=== PATIENT | female | born 1995 | race Caucasian/White ===

== ENCOUNTER 2023-06-13 10:35 | Outpatient (OUT) | payer OTHER, SELFPAY ==
[2023-06-13 11:08] LABS: Hematocrit 42.7 % (36.0-48.0); Immature Granulocytes Abs Auto 0.02 10^3/uL (0.00-0.03); Immature Granulocytes Pct Auto 0.3 % (0.0-0.5); Lymphocytes Absolute Auto 2.4 10^3/uL (1.2-3.8); Lymphocytes Percent Auto 34.6 % (20.5-60.0); Mean Corpuscular HGB Conc 35.1 g/dL (29.9-35.2); Mean Corpuscular Hemoglobin 30.2 pg (26.7-34.0); Mean Corpuscular Volume 85.9 fL (81.0-99.0); Mean Platelet Volume 9.7 fL (9.5-13.5); Monocytes Absolute Auto 0.3 10^3/uL (0.3-0.8); Monocytes Percent Auto 4.7 % (1.7-12.0); Neutrophils Absolute Auto 4.2 10^3/uL (1.4-6.5); Neutrophils Percent Auto 60.4 % (43.0-75.0); Platelet Count 326 10^3/uL (150-450); Red Blood Count 4.97 10^6/uL (4.20-5.40); Red Cell Distribution Width 12.6 % (11.0-15.0); White Blood Count 6.9 10^3/uL (4.0-11.0)
[2023-06-13 12:20] LABS: Estimated Average Glucose 85 mg/dL; Glycohemoglobin A1C 4.6 % (4.5-6.2)
[2023-06-13 12:24] LABS: Free T4 0.79 ng/dL (0.76-1.46)
[2023-06-13 12:29] LABS: HCG Quantitative <1 mIU/mL; Thyroid Stimulating Hormone 1.064 uIU/mL (0.358-3.740)
[2023-06-14 04:07] LABS: DHEA-Sulfate 74.5 ug/dL (84.8-378.0); FSH 3.7 mIU/mL (.); Luteinizing Hormone(LH) 7.3 mIU/mL (.)
[2023-06-18 00:07] LABS: DHEA, Serum 164 ng/dL (31-701)
== END 2023-06-13 10:36 | disposition home or self-care (01) ==
PROVIDERS: Visit Provider Obstetrics & Gynecology
DX: N92.6 Irregular menstruation, unspecified (principal); N76.1 Subacute and chronic vaginitis
CPT/HCPCS: 36415; 82626; 82627; 83001; 83002; 83036; 84439; 84443; 84702; 85025

== ENCOUNTER 2024-03-10 15:53 | Outpatient (OUT) | payer OTHER, SELFPAY ==
[2024-03-10 18:02] LABS: HCG Quantitative 154 mIU/mL
== END 2024-03-10 15:54 | disposition home or self-care (01) ==
LOC: LAB 15:59
PROVIDERS: Visit Provider Obstetrics & Gynecology
DX: N92.6 Irregular menstruation, unspecified (principal)
CPT/HCPCS: 36415; 84702

== ENCOUNTER 2024-03-12 16:16 | Outpatient (OUT) | payer OTHER, SELFPAY ==
--- OUTSIDE RECORDS SUMMARY | 2024-03-12 16:24 | XMS_ITS | CCD ---
Author Organization [facility] Care Team Providers Care Customer Services Coordinator Name Role Phone CHRIS DO Unavailable Unavailable CHRIS DO Unavailable Unavailable Yonley, Fiorella L Primary Care Provider Yogildardo Fiorella L Primary Care Provider YOGILDARDO FIORELLA L Primary Care Unavailable JEREMIAH MCNAIR Attending Unavailable Yonley DO, Fiorella L Primary Care Provider Yotimiey DO Fiorella L Primary Care Provider YOLANDA HUMPHREY Referring Unavailable YONLEY, FIORELLA L Primary Care Unavailable YONLEY, FIORELLA L Referring Unavailable YONLEY, FIORELLA L Primary Care Unavailable Mary Brown Attending Unavailable Mary Brown Admitting Unavailable Yonley, Fiorella Primary Care Unavailable DO Chris Kelley Attending Unavailable Cuco Oneal Attending Unavailable Wero Britton Attending Unavailable SHANNAN HERNANDEZ Attending Unavailable SHANNAN HERNANDEZ Attending Unavailable SHANNAN HERNANDEZ Attending Unavailable Allergies Allergy Classification Reported Allergen(s) Allergy Type Date of Onset Reaction(s) Facility (14 sources) Succinylcholine Drug Allergy 08-18-19 14 [facility] Phone: (5 sources) Anesthesia S-I-60 Propensity to adverse reactions to drug 08-20-19 [facility] [place] [facility] Other Propensity to adverse reactions 09-19-19 12 Other (See Comments) [facility] Phone: (7 sources) Propofol Drug Allergy 08-20-19 20 [facility] Phone: (2 sources) Seasonal allergy Propensity to adverse reactions to substance 09-19-19 12 Other (See Comments) [facility] Phone: (1 source) Succinylcholine Drug Allergy 01-14-20 [facility] Repository (1 source) Grass; Translations: [Grass] Propensity to adverse reactions (disorder) [facility] Repository (1 source) House dust mite (Bt) RAST; Translations: [House dust mite (Bt) RAST] Propensity to adverse reactions (disorder) [facility] Repository NEGATED: Highlighted row has been ruled out! (1 source) Other Propensity to adverse reactions 09-19-19 12 Other (See Comments) [facility] Phone: Medications Current Medications Medication Drug Class(es) Dates Sig (Normalized) Sig (Original) acetaminophen 500 mg oral tablet (1 source) Start: 05-27-2021 take 1000 mg by mouth every six hours Acetaminophen Active 1000 MG PO Q6H May 27, 2021 1:00am acetaminophen 250 mg / aspirin 250 mg / caffeine 65 mg oral tablet (12 sources) Platelet Aggregation Inhibitor, Nonsteroidal Anti-inflammatory Drug, Central Nervous System Stimulant, Methylxanthine Start: 08-20-2019 take 2 tablets by mouth two times weekly as needed for headache, then take 2 tablets by mouth every twenty-four hours as needed for headache, then take 2 tablets by mouth once daily as needed for headache aspirin-acetaminop hen-caffeine (EXCEDRIN MIGRAINE) 250-250-65 MG per tablet Take 2 tablets by mouth as needed for Headaches (severe headaches) Take 2 tablets once every 24 hours (maximum: 2 tablets/day). Note: Limit use to no more than 2 days per week 28 tablet 2 08/20/2019 Active diclofenac sodium 0.01 mg/mg topical gel (3 sources) Nonsteroidal Anti-inflammatory Drug diclofenac sodium 1 % GEL Apply 2 g topically 2 times daily 0 Active docusate sodium 100 mg oral capsule (1 source) Start: 05-27-2021 take 1 capsule by mouth once daily at bedtime Docusate Sodium (Dok) 100 mg Capsule Active 100 MG PO Daily at bedtime May 27, 2021 1:00am ergocalciferol 11345 unt oral capsule (2 sources) Provitamin D2 Compound Start: 08-25-2019 End: 11-11-2019 take 1 capsule by mouth every week vitamin D (ERGOCALCIFEROL) 1.25 MG (33624 UT) CAPS capsule Take 1 capsule by mouth once a week for 12 doses 12 capsule 0 08/25/2019 11/11/2019 Active ferrous sulfate 325 mg oral tablet (1 source) Start: 05-27-2021 take 325 mg by mouth once daily Ferrous Sulfate Active 325 MG PO Daily May 27, 2021 1:00am ibuprofen 600 mg oral tablet (1 source) Nonsteroidal Anti-inflammatory Drug Start: 05-27-2021 take 600 mg by mouth every six hours Ibuprofen Active 600 MG PO Q6H May 27, 2021 1:00am naproxen 500 mg oral tablet (7 sources) Nonsteroidal Anti-inflammatory Drug Start: 07-10-2019 take 1 tablet by mouth twice daily naproxen (NAPROSYN) 500 MG tablet Take 1 tablet by mouth 2 times daily 40 tablet 0 07/10/2019 Active norethindrone 0.35 mg oral tablet (6 sources) Start: 04-13-2022 take 1 tablet by mouth once daily JENCYCLA 0.35 MG tablet take 1 tablet by mouth once daily 0 04/13/2022 Active Start: 12-22-2019 take 1 tablet by bernadette th once daily norethindrone (ORTHO MICRONOR) 0.35 MG tablet Take 1 tablet by mouth daily 84 tablet 1 12/22/2019 Active Start: 07-29-2019 take 1 tablet by bernadette th once daily norethindrone (ORTHO MICRONOR) 0.35 MG tablet Take 1 tablet by mouth daily 84 tablet 1 07/29/2019 Active pimecrolimus 10 mg/ml topical cream (5 sources) Calcineurin Inhibitor Immunosuppressant Start: 09-17-2019 pimecrolimus (ELIDEL) 1 % cream apply to LIPS DAILY UNTIL CLEAR 0 09/17/2019 Active 772-Atch-Xgetg-Omeg a3 (One-A-Day -1) 27 mg iron- 800 mcg-235 mg capsule (1 source) Start: 01-13-2021 678-Ojqk-Fomjr-Om ega3 (One-A-Day -1) 27 mg iron- 800 mcg-235 mg capsule Active 1 CAP PO Daily January 13, 2021 12:00am Vit-Fe Kfdmxvs-ME-UMA ( VITAMIN/MIN +DHA) 27-0.8-200 MG CAPS (7 sources) Start: 09-26-2020 take 1 tablet by mouth once daily Vit-Fe Hbpeoxy-JP-LLI ( VITAMIN/MIN +DHA) 27-0.8-200 MG CAPS Indications: Pelvic pain in female , Less than 8 weeks gestation of Take 1 tablet by mouth daily 30 capsule 2 09/26/2020 Active 24 hr propranolol hydrochloride 120 mg extended release oral capsule (7 sources) beta-Adrenergic Juan Start: 12-30-2019 take 1 capsule by mouth once daily propranolol (INDERAL LA) 120 MG extended release capsule Take 1 capsule by mouth daily 90 capsule 1 12/30/2019 Active Start: 08-26-2019 End: 01-13-2021 take 40 mg by mouth once daily Propranolol Discontinue d 40 MG PO Daily August 26, 2019 1:00am January 13, 2021 12:14pm Start: 07-29-2019 [facility] daily propranolol (INDERAL LA) 120 MG extended release capsule Take 1 capsule by mouth daily 30 capsule 3 07/29/2019 Active Start: 07-20-2019 End: 07-29-2019 take 1 tablet by mouth three times daily propranolol (INDERAL) 40 MG tablet Take 1 tablet by mouth 3 times daily 90 tablet 5 07/20/2019 07/29/2019 Discontinued valproate (DEPACON) 300 mg in dextrose 5 % 100 mL IVPB (1 source) Start: 07-10-2019 valproate (DEPACON) 300 mg in dextrose 5 % 100 mL IVPB 24 hr venlafaxine 37.5 mg extended release oral capsule (8 sources) Serotonin and Norepinephrine Reuptake Inhibitor Start: 02-16-2020 take 1 capsule by mouth once daily venlafaxine (EFFEXOR XR) 37.5 MG extended release capsule Take 1 capsule by mouth daily 30 capsule 0 02/16/2020 Active Start: 05-18-2019 End: 01-13-2021 venlafaxine (EFFEXOR XR) 75 MG extended release capsule TAKE 1 CAPSULE DAILY 90 capsule 0 11/15/2019 Active Completed/Discontinued Medications Medication Drug Class(es) Dates Sig (Normalized) Sig (Original) drospirenone 3 mg / ethinyl estradiol 0.02 mg oral tablet (2 sources) Progestin, Estrogen Start: 06-16-2019 End: 07-29-2019 drospirenone-ethin yl estradiol (KESHIA) 3-0.02 MG per tablet TAKE 1 TABLET DAILY 84 tablet 1 06/16/2019 07/29/2019 Discontinued (Therapy completed) eletriptan 20 mg oral tablet (2 sources) Serotonin-1b and Serotonin-1d Receptor Agonist Start: 04-23-2019 End: 07-29-2019 take 1 tablet by mouth once as needed eletriptan (RELPAX) 20 MG tablet Take 1 tablet by mouth once as needed for Migraine 12 tablet 3 04/23/2019 07/29/2019 Discontinued (LIST CLEANUP) gadoteridol (PROHANCE) injection 15 mL (1 source) Start: 07-29-2019 End: 07-29-2019 gadoteridol (PROHANCE) injection 15 mL Iopamidol (1 source) Radiographic Contrast Agent Start: 07-10-2019 End: 07-10-2019 iopamidol (ISOVUE-370) 76 % injection 100 mL labetalol hydrochloride 200 mg oral tablet (1 source) beta-Adrenergic Juan Start: 05-24-2021 End: 05-27-2021 take 200 mg by mouth three times daily Labetalol Discontinued 200 MG PO Three times daily May 24, 2021 1:00am May 27, 2021 2:31pm 50 ml magnesium sulfate 40 mg/ml injection (1 source) Start: 07-10-2019 End: 07-10-2019 magnesium sulfate 2 g in 50 mL IVPB premix 2 ml ondansetron 2 mg/ml injection (5 sources) Serotonin-3 Receptor Antagonist Start: 07-10-2019 End: 07-10-2019 ondansetron (ZOFRAN) injection 4 mg Start: 07-10-2019 take 1 tablet by bernadette th every eight hours as needed for nausea ondansetron (ZOFRAN ODT) 4 MG disintegrating tablet Take 1 tablet by mouth every 8 hours as needed for Nausea or Vomiting 10 tablet 0 07/10/2019 Active microencapsulated potassium chloride 15 meq extended release oral tablet (1 source) Start: 05-26-2018 End: 07-10-2019 potassium chloride (KLOR-CON M) 15 MEQ extended release tablet Indications: Hypokalemia Take 2 tablets by mouth 2 times daily 120 tablet 0 05/26/2018 07/10/2019 Discontinued (LIST CLEANUP) 50 ml sodium chloride 9 mg/m l injection (2 sources) Start: 09-26-2020 End: 09-26-2020 0.9 % sodium chloride bolus Start: 07-10-2019 End: 07-10-2019 0.9 % sodium chloride bolus Problems Active Problems Problem Classification Problem Date Documented Date Episodic/Chronic Abdominal pain (5 sources) Lower abdominal pain; Translations: [Abdominal pain in ] Episodic Allergic reactions (2 sources) Urticaria; Translations: [Urticaria, unspecified] Onset: 07-16-2022 Episodic Asthma (14 sources) Exercise-induced asthma; Translations: [Exercise induced bronchospasm] Onset: 06-11-2011 04-30-2017 Chronic Headache; including migraine (16 sources) Migraine; Translations: [Migraine with aura] Onset: 09-24-2011 04-30-2017 Chronic Malaise and fatigue (14 sources) Fatigue; Translations: [Physical deconditioning] Onset: 10-09-2011 Resolved: 10-27-2019 10-19-2019 Episodic Menstrual disorders (1 source) Amenorrhea; Translations: [Amenorrhea] Chronic Mood disorders (14 sources) Depressive disorder; Translations: [Depression] Onset: 09-24-2011 06-02-2018 Chronic Nutritional deficiencies (1 source) Vitamin D deficiency; Translations: [Vitamin D deficiency] Chronic Osteoarthritis (13 sources) Osteoarthritis; Translations: [Unspecified osteoarthritis, unspecified site] Onset: 10-19-2019 Resolved: 10-27-2019 10-19-2019 Chronic Other circulatory disease (13 sources) Erythromelalgia; Translations: [Erythromelalgia] Onset: 10-19-2019 Resolved: 10-27-2019 10-19-2019 Chronic Other and delivery including normal (4 sources) First trimester ; Translations: [] 05-26-2021 Episodic Residual codes; unclassified (2 sources) Other general symptoms and signs; Translations: [Suspected COVID-19 virus infection] Episodic Thyroid disorders (1 source) Iodine-deficiency related diffuse (endemic) goiter; Translations: [Iodine-deficiency related diffuse (endemic) goiter] Onset: 07-23-2022 Chronic Unclassified (1 source) Patient encounter status; Translations: [Screening for cardiovascular condition] Unclassified (1 source) Z39.1 - Encounter for care and examination of lactating mother; Translations: [Z39.1 - Encounter for care and examination of lactating mother] Onset: 05-28-2021 Viral infection (1 source) Viral disease; Translations: [Viral illness] Episodic Past or Other Problems Problem Classification Problem Date Documented Da te Episodic/Chronic Blindness and vision defects (1 source) Blurring of visual image Episodic Headache; including migraine (20 sources) Headache; Translations: [Chronic headache disorder] Onset: 08-06-2008 Resolved: 05-15-2017 05-15-2017 Episodic Nonmalignant breast conditions (3 sources) Mastodynia of left breast; Translations: [Mastodynia] Onset: 01-20-2013 Resolved: 05-15-2017 05-15-2017 Episodic Nonmalignant breast conditions (11 sources) Mastodynia of left breast; Translations: [Pain of left breast] Onset: 01-20-2013 Resolved: 05-15-2017 05-15-2017 Other connective tissue disease (2 sources) Pain in unspecified hand; Translations: [Pain in unspecified hand] Onset: 05-07-2017 Episodic Other gastrointestinal disorders (14 sources) Irritable bowel syndrome; Translations: [Mixed irritable bowel syndrome] Onset: 01-01-2013 Resolved: 05-15-2017 05-15-2017 Chronic Other nervous system disorders (1 source) Numbness Episodic Other skin disorders (14 sources) Mass of soft tissue; Translations: [Other specified soft tissue disorders] Onset: 09-01-2013 Resolved: 05-15-2017 05-15-2017 Episodic Other skin disorders (13 sources) Mass of axilla; Translations: [Lump of axilla, left] Onset: 01-20-2013 Resolved: 05-15-2017 05-15-2017 Episodic Other skin disorders (1 source) Localized swelling, mass and lump, left upper limb; Translations: [Localized superficial swelling, mass, or lump] Onset: 01-20-2013 Resolved: 05-15-2017 05-15-2017 Episodic Residual codes; unclassified (13 sources) Physical deconditioning; Translations: [Physical deconditioning] Onset: 10-09-2011 Resolved: 05-15-2017 05-15-2017 Episodic Results Test Name Value Interpretation Reference Range Facility Family Medicine Office/Clini c Noteon 11-27-2022 Family Medicine Office/Clinic Note Chief Complaint EST sinus infection HPI Staff 27 year old female presents with possible sinus infection symptoms have been present for? been about a week and a half and keeps getting worse fever?no subjective fever? chills?yes Rigors? body aches?yes runny nose?yes sore throat?yes new olfactory and taste disorder? headache?yes fatigue?yes cough?ye wheezing?no SOB?yes chest pain/tightness?no nausea or vomiting?no abdominal pain?no diarrhea?yes ear pain/pressure?no no smoke or vape History of Present Illness I have reviewed and verified the staff HPI to be accurate for this encounter. Portions of this record have been created with voice recognition software. Occasional wrong-word or ?bjokh-e-kwym? substitutions may have occurred due to the inherent limitations of voice recognition software. 27 yo female presents today with cc of nasal congestion rhinorrhea dry cough present times a week and a half. Denies fevers states chills no body aches sore throat initially which has resolved headaches with nasal congestion believes she has a sinus infection today. was sick with similar symptoms however he is better and she is not. She has no other concerns at this time. Review of Systems PHQ Score Initial Depression Screen Score: 0 Physical Exam Vitals & Measurements T: 37 ?C(Oral) HR: 88(Peripheral) BP: 118/84 SpO2: 99% HT: 67 in HT: 170 cm WT: 66 kg WT: 145.2 lb BMI: 22.84 General: Well developed, well nourished, in no acute distress Eyes: not assessed Ears: No deformity or lesion of external ear. Canals and TM appear normal bilaterally. TM?s intact, not inflamed, with normal light reflex. Hearing grossly normal to conversational speech Nose: moderate nasal mucosa inflammation and edema sinus pressure with palpation of frontal maxillary sinuses. Mouth: Mucous membranes moist. Normal oropharynx, and posterior pharynx without lesions or exudates. Tongue normal Neck: no adenopathy Lungs: clear to auscultation throughout, no wheezing, no rales. No respiratory distress Cardio: regular rate and rhythm, no murmur Abdomen: not assessed Musculoskeletal: not assessed Extremity: not assessed Neurologic: not assessed Skin: No rashes, ulcerations, or suspicious lesions Mental Status: Alert and oriented x3. Normal mood and affect Assessment/Plan 1. Sinusitis (J32.9: Chronic sinusitis, unspecified) Given duration of symptoms and exam, will cover for sinusitis with augmentin. Finish entire course. Fluids/rest, PRN tylenol/ibuprofen for pain and/or fever encouraged. May use sudafed or mucinex for symptomatic tx. Follow up with PCP if not improving over next 5-7 days with ATB or significantly worsening. Patient and/or parent verbalized understanding of treatment plan. Ordered: amoxicillin-clavulanat e, 1 tab(s), Oral, q8hr for 7 day(s), 21 tab(s), Refill(s) 0, [id number], 170, cm, 11/27/22 17:29:00 EDT, Height/Length Dosing, 66, kg, 11/27/22 17:29:00 EDT, Weight Dosing Follow-up With When Contact Information [place] [address]- Additional Instructions: Patient Education Sinusitis, Adult Problem List/Past Medical History Ongoing BMI 26.0-26.9,adult JAMES - Generalized anxiety disorder Non-smoker Post-traumatic stress disorder Historical ASTHMA Chronic headache disorder Chronic migraine without aura frequent urination Lipoma Procedure/Surgical History adnoidectomy, section, fatty tumor removed from foot, Tonsillectomy. Medications Augmentin 500 mg-125 mg Tab, 1 tab(s), Oral, q8hr Allergies Grass (skin irritation) House dust mite (Bt) RAST Social History Alcohol - Low Risk, 05/17/2018 Current, Wine, Liquor, 1-2 times per year, Previous treatment: None. Alcohol use interferes with work or home: No. Drinks more than intended: No. Others hurt by drinking: No. Ready to change: No. 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 Previous employment/school: [employer]. Activity level: Occasional physical work. Highest education level: Some college. Operates hazardous equipment: No. Workplace hazards: Hazardous materials., 11/17/2018 Exercise Exercise duration: 60. Exercise frequency: 3-4 times/week. Exercise type: Walking., 11/17/2018 Home/Environment Lives with Spouse. Living situation: Home/Independent. Alcohol abuse in household: No. Substance abuse in household: No. Smoker in household: No. Injuries/Abuse/Neglect in household: No. Feels unsafe at home: No. Safe place to go: No. Agency(s)/Others notified: No., 11/17/2018 Nutrition/Health Regular, Caffeine intake amount: Pop- 2-3. Diet restrictions: None. Vitamin/Supplements: none. Wants to lose weight: No. Sleeping concerns: Yes., 11/17/2018 Sexual Straight or heterosexual Sexual orientation:. Identifies as female Gender Identity:. Sexually active: Yes. Sexually active at age 19 Years. Num (more content not included)... Normal [facility] Comment on above: Result Comment: Elec tronically Signed By: Tobi PARRY, Wero Santiago\.br\Date and Time Signed: 11/27/22 17:39 EDT Patient Educationon 11-28-19 Patient Education Infectious Disease Sinusitis, Adult Sinusitis is inflammation of your sinuses. Sinuses are hollow spaces in the bones around your face. Your sinuses are located: ? Around your eyes. ? In the middle of your forehead. ? Behind your nose. ? In your cheekbones. Mucus normally drains out of your sinuses. When your nasal tissues become inflamed or swollen, mucus can become trapped or blocked. This allows bacteria, viruses, and fungi to grow, which leads to infection. Most infections of the sinuses are caused by a virus. Sinusitis can develop quickly. It can last for up to 4 weeks (acute) or for more than 12 weeks (chronic). Sinusitis often develops after a cold. What are the causes? This condition is caused by anything that creates swelling in the sinuses or stops mucus from draining. This includes: ? Allergies. ? Asthma. ? Infection from bacteria or viruses. ? Deformities or blockages in your nose or sinuses. ? Abnormal growths in the nose (nasal polyps). ? Pollutants, such as chemicals or irritants in the air. ? Infection from fungi (rare). What increases the risk? You are more likely to develop this condition if you: ? Have a weak body defense system (immune system). ? Do a lot of swimming or diving. ? Overuse nasal sprays. ? Smoke. What are the signs or symptoms? The main symptoms of this condition are pain and a feeling of pressure around the affected sinuses. Other symptoms include: ? Stuffy nose or congestion. ? Thick drainage from your nose. ? Swelling and warmth over the affected sinuses. ? Headache. ? Upper toothache. ? A cough that may get worse at night. ? Extra mucus that collects in the throat or the back of the nose (postnasal drip). ? Decreased sense of smell and taste. ? Fatigue. ? A fever. ? Sore throat. ? Bad breath. How is this diagnosed? This condition is diagnosed based on: ? Your symptoms. ? Your medical history. ? A physical exam. ? Tests to find out if your condition is acute or chronic. This may include: ? Checking your nose for nasal polyps. ? Viewing your sinuses using a device that has a light (endoscope). ? Testing for allergies or bacteria. ? Imaging tests, such as an MRI or CT scan. In rare cases, a bone biopsy may be done to rule out more serious types of fungal sinus disease. How is this treated? Treatment for sinusitis depends on the cause and whether your condition is chronic or acute. ? If caused by a virus, your symptoms should go away on their own within 10 days. You may be given medicines to relieve symptoms. They include: ? Medicines that shrink swollen nasal passages (topical intranasal decongestants). ? Medicines that treat allergies (antihistamines). ? A spray that eases inflammation of the nostrils (topical intranasal corticosteroids). ? Rinses that help get rid of thick mucus in your nose (nasal saline washes). ? If caused by bacteria, your health care provider may recommend waiting to see if your symptoms improve. Most bacterial infections will get better without antibiotic medicine. You may be given antibiotics if you have: ? A severe infection. ? A weak immune system. ? If caused by narrow nasal passages or nasal polyps, you may need to have surgery. Follow these instructions at home: Medicines ? Take, use, or apply wmcl-xlr-[id number] and prescription medicines only as told by your health care provider. These may include nasal sprays. ? If you were prescribed an antibiotic medicine, take it as told by your health care provider. Do not stop taking the antibiotic even if you start to feel better. Hydrate and humidify ? Drink enough fluid to keep your urine pale yellow. Staying hydrated will help to thin your mucus. ? Use a cool mist humidifier to keep the humidity level in your home above 50%. ? Inhale steam for 10?15 minutes, 3?4 times a day, or as told by your health care provider. You can do this in the bathroom while a hot shower is running. ? Limit your exposure to cool or dry air. Rest ? Rest as much as possible. ? Sleep with your head raised (elevated). ? Make sure you get enough sleep each night. General instructions ? Apply a warm, moist washcloth to your face 3?4 times a day or as told by your health care provider. This will help with discomfort. ? Wash your hands often with soap and water to reduce your exposure to germs. If soap and water are not available, use hand plastic eye technician. ? Do not smoke. Avoid being around people who are smoking (secondhand smoke). ? Keep all follow-up visits as told by your health care provider. This is important. Contact a health care provider if: ? You have a fever. ? Your symptoms get worse. ? Your symptoms do not improve within 10 days. Get help right away if: ? You have a severe headache. ? You have persistent vomiting. ? You have severe pain or swell (more content not included)... Normal [facility] CBC with Diffon 07-23-2022 Abs. Basophil 0.00 k/uL Normal 0.0-0.2 [facility] Comment on above: Performed By: #### C P, TSHX, CDP #### [facility] [address] [place] [address] Animal Attendant: Cole Magaña MD Abs.Neutrophil (Seg) 2.90 k/uL Normal 2.5-7.0 [facility] Comment on above: Performed By: #### C P, TSHX, CDP #### [facility] [address] [place] [address] Animal Attendant: Cole Magaña MD Auto Diff Performed YES Normal [facility] Comment on above: Performed By: #### C P, TSHX, CDP #### [facility] [address], [place] [id number] Animal Attendant: Cole Magaña MD Basophils/100 WBC (Bld) 0 % Normal 0-2 [facility] Comment on above: Performed By: #### C P, TSHX, CDP #### [facility] [address] [place] [id number] Animal Attendant: Cole Magaña MD Eosinophils (Bld) [#/Vol] 0.00 10*3/uL Normal 0.0-0.4 [facility] Comment on above: Performed By: #### C P, TSHX, CDP #### [facility] [address] [place] [address] Animal Attendant: Cole Magaña MD Eosinophils/100 WBC (Bld) 0 % Normal 0-5 [facility] Comment on above: Performed By: #### C P, TSHX, CDP #### [facility] [address] [phone] Animal Attendant: oCle Magaña MD Erythrocyte distribution width (RBC) [Ratio] 13.7 % Normal 12.1-15.2 [facility] Comment on above: Performed By: #### C P, TSHX, CDP #### [facility] [address] [phone] Animal Attendant: Cole Magaña MD Hematocrit (Bld) [Volume fraction] 40.0 % Normal 36-46 [facility] Comment on above: Performed By: #### C P, TSHX, CDP #### [facility] [address] [phone] Animal Attendant: Cole Magaña MD Hemoglobin (Bld) [Mass/Vol] 13.4 g/dL Normal 12.0-16.0 [facility] Comment on above: Performed By: #### C P, TSHX, CDP #### [facility] [address] [phone] Animal Attendant: Cole Magaña MD Lymphocytes (Bld) [#/Vol] 2.30 10*3/uL Normal 1.0-4.8 [facility] Comment on above: Performed By: #### C P, TSHX, CDP #### [facility] [address] [place], [place] [phone] Animal Attendant: Cole Magaña MD Lymphocytes/100 WBC (Bld) 42 % High 15-40 [facility] Comment on above: Performed By: #### C P, TSHX, CDP #### [facility] [address] [place] [address] Animal Attendant: Cole Magaña MD MCH (RBC) [Entitic mass] 29.5 pg Normal 26-34 [facility] Comment on above: Performed By: #### C P, TSHX, CDP #### [facility] [address] [phone] Animal Attendant: Cole Magaña MD MCHC (RBC) [Mass/Vol] 33.6 g/dL Normal 31-37 [facility] Comment on above: Performed By: #### C P, TSHX, CDP #### [facility] [address] [place] [address] Animal Attendant: Cole Magaña MD MCV (RBC) [Entitic vol] 88.0 fL Normal 80-100 [facility] Comment on above: Performed By: #### C P, TSHX, CDP #### [facility] [address] [place] [address] Animal Attendant: Cole Magaña MD Monocytes (Bld) [#/Vol] 0.30 10*3/uL Normal 0.0-1.0 [facility] Comment on above: Performed By: #### C P, TSHX, CDP #### [facility] [address] [place] [address] Animal Attendant: Cole Magaña MD Monocytes/100 WBC (Bld) 5 % Normal 4-8 [facility] Comment on above: Performed By: #### C P, TSHX, CDP #### [facility] [address] [place] [address] Animal Attendant: Cole Magaña MD Neutrophil (Seg) 53 % Normal 47-75 [facility] Comment on above: Performed By: #### C P, TSHX, CDP #### [facility] [address] [place] [address] Animal Attendant: Cole Magaña MD Platelets (Bld) [#/Vol] 330 10*3/uL Normal 140-450 [facility] Comment on above: Performed By: #### C P, TSHX, CDP #### [facility] [address] [place] [address] Animal Attendant: Cole Magaña MD RBC (Bld) [#/Vol] 4.55 10*6/uL Normal 4.0-5.2 [facility] Comment on above: Performed By: #### C P, TSHX, CDP #### [facility] [address] [place] [address] Animal Attendant: Cole Magaña MD WBC (Bld) [#/Vol] 5.6 10*3/uL Normal 3.5-11.0 [facility] Comment on above: Performed By: #### C P, TSHX, CDP #### [facility] [address] [place] [address] Animal Attendant: Cole Magaña MD Comp Metabolic Profon 2022 Albumin [Mass/Vol] 4.6 g/dL Normal 3.5-5.2 [facility] Comment on above: Performed By: #### C P, TSHX, CDP #### [facility] [address] [place], [place] [phone] Animal Attendant: Cole Magaña MD Alkaline Phos 69 U/L Normal 35-104 [facility] Comment on above: Performed By: #### C P, TSHX, CDP #### [facility] [address] [place], [place] [phone] Animal Attendant: Cole Magaña MD ALT [Catalytic activity/Vol] 11 U/L Normal 5-33 [facility] Comment on above: Performed By: #### C P, TSHX, CDP #### [facility] [address] [place], [place] [phone] Animal Attendant: Cole Magaña MD Anion gap [Moles/Vol] 7 mmol/L Low 9-17 [facility] Comment on above: Performed By: #### C P, TSHX, CDP #### [facility] [address] [place], [place] [phone] Animal Attendant: Cole Magaña MD AST [Catalytic activity/Vol] 13 U/L Normal <32 [facility] Comment on above: Performed By: #### C P, TSHX, CDP #### [facility] [address] [place], [place] [phone] Animal Attendant: Cole Magaña MD Bilirubin [Mass/Vol] 0.8 mg/dL Normal 0.3-1.2 [facility] Comment on above: Performed By: #### C P, TSHX, CDP #### [facility] [address] [place], [place] [phone] Animal Attendant: Cole Magaña MD BUN/CRE Ratio 23 High 9-20 [facility] Comment on above: Performed By: #### C P, TSHX, CDP #### [facility] [address] [place], [place] [phone] Animal Attendant: Cole Magaña MD Calcium [Mass/Vol] 9.4 mg/dL Normal 8.6-10.4 [facility] Comment on above: Performed By: #### C P, TSHX, CDP #### [facility] [address] [place], [place] [phone] Animal Attendant: Cole Magaña MD Chloride [Moles/Vol] 109 mmol/L High 98-107 [facility] Comment on above: Performed By: #### C P, TSHX, CDP #### [facility] [address] [place], [place] [phone] Animal Attendant: Cole Magaña MD CO2 [Moles/Vol] 28 mmol/L Normal 20-31 [facility] Comment on above: Performed By: #### C P, TSHX, CDP #### [facility] [address] [place] [address] Animal Attendant: Cole Magaña MD Creatinine [Mass/Vol] 0.48 mg/dL Low 0.50-0.90 [facility] Comment on above: Performed By: #### C P, TSHX, CDP #### [facility] [address] [place], [place] [phone] Animal Attendant: Cole Magaña MD GFR/1.73 sq M.predicted among non-blacks MDRD (S/P/Bld) [Vol rate/Area] mL/min/{1.73_m2} Normal >60 [facility] Comment on above: Result Comment: Effective Apr 09, 2022 These results are not intended for use in patients <18 years of age. eGFR results are calculated without a race factor using the 2020 CKD-EPI equation. Careful clinical correlation is recommended, particularly when comparing to results calculated using previous equations. The CKD-EPI equation is less accurate in patients with extremes of muscle mass, extra-renal metabolism of creatine, excessive creatine ingestion, or following therapy that affects renal tubular secretion. Performed By: #### C P, TSHX, CDP #### [facility] [address] [place], [place] [phone] Animal Attendant: Cole Magaña MD Glucose [Mass/Vol] 88 mg/dL Normal 70-99 [facility] Comment on above: Performed By: #### C P, TSHX, CDP #### [facility] [address] [phone] Animal Attendant: Cole Magaña MD Potassium [Moles/Vol] 4.0 mmol/L Normal 3.7-5.3 [facility] Comment on above: Performed By: #### C P, TSHX, CDP #### [facility] [address] [place] [address] Animal Attendant: Cole Magaña MD Protein [Mass/Vol] 7.5 g/dL Normal 6.4-8.3 [facility] Comment on above: Performed By: #### C P, TSHX, CDP #### [facility] [address] [place] [address] Animal Attendant: Cole Magaña MD Sodium [Moles/Vol] 144 mmol/L Normal 135-144 [facility] Comment on above: Performed By: #### C P, TSHX, CDP #### [facility] [address] [phone] Animal Attendant: Cole Magaña MD Urea nitrogen [Mass/Vol] 11 mg/dL Normal 6-20 [facility] Comment on above: Performed By: #### C P, TSHX, CDP #### [facility] [address] [place] [address] Animal Attendant: Cole Magaña MD TSH w/reflex to FT4on 2022 Thyroid Stim. Horm. 0.93 uIU/mL Normal 0.30-5.00 [facility] Comment on above: Performed By: #### C P, TSHX, CDP #### [facility] [address] [phone] Animal Attendant: Cole Magaña MD Food, Comprehensiveon 2022 Barley IgE <0.10 Normal 0.00-0.34 [facility] Comment on above: Performed By: #### I FOODC #### [address] [address] Animal Attendant: Gurpreet Wei MD Beef IgE <0.10 Normal 0.00-0.34 [facility] Comment on above: Performed By: #### I FOODC #### [address] [address] Animal Attendant: Guprreet Wei MD Cabbage IgE <0.10 Normal 0.00-0.34 [facility] Comment on above: Performed By: #### I FOODC #### [address] [address] Animal Attendant: Gurpreet Wei MD Carrot IgE <0.10 Normal 0.00-0.34 [facility] Comment on above: Performed By: #### I FOODC #### [address] [address] Animal Attendant: Gurpreet Wei MD Chicken IgE <0.10 Normal 0.00-0.34 [facility] Comment on above: Performed By: #### I FOODC #### [address] [address] Animal Attendant: Gurpreet Wei MD Codfish IgE <0.10 Normal 0.00-0.34 [facility] Comment on above: Performed By: #### I FOODC #### [address] [address] Animal Attendant: Gurpreet Wei MD [place] IgE <0.10 Normal 0.00-0.34 [facility] Comment on above: Performed By: #### I FOODC #### [address] [address] Animal Attendant: Gurpreet Wei MD Crab IgE <0.10 Normal 0.00-0.34 [facility] Comment on above: Performed By: #### I FOODC #### [address] [address] Animal Attendant: Gurpreet Wei MD Egg White IgE <0.10 Normal 0.00-0.34 [facility] Comment on above: Performed By: #### I FOODC #### [address] [address] Animal Attendant: Gurpreet Wei MD Grape IgE <0.10 Normal 0.00-0.34 [facility] Comment on above: Performed By: #### I FOODC #### [address] [address] Animal Attendant: Gurpreet Wei MD Lettuce IgE <0.10 Normal 0.00-0.34 [facility] Comment on above: Performed By: #### I FOODC #### [address] [address] Animal Attendant: Gurpreet Wei MD Milk (Cow) IgE <0.10 Normal 0.00-0.34 [facility] Comment on above: Performed By: #### I FOODC #### [address] [address] Animal Attendant: Gurpreet Wei MD [place] Puri IgE <0.10 Normal 0.00-0.34 [facility] Comment on above: Performed By: #### I FOODC #### [address] [address] Animal Attendant: Gurpreet Wei MD Oat IgE <0.10 Normal 0.00-0.34 [facility] Comment on above: Performed By: #### I FOODC #### [address] [address] Animal Attendant: Gurpreet Wei MD Love IgE <0.10 Normal 0.00-0.34 [facility] Comment on above: Performed By: #### I FOODC #### [address] [address] Animal Attendant: Gurpreet Wei MD Peanut IgE <0.10 Normal 0.00-0.34 [facility] Comment on above: Performed By: #### I FOODC #### [address] [address] Animal Attendant: Gurpreet Wei MD Pepper C. annuum IgE <0.10 Normal 0.00-0.34 [facility] Comment on above: Performed By: #### I FOODC #### [address] [address] Animal Attendant: Gurpreet Wei MD Pork IgE <0.10 Normal 0.00-0.34 [facility] Comment on above: Performed By: #### I FOODC #### [address] [address] Animal Attendant: Gurpreet Wei MD Potato IgE <0.10 Normal 0.00-0.34 [facility] Comment on above: Performed By: #### I FOODC #### [address] [address] Animal Attendant: Gurpreet Wei MD Rice IgE <0.10 Normal 0.00-0.34 [facility] Comment on above: Performed By: #### I FOODC #### [address] [address] Animal Attendant: Gurpreet Wei MD [place] IgE <0.10 Normal 0.00-0.34 [facility] Comment on above: Performed By: #### I FOODC #### [address] [address] Animal Attendant: Gurpreet Wei MD Shrimp IgE <0.10 Normal 0.00-0.34 [facility] Comment on above: Performed By: #### I FOODC #### [facility] [employer] [address] [place] [phone] Animal Attendant: Gurpreet Wei MD Soybean IgE <0.10 Normal 0.00-0.34 [facility] Comment on above: Performed By: #### I FOODC #### [employer] [address] [place] [phone] Animal Attendant: Gurpreet Wei MD Tomato IgE <0.10 Normal 0.00-0.34 [facility] Comment on above: Performed By: #### I FOODC #### [employer] [address] [place] [phone] Animal Attendant: Gurpreet Wei MD Tuna IgE <0.10 Normal 0.00-0.34 [facility] Comment on above: Performed By: #### I FOODC #### [facility] [address] [phone] Animal Attendant: Gurpreet Wei MD Wheat IgE <0.10 Normal 0.00-0.34 [facility] Comment on above: Result Comment: ALLERGEN, INTERP, IMMUNOCAP SCORE IGE <0.10 Class 0 No significant level detected 0.10-0.34 Class 0/1 Clinical relevance undertermined 0.35 to 0.70 Class 1 Low 0.71 to 3.50 Class 2 Moderate 3.51 to 17.50 Class 3 High 17.51 to 50.00 Class 4 Very High 50.01 to 100.00 Class 5 Very High >100.00 Class 6 Very High units: kU/L Increasing ranges are reflective of increasing concentrations of allergen specific IgE. These concentrations may not correlate with the degree of clinical response or skin testing results when challenged with a specific allergen. The correlation of allergy laboratory results with the clinical history and in vivo reactivity to specific allergens is essential. A negative test may not rule out clinical allergy or even anaphylaxis. Performed By: #### I FOODC #### [employer] [address] [place] [phone] Animal Attendant: Gurpreet Wei MD Immunoglobulin E 4 IU/mL Normal <101 [facility] Comment on above: Performed By: #### I FOODC #### [employer] [address] [place] [address] Animal Attendant: MD Warren Almazan 03-29-2021 [facility] Telephone (OBGYF2) CHAPIS EVANS ([id number]) 1995 F Date Time Provider Department 03/29/21 OB [facility] OBGYF2 During your visit today, we recorded the following information about you: Latonya Mchugh RN 03/29/2021 9:48 AM Signed NIPT results received from Dr. Patricia Theodore' office. Results in scanned docs. Latonya Mchugh RN [facility] Allergies As of Date: 03/29/2021 Noted Allergy Reaction DUST 09/19/2011 16 - Unknown GRASS POLLEN 09/19/2011 16 - Unknown Date Reviewed: 10/12/2011 Reviewed by: Korey Love - Fully Assessed Reason for Visit: NIPT results [Other] Prescriptions as of 03/29/2021 - hydrocortisone 0.5 % TOPICAL cream Apply to affected area twice daily. take for 4 more days or until rash has resolved. - acetaminophen 500 mg ORAL tablet Take 2 tablets by mouth every 4 hours as needed for Pain. - levalbuterol tartrate HFA 45 mcg/actuation INHALATION inhaler Inhale 2 Puffs as instructed every 4 hours as needed (coughing or wheezing). - mineral oil/hydrophil petrolatum TOPICAL Oint Apply to affected area as needed (itching/rash). - melatonin 3 mg ORAL Tab Take 1 tablet by mouth daily at bedtime. - venlafaxine (EFFEXOR) 75 mg ORAL tablet Take 75 mg by mouth once daily. each morning - Ferrous Sulfate 325 mg (65 mg iron) ORAL tablet Take 325 mg by mouth once daily. at night - Drospirenone-Ethinyl Estradiol (LORYNA) 3-20 mg-mcg ORAL per tablet Take 1 tablet by mouth once daily. - multivitamin ORAL tablet Take 1 tablet by mouth once daily. - eletriptan (RELPAX) 20 mg ORAL tablet Take 20 mg by mouth as needed. may repeat in 2 hours if necessary - rizatriptan (MAXALT) 10 mg ORAL tablet Take 10 mg by mouth as needed. May repeat in 2 hours if needed - Diclofenac Potassium (ZIPSOR) 25 mg ORAL Cap Take 25 mg by mouth as needed. She doesn't take the abortives or Zipsor everyday. We usually try those when the pain is really high. Problem List As Of Date 03/29/2021 Noted Resolved HEADACHE [R51] 08/06/2008 Chronic headaches [R51.9, G89.29] 09/24/2011 Migraines [G43.909] 09/24/2011 Exercise-induced asthma [J45.990] 09/24/2011 Depression [F32.9] 09/24/2011 Physical deconditioning [R53.81] 10/09/2011 Encounter Status:Closed by LATONYA MCHUGH RN on 03/29/21 [facility] 03-22-2021 [facility] Telephone (OBGYLW) CHAPIS EVANS ([id number]) 1995 F Date Time Provider Department 03/22/21 [facility] OBGYLW During your visit today, we recorded the following information about you: Latonya Mchugh RN 03/22/2021 1:41 PM Signed Informed pt that call was regarding scheduling US and consult as requested by Dr. Patricia Theodore at [facility] for bilateral pyelectasis and polyhydramnios. Pt verbalizes understanding and wishes to proceed with scheduling. , pt denies any current medical conditions. Current meds: PNV. Pt had NIPT testing done 03/20, results still pending. Will follow up with Dr. Patricia Theodore office early next week for results. There are no upcoming appts at in the next couple of days. Offered appt at [place] on 03/30 at 2:45pm. One full hour allotted for US and consult. Pt accepts, front staff notified to schedule. Advised pt that she may bring two support persons age 16+ and both must wear masks. She verbalizes understanding and has no additional questions at this time. Latonya Mchugh RN [facility] Allergies As of Date: 03/22/2021 Noted Allergy Reaction DUST 09/19/2011 16 - Unknown GRASS POLLEN 09/19/2011 16 - Unknown Date Reviewed: 10/12/2011 Reviewed by: Korey Love - Fully Assessed Reason for Visit: Appointment [186] Prescriptions as of 03/22/2021 - hydrocortisone 0.5 % TOPICAL cream Apply to affected area twice daily. take for 4 more days or until rash has resolved. - acetaminophen 500 mg ORAL tablet Take 2 tablets by mouth every 4 hours as needed for Pain. - levalbuterol tartrate HFA 45 mcg/actuation INHALATION inhaler Inhale 2 Puffs as instructed every 4 hours as needed (coughing or wheezing). - mineral oil/hydrophil petrolatum TOPICAL Oint Apply to affected area as needed (itching/rash). - melatonin 3 mg ORAL Tab Take 1 tablet by mouth daily at bedtime. - venlafaxine (EFFEXOR) 75 mg ORAL tablet Take 75 mg by mouth once daily. each morning - Ferrous Sulfate 325 mg (65 mg iron) ORAL tablet Take 325 mg by mouth once daily. at night - Drospirenone-Ethinyl Estradiol (LORYNA) 3-20 mg-mcg ORAL per tablet Take 1 tablet by mouth once daily. - multivitamin ORAL tablet Take 1 tablet by mouth once daily. - eletriptan (RELPAX) 20 mg ORAL tablet Take 20 mg by mouth as needed. may repeat in 2 hours if necessary - rizatriptan (MAXALT) 10 mg ORAL tablet Take 10 mg by mouth as needed. May repeat in 2 hours if needed - Diclofenac Potassium (ZIPSOR) 25 mg ORAL Cap Take 25 mg by mouth as needed. She doesn't take the abortives or Zipsor everyday. We usually try those when the pain is really high. Problem List As Of Date 03/22/2021 Noted Resolved HEADACHE [R51] 08/06/2008 Chronic headaches [R51.9, G89.29] 09/24/2011 Migraines [G43.909] 09/24/2011 Exercise-induced asthma [J45.990] 09/24/2011 Depression [F32.9] 09/24/2011 Physical deconditioning [R53.81] 10/09/2011 Encounter Status:Closed by LATONYA MCHUGH RN on 03/22/21 Normal [facility] HCG, Quantitative, on 10-03-2020 hCG Quant 03540 High <5 IU/L [employer] Phone: Comment on above: Non-preg premeno <=5 Postmeno <=8 Male <=3 If HCG results do not concur with clinical observations, additional testing to confirm results is recommended. Elevated results not associated with may be found in patients with other diseases such as tumors of the germ cells (testis, ovaries, etc.), bladder, pancreas, stomach, lungs, and liver. Interpretation and review of laboratory results Abnormal [employer] Phone: CBC With Auto Differentialon 09-28-2020 Basophils (Bld) [#/Vol] 0.10 10*3/uL [employer] Phone: Basophils/100 WBC (Bld) 1 % 0 - 2 % M [employer] Phone: Differential Type YES [employer] Phone: Eosinophils (Bld) [#/Vol] 0.10 10*3/uL [employer] Phone: Eosinophils/100 WBC (Bld) 1 % 0 - 5 % [employer] Phone: Erythrocyte distribution width (RBC) [Ratio] 13.9 % 12.1 - 15.2 % [employer] Phone: Hematocrit (Bld) [Volume fraction] 39.4 % 36 - 46 % [employer] Phone: Hemoglobin (Bld) [Mass/Vol] 13.7 g/dL 12.0 - 16.0 g/dL [employer] Phone: Lymphocytes (Bld) [#/Vol] 3.20 10*3/uL [employer] Phone: Lymphocytes/100 WBC (Bld) 35 % 15 - 40 % [employer] Phone: MCH (RBC) [Entitic mass] 30.1 pg 26 - 34 pg [employer] Phone: MCHC (RBC) [Mass/Vol] 34.8 g/dL 31 - 37 g/dL M [employer] Phone: MCV (RBC) [Entitic vol] 86.5 fL 80 - 100 fL [employer] Phone: Monocytes (Bld) [#/Vol] 0.50 10*3/uL [employer] Phone: Monocytes/100 WBC (Bld) 6 % 4 - 8 % M [employer] Phone: Platelet mean volume (Bld) [Entitic vol] NOT REPORTED 6.0 - 12.0 fL [employer] Phone: Platelets (Bld) [#/Vol] 418 10*3/uL [employer] Phone: Platelets (Bld) [#/Vol] NOT REPORTED [employer] Phone: RBC (Bld) [#/Vol] 4.56 10*6/uL 4.0 - 5.2 m/uL [employer] Phone: RBC morphology finding Nom (Bld) NOT REPORTED [employer] Phone: Segmented neutrophils/100 WBC (Bld) 57 % 47 - 75 % [employer] Phone: Segs Absolute 5.20 [employer] Phone: WBC (Bld) [#/Vol] 9.1 10*3/uL [employer] Phone: WBC (Bld) [#/Vol] NOT REPORTED per 100 WBC [facility] [employer] Phone: WBC Morphology NOT REPORTED [employer] Phone: Otheron 09-28-2020 Immature granulocytes (Bld) [#/Vol] NOT REPORTED [facility] Phone: Specimen Rejectionon 021 Reason for rejection Unable to perform testing: Specimen not processed correctly. [facility] Comment on above: Performed By: #### R EJEC #### [address] [phone] Animal Attendant: Gurpreet Wei MD Source of sample TWO SWABS IN CONTAINER [facility] Comment on above: Performed By: #### R EJEC #### [facility] [employer] [address] [place] [id number] Animal Attendant: Gurpreet Wei MD Test ordered [facility] Comment on above: Performed By: #### R EJEC #### [address] [phone] Animal Attendant: Gurpreet Wei MD hCG, Quantitative, on 09-28-2020 hCG Quant 2027 High <5 IU/L [facility] [employer] Phone: Comment on above: Non-preg premeno <=5 Postmeno <=8 Male <=3 If HCG results do not concur with clinical observations, additional testing to confirm results is recommended. Elevated results not associated with may be found in patients with other diseases such as tumors of the germ cells (testis, ovaries, etc.), bladder, pancreas, stomach, lungs, and liver. Interpretation and review of laboratory results Abnormal [facility] Phone: CBC with Diffon 09-27-2020 Abs. Basophil 0.05 k/uL Normal 0.00-0.20 [facility] Comment on above: Performed By: #### C DP #### [facility] [address] [place] [address] Animal Attendant: Cole Magaña MD Abs.Imm.Granulocyte 0.03 k/uL Normal 0.00-0.30 [facility] Comment on above: Performed By: #### C DP #### [address] [place], [facility] Animal Attendant: Cole Magaña MD Abs.Neutrophil (Seg) 6.02 k/uL Normal 1.50-8.10 [facility] Comment on above: Performed By: #### C DP #### [address] [place] [place] [address] Animal Attendant: Cole Magaña MD Basophils/100 WBC (Bld) 1 % Normal 0-2 [facility] Comment on above: Performed By: #### C DP #### [address] [place], [facility] Animal Attendant: Cole Magaña MD Eosinophils (Bld) [#/Vol] 0.10 10*3/uL Normal 0.00-0.44 [facility] Comment on above: Performed By: #### C DP #### [address] [place], [facility] Animal Attendant: Cole Magaña MD Eosinophils/100 WBC (Bld) 1 % Normal 1-4 [facility] Comment on above: Performed By: #### C DP #### [address] [place], [facility] Animal Attendant: Cole Magaña MD Erythrocyte distribution width (RBC) [Ratio] 13.4 % Normal 11.8-14.4 [facility] Comment on above: Performed By: #### C DP #### [address] [place], [facility] Animal Attendant: Cole Magaña MD Hematocrit (Bld) [Volume fraction] 39.3 % Normal 36.3-47.1 [facility] Comment on above: Performed By: #### C DP #### [facility] [address] [place], [place] [address] Animal Attendant: Cole Magaña MD Hemoglobin (Bld) [Mass/Vol] 14.0 g/dL Normal 11.9-15.1 [facility] Comment on above: Performed By: #### C DP #### [facility] [address] [place], [place] [address] Animal Attendant: Cole Magaña MD Immature granulocytes (Bld) [#/Vol] 0 % Normal 0 [facility] Comment on above: Performed By: #### C DP #### [address] [place], [facility]83 Animal Attendant: Cole Magaña MD Lymphocytes (Bld) [#/Vol] 4.01 10*3/uL High 1.10-3.70 [facility] Comment on above: Performed By: #### C DP #### [address] [place], [facility] Animal Attendant: Cole Magaña MD Lymphocytes/100 WBC (Bld) 37 % Normal 24-43 [facility] Comment on above: Performed By: #### C DP #### [facility] [address] [place] [address] Dr. [place], [place] [address] Animal Attendant: Cole Magaña MD MCH (RBC) [Entitic mass] 30.0 pg Normal 25.2-33.5 [facility] Comment on above: Performed By: #### C DP #### [facility] [address] [place] [address] Dr. [place], [facility]83 Animal Attendant: Cole Magaña MD MCHC (RBC) [Mass/Vol] 35.6 g/dL High 28.4-34.8 [facility] Comment on above: Performed By: #### C DP #### [facility] [address] [place] [address] Animal Attendant: Cole Magaña MD MCV (RBC) [Entitic vol] 84.2 fL Normal 82.6-102.9 M [facility] Comment on above: Performed By: #### C DP #### [facility] [address] [place] [address] Animal Attendant: Cole Magaña MD Monocytes (Bld) [#/Vol] 0.60 10*3/uL Normal 0.10-1.20 [facility] Comment on above: Performed By: #### C DP #### [address] [place], [place] [id number] Animal Attendant: Cole Magaña MD Monocytes/100 WBC (Bld) 6 % Normal 3-12 [facility] Comment on above: Performed By: #### C DP #### [address] [place], [place] [id number] Animal Attendant: Cole Magaña MD Neutrophil (Seg) 55 % Normal 36-65 [facility] Comment on above: Performed By: #### C DP #### [address] [place], [place] [id number] Animal Attendant: Cole Magaña MD NRBC Automated 0.0 per 100 WBC Normal 0.0 [facility] Comment on above: Performed By: #### C DP #### [address] [place], [place] [id number] Animal Attendant: Cole Magaña MD Platelet mean volume (Bld) [Entitic vol] 9.5 fL Normal 8.1-13.5 [facility] Comment on above: Performed By: #### C DP #### [address] [place], [place] [id number] Animal Attendant: Cole Magaña MD Platelets (Bld) [#/Vol] 414 10*3/uL Normal 138-453 [facility] Comment on above: Performed By: #### C DP #### [facility] [address] [place], [place] [phone] Animal Attendant: Cole Magaña MD RBC (Bld) [#/Vol] 4.67 10*6/uL Normal 3.95-5.11 [facility] Comment on above: Performed By: #### C DP #### [facility] [address] [place], [place] [id number] Animal Attendant: Cole Magaña MD WBC (Bld) [#/Vol] 10.8 10*3/uL Normal 3.5-11.3 [facility] Comment on above: Performed By: #### C DP #### [facility] [address] [place], [place] [phone] Animal Attendant: Cole Magaña MD Auto Diff Performed NOT REPORTED Normal [facility] Comment on above: Performed By: #### C DP #### [facility] [address] [place], [place] [phone] Animal Attendant: Cole Magaña MD Platelets (Bld) [#/Vol] NOT REPORTED Normal [facility] Comment on above: Performed By: #### C DP #### [facility] [address] [place], [place] [phone] Animal Attendant: Cole Magaña MD RBC morphology finding Nom (Bld) NOT REPORTED Normal [facility] Comment on above: Performed By: #### C DP #### [facility] [address] [place], [place] [phone] Animal Attendant: Cole Magaña MD WBC Morphology NOT REPORTED Normal [facility] Comment on above: Performed By: #### C DP #### [facility] [address] [place], [place] [phone] Animal Attendant: Cole Magaña MD RHIG, Transfuseon 09-27-2020 RHIG, Transfuse Unit Number [id number] Blood Component Type RHIG Unit Division 00 Status of Unit TRANSFUSED Transfusion Status OK TO TRANSFUSE Normal [facility] Comment on above: Performed By: #### T RHIG #### [facility] [address] [place] [address] Animal Attendant: Cole Magaña MD Type + Screenon 09-27-2020 Type + Screen Sample Expiration 09/29/2020,2359 Arm Band Number [id number] ABO/Rh(D) A NEGATIVE Antibody Screen NEGATIVE Normal [facility] Comment on above: Performed By: #### T YS #### [facility] [address] [place] [address] Animal Attendant: Cole Magaña MD CBC Auto Differentialon 09-06 Basophils (Bld) [#/Vol] 0.05 10*3/uL [employer] Phone: Basophils/100 WBC (Bld) 1 % 0 - 2 % [facility] Phone: Differential Type NOT REPORTED [employer] Phone: Eosinophils (Bld) [#/Vol] 0.10 10*3/uL [employer] Phone: Eosinophils/100 WBC (Bld) 1 % 1 - 4 % [employer] Phone: Erythrocyte distribution width (RBC) [Ratio] 13.4 % 11.8 - 14.4 % [employer] [facility] Phone: Hematocrit (Bld) [Volume fraction] 39.3 % 36.3 - 47.1 % [employer] [facility] Phone: Hemoglobin (Bld) [Mass/Vol] 14.0 g/dL 11.9 - 15.1 g/dL [employer] Phone: Immature granulocytes (Bld) [#/Vol] 0.03 10*3/uL [employer] [facility] Phone: Immature granulocytes (Bld) [#/Vol] 0 % 0 [employer] [facility] Phone: Interpretation and review of laboratory results Abnormal [employer] [facility] Phone: Lymphocytes (Bld) [#/Vol] 4.01 10*3/uL High [employer] [facility] Phone: Lymphocytes/100 WBC (Bld) 37 % 24 - 43 % [employer] Phone: MCH (RBC) [Entitic mass] 30.0 pg 25.2 - 33.5 pg [employer] [facility] Phone: MCHC (RBC) [Mass/Vol] 35.6 g/dL High 28.4 - 34.8 g/dL [employer] [facility] Phone: MCV (RBC) [Entitic vol] 84.2 fL 82.6 - 102.9 fL [employer] [facility] Phone: Monocytes (Bld) [#/Vol] 0.60 10*3/uL [employer] [facility] Phone: Monocytes/100 WBC (Bld) 6 % 3 - 12 % [facility] Phone: Platelet mean volume (Bld) [Entitic vol] 9.5 fL 8.1 - 13.5 fL [employer] [facility] Phone: Platelets (Bld) [#/Vol] 414 10*3/uL [employer] [facility] Phone: Platelets (Bld) [#/Vol] NOT REPORTED [employer] [facility] Phone: RBC (Bld) [#/Vol] 4.67 10*6/uL 3.95 - 5.1 1 m/uL [employer] [facility] Phone: RBC morphology finding Nom (Bld) NOT REPORTED [employer] [facility] Phone: Segmented neutrophils/100 WBC (Bld) 55 % 36 - 65 % [employer] [facility] Phone: Segs Absolute 6.02 [facility] Hospital[facility], [facility] [facility] Work Phone: WBC (Bld) [#/Vol] 0.0 10*3/uL 0.0 per 10 0 WBC [facility] [employer] Work Phone: WBC (Bld) [#/Vol] 10.8 10*3/uL [facility] [employer] Work Phone: WBC Morphology NOT REPORTED [facility] Hospital[facility] Group, [employer] [facility] Work Phone: Basophils (Bld) [#/Vol] 0.00 10*3/uL [facility] [employer] Work Phone: Basophils/100 WBC (Bld) 0 % 0 - 2 % M [facility] [employer] Work Phone: Differential Type YES [facility] Work Phone: Eosinophils (Bld) [#/Vol] 0.10 10*3/uL [facility] Work Phone: Eosinophils/100 WBC (Bld) 1 % 0 - 5 % [facility] [employer] Phone: Erythrocyte distribution width (RBC) [Ratio] 15.0 % 12.1 - 15.2 % [facility] Phone: Hematocrit (Bld) [Volume fraction] 40.7 % 36 - 46 % [facility] Phone: Hemoglobin (Bld) [Mass/Vol] 14.2 g/dL 12.0 - 16.0 g/dL [facility] Phone: Lymphocytes (Bld) [#/Vol] 3.20 10*3/uL [facility] Phone: Lymphocytes/100 WBC (Bld) 29 % 15 - 40 % [facility] [employer] Phone: MCH (RBC) [Entitic mass] 30.3 pg 26 - 34 pg [facility] Phone: MCHC (RBC) [Mass/Vol] 34.8 g/dL 31 - 37 g/dL M [employer] Work Phone: MCV (RBC) [Entitic vol] 86.9 fL 80 - 100 fL [employer] Work Phone: Monocytes (Bld) [#/Vol] 0.60 10*3/uL [employer] [facility] Phone: Monocytes/100 WBC (Bld) 6 % 4 - 8 % M [employer] Work Phone: Platelet mean volume (Bld) [Entitic vol] NOT REPORTED 6.0 - 12.0 fL [employer] [facility] Phone: Platelets (Bld) [#/Vol] NOT REPORTED [employer] Phone: Platelets (Bld) [#/Vol] 429 10*3/uL [employer] Phone: RBC (Bld) [#/Vol] 4.69 10*6/uL 4.0 - 5.2 m/uL [employer] Work Phone: RBC morphology finding Nom (Bld) NOT REPORTED [employer] [facility] Phone: Segmented neutrophils/100 WBC (Bld) 64 % 47 - 75 % [employer] Work Phone: Segs Absolute 6.80 [facility] Work Phone: WBC (Bld) [#/Vol] 10.7 10*3/uL [employer] Work Phone: WBC (Bld) [#/Vol] NOT REPORTED per 100 WBC [employer] Work Phone: WBC Morphology NOT REPORTED [facility] Work Phone: Microscopic Urinalysison Amorphous, UA NOT REPORTED None [employer] Work Phone: Bacteria, UA NOT REPORTED None [employer] Work Phone: Casts UA NOT REPORTED /LPF [employer] Work Phone: Crystals, UA NOT REPORTED None /HPF [employer] Work Phone: Epithelial Cells UA 0 TO 2 /HPF [facility] Work Phone: Mucus, UA NOT REPORTED None [facility] Work Phone: Other Observations UA NOT REPORTED NOT REQ. M [facility] [employer] Work Phone: RBC (U) [#/Vol] 0 TO 2 [employer] Work Phone: Renal Epithelial, UA NOT REPORTED 0 /HPF [facility] [employer] Work Phone: Trichomonas, UA NOT REPORTED None [facility] HospitalDem[facility] Work Phone: WBC, UA NOT REPORTED 0 /HPF [facility] Work Phone: Yeast, UA NOT REPORTED None [employer] Work Phone: - [facility] Work Phone: Otheron 09-26-2020 With a positive test and no pole or gestational sac definitely identified, this is a of unknown location and a short-term follow-up ultrasound is recommended. [employer] Work Phone: EXAM: US OB LESS MEHNAZ N 14 WEEKS SINGLE OR FIRST GESTATION, US OB TRANSVAGINAL HISTORY: 24-year-old female positive test today. Pelvic pain midabdomen right side, one week. No vaginal bleeding. COMPARISON: None. TECHNIQUE: Obstetrical ultrasound, transabdominal and transvaginal scan, less than 14 weeks. FINDINGS: No pole. Within the uterine fundus there is a 3 x 2 mm small fluid collection within the thickened endometrium. There is fluid in the endometrium measuring 2 mm in AP dimension. Uterus: 9.7 cm longitudinal by 3.7 x 5.6 cm. Endometrium 13 mm Right ovary: 2.3 x 2.4 x 2.4 cm with a likely corpus luteum 2.2 cm in greatest diameter contained within the ovary. Left ovary: 3.2 x 2.2 x 2.4 cm. There is no free fluid in the cul-de-sac. [facility] [facility] Phone: Aguila, Mhpn Incoming Radiant Results From [employer] - 09/26/2020 7:00 PM EDT EXAM: US OB LESS THAN 14 WEEKS SINGLE OR FIRST GESTATION, US OB TRANSVAGINAL HISTORY: 24-year-old female positive test today. Pelvic pain midabdomen right side, one week. No vaginal bleeding. COMPARISON: None. TECHNIQUE: Obstetrical ultrasound, transabdominal and transvaginal scan, less than 14 weeks. FINDINGS: No pole. Within the uterine fundus there is a 3 x 2 mm small fluid collection within the thickened endometrium. There is fluid in the endometrium measuring 2 mm in AP dimension. Uterus: 9.7 cm longitudinal by 3.7 x 5.6 cm. Endometrium 13 mm Right ovary: 2.3 x 2.4 x 2.4 cm with a likely corpus luteum 2.2 cm in greatest diameter contained within the ovary. Left ovary: 3.2 x 2.2 x 2.4 cm. There is no free fluid in the cul-de-sac. IMPRESSION: With a positive test and no pole or gestational sac definitely identified, this is a of unknown location and a short-term follow-up ultrasound is recommended. [employer] Phone: Immature granulocytes (Bld) [#/Vol] NOT REPORTED [employer] Phone: Specimen Rejectionon 021 ----- NOT REPORTED Normal [facility] Comment on above: Performed By: #### R EJEC #### [employer] [facility] [place] [address] Animal Attendant: Gurpreet Wei MD TYPE AND SCREENon 09-26-2020 ABO/Rh Negative [employer] [facility] Phone: Arm Band Number [id number] [facility] HospitalDem[facility], [employer] [facility] Work Phone: Expiration Date 09/29/2020,3950 [employer] Phone: Urinalysis Reflex to Culture on 09-26-2020 Bilirubin Urine Negative NEGATIVE [employer] [facility] Work Phone: Color, UA YELLOW YELLOW [facility] Phone: Glucose, Ur Negative NEGATIVE [facility] [employer] Phone: Interpretation and review of laboratory results Abnormal [employer] Phone: Ketones Ql (U) Negative NEGATIVE [facility] HospitalDem[facility] [employer] [facility] Work Phone: Leukocyte esterase Test strip Ql (U) Negative NEGATIVE [facility] Work Phone: Nitrite, Urine Negative NEGATIVE [facility] [employer] [facility] Work Phone: pH, UA 5.0 [facility] [employer] Work Phone: Protein (U) [Mass/Vol] Negative NEGATIVE [facility] [employer] Work Phone: Specific [place], UA 1.015 [facility] [employer] Work Phone: Turbidity UA CLEAR CLEAR [facility] Phone: Urinalysis Comments [facility] Phone: Urine Hgb TRACE Abnormal NEGATIVE [facility] Phone: Urobilinogen, Urine Normal Normal [facility] Phone: hCG, Quantitative, on 09-26-2020 hCG Quant 920 High <5 IU/L [employer] [facility] Phone: Comment on above: Non-preg premeno <=5 Postmeno <=8 Male <=3 If HCG results do not concur with clinical observations, additional testing to confirm results is recommended. Elevated results not associated with may be found in patients with other diseases such as tumors of the germ cells (testis, ovaries, etc.), bladder, pancreas, stomach, lungs, and liver. Interpretation and review of laboratory results Abnormal [employer] Phone: hCG, Serum, Qualitativeon hCG Qual Positive Abnormal NEGATIVE [facility] Phone: Comment on above: If HCG results do not concur with clinical observations, additional testing to confirm result is recommended. This test is not labeled for use as a tumor marker. [employer] has confirmed the use of plasma for this test. This has not been cleared or approved by the U.S. Food and Drug Administration. The FDA has determined that such clearance is not necessary. Interpretation and review of laboratory results Abnormal [facility] [employer] Work Phone: Glucose, Fastingon 0 Glucose [Mass/Vol] 94 mg/dL 70 - 99 mg/dL [place], [place] Lipid Panelon 02-16-2020 Cholesterol [Mass/Vol] 151 mg/dL <200 [place] [employer], [place] Comment on above: Cholesterol Guidelines: <200 Desirable 200-240 Borderline >240 Undesirable Cholesterol in HDL [Mass/Vol] 49 mg/dL >40 [place], [place] Comment on above: HDL Guidelines: <40 Undesirable 40-59 Borderline >59 Desirable Cholesterol in LDL [Mass/Vol] 96 mg/dL 0 - 130 mg/dL [place], [place] Comment on above: LDL Guidelines: <100 Desirable 100-129 Near to/above Desirable 130-159 Borderline >159 Undesirable Direct (measured) LDL and calculated LDL are not interchangeable tests. Cholesterol in VLDL [Mass/Vol] NOT REPORTED 1 - 30 mg/dL [place], [place] Cholesterol.total/Vivien sterol in HDL [Mass ratio] 3.1 {ratio} <5 [place], [place] Triglyceride [Mass/Vol] 32 mg/dL <150 M [place], [place] Comment on above: Triglyceride Guidelines: <150 Desirable 150-199 Borderline 200-499 High >499 Very high Based on AHA Guidelines for fasting triglyceride, April 2012. US NON OB TRANSVAGINALon 1. Mild pelvic free fluid in the cul-de-sac. 2. Normal sonographic morphology of the uterus and ovaries. [place], [place] PROCEDURE: US NON OB TRANSVAGINAL, 01/11/2020 3:23 PM EDT CLINICAL INDICATIONS: Bilateral lower quadrant pelvic pain, amenorrhea 0 LMP 12/25/2019 COMPARISON: None TECHNIQUE: Transvaginal pelvic sonogram with grayscale color and spectral assessment FINDINGS: Uterus: 8.0 x 4.8 x 2.9 cm. Endometrial echo complex 0.4 cm. Normal sonographic morphology of the uterus is seen. Trace pelvic free fluid in the cul-de-sac is noted. Left ovary: 2.4 x 1.9 x 3.5 cm estimated volume of 8 mL. Normal sonographic morphology with subcentimeter physiologic cysts. Left ovary: 2.9 x 2.5 x 2.0 cm estimated volume of 8 mL. Subcentimeter physiologic cysts are noted. There is intact color flow within ovarian tissue bilaterally without spectral evaluation. Radico Aguila, [employer] Incoming Radiant Results From [employer] - 01/12/2020 8:08 AM EDT PROCEDURE: US NON OB TRANSVAGINAL, 01/11/2020 3:23 PM EDT CLINICAL INDICATIONS: Bilateral lower quadrant pelvic pain, amenorrhea 0 LMP 12/25/2019 COMPARISON: None TECHNIQUE: Transvaginal pelvic sonogram with grayscale color and spectral assessment FINDINGS: Uterus: 8.0 x 4.8 x 2.9 cm. Endometrial echo complex 0.4 cm. Normal sonographic morphology of the uterus is seen. Trace pelvic free fluid in the cul-de-sac is noted. Left ovary: 2.4 x 1.9 x 3.5 cm estimated volume of 8 mL. Normal sonographic morphology with subcentimeter physiologic cysts. Left ovary: 2.9 x 2.5 x 2.0 cm estimated volume of 8 mL. Subcentimeter physiologic cysts are noted. There is intact color flow within ovarian tissue bilaterally without spectral evaluation. IMPRESSION: 1. Mild pelvic free fluid in the cul-de-sac. 2. Normal sonographic morphology of the uterus and ovaries. [employer] Vitamin D 25 Hydroxyon 01-10 Interpretation and review of laboratory results Abnormal [employer] Vit D, 25-Hydroxy 21.6 ng/mL Low 30 - 100 ng/mL [employer] Comment on above: Reference Range: Vitamin D status Range Deficiency <20 ng/mL Mild Deficiency 20-30 ng/mL Sufficiency 30-100 ng/mL Toxicity >100 ng/mL MRI BRAIN W WO CONTRASTOrder ed By: Eliane Vilchis on 07-29-2019 1. Unremarkable contrast enhanced brain MRI. No focal signal abnormality, mass effect or abnormal enhancement. 2. Mild mucosal thickening of the left frontal and bilateral maxillary sinuses. [employer] [facility] Phone: EXAM: MRI BRAIN W WO CONTRAST HISTORY: Reason for exam:->right sided numbness and blurred vision Migraine headaches. COMPARISON: CT angiogram of the head 07/10/2019, noncontrast head CT 07/10/2019 TECHNIQUE: Multiplanar, multisequence MRI imaging of the head was performed prior to and following the administration of 15 mL of ProHance contrast intravenously. FINDINGS: No restricted diffusion. No acute or prior hemorrhage No mass effect, midline shift or extra axial fluid collection. No ventriculomegaly. Expected flow voids are seen within the intracranial internal carotid, vertebral and basilar arteries. The cerebellopontine angles and internal auditory canals are unremarkable. The pituitary gland and midline structures are unremarkable. Bone marrow signals within normal limits. The orbits and globes are unremarkable. Mucosal thickening is seen within the left frontal and bilateral maxillary sinuses. Mastoid air cells are clear. No abnormal enhancement. [employer] [facility] Phone: Aguila, pn Incoming Radiant Results From [employer] - 07/29/2019 4:55 PM EST EXAM: MRI BRAIN W WO CONTRAST HISTORY: Reason for exam:->right sided numbness and blurred vision Migraine headaches. COMPARISON: CT angiogram of the head 07/10/2019, noncontrast head CT 07/10/2019 TECHNIQUE: Multiplanar, multisequence MRI imaging of the head was performed prior to and following the administration of 15 mL of ProHance contrast intravenously. FINDINGS: No restricted diffusion. No acute or prior hemorrhage No mass effect, midline shift or extra axial fluid collection. No ventriculomegaly. Expected flow voids are seen within the intracranial internal carotid, vertebral and basilar arteries. The cerebellopontine angles and internal auditory canals are unremarkable. The pituitary gland and midline structures are unremarkable. Bone marrow signals within normal limits. The orbits and globes are unremarkable. Mucosal thickening is seen within the left frontal and bilateral maxillary sinuses. Mastoid air cells are clear. No abnormal enhancement. IMPRESSION: 1. Unremarkable contrast enhanced brain MRI. No focal signal abnormality, mass effect or abnormal enhancement. 2. Mild mucosal thickening of the left frontal and bilateral maxillary sinuses. [employer] [facility] Phone: Basic Metabolic Panel w/ Ref nora to MGOrdered By: Leonor Sandy on 07-10-2019 Anion gap [Moles/Vol] 13 mmol/L 9 - 17 mmol/L [employer] [facility] Phone: Bun/Cre Ratio 20 [employer] Work Phone: Calcium [Mass/Vol] 10.4 mg/dL 8.6 - 10. 4 mg/dL [employer] Work Phone: Chloride [Moles/Vol] 104 mmol/L 98 - 10 7 mmol/L [facility] Phone: CO2 [Moles/Vol] 22 mmol/L 20 - 31 mmol/L [employer] Phone: Creatinine [Mass/Vol] 0.5 mg/dL 0.5 - 0.9 mg/dL [employer] Phone: GFR >60 >60 mL/min [employer] Phone: GFR Comment [employer] Phone: Comment on above: Average GFR for 20-2 9 years old: 116 mL/min/1.73sq m Chronic Kidney Disease: <60 mL/min/1.73sq m Kidney failure: <15 mL/min/1.73sq m eGFR calculated using average adult body mass. Additional eGFR calculator available at: http://www.Hoot.Me/multiple_crcl_2012.htm GFR Non- >60 >60 mL/min [facility] Phone: GFR Staging NOT REPORTED [facility] Hospital[facility] Work Phone: Glucose [Mass/Vol] 132 mg/dL High 70 - 99 mg/dL [facility] [employer] Work Phone: Interpretation and review of laboratory results Abnormal [facility] Phone: Potassium [Moles/Vol] 3.7 mmol/L 3.7 - 5.3 mmol/L [facility] Work Phone: Sodium [Moles/Vol] 139 mmol/L 135 - 144 mmol/L [employer] Work Phone: Urea nitrogen [Mass/Vol] 10 mg/dL 6 - 20 mg/dL [employer] Work Phone: CBC Auto DifferentialOrdered By: Leonor Sandy on 07-10-2019 Absolute Eos # 0.10 [employer] [facility] Work Phone: Absolute Immature Granulocyte NOT REPORTED [employer] Work Phone: Absolute Lymph # 2.70 [employer] [facility] Work Phone: Absolute [place] # 0.40 [employer] [facility] Work Phone: Basophils (Bld) [#/Vol] 0.00 10*3/uL [employer] Work Phone: Basophils/100 WBC (Bld) 0 % 0 - 2 % M [employer] Work Phone: Differential Type YES [facility] Work Phone: Eosinophils/100 WBC (Bld) 1 % 0 - 5 % [employer] Phone: Erythrocyte distribution width (RBC) [Ratio] 13.4 % 12.1 - 15.2 % [employer] Phone: Hematocrit (Bld) [Volume fraction] 43.6 % 36 - 46 % [employer] Work Phone: Hemoglobin (Bld) [Mass/Vol] 15.0 g/dL 12 - 16 g/dL [employer] Work Phone: Immature Granulocytes NOT REPORTED 0 % M [employer] Work Phone: Lymphocytes/100 WBC (Bld) 30 % 15 - 40 % [employer] [facility] Phone: MCH (RBC) [Entitic mass] 29.9 pg 26 - 34 pg [employer] Work Phone: MCHC (RBC) [Mass/Vol] 34.4 g/dL 31 - 37 g/dL M [facility] [employer] Work Phone: MCV (RBC) [Entitic vol] 86.8 fL 80 - 100 fL [facility] [employer] Work Phone: Monocytes/100 WBC (Bld) 4 % 4 - 8 % M [facility] [employer] Work Phone: MPV NOT REPORTED 6 - 12 fL [facility] [employer] Work Phone: NRBC Automated NOT REPORTED per 100 WBC [facility] [employer] Work Phone: Platelet Estimate NOT REPORTED [facility] [employer] Work Phone: Platelets (Bld) [#/Vol] 395 10*3/uL [facility] [employer] Work Phone: RBC (Bld) [#/Vol] 5.02 10*6/uL 4 - 5.2 m/uL [facility] [employer] Work Phone: RBC morphology finding Nom (Bld) NOT REPORTED [facility] [employer] Work Phone: Segmented neutrophils/100 WBC (Bld) 65 % 47 - 75 % [facility] [employer] Work Phone: Segs Absolute 5.80 [facility] Work Phone: WBC (Bld) [#/Vol] 8.9 10*3/uL [facility] [employer] Work Phone: WBC Morphology NOT REPORTED [facility] Work Phone: CT Head WO ContrastOrdered B y: Leonor Sandy on 07-10-[address] brain[address] [employer] [facility] Work Phone: EXAMINATION: CT HEAD WO CONTRAST HISTORY: Reason for exam:->numbness 23-year-old female. Patient states history migraine headaches. COMPARISON: None. TECHNIQUE: CT examination of the head without IV contrast. Dose reduction techniques were achieved by using automated exposure control and/or adjustment of mA and/or kV according to patient size and/or use of iterative reconstruction technique. FINDINGS: Normal ventricles and sulci with no bleed, mass, midline shift or extra-axial fluid collection. The bone windows are normal. The coronal and sagittal multiplanar reconstructions show no additional abnormality. [employer] [facility] Phone: Aguila, Mhpn Incoming Radiant Results From [employer] - 07/10/2019 6:04 PM EST EXAMINATION: CT HEAD WO CONTRAST HISTORY: Reason for exam:->numbness 23-year-old female. Patient states history migraine headaches. COMPARISON: None. TECHNIQUE: CT examination of the head without IV contrast. Dose reduction techniques were achieved by using automated exposure control and/or adjustment of mA and/or kV according to patient size and/or use of iterative reconstruction technique. FINDINGS: Normal ventricles and sulci with no bleed, mass, midline shift or extra-axial fluid collection. The bone windows are normal. The coronal and sagittal multiplanar reconstructions show no additional abnormality. IMPRESSION: Normal CT brain. [employer] [facility] Phone: Glucose, Whole BloodOrdered By: Leonor Sandy on 07-10-2019 Glucose [Mass/Vol] 98 mg/dL 65 - 99 mg/dL [facility] [employer] Work Phone: POCT glucoseOrdered By: Nathaly Sandy on 07-10-2019 Glucose [Mass/Vol] 98 mg/dL [facility] Phone: Interpretation and review of laboratory results Normal [facility] Phone: QC OK? yes [facility] [employer] Phone: , UrineOrdered By: Leonor Sandy on 07-10-2019 Beta HCG ( test) Ql (U) Negative NEGATIVE [facility] Work Phone: Urinalysis, reflex to micros copicOrdered By: Leonor Sandy on 07-10-2019 Bilirubin Urine Negative NEGATIVE [facility] Work Phone: Color, UA YELLOW YELLOW [facility] Phone: Glucose, Ur Negative NEGATIVE [facility] [employer] Work Phone: Ketones Ql (U) Negative NEGATIVE [employer] Work Phone: Leukocyte esterase Test strip Ql (U) Negative NEGATIVE [facility] Phone: Nitrite, Urine Negative NEGATIVE [employer] Work Phone: pH, UA 6.5 [facility] Phone: Protein, UA Negative NEGATIVE [facility] Phone: Specific [place], UA 1.010 [employer] Phone: Turbidity UA CLEAR CLEAR [facility] Phone: Urinalysis Comments [employer] [facility] Phone: Urine Hgb Negative NEGATIVE [facility] Phone: Urobilinogen, Urine Normal Normal [facility] Phone: [facility] Repor ton 06-12-2017 [facility] Report Type: OrthopedicDictated by: To be signed by: Transcribed by: Transcribed D/ Dictation D/ Report: May 07, 2017 RE: Chapis Nation is here today with chief complaint of right hand pain. She has been having this now for a few months. 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 She has no numbness or tingling to speak of. It is routine and really somewhat debilitating. She has tried some therapy. She has tried antiinflammatories but not yet prescription strength. Her exam today, she is awake, alert, and oriented times three. 5-foot-7, 60 kg, temperature is 98.4. Her hand has no physical deformity. She has excellent range of motion, no ligamentous instability. Median, ulnar, and radial nerves are intact. She has brisk capillary refill. Skin is warm and dry. She has tenderness along the metacarpal ridge volarly but no catching or locking of her fingers. DIAGNOSTIC STUDIES/INTERPRETATION S/IMPRESSIONS: Radiographs AP and lateral projections of her hands bilaterally demonstrate no fracture, dislocation, or other bony abnormality. ASSESSMENT/PLAN: Bilateral hand pain. At this point I do think that etiology is unclear. She has been tested for some inflammatory conditions that so far have been normal. She has even a negative CRP and SED rate by report, although those things are not currently available for me. I do not sense that her joints have any instability or she has any gross deformity of her hand. I am going to start her antiinflammatory prescription strength one pill once a day and Mobic for the next month and see her back in about two months after she has tried to wean and see if she still is not better. Normal [facility] Radiologyon 06-12-2017 Radiology Type: OutpatientDictated by: Signed by: Transcribed by: Transcribed Date/Time: 05/10/2017 12:19Dictation Date/Time: 05/07/2017 17:31Report: DATE OF SERVICE: 05/07/2017 DIAGNOSTIC STUDIES/INTERPRETATION S/IMPRESSIONS: Radiographs AP and lateral projections of her hands bilaterally demonstrate no fracture, dislocation, or other bony abnormality. Normal [facility] Vital Signs Date Time Vital Sign Value Performing Clinician Faci lity 09-27-2020 01:25-0400 BP Diastolic 78 mm[Hg] [facility] Work Phone: 09-27-2020 01:25-0400 BP Systolic 131 mm[Hg] [facility] Work Phone: 09-27-2020 01:25-0400 Pulse (Heart Rate) 99 /min [facility] Work Phone: 09-27-2020 01:25-0400 Pulse Oximetry 99 % [facility] Work Phone: 09-26-2020 21:16-0400 BMI (Body Mass Index) 25.82 kg/m2 Jeremiah [facility] [employer] Work Phone: 09-26-2020 21:16-0400 Body Temperature 99.1 [degF] [facility] Work Phone: 09-26-2020 21:16-0400 Body weight 72.58 kg Jeremiah Mcnair [employer] Work Phone: 09-26-2020 21:16-0400 Respiratory Rate 16 /min Jeremiah Mcnair [employer] Work Phone: 07-10-2019 21:26-0500 Diastolic blood pressure 88 mm[Hg] Leonor Sandy MD Work Phone: [employer] Work Phone: 07-10-2019 21:26-0500 Heart rate 77 /min Leonor Sandy MD Work Phone: [employer] Work Phone: 07-10-2019 21:26-0500 Respiratory rate 18 /min Leonor Sandy MD Work Phone: [employer] Work Phone: 07-10-2019 21:26-0500 SaO2% (BldA) [Mass fraction] 100 % Leonor Sandy MD Work Phone: [employer] Work Phone: 07-10-2019 21:26-0500 Systolic blood pressure 127 mm[Hg] Leonor Sandy MD Work Phone: [employer] Work Phone: 07-10-2019 16:53-0500 Body height 167.6 cm Leonor Sandy MD Work Phone: [employer] Work Phone: 07-10-2019 16:53-0500 Body mass index (BMI) [Ratio] 25.02 kg/m2 Leonor Sandy MD Work Phone: [employer] Work Phone: 07-10-2019 16:53-0500 Body temperature 98.29 [degF] Leonor Sandy MD Work Phone: [employer] Work Phone: 07-10-2019 16:53-0500 Body weight 70.31 kg Leonor Sandy MD Work Phone: [facility] Work Phone: Encounters Encounter Date Encounter Type Care Provider Facility Start: 03-02-2024 End: 03-02-2024 ambulatory SHANNAN DAVID Not Available Start: 07-23-2023 End: 07-23-2023 ambulatory SHANNAN DAVID Not Available Start: 06-13-2023 End: 06-13-2023 ambulatory SHANNAN DAVID Not Available Start: 04-30-2023 ambulatory DO Chris Kelley Fac ility:[facility] Start: 11-27-2022 End: 11-28-2022 ambulatory Wero Britton Facility:[facility] Start: 07-23-2022 End: 07-24-2022 ambulatory [facility] J[facility]ana [facility] Start: 07-16-2022 End: 07-17-2022 ambulatory YOLANDA [facility] Start: 07-16-2022 End: 07-16-2022 Subsequent hospital visit by physician Fiorella Abarca DO Work Phone: [facility] Laboratory Comment on above: Urticaria Start: 05-01-2022 End: 07-31-2022 ambulatory Cuco Oneal Facility:[facility] Start: 05-28-2021 End: 05-28-2021 ambulatory Mary Brown Facility:[facility] Start: 10-03-2020 End: 10-03-2020 Subsequent hospital visit by physician Fiorella [facility] Start: 09-28-2020 End: 09-28-2020 Subsequent hospital visit by physician Fiorella Abarca [facility] Laboratory Comment on above: Less than 8 weeks ge station of ; Pelvic pain Start: 09-26-2020 End: 09-27-2020 Emergency department patient visit [facility] Jhoana [facility] Start: 09-26-2020 End: 09-27-2020 Emergency department patient visit Jeremiah Mcnair Work Phone: [facility] ED Comment on above: Abdominal pain durin g in first trimester (Primary Dx) Start: 09-26-2020 End: 09-28-2020 Subsequent hospital visit by physician [facility] Ultrasound Room [facility] Laboratory Comment on above: Pelvic pain in femal e; Less than 8 weeks gestation of Start: 02-16-2020 End: 02-16-2020 Subsequent hospital visit by physician Fiorella Abarca [facility] Laboratory Comment on above: Screening for cardio vascular condition Start: 01-11-2020 End: 01-13-2020 Subsequent hospital visit by physician Claudia Ultrasound Room [facility] Laboratory Comment on above: Vitamin D deficiency Lower abdominal pain ; Amenorrhea Start: 10-23-2019 End: 10-23-2019 Subsequent hospital visit by physician Fiorella Abarca [facility] Laboratory Comment on above: Viral illness; Suspected COVID-19 virus infection Start: 10-19-2019 End: 10-19-2019 Subsequent hospital visit by physician Fiorella Abarca [facility] Laboratory Comment on above: Suspected COVID-19 v irus infection Start: 07-29-2019 End: 07-31-2019 Subsequent hospital visit by physician [facility] MRI Comment on above: Right sided numbness ; Blurred vision Start: 07-10-2019 End: 07-10-2019 Emergency department patient visit Leonor Sandy MD Work Phone: [facility] ED Comment on above: Migraine with aura a nd with status migrainosus, not intractable (Primary Dx) Start: 05-07-2017 Ambulatory [facility] Procedures Date Procedure Procedure Detail Performing Clinician Start: 07-16-2022 ALLERGEN, FOOD, COMPREHENSIVE PROFILE 1 Yolanda Humphrey [employer]NER[employer] Work Phone: Start: 10-03-2020 Gonadotropin chorionic quantitative Sugey Nataprawira Start: 09-28-2020 Blood count complete auto&auto difrntl wbc Yolanda Humphrey Work Phone: Start: 09-28-2020 Gonadotropin chorionic quantitative Yolanda Humphrey Work Phone: Start: 09-26-2020 Antibody screen Jeremiah Mcnair Start: 09-26-2020 Blood count complete auto&auto difrntl wbc Jeremiah Mcnair Work Phone: Start: 09-26-2020 Blood typing serologic abo Jeremiah Mcnair Work Phone: Start: 09-26-2020 Us preg uterus real time w/image dcmtn transvag Yolanda Humphrey Work Phone: Start: 09-26-2020 Us uterus 14 wk transabdl 07/08 gestat Yolanda Humphrey Work Phone: Start: 09-26-2020 Blood count complete auto&auto difrntl wbc Yolanda Humphrey Work Phone: Start: 09-26-2020 Gonadotropin chorionic qualitative Yolanda Humphrey Work Phone: Start: 09-26-2020 Gonadotropin chorionic quantitative Yolanda Humphrey Work Phone: Start: 09-26-2020 Urinalysis microscopic only Yolanda Humphrey Work Phone: Start: 09-26-2020 Urnls dip stick/tablet rgnt auto w/o microscopy Yolanda Humphrey Work Phone: Start: 02-16-2020 Glucose tolerance test gtt 3 specimens Fiorellajeanette Jeronimojoe Work Phone: Start: 02-16-2020 Lipid panel Fiorella L Wilnertimijoe Work Phone: Start: 01-11-2020 Us transvaginal Fiorella Jhoana Wilnertimijoe Work Phone: Start: 01-11-2020 25 hydroxy includes fractions if performed Cammy Grayson Work Phone: Start: 10-19-2019 COVID-19 Solange Camilo Valarie Work Phone: Start: 07-29-2019 Mri brain brain stem w/o w/contrast material Eliane Vilchis MD Work Phone: Start: 07-10-2019 Ct angiography neck w/contrast/noncontrast Leonor Sandy MD Work Phone: Start: 07-10-2019 Ct head/brain w/o contrast material Leonor Sandy MD Work Phone: Start: 07-10-2019 Urnls dip stick/tablet rgnt auto w/o microscopy Leonor Sandy MD Work Phone: Start: 07-10-2019 End: 07-10-2019 Gluc bld gluc mntr dev cleared fda spec home use Leonor Sandy MD Work Phone: Start: 07-10-2019 BASIC METABOLIC PANEL W/ REFLEX TO MG FOR LOW K Leonor Sandy MD Work Phone: Start: 05-26-2015 Microscopic observation [Identifier] in Cervix by Cyto stain Fiorella Abarca DO Work Phone: H/O: section Status pos t primary low transverse section Plan of Treatment Date Care Activity Detail Author Start: 05-26-2031 DTaP/Tdap/Td vaccine (2 - Td or Tdap) DTaP/Tdap/Td vaccine (2 - Td or Tdap) [facility] Start: 07-16-2023 Depression Monitoring Depression Mon itoring [facility] Start: 02-05-2022 Influenza vaccination Flu vaccine (# 1) [facility] Start: 03-08-2020 Influenza vaccination [facility] [place] Start: 01-27-2020 End: 01-27-2020 Office Visit 01/27/2020 Office Visit Family Medicine Fiorella Abarca DO [address] [place] [address] [facility] Start: 11-16-2019 End: 11-16-2019 Office Visit 11/16/2019 Office Visit Neurology Cammy Grayson MD [address] [place] [address] [id number] [facility] Neuro [facility] Start: 10-21-2019 End: 10-21-2019 Telemedicine 10/21/2019 Telemedicine Family Medicine Fiorella Abarca DO [address] [place] [address] [facility] Start: 08-20-2019 End: 08-20-2019 Patient encounter procedure 08/20/2019 Office Visit Neurology Cammy Grayson MD [address] [place] [address] [phone] [facility] [employer] [facility] Start: 03-08-2019 Influenza vaccination Flu vaccine (# 1) [facility] [employer] Phone: Start: 05-26-2018 Cervical cancer screen Cervical canc er screen [facility] Phone: Start: 05-26-2018 Screening for malign ant neoplasm of cervix [facility] Start: 2012 DTaP/Tdap/Td vaccine (1 - Tdap) DTaP/Tdap/Td vaccine (1 - Tdap) [place], [place] Start: 11-22-2011 Hepatitis C screening Hepatitis C sc reen [facility] Start: 2009 COVID-19 Vaccine (1) COVID-19 Vaccin e (1) [facility] Phone: Start: 2008 HIV screen HIV screen [facility] [employer] Phone: Start: 2008 HIV screening HIV screen [facility] [employer] Start: 2004 DTaP/Tdap/Td vaccine (1 - Tdap) DTaP/Tdap/Td vaccine (1 - Tdap) [facility] [employer] Phone: Start: 2004 HPV vaccine (1 - 2-d ose series) HPV vaccine (1 - 2-dose series) [place], [place] Start: 2004 HPV vaccine (1 - Fem terrance 2-dose series) HPV vaccine (1 - Female 2-dose series) [facility] [employer] Phone: Start: 11-22-1999 Pneumococcal 0-64 ye ars Vaccine (1 - PCV) Pneumococcal 0-64 years Vaccine (1 - PCV) [facility] Start: 11-22-1999 Pneumococcal 0-64 ye ars Vaccine (1 of 1 - PPSV23) Pneumococcal 0-64 years Vaccine (1 of 1 - PPSV23) [facility] [employer] Phone: Start: 1994 Varicella vaccine (1 of 2 - 2-dose childhood series) Varicella vaccine (1 of 2 - 2-dose childhood series) [facility] [employer] Start: 05-24-1994 COVID-19 Vaccine (#1) COVID-19 Vacci ne (#1) [facility] Start: 1993 Hepatitis C screening Hepatitis C sc reen [facility] Phone: End: 09-26-2020 C.trachomatis N.gonorrhoeae DNA C.trachomatis N.gonorrhoeae DNA Microbiology STAT One Time for 1 Occurrences starting 09/26/2020 until 09/26/2020 [employer] [facility] Phone: Comment on above: One Time for 1 Occur rences starting 09/26/2020 until 09/26/2020 C.trachomatis N.gonorrhoeae DNA C.trachomatis N.gonorrhoeae DNA Microbiology STAT 09/26/2020 10:35 PM EDT [facility] Phone: COVID-19 COVID-19 Lab Rou constance Suspected COVID-19 virus infection 10/19/2019 10:18 AM EDT [place], [place] End: 10-23-2019 COVID-19 Ambulatory COVID-19 Ambulatory Lab Routine Viral illness Suspected Covid-19 Virus Infection 1 Occurrences starting 10/23/2019 until 10/23/2019 [place], [place] Comment on above: 1 Occurrences starti ng 10/23/2019 until 10/23/2019 COVID-19 Ambulatory COVID-19 Amb ulatory Lab Routine Viral illness Suspected COVID-19 virus infection 10/23/2019 4:02 PM EDT [place], [place] CTA HEAD NECK W CONTRAST CTA HEA D NECK W CONTRAST Imaging STAT 07/10/2019 7:43 PM EST [facility] Phone: Food Comprehensive Panel Food Co mprehensive Panel Lab Routine Urticaria 07/16/2022 5:05 PM EST [employer] Phone: RHOGAM INJECTION ONLY RHOGAM INJ ECTION ONLY Blood Bank STAT 09/26/2020 10:15 PM EDT [facility] Phone: Immunizations Immunization Date Immunization Notes Care Provider Fa cility 05-26-2021 tetanus toxoid, redu henny diphtheria toxoid, and acellular pertussis vaccine, adsorbed [facility] 09-26-2020 LILO(Sacha) fracisco alexa in Evangelina Mcnair [facility] [employer] Work Phone: 04-07-2018 influenza virus vaccine, unspecified formulation Leonor Sandy MD Work Phone: [facility] Work Phone: 10-06-2013 hepatitis B vaccine, adult dosage Fiorella Abarca DO Work Phone: [employer] [facility] [employer] Work Phone: 10-06-2013 hepatitis B vaccine, unspecified formulation Fiorella [employer] [facility] [employer] Work Phone: 06-01-2013 hepatitis B vaccine, adult dosage Fiorella Abarca DO Work Phone: [facility] [employer] Work Phone: 06-01-2013 hepatitis B vaccine, unspecified formulation Fiorella [employer] [facility] [employer] Work Phone: 04-21-2013 hepatitis B vaccine, adult dosage Fiorella Abarca DO Work Phone: [facility] [employer] 04-21-2013 hepatitis B vaccine, unspecified formulation Fiorella [employer] [facility] [employer] Phone: 06-29-2011 tuberculin skin test ; purified protein derivative solution, intradermal Leonor Sandy MD Work Phone: [facility] [employer] Work Phone: Payers Date Payer Category Payer Unknown [id number] 2021 Unknown [id number] 2021 Private Health Insurance [id number] 2021 Self-pay [id number] 2020 Unknown [id number] 2019 Unknown [employer] M [employer] [address] [id number] 2019-Present [phone] [address] [place] [address] [id number] 2014 Unknown [id number] 1993 Unknown [id number] [id number]. 2.173 1993 Unknown [id number] [id number]. 2.174 1993 Unknown [id number] [id number]. 2.174 1993 Unknown [id number] [id number]. 2.727 1993 Unknown [id number] [id number]. 2.727 1993 Unknown [id number] [id number]. 2.727 1993 Unknown [id number] [id number]. 2.1259 1993 Unknown [id number] [id number]. 2.1259 1993 Unknown [id number] [id number] Unknown [facility] [id number] Unknown [id number] [id number] [facility] Med C t Ind [id number] Social History Date Type Detail Facility Start: 10-23-2019 End: 07-16-2022 Tobacco smoking status NHIS Never smoker [employer] Start: 10-23-2019 End: 07-16-2022 Alcohol intake Current non-drinker of alcohol (finding) [facility] Phone: Start: 1995 Sex Assigned At Not on file M [employer] Phone: Exposure to SARS-CoV -2 (event) Unable to assess [employer] Start: 02-16-2020 End: 07-16-2022 Tobacco use and exposure Never used [employer] Exposure to SARS-CoV -2 (event) Not sure [facility] Phone: Start: 07-16-2022 History SDOH Financial 5 [employer] Phone: Start: 07-16-2022 History SDOH Food Worry 1 [employer] Phone: Start: 1995 Sex Assigned At Female F [facility] Progress note 03-30-2021 Note Date & Type Note Facility 03-30-2021 Note HNO ID: [id number] Author: Michael Lilly MD Service: ? Author Type: Physician Type: Progress Notes Filed: 03/30/2021 3:37 PM Note Text: MFM Consultation requested by Dr. Patricia Theodore. I will convey my findings and advice to the requesting provider either through electronic medical record or via [place] postal service. 25 year old at 31 wks and 0 days presents for maternal medicine consultation secondary to unilateral mild renal pyelectasis and polyhydramnios diagnosed at an outside center. On evaluation here, no polyhydramnios was noted. There was mild left renal pyelectasis measuring 10 mm without evidence of hydroureter or bladder distention. Patient has had cell free DNA screening with negative screen for trisomy 21. Past Medical History: PAST MEDICAL HISTORY Diagnosis Date - Exercise-induced asthma - S/P tonsillectomy and adenoidectomy Past Surgical History: PAST SURGICAL HISTORY Procedure Laterality Date - TONSILLECTOMY HX Past Obstetrical History: @OBHISTORIG( error)@ Social History: Social History Tobacco Use - Smoking status: Never Smoker Substance Use Topics - Alcohol use: No - Drug use: No Medications: Current Outpatient Medications on File Prior to Visit Medication Sig - hydrocortisone 0.5 % TOPICAL cream Apply to affected area twice daily. take for 4 more days or until rash has resolved. - acetaminophen 500 mg ORAL tablet Take 2 tablets by mouth every 4 hours as needed for Pain. - levalbuterol tartrate HFA 45 mcg/actuation INHALATION inhaler Inhale 2 Puffs as instructed every 4 hours as needed (coughing or wheezing). - mineral oil/hydrophil petrolatum TOPICAL Oint Apply to affected area as needed (itching/rash). - melatonin 3 mg ORAL Tab Take 1 tablet by mouth daily at bedtime. - venlafaxine (EFFEXOR) 75 mg ORAL tablet Take 75 mg by mouth once daily. each morning - Ferrous Sulfate 325 mg (65 mg iron) ORAL tablet Take 325 mg by mouth once daily. at night - Drospirenone-Ethinyl Estradiol (LORYNA) 3-20 mg-mcg ORAL per tablet Take 1 tablet by mouth once daily. - multivitamin ORAL tablet Take 1 tablet by mouth once daily. - eletriptan (RELPAX) 20 mg ORAL tablet Take 20 mg by mouth as needed. may repeat in 2 hours if necessary - rizatriptan (MAXALT) 10 mg ORAL tablet Take 10 mg by mouth as needed. May repeat in 2 hours if needed - Diclofenac Potassium (ZIPSOR) 25 mg ORAL Cap Take 25 mg by mouth as needed. She doesn't take the abortives or Zipsor everyday. We usually try those when the pain is really high. No current facility-administered medications on file prior to visit. Allergies: ALLERGIES Allergen Reactions - Dust Unknown - Grass Pollen Unknown Family History: FAMILY HISTORY Problem Relation Age of Onset - Headache Mother On today?s ultrasound, unilateral/bilateral renal pelvis dilation is identified. Isolated renal pelvis dilation increases the risk for Down Syndrome by approximately 2.8 fold. It is also associated with urinary reflux and obstructive uropathy. However, most fetuses with renal pelvis dilation have a favorable outcome. Approximately 1/3 will resolve prior to delivery and 1/3 will resolve after delivery without intervention. If renal pelvis dilation persists after delivery, antibiotics for the may be started. Etiologies discussed include: uretero-pelvic junction obstruction, uterero-vessical junction obstruction, uretero-vessical reflux, posterior urethral values, and obstruction secondary to duplex kidneys. The patient was counseled regarding the sonographic findings and to the potential for non-visualized malformations. Options for screening and/or diagnosis of aneuploidy were discussed. A follow up ultrasound in 4-6 weeks was recommended to the patient. Because there was no dilation of the ureters or bladder, mild ureteral pelvic junction obstruction is suspected. Other etiologies include delayed renal emptying secondary to maternal hormonal effects on the fetus. Estimated weight was at the 96 percentile which may contribute to the amniotic fluid being at the upper end of normal. Patient reports negative glucose screen (results not available to me). Michael Lilly MD I spent 20 minutes in the visit, with more than 50% of the total [id number] time of the visit in counseling / coordination of care. Ultrasound report Ultrasound reveals a gore fetus in utero with measurements symmetric and appropriate to the stated gestational age. The amniotic fluid volume is within normal limits. Evaluation of morphology reveals unilateral mild renal pelvis dilatation with no evident cortical cystic dysplastic change and no distension of the ureters or bladder. Evaluation of the remainder of the fetus reveals no evident malformations, effusions or dysrhythmias. 30 week 1 day gore intrauterine gestation Unilateral mild renal pelvis dilatation The pa (more content not included)... [facility] Discharge instructions 07-10-2019 InstructionsAttachments Note Date & Type Note Facility 07-10-2019 Hospital Discharg e instructions Leonor Sandy MD - 07/10/2019 COMPLEX MIGRAINE: May use nonsteroidal anti-inflammatory medications as well as Tylenol for headache due to complex migraine. Avoid triptan medications such as Relpax and Imitrex because they may cause stroke due to vasoconstriction. The following attachments cannot be sent through Care Everywhere.Migraine Headache: Recurring (Ukrainian)documented in this encounter [facility] Phone: Evaluation note Note Date & Type Note Facility Evaluation note Diagnosis Migraine with aura and with status migrainosus, not intractable- Primary Migraine with aura, with intractable migraine, so stated, with status migrainosus documented in this encounter [facility] Phone: Evaluation note Note Date & Type Note Facility Evaluation note Diagnosis Right sided numbness Blurred vision Other specified visual disturbances [facility]: Evaluation note Note Date & Type Note Facility Evaluation note Diagnosis Urticaria Urticaria, unspecified documented in this encounter [employer] Work Phone: Evaluation note Note Date & Type Note Facility Evaluation note No assessment information availa [facility] Work Phone: Summary Purpose Family History No Family History Records Found Relationship Condition Age at Onset Recorded Date/T ifeoma Not Specified No pertinent family history Unknown Advance Directives No Advanced Directives Records FoundDocuments on File Type Date Recorded Patient Custom Van Converter Expl anation Advance Directives and Living Will Power of Eyeglass Inspector Documents on File Type Date Recorded Patient Custom Van Converter Expl anation Advance Directives and Living Will Power of Eyeglass Inspector Documents on File Type Date Recorded Patient Custom Van Converter Expl anation ACP-Advance Directive ACP-Power of Eyeglass Inspector Documents on File Type Date Recorded Patient Custom Van Converter Expl anation ACP-Advance Directive ACP-Power of Eyeglass Inspector Assessments Diagnosis Viral illness Unspecified viral infection, in conditions classified elsewhere and of unspecified site Suspected COVID-19 virus infection Diagnosis Suspected COVID-19 virus infection Diagnosis Vitamin D deficiency Unspecified vitamin D deficiency Diagnosis Lower abdominal pain Abdominal pain, other specified site Amenorrhea Absence of menstruation Diagnosis Screening for cardiovascular condition Screening for other and unspecified cardiovascular conditions Diagnosis Abdominal pain during in first trimester- Primary Diagnosis Pelvic pain in female Unspecified symptom associated with female genital organs Less than 8 weeks gestation of state, incidental Diagnosis Less than 8 weeks gestation of state, incidental Pelvic pain Diagnosis Pelvic pain in female Unspecified symptom associated with female genital organs Less than 8 weeks gestation of state, incidental Reason for Referral Status Reason Specialty Diagnoses / Procedures Referre d By Contact Referred To Contact Closed Radiology Diagnoses Lower abdominal pain Amenorrhea Procedures US NON OB TRANSVAGINAL Fiorella Abarca, DO [address] [place] [address] Status Reason Specialty Diagnoses / Procedures Referre d By Contact Referred To Contact Closed Radiology Diagnoses Right sided numbness Blurred vision Procedures MRI BRAIN W WO CONTRAST HC MRI-BRAIN WO & W CONTRAST Eliane Vilchis MD [address] [facility] [address] [place] [address] Discharge Instructions * Instructions* Jeremiah Mcnair MD - 09/27/2020 Yolanda Ramos office personnel will contact you with regards to scheduling of your repeat hCG level ( test) * Attachments The following attachments cannot be sent through Care Everywhere. * : Abdominal Pain (Ukrainian) documented in this encounter Additional Source Comments INFORMATION SOURCE (unrecogn ized section and content) DATE CREATED AUTHOR 12/31/2017 [facility] DATE CREATED AUTHOR AUTHOR'S ORGANIZ ATION 01/30/2018 [facility] DATE CREATED AUTHOR AUTHOR'S ORGANIZ ATION 09/29/2020 [facility] DATE CREATED AUTHOR AUTHOR'S ORGANIZ ATION 08/15/2021 [facility] DATE CREATED AUTHOR AUTHOR'S ORGANIZ ATION 07/24/2022 [facility] DATE CREATED AUTHOR AUTHOR'S ORGANIZ ATION 03/09/2023 [facility] DATE CREATED AUTHOR AUTHOR'S ORGANIZ ATION 05/01/2023 [facility] DATE CREATED AUTHOR AUTHOR'S ORGANIZ ATION 03/04/2024 [facility] EPIC Reason for Visit (unrecogniz ed section and content) Status Reason Specialty Diagnoses / Procedures Referre d By Contact Referred To Contact Closed Radiology Diagnoses Lower abdominal pain Amenorrhea Procedures US NON OB TRANSVAGINAL Fiorella Abarca, DO [address] [place] [place] [address] Reason Comments Pelvic Pain onset approx 1 week ago, sent her by PCP for eval Status Reason Specialty Diagnoses / Procedures Referre d By Contact Referred To Contact Open Radiology Diagnoses Pelvic pain in female Less than 8 weeks gestation of Procedures US OB LESS THAN 14 WEEKS SINGLE OR FIRST GESTATION US PELVIS COMPLETE Yolanda Humphrey, OWNER[employer] [address] [place] [address] Reason Comments Headache History of migraine headaches. Vomited one time today. Status Reason Specialty Diagnoses / Procedures Referre d By Contact Referred To Contact Closed Radiology Diagnoses Right sided numbness Blurred vision Procedures MRI BRAIN W WO CONTRAST HC MRI-BRAIN WO & W CONTRAST Eliane Vilchis MD [address] [facility] [address] [place] [address] Care Teams (unrecognized sec tion and content) Customer Services Coordinator Relationship Specialty Start Date End Date Fiorella Abarca, [address] [place] [address] PCP - General 02/26/16 Goals (unrecognized section and content) Goals may be documented in a n alternate section FOR RECORDS PERTAINING TO PATIENTS WHO ARE OR HAVE BEEN ENROLLED IN A CHEMICAL DEPENDENCY/SUBSTANCEABUSE PROGRAM, SOME INFORMATION MAY BE OMITTED. This clinical summary was aggregated from multiple sources. Caution should be exercised in using it in the provision of clinical care. This summary normalizes information from multiple sources, and as a consequence, information in this document may materially change the coding, format and clinical context of patient data. In addition, data may be omitted in some cases. CLINICAL DECISIONS SHOULD BE BASED ON THE PRIMARY CLINICAL RECORDS. [employer] [facility]. provides no warranty or guarantee of the accuracy or completeness of information in this document.
[2024-03-12 17:41] LABS: HCG Quantitative 418 mIU/mL
== END 2024-03-12 16:17 | disposition home or self-care (01) ==
LOC: LAB 16:17
PROVIDERS: Visit Provider Obstetrics & Gynecology
DX: N92.6 Irregular menstruation, unspecified (principal)
CPT/HCPCS: 36415; 84702

== ENCOUNTER 2024-03-14 16:25 | Outpatient (OUT) | payer OTHER, SELFPAY ==
--- OUTSIDE RECORDS SUMMARY | 2024-03-14 16:29 | XMS_ITS | CCD ---
Author Organization [facility] Care Team Providers Care Horticultural Specialty Grower Name Role Phone CHRIS DO Unavailable Unavailable [...] (14 sources) Succinylcholine Drug Allergy 08-18-19 14 [facility] Phone: (5 sources) Anesthesia S-I-60 Propensity to adverse reactions to drug 08-20-19 [facility] [place] ([facility] Other Propensity to adverse reactions 09-19-19 12 Other (See Comments) [facility] Phone: (7 sources) Propofol Drug Allergy 08-20-19 20 [facility] Phone: (2 sources) Seasonal allergy Propensity to adverse reactions to substance 09-19-19 12 Other (See Comments) [facility] Phone: (1 source) Succinylcholine Drug Allergy 01-14-20 [facility] Repository (1 source) Grass; Translations: [Grass] Propensity to adverse reactions (disorder) [facility] Repository (1 source) House dust mite (Bt) RAST; Translations: [House dust mite (Bt) RAST] Propensity to adverse reactions (disorder) [facility] Repository NEGATED: Highlighted row has been ruled out! (1 source) Other Propensity to adverse reactions 09-19-19 12 Other (See Comments) [facility] [employer] [employer] Phone: Medications Current Medications Medication Drug Class(es) [...] at bedtime May 27, 2021 1:00am ergocalciferol 15637 unt oral capsule (2 sources) Provitamin D2 Compound Start: 08-25-2019 End: 11-11-2019 take 1 capsule by mouth every week vitamin D (ERGOCALCIFEROL) 1.25 MG (88678 UT) CAPS capsule Take 1 capsule by [...] LIPS DAILY UNTIL CLEAR 0 09/17/2019 Active 629-Ajxm-Axkdi-Omeg a3 (One-A-Day -1) 27 mg iron- 800 mcg-235 mg capsule (1 source) Start: 01-13-2021 888-Atmc-Phtqm-Om ega3 (One-A-Day -1) 27 mg iron- 800 mcg-235 mg capsule Active 1 CAP PO Daily January 13, 2021 12:00am Vit-Fe Vgkepjw-CF-MSJ ( VITAMIN/MIN +DHA) 27-0.8-200 MG CAPS (7 sources) Start: 09-26-2020 take 1 tablet by mouth once daily Vit-Fe Otvjszk-AQ-EBK ( VITAMIN/MIN +DHA) 27-0.8-200 MG CAPS Indications: [...] 12:14pm Start: 07-29-2019 take 1 capsule by [facility] once daily propranolol (INDERAL LA) 120 MG [...] with voice recognition software. Occasional wrong-word or ?knnps-f-vcyx? 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. Activity level: Occasional physical work. Highest education [...] Years. Num (more content not included)... Normal [facility] Comment on above: Result Comment: Elec tronically [...] home: Medicines ? Take, use, or apply kdpf-eyu-tmeokys and prescription medicines only as told by [...] and water are not available, use hand gravel inspector. ? Do not smoke. Avoid being around [...] or swell (more content not included)... Normal [facility] CBC with Diffon 07-23-2022 Abs. Basophil 0.00 k/uL Normal 0.0-0.[address] [facility] Comment on above: Performed By: #### C P, TSHX, CDP #### [facility] [address] [place] [address] Auto Detailer: Cole Magaña MD Abs.Neutrophil (Seg) 2.90 k/uL Normal 2.5-7.0 [facility] Comment on above: Performed By: #### C P, TSHX, CDP #### [facility] [address] [place] [address] Auto Detailer: Cole Magaña MD Auto Diff Performed YES Normal [facility] Comment on above: Performed By: #### C P, TSHX, CDP #### [facility] [address] [place], [place] [id number] Auto Detailer: Cole Magaña MD Basophils/100 WBC (Bld) 0 % Normal 0-2 M [facility] Comment on above: Performed By: #### C P, TSHX, CDP #### [facility] [address] [place] [id number] Auto Detailer: Cole Magaña MD Eosinophils (Bld) [#/Vol] 0.00 10*3/uL Normal 0.0-0.[address] [facility] Comment on above: Performed By: #### C P, TSHX, CDP #### [facility] [address] [place] [address] Auto Detailer: Cole Magaña MD Eosinophils/100 WBC (Bld) 0 % Normal 0-[address] [facility] Comment on above: Performed By: #### C P, TSHX, CDP #### [facility] [address] [place] [id number] Auto Detailer: Cole Magaña MD Erythrocyte distribution width (RBC) [Ratio] 13.7 % Normal 12.1-15.[address] [facility] Comment on above: Performed By: #### C P, TSHX, CDP #### [facility] [address] [place] [id number] Auto Detailer: Cole Magaña MD Hematocrit (Bld) [Volume fraction] 40.0 % Normal 36-[address] [facility] Comment on above: Performed By: #### C P, TSHX, CDP #### [facility] [address] [place] [id number] Auto Detailer: Cole Magaña MD Hemoglobin (Bld) [Mass/Vol] 13.4 g/dL Normal 12.0-16.[address] [facility] Comment on above: Performed By: #### C P, TSHX, CDP #### [facility] [address] [place] [id number] [phone] Auto Detailer: Cole Magaña MD Lymphocytes (Bld) [#/Vol] 2.30 10*3/uL Normal 1.0-4.[address] [facility] Comment on above: Performed By: #### C P, TSHX, CDP #### [facility] [address] [place], [place] [id number] Auto Detailer: Cole Magaña MD Lymphocytes/100 WBC (Bld) 42 % High 15-[address] [facility] Comment on above: Performed By: #### C P, TSHX, CDP #### [facility] [address] [place] [address] Auto Detailer: Cole Magaña MD MCH (RBC) [Entitic mass] 29.5 pg Normal 26-[address] [facility] Comment on above: Performed By: #### C P, TSHX, CDP #### [facility] [address] [place] [id number] Auto Detailer: Cole Magaña MD MCHC (RBC) [Mass/Vol] 33.6 g/dL Normal 31-37 [facility] Comment on above: Performed By: #### C P, TSHX, CDP #### [facility] [address] [place] [address] Auto Detailer: Cole Magaña MD MCV (RBC) [Entitic vol] 88.0 fL Normal 80-100 M [facility] Comment on above: Performed By: #### C P, TSHX, CDP #### [facility] [address] [place] [address] Auto Detailer: Cole Magaña MD Monocytes (Bld) [#/Vol] 0.30 10*3/uL Normal 0.0-1.[address] [facility] Comment on above: Performed By: #### C P, TSHX, CDP #### [facility] [address] [place] [address] Auto Detailer: Cole Magaña MD Monocytes/100 WBC (Bld) 5 % Normal 4-8 M [facility] Comment on above: Performed By: #### C P, TSHX, CDP #### [facility] [address] [place] [address] Auto Detailer: Cole Magaña MD Neutrophil (Seg) 53 % Normal 47-[address] [facility] Comment on above: Performed By: #### C P, TSHX, CDP #### [facility] [address] [place] [address] Auto Detailer: Cole Magaña MD Platelets (Bld) [#/Vol] 330 10*3/uL Normal 140-[address] [facility] Comment on above: Performed By: #### C P, TSHX, CDP #### [facility] [address] [place] [address] Auto Detailer: Cole Magaña MD RBC (Bld) [#/Vol] 4.55 10*6/uL Normal 4.0-5.[address] [facility] Comment on above: Performed By: #### C P, TSHX, CDP #### [facility] [address] [place] [address] Auto Detailer: Cole Magaña MD WBC (Bld) [#/Vol] 5.6 10*3/uL Normal 3.5-11.[address] [facility] Comment on above: Performed By: #### C P, TSHX, CDP #### [facility] [address] [place] [address] Auto Detailer: Cole Magaña MD Comp Metabolic Profon 2022 Albumin [Mass/Vol] 4.6 g/dL Normal 3.5-5.[address] [facility] Comment on above: Performed By: #### C P, TSHX, CDP #### [facility] [address] [place], [place] [phone] Auto Detailer: Cole Magaña MD Alkaline Phos 69 U/L Normal 35-[address] [facility] Comment on above: Performed By: #### C P, TSHX, CDP #### [facility] [address] [place], [place] [id number] Auto Detailer: Cole Magaña MD ALT [Catalytic activity/Vol] 11 U/L Normal 5-[address] [facility] Comment on above: Performed By: #### C P, TSHX, CDP #### [facility] [address] [place], [place] [phone] Auto Detailer: Cole Magaña MD Anion gap [Moles/Vol] 7 mmol/L Low 9-17 [facility] Comment on above: Performed By: #### C P, TSHX, CDP #### [facility] [address] [place], [place] [phone] Auto Detailer: Cole Magaña MD AST [Catalytic activity/Vol] 13 U/L Normal <[address] [facility] Comment on above: Performed By: #### C P, TSHX, CDP #### [facility] [address] [place], [place] [phone] Auto Detailer: Cole Magaña MD Bilirubin [Mass/Vol] 0.8 mg/dL Normal 0.3-1.2 [facility] Comment on above: Performed By: #### C P, TSHX, CDP #### [facility] [address] [place], [place] [phone] Auto Detailer: Cole Magaña MD BUN/CRE Ratio 23 High 9-[address] [facility] Comment on above: Performed By: #### C P, TSHX, CDP #### [facility] [address] [place], [place] [phone] Auto Detailer: Cole Magaña MD Calcium [Mass/Vol] 9.4 mg/dL Normal 8.6-10.[address] [facility] Comment on above: Performed By: #### C P, TSHX, CDP #### [facility] [address] [place], [place] [phone] Auto Detailer: Cole Magaña MD Chloride [Moles/Vol] 109 mmol/L High 98-107 [facility] Comment on above: Performed By: #### C P, TSHX, CDP #### [facility] [address] [place], [place] [phone] Auto Detailer: Cole Magaña MD CO2 [Moles/Vol] 28 mmol/L Normal 20-[address] [facility] Comment on above: Performed By: #### C P, TSHX, CDP #### [facility] [address] [place] [address] Auto Detailer: Cole Magaña MD Creatinine [Mass/Vol] 0.48 mg/dL Low 0.50-0.90 [facility] Comment on above: Performed By: #### C P, TSHX, CDP #### [facility] [address] [place], [place] [phone] Auto Detailer: Cole Magaña MD GFR/1.73 sq M.predicted among non-blacks MDRD (S/P/Bld) [Vol rate/Area] mL/min/{1.73_m2} Normal >[address] [facility] Comment on above: Result Comment: Effective Apr [...] #### C P, TSHX, CDP #### [facility] [address] [place], [place] [phone] Auto Detailer: Cole Magaña MD Glucose [Mass/Vol] 88 mg/dL Normal 70-[address] [facility] Comment on above: Performed By: #### C P, TSHX, CDP #### [facility] [address] [place] [id number] Auto Detailer: Cole Magaña MD Potassium [Moles/Vol] 4.0 mmol/L Normal 3.7-5.3 [facility] Comment on above: Performed By: #### C P, TSHX, CDP #### [facility] [address] [place] [address] Auto Detailer: Cole Magaña MD Protein [Mass/Vol] 7.5 g/dL Normal 6.4-8.[address] [facility] Comment on above: Performed By: #### C P, TSHX, CDP #### [facility] [address] [place] [address] Auto Detailer: Cole Magaña MD Sodium [Moles/Vol] 144 mmol/L Normal 135-[address] [facility] Comment on above: Performed By: #### C P, TSHX, CDP #### [facility] [address] [place] [id number] Auto Detailer: Cole Magaña MD Urea nitrogen [Mass/Vol] 11 mg/dL Normal 6-[address] [facility] Comment on above: Performed By: #### C P, TSHX, CDP #### [facility] [address] [place] [address] Auto Detailer: Cole Magaña MD TSH w/reflex to FT4on 2022 Thyroid Stim. Horm. 0.93 uIU/mL Normal 0.30-5.00 [facility] Comment on above: Performed By: #### C P, TSHX, CDP #### [facility] [address] [place] [id number] Auto Detailer: Cole Magaña MD Food, Comprehensiveon 2022 Barley IgE <0.10 Normal 0.00-0.[address] [facility] Comment on above: Performed By: #### I FOODC #### [address] [address] Auto Detailer: Gurpreet Wei MD Beef IgE <0.10 Normal 0.00-0.[address] [facility] Comment on above: Performed By: #### I FOODC #### [address] [address] Auto Detailer: Gurpreet Wei MD Cabbage IgE <0.10 Normal 0.00-0.[address] [facility] Comment on above: Performed By: #### I FOODC #### [address] [address] Auto Detailer: Gurpreet Wei MD Carrot IgE <0.10 Normal 0.00-0.[address] [facility] Comment on above: Performed By: #### I FOODC #### [address] [address] Auto Detailer: Gurpreet Wei MD Chicken IgE <0.10 Normal 0.00-0.[address] [facility] Comment on above: Performed By: #### I FOODC #### [address] [address] Auto Detailer: Gurpreet Wei MD Codfish IgE <0.10 Normal 0.00-0.[address] [facility] Comment on above: Performed By: #### I FOODC #### [address] [address] Auto Detailer: Gurpreet Wei MD [place] IgE <0.10 Normal 0.00-0.[address] [facility] Comment on above: Performed By: #### I FOODC #### [address] [address] Auto Detailer: Gurpreet Wei MD Crab IgE <0.10 Normal 0.00-0.[address] [facility] Comment on above: Performed By: #### I FOODC #### [address] [address] Auto Detailer: Gurpreet Wei MD Egg White IgE <0.10 Normal 0.00-0.[address] [facility] Comment on above: Performed By: #### I FOODC #### [address] [address] Auto Detailer: Gurpreet Wei MD Grape IgE <0.10 Normal 0.00-0.[address] [facility] Comment on above: Performed By: #### I FOODC #### [address] [address] Auto Detailer: Gurpreet Wei MD Lettuce IgE <0.10 Normal 0.00-0.[address] [facility] Comment on above: Performed By: #### I FOODC #### [address] [address] Auto Detailer: Gurpreet Wei MD Milk (Cow) IgE <0.10 Normal 0.00-0.[address] [facility] Comment on above: Performed By: #### I FOODC #### [address] [address] Auto Detailer: Gurpreet Wei MD [place] Puir IgE <0.10 Normal 0.00-0.[address] [facility] Comment on above: Performed By: #### I FOODC #### [address] [address] Auto Detailer: Gurpreet Wei MD Oat IgE <0.10 Normal 0.00-0.[address] [facility] Comment on above: Performed By: #### I FOODC #### [address] [address] Auto Detailer: Gurpreet Wei MD Reynolds IgE <0.10 Normal 0.00-0.[address] [facility] Comment on above: Performed By: #### I FOODC #### [address] [address] Auto Detailer: Gurpreet Wei MD Peanut IgE <0.10 Normal 0.00-0.[address] [facility] Comment on above: Performed By: #### I FOODC #### [address] [address] Auto Detailer: Gurpreet Wei MD Pepper C. annuum IgE <0.10 Normal 0.00-0.34 [facility] Comment on above: Performed By: #### I FOODC #### [address] [address] Auto Detailer: Gurpreet Wei MD Pork IgE <0.10 Normal 0.00-0.[address] [facility] Comment on above: Performed By: #### I FOODC #### [address] [address] Auto Detailer: Gurpreet Wei MD Potato IgE <0.10 Normal 0.00-0.[address] [facility] Comment on above: Performed By: #### I FOODC #### [address] [address] Auto Detailer: Gurpreet Wei MD Rice IgE <0.10 Normal 0.00-0.[address] [facility] Comment on above: Performed By: #### I FOODC #### [address] [address] Auto Detailer: Gurpreet Wei MD Serena IgE <0.10 Normal 0.00-0.[address] [facility] Comment on above: Performed By: #### I FOODC #### [address] [address] Auto Detailer: Gurpreet Wei MD Shrimp IgE <0.10 Normal 0.00-0.[address] [facility] Comment on above: Performed By: #### I FOODC #### [facility] [employer] [address] [place] [phone] Auto Detailer: Gurpreet Wei MD Soybean IgE <0.10 Normal 0.00-0.[address] [facility] Comment on above: Performed By: #### I FOODC #### [email or web address] [address] [place] [address] [phone] Auto Detailer: Gurpreet Wei MD Tomato IgE <0.10 Normal 0.00-0.[address] [facility] Comment on above: Performed By: #### I FOODC #### [email or web address] [address] [place] [address] [phone] Auto Detailer: Gurpreet Wei MD Tuna IgE <0.10 Normal 0.00-0.[address] [facility] Comment on above: Performed By: #### I FOODC #### [facility] [address] [phone] Auto Detailer: Gurpreet Wei MD Wheat IgE <0.10 Normal 0.00-0.[address] [facility] Comment on above: Result Comment: ALLERGEN, INTERP, [...] anaphylaxis. Performed By: #### I FOODC #### [email or web address] [address] [place] [phone] Auto Detailer: Gurpreet Wei MD Immunoglobulin E 4 IU/mL Normal <[address] [facility] Comment on above: Performed By: #### I FOODC #### [email or web address] [address] [place] [address] Auto Detailer: MD Warren Almazan 03-29-2021 [facility] Telephone (OBGYF2) CHAPIS EVANS ([id number]) 1995 F Date Time Provider Department 03/29/21 OB [facility] OBGYF2 During your visit today, we recorded the following information about you: Latonya Mchugh RN 03/29/2021 9:48 AM Signed NIPT results received from Dr. Patricia Theodore' office. Results in scanned docs. Latonya Mchugh RN [facility] Allergies As of Date: 03/29/2021 Noted Allergy [...] Status:Closed by LATONYA MCHUGH RN on 03/29/21 [facility] 03-22-2021 [facility] Telephone (OBGYLW) CHAPIS EVANS ([id number]) 1995 F Date Time Provider Department 03/22/21 [facility] OBGYLW During your visit today, we recorded the following information about you: Latonya Mchugh RN 03/22/2021 1:41 PM Signed Informed pt that call was regarding scheduling US and consult as requested by Dr. Patricia Theodore at [facility] for bilateral pyelectasis and polyhydramnios. Pt verbalizes understanding and wishes to proceed with scheduling. , pt denies any current medical conditions. Current meds: PNV. Pt had NIPT testing done 03/20, results still pending. Will follow up with Dr. Patricia Theodore office early next week for results. There are no upcoming appts at in the next couple of days. Offered appt at [place] on 03/30 at 2:45pm. One full hour allotted for US and consult. Pt accepts, front staff notified to schedule. Advised pt that she may bring two support persons age 16+ and both must wear masks. She verbalizes understanding and has no additional questions at this time. Latonya Mchugh RN [facility] Allergies As of Date: 03/22/2021 Noted Allergy [...] by LATONYA MCHUGH RN on 03/22/21 Normal [facility] HCG, Quantitative, on 10-03-2020 hCG Quant 75669 High <5 IU/L [facility] Phone: Comment on above: Non-preg premeno <=5 Postmeno <=8 Male <=3 If HCG results do not concur with clinical observations, additional testing to confirm results is recommended. Elevated results not associated with may be found in patients with other diseases such as tumors of the germ cells (testis, ovaries, etc.), bladder, pancreas, stomach, lungs, and liver. Interpretation and review of laboratory results Abnormal [facility] Phone: CBC With Auto Differentialon 09-28-2020 Basophils (Bld) [#/Vol] 0.10 10*3/uL [facility] Phone: Basophils/100 WBC (Bld) 1 % 0 - 2 % M [employer] Phone: Differential Type YES [employer] Phone: Eosinophils (Bld) [#/Vol] 0.10 10*3/uL [facility] Phone: Eosinophils/100 WBC (Bld) 1 % 0 - 5 % [facility] Phone: Erythrocyte distribution width (RBC) [Ratio] 13.9 % 12.1 - 15.2 % [facility] Phone: Hematocrit (Bld) [Volume fraction] 39.4 % 36 - 46 % [facility] Phone: Hemoglobin (Bld) [Mass/Vol] 13.7 g/dL 12.0 - 16.0 g/dL [facility] Phone: Lymphocytes (Bld) [#/Vol] 3.20 10*3/uL [facility] Phone: Lymphocytes/100 WBC (Bld) 35 % 15 - 40 % [facility] Phone: MCH (RBC) [Entitic mass] 30.1 pg 26 - 34 pg [facility] Phone: MCHC (RBC) [Mass/Vol] 34.8 g/dL 31 - 37 g/dL M [employer] Phone: MCV (RBC) [Entitic vol] 86.5 fL 80 - 100 fL [facility] Phone: Monocytes (Bld) [#/Vol] 0.50 10*3/uL [facility] Phone: Monocytes/100 WBC (Bld) 6 % 4 - 8 % M [employer] Phone: Platelet mean volume (Bld) [Entitic vol] NOT REPORTED 6.0 - 12.0 fL [facility] Phone: Platelets (Bld) [#/Vol] 418 10*3/uL [facility] Phone: Platelets (Bld) [#/Vol] NOT REPORTED [facility] Phone: RBC (Bld) [#/Vol] 4.56 10*6/uL 4.0 - 5.2 m/uL [facility] Phone: RBC morphology finding Nom (Bld) NOT REPORTED [facility] Phone: Segmented neutrophils/100 WBC (Bld) 57 % 47 - 75 % [facility] Phone: Segs Absolute 5.20 [employer] Phone: WBC (Bld) [#/Vol] 9.1 10*3/uL [facility] Phone: WBC (Bld) [#/Vol] NOT REPORTED per 100 WBC [facility] [employer] Phone: WBC Morphology NOT REPORTED [email or web address] Phone: Otheron 09-28-2020 Immature granulocytes (Bld) [#/Vol] NOT REPORTED [facility] Phone: Specimen Rejectionon 021 Reason for rejection Unable to perform testing: Specimen not processed correctly. [facility] Comment on above: Performed By: #### R EJEC #### [address] [id number] Auto Detailer: Gurpreet Wei MD Source of sample TWO SWABS IN CONTAINER [facility] Comment on above: Performed By: #### R EJEC #### [facility] [employer] [address] [place] [id number] Auto Detailer: Gurpreet Wei MD Test ordered [facility] Comment on above: Performed By: #### R EJEC #### [address] [id number] Auto Detailer: Gurpreet Wei MD hCG, Quantitative, on 09-28-2020 hCG Quant 2027 High <5 IU/L [facility] [employer] Phone: Comment on above: Non-preg premeno <=5 Postmeno <=8 Male <=3 If HCG results do not concur with clinical observations, additional testing to confirm results is recommended. Elevated results not associated with may be found in patients with other diseases such as tumors of the germ cells (testis, ovaries, etc.), bladder, pancreas, stomach, lungs, and liver. Interpretation and review of laboratory results Abnormal [facility]: CBC with Diffon 09-27-2020 Abs. Basophil 0.05 k/uL Normal 0.00-0.20 [facility] Comment on above: Performed By: #### C DP #### [facility] [address] [place] [address] Auto Detailer: Cole Magaña MD Abs.Imm.Granulocyte 0.03 k/uL Normal 0.00-0.30 [facility] Comment on above: Performed By: #### C DP #### [address] [place], [facility] Auto Detailer: Cole Magaña MD Abs.Neutrophil (Seg) 6.02 k/uL Normal 1.50-8.10 [facility] Comment on above: Performed By: #### C DP #### [address] [place] [address] Auto Detailer: Cole Magaña MD Basophils/100 WBC (Bld) 1 % Normal 0-2 [facility] Comment on above: Performed By: #### C DP #### [address] [place], [facility] Auto Detailer: Cole Magaña MD Eosinophils (Bld) [#/Vol] 0.10 10*3/uL Normal 0.00-0.44 [facility] Comment on above: Performed By: #### C DP #### [address] [place], [facility]83 Auto Detailer: Cole Magaña MD Eosinophils/100 WBC (Bld) 1 % Normal 1-4 [facility] Comment on above: Performed By: #### C DP #### [address] [place], [facility]83 Auto Detailer: Cole Magaña MD Erythrocyte distribution width (RBC) [Ratio] 13.4 % Normal 11.8-14.4 [facility] Comment on above: Performed By: #### C DP #### [address] [place], [facility]83 Auto Detailer: Cole Magaña MD Hematocrit (Bld) [Volume fraction] 39.3 % Normal 36.3-47.1 [facility] Comment on above: Performed By: #### C DP #### [facility] [address] [place], [place] [address] Auto Detailer: Cole Magaña MD Hemoglobin (Bld) [Mass/Vol] 14.0 g/dL Normal 11.9-15.1 [facility] Comment on above: Performed By: #### C DP #### [facility] [address] [place], [place] [address] Auto Detailer: Cole Magaña MD Immature granulocytes (Bld) [#/Vol] 0 % Normal 0 [facility] Comment on above: Performed By: #### C DP #### [address] [place], [facility]83 Auto Detailer: Cole Magaña MD Lymphocytes (Bld) [#/Vol] 4.01 10*3/uL High 1.10-3.70 [facility] Comment on above: Performed By: #### C DP #### [address] [place], [facility]83 Auto Detailer: Cole Magaña MD Lymphocytes/100 WBC (Bld) 37 % Normal 24-43 [facility] Comment on above: Performed By: #### C DP #### [facility] [address] [place] [address] Dr[place], [place] [address] Auto Detailer: Cole Magaña MD MCH (RBC) [Entitic mass] 30.0 pg Normal 25.2-33.5 [facility] Comment on above: Performed By: #### C DP #### [facility] [address] [place] [address] Dr[place], [facility]83 Auto Detailer: Cole Magaña MD MCHC (RBC) [Mass/Vol] 35.6 g/dL High 28.4-34.8 [facility] Comment on above: Performed By: #### C DP #### [facility] [address] [place] [address] Auto Detailer: Cole Magaña MD MCV (RBC) [Entitic vol] 84.2 fL Normal 82.6-102.9 M [facility] Comment on above: Performed By: #### C DP #### [facility] [address] [place] [address] Auto Detailer: Cole Magaña MD Monocytes (Bld) [#/Vol] 0.60 10*3/uL Normal 0.10-1.20 [facility] Comment on above: Performed By: #### C DP #### [address] [place], [place] [id number] Auto Detailer: Cole Magaña MD Monocytes/100 WBC (Bld) 6 % Normal 3-12 [facility] Comment on above: Performed By: #### C DP #### [address] [place], [place] [id number] Auto Detailer: Cole Magaña MD Neutrophil (Seg) 55 % Normal 36-65 [facility] Comment on above: Performed By: #### C DP #### [address] [place], [place] [id number] Auto Detailer: Cole Magaña MD NRBC Automated 0.0 per 100 WBC Normal 0.0 [facility] Comment on above: Performed By: #### C DP #### [address] [place], [place] [id number] Auto Detailer: Cole Magaña MD Platelet mean volume (Bld) [Entitic vol] 9.5 fL Normal 8.1-13.5 [facility] Comment on above: Performed By: #### C DP #### [address] [place], [place] [id number] Auto Detailer: Cole Magaña MD Platelets (Bld) [#/Vol] 414 10*3/uL Normal 138-453 [facility] Comment on above: Performed By: #### C DP #### [facility] [address] [place], [place] [id number] Auto Detailer: Cole Magaña MD RBC (Bld) [#/Vol] 4.67 10*6/uL Normal 3.95-5.11 [facility] Comment on above: Performed By: #### C DP #### [facility] [address] [place], [place] [id number] Auto Detailer: Cole Magaña MD WBC (Bld) [#/Vol] 10.8 10*3/uL Normal 3.5-11.3 [facility] Comment on above: Performed By: #### C DP #### [facility] [address] [place], [place] [id number] Auto Detailer: Cole Magaña MD Auto Diff Performed NOT REPORTED Normal [facility] Comment on above: Performed By: #### C DP #### [facility] [address] [place], [place] [id number] Auto Detailer: Cole Magaña MD Platelets (Bld) [#/Vol] NOT REPORTED Normal [facility] Comment on above: Performed By: #### C DP #### [facility] [address] [place], [place] [id number] Auto Detailer: Cole Magaña MD RBC morphology finding Nom (Bld) NOT REPORTED Normal [facility] Comment on above: Performed By: #### C DP #### [facility] [address] [place], [place] [id number] Auto Detailer: Cole Magaña MD WBC Morphology NOT REPORTED Normal [facility] Comment on above: Performed By: #### C DP #### [facility] [address] [place], [place] [id number] Auto Detailer: Cole Magaña MD RHIG, Transfuseon 09-27-2020 RHIG, Transfuse Unit Number [id number]/ [id number] Blood Component Type RHIG Unit Division 00 Status of Unit TRANSFUSED Transfusion Status OK TO TRANSFUSE Normal [facility] Comment on above: Performed By: #### T RHIG #### [facility] [address] [place] [address] Auto Detailer: Cole Magaña MD Type + Screenon 09-27-2020 Type + Screen Sample Expiration 09/29/2020,2359 Arm Band Number [id number] ABO/Rh(D) A NEGATIVE Antibody Screen NEGATIVE Normal [facility] Comment on above: Performed By: #### T YS #### [facility] [address] [place] [address] Auto Detailer: Cole Magaña MD CBC Auto Differentialon 09-06 Basophils (Bld) [#/Vol] 0.05 10*3/uL [employer] Phone: Basophils/100 WBC (Bld) 1 % 0 - 2 % [facility]: Differential Type NOT REPORTED [employer] Phone: Eosinophils (Bld) [#/Vol] 0.10 10*3/uL [employer] Phone: Eosinophils/100 WBC (Bld) 1 % 1 - 4 % [employer] Phone: Erythrocyte distribution width (RBC) [Ratio] 13.4 % 11.8 - 14.4 % [employer] Phone: Hematocrit (Bld) [Volume fraction] 39.3 % 36.3 - 47.1 % [employer] Phone: Hemoglobin (Bld) [Mass/Vol] 14.0 g/dL 11.9 - 15.1 g/dL [employer] Phone: Immature granulocytes (Bld) [#/Vol] 0.03 10*3/uL [employer] Phone: Immature granulocytes (Bld) [#/Vol] 0 % 0 [employer] Phone: Interpretation and review of laboratory results Abnormal [employer] Phone: Lymphocytes (Bld) [#/Vol] 4.01 10*3/uL High [employer] Phone: Lymphocytes/100 WBC (Bld) 37 % 24 - 43 % [employer] Phone: MCH (RBC) [Entitic mass] 30.0 pg 25.2 - 33.5 pg [employer] Phone: MCHC (RBC) [Mass/Vol] 35.6 g/dL High 28.4 - 34.8 g/dL [employer] Phone: MCV (RBC) [Entitic vol] 84.2 fL 82.6 - 102.9 fL [employer] Phone: Monocytes (Bld) [#/Vol] 0.60 10*3/uL [employer] Phone: Monocytes/100 WBC (Bld) 6 % 3 - 12 % [facility] Phone: Platelet mean volume (Bld) [Entitic vol] 9.5 fL 8.1 - 13.5 fL [employer] Phone: Platelets (Bld) [#/Vol] 414 10*3/uL [employer] Phone: Platelets (Bld) [#/Vol] NOT REPORTED [employer] Phone: RBC (Bld) [#/Vol] 4.67 10*6/uL 3.95 - 5.1 1 m/uL [employer] Phone: RBC morphology finding Nom (Bld) NOT REPORTED [employer] Phone: Segmented neutrophils/100 WBC (Bld) 55 % 36 - 65 % [employer] Phone: Segs Absolute 6.02 [facility] Work Phone: WBC (Bld) [#/Vol] 0.0 10*3/uL 0.0 per 10 0 WBC [facility] [employer] Work Phone: WBC (Bld) [#/Vol] 10.8 10*3/uL [facility] Work Phone: WBC Morphology NOT REPORTED [facility] Work Phone: Basophils (Bld) [#/Vol] 0.00 10*3/uL [facility] [employer] Work Phone: Basophils/100 WBC (Bld) 0 % 0 - 2 % M [facility] [employer] Work Phone: Differential Type YES [facility] Work Phone: Eosinophils (Bld) [#/Vol] 0.10 10*3/uL [facility] Work Phone: Eosinophils/100 WBC (Bld) 1 % 0 - 5 % [facility] [employer] Phone: Erythrocyte distribution width (RBC) [Ratio] 15.0 % 12.1 - 15.2 % [facility] Phone: Hematocrit (Bld) [Volume fraction] 40.7 % 36 - 46 % [facility] Phone: Hemoglobin (Bld) [Mass/Vol] 14.2 g/dL 12.0 - 16.0 g/dL [facility] Phone: Lymphocytes (Bld) [#/Vol] 3.20 10*3/uL [facility] Phone: Lymphocytes/100 WBC (Bld) 29 % 15 - 40 % [facility] [employer] Phone: MCH (RBC) [Entitic mass] 30.3 pg 26 - 34 pg [facility] Phone: MCHC (RBC) [Mass/Vol] 34.8 g/dL 31 - 37 g/dL M [employer] Work Phone: MCV (RBC) [Entitic vol] 86.9 fL 80 - 100 fL [employer] Work Phone: Monocytes (Bld) [#/Vol] 0.60 10*3/uL [employer] Phone: Monocytes/100 WBC (Bld) 6 % 4 - 8 % M [employer] Work Phone: Platelet mean volume (Bld) [Entitic vol] NOT REPORTED 6.0 - 12.0 fL [employer] Phone: Platelets (Bld) [#/Vol] NOT REPORTED [employer] Phone: Platelets (Bld) [#/Vol] 429 10*3/uL [employer] Phone: RBC (Bld) [#/Vol] 4.69 10*6/uL 4.0 - 5.2 m/uL [employer] Work Phone: RBC morphology finding Nom (Bld) NOT REPORTED [employer] Phone: Segmented neutrophils/100 WBC (Bld) 64 % 47 - 75 % [employer] Work Phone: Segs Absolute 6.80 [facility] Work Phone: WBC (Bld) [#/Vol] 10.7 10*3/uL [employer] Work Phone: WBC (Bld) [#/Vol] NOT REPORTED per 100 WBC [employer] Work Phone: WBC Morphology NOT REPORTED [facility] Work Phone: Microscopic Urinalysison Amorphous, UA NOT REPORTED None [facility] Work Phone: Bacteria, UA NOT REPORTED None [employer] Work Phone: Casts UA NOT REPORTED /LPF [employer] Work Phone: Crystals, UA NOT REPORTED None /HPF [employer] [facility] Work Phone: Epithelial Cells UA 0 TO 2 /HPF [facility] Work Phone: Mucus, UA NOT REPORTED None [facility] Work Phone: Other Observations UA NOT REPORTED NOT REQ. M [facility] [employer] Work Phone: RBC (U) [#/Vol] 0 TO 2 [employer] [facility] Work Phone: Renal Epithelial, UA NOT REPORTED 0 /HPF Me [facility] [place] Work Phone: Trichomonas, UA NOT REPORTED None [facility] Work Phone: WBC, UA NOT REPORTED 0 /HPF [facility] Work Phone: Yeast, UA NOT REPORTED None [employer] Work Phone: - [facility] Work Phone: Otheron 09-26-2020 With a positive test and no pole or gestational sac definitely identified, this is a of unknown location and a short-term follow-up ultrasound is recommended. [employer] Work Phone: EXAM: US OB LESS MEHNAZ [...] is no free fluid in the cul-de-sac. [employer] Phone: Agu[place], Mhpn Incoming Radiant Results From [employer] - 09/26/2020 7:00 PM EDT EXAM: US [...] and a short-term follow-up ultrasound is recommended. [employer] Phone: Immature granulocytes (Bld) [#/Vol] NOT REPORTED [employer] Phone: Specimen Rejectionon 021 ----- NOT REPORTED Normal [facility] Comment on above: Performed By: #### R EJEC #### [email or web address] [facility] [place] [address] Auto Detailer: Gurpreet Wei MD TYPE AND SCREENon 09-26-2020 ABO/Rh Negative [employer] Phone: Arm Band Number [id number] [facility] Work Phone: Expiration Date 09/29/2020,7253 [employer] Phone: Urinalysis Reflex to Culture on 09-26-2020 Bilirubin Urine Negative NEGATIVE [employer] [facility] Work Phone: Color, UA YELLOW YELLOW [facility] Phone: Glucose, Ur Negative NEGATIVE [facility] [employer] Phone: Interpretation and review of laboratory results Abnormal [employer] Phone: Ketones Ql (U) Negative NEGATIVE [facility] Work Phone: Leukocyte esterase Test strip Ql (U) Negative NEGATIVE [facility] Work Phone: Nitrite, Urine Negative NEGATIVE [facility] Work Phone: pH, UA 5.0 [facility] [place] Work Phone: Protein (U) [Mass/Vol] Negative NEGATIVE [facility] [employer] Work Phone: Specific [place], UA 1.015 [facility] [employer] Work Phone: Turbidity UA CLEAR CLEAR [facility] Phone: Urinalysis Comments [facility] Mail Phone: Urine Hgb TRACE Abnormal NEGATIVE [facility] Mail Phone: Urobilinogen, Urine Normal Normal [facility] Mail Phone: hCG, Quantitative, on 09-26-2020 hCG Quant 920 High <5 IU/L [employer] Phone: Comment on above: Non-preg premeno <=5 Postmeno <=8 Male <=3 If HCG results do not concur with clinical observations, additional testing to confirm results is recommended. Elevated results not associated with may be found in patients with other diseases such as tumors of the germ cells (testis, ovaries, etc.), bladder, pancreas, stomach, lungs, and liver. Interpretation and review of laboratory results Abnormal [employer] Phone: hCG, Serum, Qualitativeon hCG Qual Positive Abnormal NEGATIVE [facility] Phone: Comment on above: If HCG results do not concur with clinical observations, additional testing to confirm result is recommended. This test is not labeled for use as a tumor marker. [email or web address] has confirmed the use of plasma for this test. This has not been cleared or approved by the U.S. Food and Drug Administration. The FDA has determined that such clearance is not necessary. Interpretation and review of laboratory results Abnormal [facility] Work Phone: Glucose, Fastingon 0 Glucose [Mass/Vol] 94 mg/dL 70 - 99 mg/dL [place], [place] Lipid Panelon 02-16-2020 Cholesterol [Mass/Vol] 151 mg/dL <200 [place], [place] Comment on above: Cholesterol Guidelines: <200 Desirable 200-240 Borderline >240 Undesirable Cholesterol in HDL [Mass/Vol] 49 mg/dL >40 [place], [place] Comment on above: HDL Guidelines: <40 Undesirable 40-59 Borderline >59 Desirable Cholesterol in LDL [Mass/Vol] 96 mg/dL 0 - 130 mg/dL [place], [place] Comment on above: LDL Guidelines: <100 Desirable 100-129 Near to/above Desirable 130-159 Borderline >159 Undesirable Direct (measured) LDL and calculated LDL are not interchangeable tests. Cholesterol in VLDL [Mass/Vol] NOT REPORTED 1 - 30 mg/dL [place], [place] Cholesterol.total/Vivien sterol in HDL [Mass ratio] 3.1 {ratio} <5 [place], [place] Triglyceride [Mass/Vol] 32 mg/dL <150 M [place], [place] Comment on above: Triglyceride Guidelines: <150 Desirable 150-199 Borderline 200-499 High >499 Very high Based on AHA Guidelines for fasting triglyceride, April 2012. US NON OB TRANSVAGINALon 1. Mild pelvic free fluid in the cul-de-sac. 2. Normal sonographic morphology of the uterus and ovaries. [place], [place] PROCEDURE: US NON OB TRANSVAGINAL, 01/11/2020 [...] within ovarian tissue bilaterally without spectral evaluation. [facility] [employer], Mhpn Incoming Radiant Results From [employer] - 01/12/2020 8:08 AM EDT PROCEDURE: US [...] sonographic morphology of the uterus and ovaries. [facility] Vitamin D 25 Hydroxyon 01-10 Interpretation and review of laboratory results Abnormal [facility] Vit D, 25-Hydroxy 21.6 ng/mL Low 30 - 100 ng/mL [facility] Comment on above: Reference Range: Vitamin D status Range Deficiency <20 ng/mL Mild Deficiency 20-30 ng/mL Sufficiency 30-100 ng/mL Toxicity >100 ng/mL MRI BRAIN W WO CONTRASTOrder ed By: Eliane Vilchis on 07-29-2019 1. Unremarkable contrast enhanced brain MRI. No focal signal abnormality, mass effect or abnormal enhancement. 2. Mild mucosal thickening of the left frontal and bilateral maxillary sinuses. [employer] Phone: EXAM: MRI BRAIN W WO CONTRAST [...] air cells are clear. No abnormal enhancement. [employer] Phone: Aguila, pn Incoming Radiant Results From [employer] - 07/29/2019 4:55 PM EST EXAM: MRI [...] the left frontal and bilateral maxillary sinuses. [employer] Phone: Basic Metabolic Panel w/ Ref nora to MGOrdered By: Leonor Sandy on 07-10-2019 Anion gap [Moles/Vol] 13 mmol/L 9 - 17 mmol/L [employer] Phone: Bun/Cre Ratio 20 [employer] Work Phone: Calcium [Mass/Vol] 10.4 mg/dL 8.6 - 10. 4 mg/dL [employer] Work Phone: Chloride [Moles/Vol] 104 mmol/L 98 - 10 7 mmol/L [facility] Phone: CO2 [Moles/Vol] 22 mmol/L 20 - 31 mmol/L [employer] Phone: Creatinine [Mass/Vol] 0.5 mg/dL 0.5 - 0.9 mg/dL [employer] Phone: GFR >60 >60 mL/min [employer] Phone: GFR Comment [employer] Phone: Comment on above: Average GFR for 20-2 9 years old: 116 mL/min/1.73sq m Chronic Kidney Disease: <60 mL/min/1.73sq m Kidney failure: <15 mL/min/1.73sq m eGFR calculated using average adult body mass. Additional eGFR calculator available at: http://www.Altavian/multiple_crcl_2012.htm GFR Non- >60 >60 mL/min [facility] Phone: GFR Staging NOT REPORTED [facility] Work Phone: Glucose [Mass/Vol] 132 mg/dL High 70 - 99 mg/dL [facility] [employer] Work Phone: Interpretation and review of laboratory results Abnormal [facility] Phone: Potassium [Moles/Vol] 3.7 mmol/L 3.7 - 5.3 mmol/L [facility] Work Phone: Sodium [Moles/Vol] 139 mmol/L 135 - 144 mmol/L [employer] Work Phone: Urea nitrogen [Mass/Vol] 10 mg/dL 6 - 20 mg/dL [employer] Work Phone: CBC Auto DifferentialOrdered By: Leonor Sandy on 07-10-2019 Absolute Eos # 0.10 [employer] [facility] Work Phone: Absolute Immature Granulocyte NOT REPORTED [employer] Work Phone: Absolute Lymph # 2.70 [employer] [facility] Work Phone: Absolute Heard # 0.40 [employer] [facility] Work Phone: Basophils (Bld) [#/Vol] 0.00 10*3/uL [employer] Work Phone: Basophils/100 WBC (Bld) 0 % 0 - 2 % [employer] Work Phone: Differential Type YES [facility] Work Phone: Eosinophils/100 WBC (Bld) 1 % 0 - 5 % [employer] Phone: Erythrocyte distribution width (RBC) [Ratio] 13.4 % 12.1 - 15.2 % [employer] Phone: Hematocrit (Bld) [Volume fraction] 43.6 % 36 - 46 % [employer] Work Phone: Hemoglobin (Bld) [Mass/Vol] 15.0 g/dL 12 - 16 g/dL [employer] Work Phone: Immature Granulocytes NOT REPORTED 0 % [employer] Work Phone: Lymphocytes/100 WBC (Bld) 30 % 15 - 40 % [employer] Phone: MCH (RBC) [Entitic mass] 29.9 pg 26 - 34 pg [employer] Work Phone: MCHC (RBC) [Mass/Vol] 34.4 g/dL 31 - 37 g/dL M [facility] [employer] Work Phone: MCV (RBC) [Entitic vol] 86.8 fL 80 - 100 fL [facility] [employer] Work Phone: Monocytes/100 WBC (Bld) 4 % 4 - 8 % M [facility] [employer] Work Phone: MPV NOT REPORTED 6 - 12 fL [facility] [employer] Work Phone: NRBC Automated NOT REPORTED per 100 WBC [facility] [employer] Work Phone: Platelet Estimate NOT REPORTED [facility] [place] Work Phone: Platelets (Bld) [#/Vol] 395 10*3/uL [facility] [employer] Work Phone: RBC (Bld) [#/Vol] 5.02 10*6/uL 4 - 5.2 m/uL [facility] [employer] Work Phone: RBC morphology finding Nom (Bld) NOT REPORTED [facility] [employer] Work Phone: Segmented neutrophils/100 WBC (Bld) 65 % 47 - 75 % [facility] [employer] Work Phone: Segs Absolute 5.80 [facility] Work Phone: WBC (Bld) [#/Vol] 8.9 10*3/uL [facility] [place] Work Phone: WBC Morphology NOT REPORTED [facility] alth Work Phone: CT Head WO ContrastOrdered B y: Leonor Sandy on 07-10-[address] brain[address] [facility] Work Phone: EXAMINATION: CT HEAD WO [...] sagittal multiplanar reconstructions show no additional abnormality. [employer] Phone: Agu[place], Mhpn Incoming Radiant Results From [employer] - 07/10/2019 6:04 PM EST EXAMINATION: CT [...] no additional abnormality. IMPRESSION: Normal CT brain. [employer] Phone: Glucose, Whole BloodOrdered By: Leonor Sandy on 07-10-2019 Glucose [Mass/Vol] 98 mg/dL 65 - 99 mg/dL [facility] [employer] Work Phone: POCT glucoseOrdered By: Nathaly Sandy on 07-10-2019 Glucose [Mass/Vol] 98 mg/dL [facility] Phone: Interpretation and review of laboratory results Normal [facility] Phone: QC OK? yes [facility] [employer] Phone: , UrineOrdered By: Leonor Sandy on 07-10-2019 Beta HCG ( test) Ql (U) Negative NEGATIVE [facility] Work Phone: Urinalysis, reflex to micros copicOrdered By: Leonor Sandy on 07-10-2019 Bilirubin Urine Negative NEGATIVE [facility] Work Phone: Color, UA YELLOW YELLOW [facility] Phone: Glucose, Ur Negative NEGATIVE [facility] [place] Work Phone: Ketones Ql (U) Negative NEGATIVE [employer] Work Phone: Leukocyte esterase Test strip Ql (U) Negative NEGATIVE [employer] Phone: Nitrite, Urine Negative NEGATIVE [employer] Work Phone: pH, UA 6.5 [employer] Phone: Protein, UA Negative NEGATIVE [employer] Phone: Specific [place], UA 1.010 [employer] Phone: Turbidity UA CLEAR CLEAR [employer] Phone: Urinalysis Comments [employer] Phone: Urine Hgb Negative NEGATIVE [employer] Phone: Urobilinogen, Urine Normal Normal [employer] Phone: [facility] Repor ton 06-12-2017 [facility] Report Type: OrthopedicDictated by: To be signed by: Transcribed by: Transcribed D/ Dictation D/ Report: May 07, 2017 RE: Chapis Nation is here today with chief complaint of right hand pain. She has been having this now for a few months. 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 Normal [facility] Radiologyon 06-12-2017 Radiology Type: OutpatientDictated by: Signed by: Transcribed by: Transcribed Date/Time: 05/10/2017 12:19Dictation Date/Time: 05/07/2017 17:31Report: DATE OF SERVICE: 05/07/2017 DIAGNOSTIC STUDIES/INTERPRETATION S/IMPRESSIONS: Radiographs AP and lateral projections of her hands bilaterally demonstrate no fracture, dislocation, or other bony abnormality. Normal [facility] Vital Signs Date Time Vital Sign Value Performing Clinician Faci lity 09-27-2020 01:25-0400 BP Diastolic 78 mm[Hg] [facility] Work Phone: 09-27-2020 01:25-0400 BP Systolic 131 mm[Hg] [facility] Work Phone: 09-27-2020 01:25-0400 Pulse (Heart Rate) 99 /min [facility] Work Phone: 09-27-2020 01:25-0400 Pulse Oximetry 99 % [facility] Work Phone: 09-26-2020 21:16-0400 BMI (Body Mass Index) 25.82 kg/m2 [facility] Work Phone: 09-26-2020 21:16-0400 Body Temperature 99.1 [degF] [facility] Work Phone: 09-26-2020 21:16-0400 Body weight 72.58 kg Jeremiah Mcnair [employer] Work Phone: 09-26-2020 21:16-0400 Respiratory Rate 16 /min Jeremiah Mcnair [employer] Work Phone: 07-10-2019 21:26-0500 Diastolic blood pressure 88 mm[Hg] Leonor Sandy MD Work Phone: [employer] Work Phone: 07-10-2019 21:26-0500 Heart rate 77 /min Leonor Sandy MD Work Phone: [employer] Work Phone: 07-10-2019 21:26-0500 Respiratory rate 18 /min Leonor Sandy MD Work Phone: [employer] Work Phone: 07-10-2019 21:26-0500 SaO2% (BldA) [Mass fraction] 100 % Leonor Sandy MD Work Phone: [employer] Work Phone: 07-10-2019 21:26-0500 Systolic blood pressure 127 mm[Hg] Leonor Sandy MD Work Phone: [employer] Work Phone: 07-10-2019 16:53-0500 Body height 167.6 cm Leonor Sandy MD Work Phone: [employer] Work Phone: 07-10-2019 16:53-0500 Body mass index (BMI) [Ratio] 25.02 kg/m2 Leonor Sandy MD Work Phone: [employer] Work Phone: 07-10-2019 16:53-0500 Body temperature 98.29 [degF] Leonor Sandy MD Work Phone: [employer] Work Phone: 07-10-2019 16:53-0500 Body weight 70.31 kg Leonor Sandy MD Work Phone: [facility] Work Phone: Encounters Encounter Date Encounter Type Care Provider Facility Start: 03-02-2024 End: 03-02-2024 ambulatory SHANNAN DAVID Not Available Start: 07-23-2023 End: 07-23-2023 ambulatory SHANNAN DAVID Not Available Start: 06-13-2023 End: 06-13-2023 ambulatory SHANNAN DAVID Not Available Start: 04-30-2023 ambulatory DO Chris Kelley Fac ility:[facility] Start: 11-27-2022 End: 11-28-2022 ambulatory Wero Britton Facility:[facility] Start: 07-23-2022 End: 07-24-2022 ambulatory [facility] J[facility] Start: 07-16-2022 End: 07-17-2022 ambulatory YOLANDA [facility] Start: 07-16-2022 End: 07-16-2022 Subsequent hospital visit by physician Fiorella Abarca DO Work Phone: [facility] Comment on above: Urticaria Start: 05-01-2022 End: 07-31-2022 ambulatory Cuco Oneal Facility:[facility] Start: 05-28-2021 End: 05-28-2021 ambulatory Mary Brown Facility:[facility] Start: 10-03-2020 End: 10-03-2020 Subsequent hospital visit by physician Fiorella [facility] Start: 09-28-2020 End: 09-28-2020 Subsequent hospital visit by physician Fiorella Abarca [facility] Comment on above: Less than 8 weeks ge station of ; Pelvic pain Start: 09-26-2020 End: 09-27-2020 Emergency department patient visit [facility] Start: 09-26-2020 End: 09-27-2020 Emergency department patient visit Jeremiah Mcnair Work Phone: [facility] ED Comment on above: Abdominal pain durin g in first trimester (Primary Dx) Start: 09-26-2020 End: 09-28-2020 Subsequent hospital visit by physician [facility] Ultrasound Room [facility] Comment on above: Pelvic pain in femal e; Less than 8 weeks gestation of Start: 02-16-2020 End: 02-16-2020 Subsequent hospital visit by physician Fiorella Abarca [facility] Comment on above: Screening for cardio vascular condition Start: 01-11-2020 End: 01-13-2020 Subsequent hospital visit by physician Claudia Ultrasound Room [facility] Comment on above: Vitamin D deficiency Lower abdominal pain ; Amenorrhea Start: 10-23-2019 End: 10-23-2019 Subsequent hospital visit by physician Fiorella Abarca [facility] Comment on above: Viral illness; Suspected COVID-19 virus infection Start: 10-19-2019 End: 10-19-2019 Subsequent hospital visit by physician Fiorella Abarca [facility] Comment on above: Suspected COVID-19 v irus infection Start: 07-29-2019 End: 07-31-2019 Subsequent hospital visit by physician [facility] MRI Comment on above: Right sided numbness ; Blurred vision Start: 07-10-2019 End: 07-10-2019 Emergency department patient visit Leonor Sandy MD Work Phone: [facility] ED Comment on above: Migraine with aura a nd with status migrainosus, not intractable (Primary Dx) Start: 05-07-2017 Ambulatory [facility] Procedures Date Procedure Procedure Detail Performing Clinician Start: 07-16-2022 ALLERGEN, FOOD, COMPREHENSIVE PROFILE 1 Yolanda Humphrey BELLMAKER - SECTION CHIEF Work Phone: Start: 10-03-2020 Gonadotropin chorionic quantitative [...] DTaP/Tdap/Td vaccine (2 - Td or Tdap) [facility] Start: 07-16-2023 Depression Monitoring Depression Mon itoring [facility] Start: 02-05-2022 Influenza vaccination Flu vaccine (# 1) [facility] Start: 03-08-2020 Influenza vaccination [facility] [place] Start: 01-27-2020 End: 01-27-2020 Office Visit 01/27/2020 Office Visit Family Medicine Fiorella Abarca DO [address] [place] [address] [facility] Start: 11-16-2019 End: 11-16-2019 Office Visit 11/16/2019 Office Visit Neurology Cammy Grayson MD [address] [facility] [address] [place] [address] [id number] [facility] Start: 10-21-2019 End: 10-21-2019 Telemedicine 10/21/2019 Telemedicine Family Medicine Fiorella Abarca DO [address] [place] [address] [facility] Start: 08-20-2019 End: 08-20-2019 Patient encounter procedure 08/20/2019 Office Visit Neurology Cammy Grayson MD [address] [facility] [address] [place] [address] [phone] [facility] [facility] Start: 03-08-2019 Influenza vaccination Flu vaccine (# 1) [facility] [employer] Phone: Start: 05-26-2018 Cervical cancer screen Cervical canc er screen [facility] Phone: Start: 05-26-2018 Screening for malign ant neoplasm of cervix [facility] Start: 2012 DTaP/Tdap/Td vaccine (1 - Tdap) DTaP/Tdap/Td vaccine (1 - Tdap) [place] Start: 11-22-2011 Hepatitis C screening Hepatitis C sc reen [facility] Start: 2009 COVID-19 Vaccine (1) COVID-19 Vaccin e (1) [facility] Phone: Start: 2008 HIV screen HIV screen [facility] [employer] Phone: Start: 2008 HIV screening HIV screen [facility] [employer] Start: 2004 DTaP/Tdap/Td vaccine (1 - Tdap) DTaP/Tdap/Td vaccine (1 - Tdap) [facility] [employer] Phone: Start: 2004 HPV vaccine (1 - 2-d ose series) HPV vaccine (1 - 2-dose series) [place] Start: 2004 HPV vaccine (1 - Fem terrance 2-dose series) HPV vaccine (1 - Female 2-dose series) [facility] [employer] Phone: Start: 11-22-1999 Pneumococcal 0-64 ye ars Vaccine (1 - PCV) Pneumococcal 0-64 years Vaccine (1 - PCV) [facility] Start: 11-22-1999 Pneumococcal 0-64 ye ars Vaccine (1 of 1 - PPSV23) Pneumococcal 0-64 years Vaccine (1 of 1 - PPSV23) [facility] [employer] Phone: Start: 1994 Varicella vaccine (1 of 2 - 2-dose childhood series) Varicella vaccine (1 of 2 - 2-dose childhood series) [facility] [employer] Start: 05-24-1994 COVID-19 Vaccine (#1) COVID[facility]19 [facility]i ne (#1) [facility] Start: 1993 Hepatitis C screening Hepatitis C sc reen [employer] Phone: End: 09-26-2020 C.trachomatis N.gonorrhoeae DNA C.trachomatis N.gonorrhoeae DNA Microbiology STAT One Time for 1 Occurrences starting 09/26/2020 until 09/26/2020 [employer] Phone: Comment on above: One Time for 1 Occur rences starting 09/26/2020 until 09/26/2020 C.trachomatis N.gonorrhoeae DNA C.trachomatis N.gonorrhoeae DNA Microbiology STAT 09/26/2020 10:35 PM EDT [employer] Phone: COVID-19 COVID-19 Lab Rou constance Suspected COVID-19 virus infection 10/19/2019 10:18 AM EDT [place], [place] End: 10-23-2019 COVID-19 Ambulatory COVID-19 Ambulatory Lab Routine Viral illness Suspected Covid-19 Virus Infection 1 Occurrences starting 10/23/2019 until 10/23/2019 [place], [place] Comment on above: 1 Occurrences starti ng 10/23/2019 until 10/23/2019 COVID-19 Ambulatory COVID-19 Amb ulatory Lab Routine Viral illness Suspected COVID-19 virus infection 10/23/2019 4:02 PM EDT [place] CTA HEAD NECK W CONTRAST CTA HEA D NECK W CONTRAST Imaging STAT 07/10/2019 7:43 PM EST [employer] Phone: Food Comprehensive Panel Food Co mprehensive Panel Lab Routine Urticaria 07/16/2022 5:05 PM EST [employer] [facility] Phone: RHOGAM INJECTION ONLY RHOGAM INJ ECTION ONLY Blood Bank STAT 09/26/2020 10:15 PM EDT [employer] Phone: Immunizations Immunization Date Immunization Notes Care Provider Fa cility 05-26-2021 tetanus toxoid, redu henny diphtheria toxoid, and acellular pertussis vaccine, adsorbed [facility] 09-26-2020 LILO(Sacha) fracisco alexa in Evangelina Mcnair [facility] [employer] Work Phone: 04-07-2018 influenza virus vaccine, unspecified formulation [facility] Sandy MD [facility] Work Phone: 10-06-2013 hepatitis B vaccine, adult dosage Fiorella Abarca DO Work Phone: [employer] [facility] [employer] Work Phone: 10-06-2013 hepatitis B vaccine, unspecified formulation Fiorella [employer] [facility] [employer] Work Phone: 06-01-2013 hepatitis B vaccine, adult dosage Fiorella Abarca DO Work Phone: [facility] [employer] Work Phone: 06-01-2013 hepatitis B vaccine, unspecified formulation Fiorella [employer] [facility] [employer] Work Phone: 04-21-2013 hepatitis B vaccine, adult dosage Fiorella Abarca DO Work Phone: [facility] [employer] 04-21-2013 hepatitis B vaccine, unspecified formulation Fiorella [employer] [facility] [employer] Phone: 06-29-2011 tuberculin skin test ; purified protein derivative solution, intradermal Leonor Sandy MD Work Phone: [facility] [employer] Work Phone: Payers Date Payer Category Payer Unknown [id number] 2021 Unknown [id number] 2021 Private Health Insurance [id number] 2021 Self-pay [id number] 2020 Unknown [id number] 2019 Unknown [employer] M [employer] [address] [id number] 2019-Present [phone] [address] [place] [address] [id number] 2014 Unknown [id number] 1993 Unknown [id number] [id number]. 2.173 1993 Unknown [id number] [id number]. 2.174 1993 Unknown [id number] [id number]. 2.174 1993 Unknown [id number] [id number]. 2.727 1993 Unknown [id number] [id number]. 2.727 1993 Unknown [id number] [id number]. 2.727 1993 Unknown [id number] [id number]. 2.1259 1993 Unknown [id number] [id number]. 2.1259 1993 Unknown [id number] [id number]. [id number] Unknown [facility] [id number] Unknown [id number] [id number] Worker's Compensation [facility] Med C t Ind [id number] Social History Date Type Detail Facility Start: 10-23-2019 End: 07-16-2022 Tobacco smoking status NHIS Never smoker [employer] Start: 10-23-2019 End: 07-16-2022 Alcohol intake Current non-drinker of alcohol (finding) [employer] Phone: Start: 1995 Sex Assigned At Not on file [facility] [employer] Phone: Exposure to SARS-CoV -2 (event) Unable to assess [facility] Start: 02-16-2020 End: 07-16-2022 Tobacco use and exposure Never used [facility] Exposure to SARS-CoV -2 (event) Not sure [employer] Phone: Start: 07-16-2022 History SDOH Financial 5 [employer] Phone: Start: 07-16-2022 History SDOH Food Worry 1 [employer] Phone: Start: 1995 Sex Assigned At Female F [facility] Progress note 03-30-2021 Note Date & Type Note Facility 03-30-2021 Note HNO ID: [id number] Author: Michael Lilly MD Service: ? Author [...] with more than 50% of the total [id number] time of the visit in counseling / [...] dilatation The pa (more content not included)... [facility] Discharge instructions 07-10-2019 InstructionsAttachments Note Date & [...] Everywhere.Migraine Headache: Recurring (Ukrainian)documented in this encounter [employer] Phone: Evaluation note Note Date & Type Note Facility Evaluation note Diagnosis Migraine with aura and with status migrainosus, not intractable- Primary Migraine with aura, with intractable migraine, so stated, with status migrainosus documented in this encounter [employer] Phone: Evaluation note Note Date & Type Note Facility Evaluation note Diagnosis Right sided numbness Blurred vision Other specified visual disturbances [facility] this encounter [facility] Work Phone: Evaluation note Note Date & Type Note Facility Evaluation note Diagnosis Urticaria Urticaria, unspecified documented in this encounter [employer] Work Phone: Evaluation note Note Date & Type Note Facility Evaluation note No assessment information availa [facility] Work Phone: Summary Purpose Family History No Family History Records Found Relationship Condition Age at Onset Recorded Date/T ifeoma Not Specified No pertinent family history Unknown Advance Directives No Advanced Directives Records FoundDocuments on File Type Date Recorded Patient Transitional Nurse Expl anation Advance Directives and Living Will Power of Landscape Gardener Documents on File Type Date Recorded Patient Transitional Nurse Expl anation Advance Directives and Living Will Power of Landscape Gardener Documents on File Type Date Recorded Patient Transitional Nurse Expl anation ACP-Advance Directive ACP-Power of Landscape Gardener Documents on File Type Date Recorded Patient Transitional Nurse Expl anation ACP-Advance Directive ACP-Power of Landscape Gardener Assessments Diagnosis Viral illness Unspecified viral infection, [...] Fiorella Abarca, DO [address] [place] [address] Status Reason Specialty Diagnoses / Procedures Referre d By Contact Referred To Contact Closed Radiology Diagnoses Right sided numbness Blurred vision Procedures MRI BRAIN W WO CONTRAST HC MRI-BRAIN WO & W CONTRAST Eliane Vilchis MD [address] [facility] [address] [place] [address] Discharge Instructions * Instructions* Jeremiah Mcnair MD - 09/27/2020 Yolanda Ramos office personnel will contact you with regards to scheduling of your repeat hCG level ( test) * Attachments The following attachments cannot be sent through Care Everywhere. * : Abdominal Pain (Ukrainian) documented in this encounter Additional Source Comments INFORMATION SOURCE (unrecogn ized section and content) DATE CREATED AUTHOR 12/31/2017 [facility] DATE CREATED AUTHOR AUTHOR'S ORGANIZ ATION 01/30/2018 [facility] DATE CREATED AUTHOR AUTHOR'S ORGANIZ ATION 09/29/2020 [facility] DATE CREATED AUTHOR AUTHOR'S ORGANIZ ATION 08/15/2021 [facility] DATE CREATED AUTHOR AUTHOR'S ORGANIZ ATION 07/24/2022 [facility] DATE CREATED AUTHOR AUTHOR'S ORGANIZ ATION 03/09/2023 [facility] DATE CREATED AUTHOR AUTHOR'S ORGANIZ ATION 05/01/2023 [facility] DATE CREATED AUTHOR AUTHOR'S ORGANIZ ATION 03/04/2024 [facility] EPIC Reason for Visit (unrecogniz ed section and content) Status Reason Specialty Diagnoses / Procedures Referre d By Contact Referred To Contact Closed Radiology Diagnoses Lower abdominal pain Amenorrhea Procedures US NON OB TRANSVAGINAL Fiorella Abarca, DO [address] [place] [place] [address] Reason Comments Pelvic Pain onset approx 1 week ago, sent her by PCP for eval Status Reason Specialty Diagnoses / Procedures Referre d By Contact Referred To Contact Open Radiology Diagnoses Pelvic pain in female Less than 8 weeks gestation of Procedures US OB LESS THAN 14 WEEKS SINGLE OR FIRST GESTATION US PELVIS COMPLETE Yolanda Humphrey, BELLMAKER - SECTION CHIEF [address] [place] [address] Reason Comments Headache History of migraine headaches. Vomited one time today. 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 [facility]. provides no warranty or guarantee of the accuracy or completeness of information in this document.
[2024-03-14 17:42] LABS: HCG Quantitative 1308 mIU/mL
== END 2024-03-14 16:26 | disposition home or self-care (01) ==
LOC: LAB 16:27
PROVIDERS: Visit Provider Obstetrics & Gynecology
DX: N92.6 Irregular menstruation, unspecified (principal)
CPT/HCPCS: 36415; 84702

== ENCOUNTER 2024-04-09 13:01 | Outpatient (OUT) | payer BC, SELFPAY ==
--- NOTE | 2024-04-09 13:03 | US_ITS ---
The [address] [address] Patient Name: WAN EVANS MRN: [id number] date: 1995 Sex: F Assigned Patient Location: [facility] Current Patient Location: [facility] Accession/Order Number: [id number] Exam Date: 04/09/2024 13:04 Report Date: 04/09/2024 15:40 At the request of: SHANNAN HERNANDEZ Procedure: US OB transvaginal EXAMINATION: US OB transvaginal HISTORY: MISSED MENSES COMPARISON: No relevant comparison available. FINDINGS: Transvaginal Two areas of anechoic echogenicity identified within the endometrial cavity: Gestational sac 1:1.64 cm, 6 weeks 0 days Gestational sac 2:1.29 cm, 5 weeks 3 days No yolk sac or pole is clearly observed. Area of hypoechogenicity adjacent to the gestational sac measuring 3.6 x 1.8 x 0.8 cm. Subchorionic hematoma is suspected. The uterus is normal, retroverted, retroflexed The ovaries are not visualized The cervix is closed measuring 4.3 cm. US/US OB transvaginal IMPRESSION: Early twin intrauterine gestation. No pole or yolk sac identified. Continued surveillance recommended Electronically authenticated by: RADHA WILLINGHAM Date: 04/09/2024 15:40
== END 2024-04-09 13:02 | disposition home or self-care (01) ==
LOC: NOMS 13:02
PROVIDERS: Visit Provider Obstetrics & Gynecology
DX: N92.6 Irregular menstruation, unspecified (principal)
CPT/HCPCS: 76817

== ENCOUNTER 2024-04-09 13:42 | Outpatient (OUT) | payer BC, SELFPAY ==
[2024-04-09 15:11] LABS: HCG Quantitative 54405 mIU/mL
== END 2024-04-09 13:43 | disposition home or self-care (01) ==
LOC: LAB 13:43
PROVIDERS: Visit Provider Obstetrics & Gynecology
DX: O30.001 Twin pregnancy, unspecified number of placenta and unspecified number of amniotic sacs, first trimester (principal); Z3A.01 Less than 8 weeks gestation of pregnancy
CPT/HCPCS: 36415; 76817; 84702

== ENCOUNTER 2024-04-11 12:32 | Outpatient (OUT) | payer BC, SELFPAY ==
--- OUTSIDE RECORDS SUMMARY | 2024-04-11 12:34 | XMS_ITS | CCD ---
Author Organization [facility] Care Team Providers Care Technical Sales Engineer Name Role Phone CHRIS DO Unavailable Unavailable CHRIS DO Unavailable Unavailable Yonley, Fiorella L Primary Care Provider Yogildardo Fiorella L Primary Care Provider YOGILDARDO FIORELLA L Primary Care Unavailable JEREMIAH MCNAIR Attending Unavailable Yonley DO, Fiorella L Primary Care Provider [phone] Yotimiey DO Fiorella L Primary Care Provider [...] (14 sources) Succinylcholine Drug Allergy 08-18-19 14 [facility] Phone: (5 sources) Anesthesia S-I-60 Propensity to adverse reactions to drug 08-20-19 [place] (13 sources) Other Propensity to adverse reactions 09-19-19 12 Other (See Comments) [facility] Phone: (7 sources) Propofol Drug Allergy 08-20-19 20 [facility] Phone: (2 sources) Seasonal allergy Propensity to adverse reactions to substance 09-19-19 12 Other (See Comments) [facility] Phone: (1 source) Succinylcholine Drug Allergy 01-14-20 [facility] Repository (1 source) Grass; Translations: [Grass] Propensity to adverse reactions (disorder) [facility] Repository (1 source) House dust mite (Bt) RAST; Translations: [House dust mite (Bt) RAST] Propensity to adverse reactions (disorder) [facility] Repository NEGATED: Highlighted row has been ruled out! (1 source) Other Propensity to adverse reactions 09-19-19 12 Other (See Comments) [facility] [employer] [employer] Phone: Medications Current Medications Medication Drug Class(es) [...] at bedtime May 27, 2021 1:00am ergocalciferol 56777 unt oral capsule (2 sources) Provitamin D2 Compound Start: 08-25-2019 End: 11-11-2019 take 1 capsule by mouth every week vitamin D (ERGOCALCIFEROL) 1.25 MG (05397 UT) CAPS capsule Take 1 capsule by [...] LIPS DAILY UNTIL CLEAR 0 09/17/2019 Active 363-Sodd-Tgzjv-Omeg a3 (One-A-Day -1) 27 mg iron- 800 mcg-235 mg capsule (1 source) Start: 01-13-2021 756-Clss-Fwiie-Om ega3 (One-A-Day -1) 27 mg iron- 800 mcg-235 mg capsule Active 1 CAP PO Daily January 13, 2021 12:00am Vit-Fe Ivdpgeq-OH-FEA ( VITAMIN/MIN +DHA) 27-0.8-200 MG CAPS (7 sources) Start: 09-26-2020 take 1 tablet by mouth once daily Vit-Fe Ftmmvdt-ZR-RGE ( VITAMIN/MIN +DHA) 27-0.8-200 MG CAPS Indications: [...] 12:14pm Start: 07-29-2019 take 1 capsule by [facility] once daily propranolol (INDERAL LA) 120 [...] with voice recognition software. Occasional wrong-word or ?ziekb-v-gtwx? 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 Previous employment/school: [employer]. Activity level: Occasional physical work. Highest education [...] Years. Num (more content not included)... Normal [facility] Comment on above: Result Comment: Elec tronically [...] home: Medicines ? 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 ? Do not smoke. Avoid being around [...] or swell (more content not included)... Normal [facility] CBC with Diffon 07-23-2022 Abs. Basophil 0.00 k/uL Normal 0.0-0.2 [facility] Comment on above: Performed By: #### C P, TSHX, CDP #### [facility] [address] [place] [address] [employer] Unloader: Cole Magaña MD Abs.Neutrophil (Seg) 2.90 k/uL Normal 2.5-7.0 [facility] Comment on above: Performed By: #### C P, TSHX, CDP #### [facility] [address] [place] [address] [employer] Unloader: Cole Magaña MD Auto Diff Performed YES Normal [facility] Comment on above: Performed By: #### C P, TSHX, CDP #### [facility] [address] [place], [place] [phone] [employer] Unloader: Cole Magaña MD Basophils/100 WBC (Bld) 0 % Normal 0-2 [facility] Comment on above: Performed By: #### C P, TSHX, CDP #### [facility] [address] [place] [phone] [employer] Unloader: Cole Magaña MD Eosinophils (Bld) [#/Vol] 0.00 10*3/uL Normal 0.0-0.4 [facility] Comment on above: Performed By: #### C P, TSHX, CDP #### [facility] [address] [place] [address] [employer] Unloader: Cole Magaña MD Eosinophils/100 WBC (Bld) 0 % Normal 0-5 [facility] Comment on above: Performed By: #### C P, TSHX, CDP #### [facility] [address] [place] [phone] [employer] Unloader: Cole Magaña MD Erythrocyte distribution width (RBC) [Ratio] 13.7 % Normal 12.1-15.2 [facility] Comment on above: Performed By: #### C P, TSHX, CDP #### [facility] [address] [place] [phone] [employer] Unloader: Cole Magaña MD Hematocrit (Bld) [Volume fraction] 40.0 % Normal 36-46 [facility] Comment on above: Performed By: #### C P, TSHX, CDP #### [facility] [address] [place] [phone] [employer] Unloader: Cole Magaña MD Hemoglobin (Bld) [Mass/Vol] 13.4 g/dL Normal 12.0-16.0 [facility] Comment on above: Performed By: #### C P, TSHX, CDP #### [facility] [address] [place] [phone] [employer] Unloader: Cole Magaña MD Lymphocytes (Bld) [#/Vol] 2.30 10*3/uL Normal 1.0-4.8 [facility] Comment on above: Performed By: #### C P, TSHX, CDP #### [facility] [address] [place], [place] [phone] [employer] Unloader: Cole Magaña MD Lymphocytes/100 WBC (Bld) 42 % High 15-40 [facility] Comment on above: Performed By: #### C P, TSHX, CDP #### [facility] [address] [place] [address] [employer] Unloader: Cole Magaña MD MCH (RBC) [Entitic mass] 29.5 pg Normal 26-34 [facility] Comment on above: Performed By: #### C P, TSHX, CDP #### [facility] [address] [place] [phone] [employer] Unloader: Cole Magaña MD MCHC (RBC) [Mass/Vol] 33.6 g/dL Normal 31-37 [facility] Comment on above: Performed By: #### C P, TSHX, CDP #### [facility] [address] [place] [address] [employer] Unloader: Cole Magaña MD MCV (RBC) [Entitic vol] 88.0 fL Normal 80-100 [facility] Comment on above: Performed By: #### C P, TSHX, CDP #### [facility] [address] [place] [address] [employer] Unloader: Cole Magaña MD Monocytes (Bld) [#/Vol] 0.30 10*3/uL Normal 0.0-1.0 [facility] Comment on above: Performed By: #### C P, TSHX, CDP #### [facility] [address] [place] [address] [employer] Unloader: Cole Magaña MD Monocytes/100 WBC (Bld) 5 % Normal 4-8 M [facility] Comment on above: Performed By: #### C P, TSHX, CDP #### [facility] [address] [place] [address] [employer] Unloader: Cole Magaña MD Neutrophil (Seg) 53 % Normal 47-75 [facility] Comment on above: Performed By: #### C P, TSHX, CDP #### [facility] [address] [place] [address] [employer] Unloader: Cole Magaña MD Platelets (Bld) [#/Vol] 330 10*3/uL Normal 140-450 [facility] Comment on above: Performed By: #### C P, TSHX, CDP #### [facility] [address] [place] [address] [employer] Unloader: Cole Magaña MD RBC (Bld) [#/Vol] 4.55 10*6/uL Normal 4.0-5.2 [facility] Comment on above: Performed By: #### C P, TSHX, CDP #### [facility] [address] [place] [address] [employer] Unloader: Cole Magaña MD WBC (Bld) [#/Vol] 5.6 10*3/uL Normal 3.5-11.0 [facility] Comment on above: Performed By: #### C P, TSHX, CDP #### [facility] [address] [place] [address] [employer] Unloader: Cole Magaña MD Comp Metabolic Profon 2022 Albumin [Mass/Vol] 4.6 g/dL Normal 3.5-5.2 [facility] Comment on above: Performed By: #### C P, TSHX, CDP #### [facility] [address] [place], [place] [phone] [employer] Unloader: Cole Magaña MD Alkaline Phos 69 U/L Normal 35-104 [facility] Comment on above: Performed By: #### C P, TSHX, CDP #### [facility] [address] [place], [place] [phone] [employer] Unloader: Cole Magaña MD ALT [Catalytic activity/Vol] 11 U/L Normal 5-33 [facility] Comment on above: Performed By: #### C P, TSHX, CDP #### [facility] [address] [place], [place] [phone] [employer] Unloader: Cole Magaña MD Anion gap [Moles/Vol] 7 mmol/L Low 9-17 [facility] Comment on above: Performed By: #### C P, TSHX, CDP #### [facility] [address] [place], [place] [phone] [employer] Unloader: Cole Magaña MD AST [Catalytic activity/Vol] 13 U/L Normal <32 [facility] Comment on above: Performed By: #### C P, TSHX, CDP #### [facility] [address] [place], [place] [phone] [employer] Unloader: Cole Magaña MD Bilirubin [Mass/Vol] 0.8 mg/dL Normal 0.3-1.2 [facility] Comment on above: Performed By: #### C P, TSHX, CDP #### [facility] [address] [place], [place] [phone] [employer] Unloader: Cole Magaña MD BUN/CRE Ratio 23 High 9-20 [facility] Comment on above: Performed By: #### C P, TSHX, CDP #### [facility] [address] [place], [place] [phone] [employer] Unloader: Cole Magaña MD Calcium [Mass/Vol] 9.4 mg/dL Normal 8.6-10.4 [facility] Comment on above: Performed By: #### C P, TSHX, CDP #### [facility] [address] [place], [place] [phone] [employer] Unloader: Cole Magaña MD Chloride [Moles/Vol] 109 mmol/L High 98-107 [facility] Comment on above: Performed By: #### C P, TSHX, CDP #### [facility] [address] [place], [place] [phone] [employer] Unloader: Cole Magaña MD CO2 [Moles/Vol] 28 mmol/L Normal 20-31 [facility] Comment on above: Performed By: #### C P, TSHX, CDP #### [facility] [address] [place] [address] [employer] Unloader: Cole Magaña MD Creatinine [Mass/Vol] 0.48 mg/dL Low 0.50-0.90 [facility] Comment on above: Performed By: #### C P, TSHX, CDP #### [facility] [address] [place], [place] [phone] [employer] Unloader: Cole Magaña MD GFR/1.73 sq M.predicted among non-blacks MDRD (S/P/Bld) [Vol rate/Area] mL/min/{1.73_m2} Normal >60 [facility] Comment on above: Result Comment: Effective Apr [...] By: #### C P, TSHX, CDP #### [facility] [address] [place], [place] [address] [employer] Unloader: Cole Magaña MD Glucose [Mass/Vol] 88 mg/dL Normal 70-99 [facility] Comment on above: Performed By: #### C P, TSHX, CDP #### [facility] [address] [place] [phone] [employer] Unloader: oCle Magaña MD Potassium [Moles/Vol] 4.0 mmol/L Normal 3.7-5.3 [facility] Comment on above: Performed By: #### C P, TSHX, CDP #### [facility] [address] [place] [address] [employer] Unloader: Cole Magaña MD Protein [Mass/Vol] 7.5 g/dL Normal 6.4-8.3 [facility] Comment on above: Performed By: #### C P, TSHX, CDP #### [facility] [address] [place] [address] [employer] Unloader: Cole Magaña MD Sodium [Moles/Vol] 144 mmol/L Normal 135-144 [facility] Comment on above: Performed By: #### C P, TSHX, CDP #### [facility] [address] [place] [phone] [employer] Unloader: Cole Magaña MD Urea nitrogen [Mass/Vol] 11 mg/dL Normal 6-20 [facility] Comment on above: Performed By: #### C P, TSHX, CDP #### [facility] [address] [place] [address] [employer] Unloader: Cole Magaña MD TSH w/reflex to FT4on 2022 Thyroid Stim. Horm. 0.93 uIU/mL Normal 0.30-5.00 [facility] Comment on above: Performed By: #### C P, TSHX, CDP #### [facility] [address] [place] [phone] [employer] Unloader: Cole Magaña MD Food, Comprehensiveon 2022 Barley IgE <0.10 Normal 0.00-0.34 [facility] Comment on above: Performed By: #### I FOODC #### [address] [address] [employer] Unloader: Gurpreet Wei MD Beef IgE <0.10 Normal 0.00-0.34 [facility] Comment on above: Performed By: #### I FOODC #### [address] [address] [employer] Unloader: Gurpreet Wei MD Cabbage IgE <0.10 Normal 0.00-0.34 [facility] Comment on above: Performed By: #### I FOODC #### [address] [address] [employer] Unloader: Gurpreet Wei MD Carrot IgE <0.10 Normal 0.00-0.34 [facility] Comment on above: Performed By: #### I FOODC #### [address] [address] [employer] Unloader: Gurpreet Wei MD Chicken IgE <0.10 Normal 0.00-0.34 [facility] Comment on above: Performed By: #### I FOODC #### [address] [address] [employer] Unloader: Gurpreet Wei MD Codfish IgE <0.10 Normal 0.00-0.34 [facility] Comment on above: Performed By: #### I FOODC #### [address] [address] [employer] Unloader: Gurpreet Wei MD [place] IgE <0.10 Normal 0.00-0.34 [facility] Comment on above: Performed By: #### I FOODC #### [address] [address] [employer] Unloader: Gurpreet Wei MD Crab IgE <0.10 Normal 0.00-0.34 [facility] Comment on above: Performed By: #### I FOODC #### [address] [address] [employer] Unloader: Gurpreet Wei MD Egg White IgE <0.10 Normal 0.00-0.34 [facility] Comment on above: Performed By: #### I FOODC #### [address] [address] [employer] Unloader: Gurpreet Wei MD Grape IgE <0.10 Normal 0.00-0.34 [facility] Comment on above: Performed By: #### I FOODC #### [address] [address] [employer] Unloader: Gurpreet Wei MD Lettuce IgE <0.10 Normal 0.00-0.34 [facility] Comment on above: Performed By: #### I FOODC #### [address] [address] [employer] Unloader: Gurpreet Wei MD Milk (Cow) IgE <0.10 Normal 0.00-0.34 [facility] Comment on above: Performed By: #### I FOODC #### [address] [address] [employer] Unloader: Gurpreet Wei MD [place] Puri IgE <0.10 Normal 0.00-0.34 [facility] Comment on above: Performed By: #### I FOODC #### [address] [address] [employer] Unloader: Gurpreet Wei MD Oat IgE <0.10 Normal 0.00-0.34 [facility] Comment on above: Performed By: #### I FOODC #### [address] [address] [employer] Unloader: Gurpreet Wei MD [place] IgE <0.10 Normal 0.00-0.34 [facility] Comment on above: Performed By: #### I FOODC #### [address] [address] [employer] Unloader: Gurpreet Wei MD Peanut IgE <0.10 Normal 0.00-0.34 [facility] Comment on above: Performed By: #### I FOODC #### [address] [address] [employer] Unloader: Gurpreet Wei MD Pepper C. annuum IgE <0.10 Normal 0.00-0.34 [facility] Comment on above: Performed By: #### I FOODC #### [address] [address] [employer] Unloader: Gurpreet Wei MD Pork IgE <0.10 Normal 0.00-0.34 [facility] Comment on above: Performed By: #### I FOODC #### [address] [address] [employer] Unloader: Gurpreet Wei MD Potato IgE <0.10 Normal 0.00-0.34 [facility] Comment on above: Performed By: #### I FOODC #### [address] [address] [employer] Unloader: Gurpreet Wei MD Rice IgE <0.10 Normal 0.00-0.34 [facility] Comment on above: Performed By: #### I FOODC #### [address] [address] [employer] Unloader: Gurpreet Wei MD [place] IgE <0.10 Normal 0.00-0.34 [facility] Comment on above: Performed By: #### I FOODC #### [address] [address] [employer] Unloader: Gurpreet Wei MD Shrimp IgE <0.10 Normal 0.00-0.34 [facility] Comment on above: Performed By: #### I FOODC #### [facility] [employer] [address] [place] [phone] [employer] Unloader: Gurpreet Wei MD Soybean IgE <0.10 Normal 0.00-0.34 [facility] Comment on above: Performed By: #### I FOODC #### [employer] [address] [place] [phone] [employer] Unloader: Gurpreet Wei MD Tomato IgE <0.10 Normal 0.00-0.34 [facility] Comment on above: Performed By: #### I FOODC #### [employer] [address] [place] [phone] [employer] Unloader: Gurpreet Wei MD Tuna IgE <0.10 Normal 0.00-0.34 [facility] Comment on above: Performed By: #### I FOODC #### [facility] [address] [phone] [employer] Unloader: Gurpreet Wei MD Wheat IgE <0.10 Normal 0.00-0.34 [facility] Comment on above: Result Comment: ALLERGEN, INTERP, [...] anaphylaxis. Performed By: #### I FOODC #### [employer] [address] [place] [phone] [employer] Unloader: Gurpreet Wei MD Immunoglobulin E 4 IU/mL Normal <101 [facility] Comment on above: Performed By: #### I FOODC #### [employer] [address] [place] [address] [employer] Unloader: MD Warren Almazan 03-29-2021 [facility] Telephone (OBGYF2) CHAPIS EVANS ([id number]) 1995 F Date Time Provider Department 03/29/21 [facility] OBGYF2 During your visit today, we recorded the following information about you: Latonya Mchugh RN 03/29/2021 9:48 AM Signed NIPT results received from Dr. Patricia Theodore' office. Results in scanned docs. Latonya Mchugh RN [facility] Allergies As of Date: 03/29/2021 Noted Allergy [...] Status:Closed by LATONYA MCHUGH RN on 03/29/21 [facility] 03-22-2021 [facility] Telephone (OBGYLW) CHAPIS EVANS ([id number]) 1995 F Date Time Provider Department 03/22/21 [facility] OBGYLW During your visit today, we recorded the following information about you: Latonya Mchugh RN 03/22/2021 1:41 PM Signed Informed pt that call was regarding scheduling US and consult as requested by Dr. Patricia Theodore at [facility] for bilateral pyelectasis and polyhydramnios. Pt verbalizes understanding and wishes to proceed with scheduling. , pt denies any current medical conditions. Current meds: PNV. Pt had NIPT testing done 03/20, results still pending. Will follow up with Dr. Patricia Theodore office early next week for results. There are no upcoming appts at in the next couple of days. Offered appt at [place] on 03/30 at 2:45pm. One full hour allotted for US and consult. Pt accepts, front staff notified to schedule. Advised pt that she may bring two support persons age 16+ and both must wear masks. She verbalizes understanding and has no additional questions at this time. Latonya Mchugh RN [facility] Allergies As of Date: 03/22/2021 Noted Allergy [...] by LATONYA MCHUGH RN on 03/22/21 Normal [facility] HCG, Quantitative, on 10-03-2020 hCG Quant 55353 High <5 IU/L [facility] Phone: Comment on above: Non-preg premeno <=5 Postmeno <=8 Male <=3 If HCG results do not concur with clinical observations, additional testing to confirm results is recommended. Elevated results not associated with may be found in patients with other diseases such as tumors of the germ cells (testis, ovaries, etc.), bladder, pancreas, stomach, lungs, and liver. Interpretation and review of laboratory results Abnormal [facility] Phone: CBC With Auto Differentialon 09-28-2020 Basophils (Bld) [#/Vol] 0.10 10*3/uL [facility] Phone: Basophils/100 WBC (Bld) 1 % 0 - 2 % M [employer] Phone: Differential Type YES [employer] Work Phone: Eosinophils (Bld) [#/Vol] 0.10 10*3/uL [facility] Phone: Eosinophils/100 WBC (Bld) 1 % 0 - 5 % [facility] Phone: Erythrocyte distribution width (RBC) [Ratio] 13.9 % 12.1 - 15.2 % [facility] Phone: Hematocrit (Bld) [Volume fraction] 39.4 % 36 - 46 % [facility] Phone: Hemoglobin (Bld) [Mass/Vol] 13.7 g/dL 12.0 - 16.0 g/dL [facility] Phone: Lymphocytes (Bld) [#/Vol] 3.20 10*3/uL [facility] Phone: Lymphocytes/100 WBC (Bld) 35 % 15 - 40 % [facility] Phone: MCH (RBC) [Entitic mass] 30.1 pg 26 - 34 pg [facility] Phone: MCHC (RBC) [Mass/Vol] 34.8 g/dL 31 - 37 g/dL M [employer] Phone: MCV (RBC) [Entitic vol] 86.5 fL 80 - 100 fL [facility] Phone: Monocytes (Bld) [#/Vol] 0.50 10*3/uL [facility] Phone: Monocytes/100 WBC (Bld) 6 % 4 - 8 % M [employer] Phone: Platelet mean volume (Bld) [Entitic vol] NOT REPORTED 6.0 - 12.0 fL [facility] Phone: Platelets (Bld) [#/Vol] 418 10*3/uL [facility] Phone: Platelets (Bld) [#/Vol] NOT REPORTED [facility] Phone: RBC (Bld) [#/Vol] 4.56 10*6/uL 4.0 - 5.2 m/uL [facility] Phone: RBC morphology finding Nom (Bld) NOT REPORTED [facility] Phone: Segmented neutrophils/100 WBC (Bld) 57 % 47 - 75 % [facility] Phone: Segs Absolute 5.20 [employer] Work Phone: WBC (Bld) [#/Vol] 9.1 10*3/uL [facility] Phone: WBC (Bld) [#/Vol] NOT REPORTED per 100 WBC [facility] [employer] Phone: WBC Morphology NOT REPORTED [employer] Phone: Otheron 09-28-2020 Immature granulocytes (Bld) [#/Vol] NOT REPORTED [facility]: Specimen Rejectionon 021 Reason for rejection Unable to perform testing: Specimen not processed correctly. [facility] Comment on above: Performed By: #### R EJEC #### [address] [phone] [employer] Unloader: Gurpreet Wei MD Source of sample TWO SWABS IN CONTAINER [facility] Comment on above: Performed By: #### R EJEC #### [facility] [employer] [address] [place] [id number] [employer] Unloader: Gurpreet Wei MD Test ordered [facility] Comment on above: Performed By: #### R EJEC #### [address] [id number] [employer] Unloader: Gurpreet eWi MD hCG, Quantitative, on 09-28-2020 hCG Quant 2027 High <5 IU/L [facility] [employer] Phone: Comment on above: Non-preg premeno <=5 Postmeno <=8 Male <=3 If HCG results do not concur with clinical observations, additional testing to confirm results is recommended. Elevated results not associated with may be found in patients with other diseases such as tumors of the germ cells (testis, ovaries, etc.), bladder, pancreas, stomach, lungs, and liver. Interpretation and review of laboratory results Abnormal [facility] Phone: CBC with Diffon 09-27-2020 Abs. Basophil 0.05 k/uL Normal 0.00-0.20 [facility] Comment on above: Performed By: #### C DP #### [facility] [address] [place] [address] [employer] Unloader: Cole Magaña MD Abs.Imm.Granulocyte 0.03 k/uL Normal 0.00-0.30 [facility] Comment on above: Performed By: #### C DP #### [address] [place], [facility] [employer] Un[employer]: Cole Magaña MD Abs.Neutrophil (Seg) 6.02 k/uL Normal 1.50-8.10 [facility] Comment on above: Performed By: #### C DP #### [address] [place] [address] [employer] Unloader: Cole Magaña MD Basophils/100 WBC (Bld) 1 % Normal 0-2 [facility] Comment on above: Performed By: #### C DP #### [address] [place], [facility]83 [employer] Unloader: Cole Magaña MD Eosinophils (Bld) [#/Vol] 0.10 10*3/uL Normal 0.00-0.44 [facility] Comment on above: Performed By: #### C DP #### [address] [place], [facility]83 [employer] Unloader: Cole Magaña MD Eosinophils/100 WBC (Bld) 1 % Normal 1-4 [facility] Comment on above: Performed By: #### C DP #### [address] [place], [facility]83 [employer] Unloader: Cole Magaña MD Erythrocyte distribution width (RBC) [Ratio] 13.4 % Normal 11.8-14.4 [facility] Comment on above: Performed By: #### C DP #### [address] [place], [facility]83 [employer] Unloader: Cole Magaña MD Hematocrit (Bld) [Volume fraction] 39.3 % Normal 36.3-47.1 [facility] Comment on above: Performed By: #### C DP #### [facility] [address] [place], [place] [address] [employer] Unloader: Cole Magaña MD Hemoglobin (Bld) [Mass/Vol] 14.0 g/dL Normal 11.9-15.1 [facility] Comment on above: Performed By: #### C DP #### [facility] [address] [place], [place] [address] [employer] Unloader: Cole Magaña MD Immature granulocytes (Bld) [#/Vol] 0 % Normal 0 [facility] Comment on above: Performed By: #### C DP #### [address] [place], [facility]83 [employer] Unloader: Cole Magaña MD Lymphocytes (Bld) [#/Vol] 4.01 10*3/uL High 1.10-3.70 [facility] Comment on above: Performed By: #### C DP #### [address] [place], [facility]83 [employer]: Cole Magaña MD Lymphocytes/100 WBC (Bld) 37 % Normal 24-43 [facility] Comment on above: Performed By: #### C DP #### [facility] [address] [place] [address] Dr[place], [place] [address] [employer] Unloader: Cole Magaña MD MCH (RBC) [Entitic mass] 30.0 pg Normal 25.2-33.5 [facility] Comment on above: Performed By: #### C DP #### [facility] [address] [place] [address] Dr[place], [facility]83 [employer] Unloader: Cole Magaña MD MCHC (RBC) [Mass/Vol] 35.6 g/dL High 28.4-34.8 [facility] Comment on above: Performed By: #### C DP #### [facility] [address] [place] [address] [employer] Unloader: Cole Magaña MD MCV (RBC) [Entitic vol] 84.2 fL Normal 82.6-102.9 M [facility] Comment on above: Performed By: #### C DP #### [facility] [address] [place] [address] [employer] Unloader: Cole Magaña MD Monocytes (Bld) [#/Vol] 0.60 10*3/uL Normal 0.10-1.20 [facility] Comment on above: Performed By: #### C DP #### [address] [place], [place] [id number] [employer] Unloader: Cole Magaña MD Monocytes/100 WBC (Bld) 6 % Normal 3-12 [facility] Comment on above: Performed By: #### C DP #### [address] [place], [place] [id number] [employer] Unloader: Cole Magaña MD Neutrophil (Seg) 55 % Normal 36-65 [facility] Comment on above: Performed By: #### C DP #### [address] [place], [place] [id number] [employer] Unloader: Cole Magaña MD NRBC Automated 0.0 per 100 WBC Normal 0.0 [facility] Comment on above: Performed By: #### C DP #### [address] [place], [place] [id number] [employer] Unloader: Cole Magaña MD Platelet mean volume (Bld) [Entitic vol] 9.5 fL Normal 8.1-13.5 [facility] Comment on above: Performed By: #### C DP #### [address] [place], [place] [id number] [employer] Unloader: Cole Magaña MD Platelets (Bld) [#/Vol] 414 10*3/uL Normal 138-453 [facility] Comment on above: Performed By: #### C DP #### [facility] [address] [place], [place] [id number] [employer] Un[employer]: Cole Magaña MD RBC (Bld) [#/Vol] 4.67 10*6/uL Normal 3.95-5.11 [facility] Comment on above: Performed By: #### C DP #### [facility] [address] [place], [place] [id number] [employer]: Cole Magaña MD WBC (Bld) [#/Vol] 10.8 10*3/uL Normal 3.5-11.3 [facility] Comment on above: Performed By: #### C DP #### [facility] [address] [place], [place] [id number] [employer] Unloader: Cole Magaña MD Auto Diff Performed NOT REPORTED Normal [facility] Comment on above: Performed By: #### C DP #### [facility] [address] [place], [place] [id number] [employer] Unloader: Cole Magaña MD Platelets (Bld) [#/Vol] NOT REPORTED Normal [facility] Comment on above: Performed By: #### C DP #### [facility] [address] [place], [place] [id number] [employer] Unloader: Cole Magaña MD RBC morphology finding Nom (Bld) NOT REPORTED Normal [facility] Comment on above: Performed By: #### C DP #### [facility] [address] [place], [place] [id number] [employer] Unloader: Cole Magaña MD WBC Morphology NOT REPORTED Normal [facility] Comment on above: Performed By: #### C DP #### [facility] [address] [place], [place] [id number] [employer] Unloader: Cole Magaña MD RHIG, Transfuseon 09-27-2020 RHIG, Transfuse Unit Number [id number] Blood Component Type RHIG Unit Division 00 Status of Unit TRANSFUSED Transfusion Status OK TO TRANSFUSE Normal [facility] Comment on above: Performed By: #### T RHIG #### [facility] [address] [place] [address] [employer] Unloader: Cole Magaña MD Type + Screenon 09-27-2020 Type + Screen Sample Expiration 09/29/2020,2359 Arm Band Number [id number] ABO/Rh(D) A NEGATIVE Antibody Screen NEGATIVE Normal [facility] Comment on above: Performed By: #### T YS #### [facility] [address] [place] [address] [employer] Unloader: Cole Magaña MD CBC Auto Differentialon 09-06 Basophils (Bld) [#/Vol] 0.05 10*3/uL [employer] Phone: Basophils/100 WBC (Bld) 1 % 0 - 2 % [facility]: Differential Type NOT REPORTED [facility] Phone: Eosinophils (Bld) [#/Vol] 0.10 10*3/uL [employer] Phone: Eosinophils/100 WBC (Bld) 1 % 1 - 4 % [employer] Phone: Erythrocyte distribution width (RBC) [Ratio] 13.4 % 11.8 - 14.4 % [employer] Phone: Hematocrit (Bld) [Volume fraction] 39.3 % 36.3 - 47.1 % [employer] Phone: Hemoglobin (Bld) [Mass/Vol] 14.0 g/dL 11.9 - 15.1 g/dL [employer] Phone: Immature granulocytes (Bld) [#/Vol] 0.03 10*3/uL [employer] Phone: Immature granulocytes (Bld) [#/Vol] 0 % 0 [employer] Phone: Interpretation and review of laboratory results Abnormal [employer] Phone: Lymphocytes (Bld) [#/Vol] 4.01 10*3/uL High [employer] Phone: Lymphocytes/100 WBC (Bld) 37 % 24 - 43 % [employer] Phone: MCH (RBC) [Entitic mass] 30.0 pg 25.2 - 33.5 pg [employer] Phone: MCHC (RBC) [Mass/Vol] 35.6 g/dL High 28.4 - 34.8 g/dL [employer] Phone: MCV (RBC) [Entitic vol] 84.2 fL 82.6 - 102.9 fL [employer] Phone: Monocytes (Bld) [#/Vol] 0.60 10*3/uL [employer] Phone: Monocytes/100 WBC (Bld) 6 % 3 - 12 % [facility]: Platelet mean volume (Bld) [Entitic vol] 9.5 fL 8.1 - 13.5 fL [employer] Phone: Platelets (Bld) [#/Vol] 414 10*3/uL [employer] Phone: Platelets (Bld) [#/Vol] NOT REPORTED [employer] Phone: RBC (Bld) [#/Vol] 4.67 10*6/uL 3.95 - 5.1 1 m/uL [employer] Phone: RBC morphology finding Nom (Bld) NOT REPORTED [employer] Phone: Segmented neutrophils/100 WBC (Bld) 55 % 36 - 65 % [employer] Phone: Segs Absolute 6.02 [facility] Work Phone: WBC (Bld) [#/Vol] 0.0 10*3/uL 0.0 per 10 0 WBC [facility] Work Phone: WBC (Bld) [#/Vol] 10.8 10*3/uL [facility] Work Phone: WBC Morphology NOT REPORTED [facility] Work Phone: Basophils (Bld) [#/Vol] 0.00 10*3/uL [facility] [employer] Work Phone: Basophils/100 WBC (Bld) 0 % 0 - 2 % [facility] Work Phone: Differential Type YES [facility] Work Phone: Eosinophils (Bld) [#/Vol] 0.10 10*3/uL [facility] Work Phone: Eosinophils/100 WBC (Bld) 1 % 0 - 5 % [facility] [employer] Phone: Erythrocyte distribution width (RBC) [Ratio] 15.0 % 12.1 - 15.2 % [facility] Phone: Hematocrit (Bld) [Volume fraction] 40.7 % 36 - 46 % [facility] Phone: Hemoglobin (Bld) [Mass/Vol] 14.2 g/dL 12.0 - 16.0 g/dL [facility] Phone: Lymphocytes (Bld) [#/Vol] 3.20 10*3/uL [facility] Phone: Lymphocytes/100 WBC (Bld) 29 % 15 - 40 % [facility] [employer] Phone: MCH (RBC) [Entitic mass] 30.3 pg 26 - 34 pg [facility] Phone: MCHC (RBC) [Mass/Vol] 34.8 g/dL 31 - 37 g/dL M [employer] Work Phone: MCV (RBC) [Entitic vol] 86.9 fL 80 - 100 fL [employer] Work Phone: Monocytes (Bld) [#/Vol] 0.60 10*3/uL [employer] Phone: Monocytes/100 WBC (Bld) 6 % 4 - 8 % M [employer] Work Phone: Platelet mean volume (Bld) [Entitic vol] NOT REPORTED 6.0 - 12.0 fL [employer] Phone: Platelets (Bld) [#/Vol] NOT REPORTED [employer] Phone: Platelets (Bld) [#/Vol] 429 10*3/uL [employer] Phone: RBC (Bld) [#/Vol] 4.69 10*6/uL 4.0 - 5.2 m/uL [employer] Work Phone: RBC morphology finding Nom (Bld) NOT REPORTED [employer] Phone: Segmented neutrophils/100 WBC (Bld) 64 % 47 - 75 % [employer] Work Phone: Segs Absolute 6.80 [facility] Work Phone: WBC (Bld) [#/Vol] 10.7 10*3/uL [employer] Work Phone: WBC (Bld) [#/Vol] NOT REPORTED per 100 WBC [employer] Work Phone: WBC Morphology NOT REPORTED [facility] [facility] Work Phone: Microscopic Urinalysison Amorphous, UA NOT REPORTED None [employer] Work Phone: Bacteria, UA NOT REPORTED None [employer] Work Phone: Casts UA NOT REPORTED /LPF [employer] Work Phone: Crystals, UA NOT REPORTED None /HPF [employer] [facility] Work Phone: Epithelial Cells UA 0 TO 2 /HPF [facility] Work Phone: Mucus, UA NOT REPORTED None [facility] Work Phone: Other Observations UA NOT REPORTED NOT REQ. [facility] Work Phone: RBC (U) [#/Vol] 0 TO 2 [employer] [facility] Work Phone: Renal Epithelial, UA NOT REPORTED 0 /HPF [facility] [employer] Work Phone: Trichomonas, UA NOT REPORTED None [facility] Work Phone: WBC, UA NOT REPORTED 0 /HPF [facility] Work Phone: Yeast, UA NOT REPORTED None [employer] Work Phone: - [facility] Work Phone: Otheron 09-26-2020 With a positive test and no pole or gestational sac definitely identified, this is a of unknown location and a short-term follow-up ultrasound is recommended. [employer] Work Phone: EXAM: US OB LESS MEHNAZ [...] is no free fluid in the cul-de-sac. [employer] Phone: Agu[place], Mhpn Incoming Radiant Results From [employer] - 09/26/2020 7:00 PM EDT EXAM: US [...] and a short-term follow-up ultrasound is recommended. [employer] Phone: Immature granulocytes (Bld) [#/Vol] NOT REPORTED [employer] Phone: Specimen Rejectionon 021 ----- NOT REPORTED Normal [facility] Comment on above: Performed By: #### R EJEC #### [facility] [place] [address] [employer] Car Unloader: Gurpreet Wei MD TYPE AND SCREENon 09-26-2020 ABO/Rh Negative [employer] Phone: Arm Band Number [id number] [facility] Work Phone: Expiration Date 09/29/2020,4807 [employer] Phone: Urinalysis Reflex to Culture on 09-26-2020 Bilirubin Urine Negative NEGATIVE [employer] [facility] Work Phone: Color, UA YELLOW YELLOW [facility] Phone: Glucose, Ur Negative NEGATIVE [facility] [employer] Phone: Interpretation and review of laboratory results Abnormal [employer] Phone: Ketones Ql (U) Negative NEGATIVE [facility] Work Phone: Leukocyte esterase Test strip Ql (U) Negative NEGATIVE [facility] Work Phone: Nitrite, Urine Negative NEGATIVE [facility] Work Phone: pH, UA 5.0 [facility] Work Phone: Protein (U) [Mass/Vol] Negative NEGATIVE [facility] [employer] Work Phone: Specific [place], UA 1.015 [facility] [employer] Work Phone: Turbidity UA CLEAR CLEAR [facility] Phone: Urinalysis Comments [facility] Phone: Urine Hgb TRACE Abnormal NEGATIVE [facility] Phone: Urobilinogen, Urine Normal Normal [facility] Phone: hCG, Quantitative, on 09-26-2020 hCG Quant 920 High <5 IU/L [employer] Phone: Comment on above: Non-preg premeno <=5 Postmeno <=8 Male <=3 If HCG results do not concur with clinical observations, additional testing to confirm results is recommended. Elevated results not associated with may be found in patients with other diseases such as tumors of the germ cells (testis, ovaries, etc.), bladder, pancreas, stomach, lungs, and liver. Interpretation and review of laboratory results Abnormal [employer] Phone: hCG, Serum, Qualitativeon hCG Qual Positive Abnormal NEGATIVE [facility] Phone: Comment on above: If HCG results do not concur with clinical observations, additional testing to confirm result is recommended. This test is not labeled for use as a tumor marker. [employer] has confirmed the use of plasma for this test. This has not been cleared or approved by the U.S. Food and Drug Administration. The FDA has determined that such clearance is not necessary. Interpretation and review of laboratory results Abnormal [facility] Work Phone: Glucose, Fastingon 0 Glucose [Mass/Vol] 94 mg/dL 70 - 99 mg/dL [place], [place] Lipid Panelon 02-16-2020 Cholesterol [Mass/Vol] 151 mg/dL <200 [place], [place] Comment on above: Cholesterol Guidelines: <200 Desirable 200-240 Borderline >240 Undesirable Cholesterol in HDL [Mass/Vol] 49 mg/dL >40 [place], [place] Comment on above: HDL Guidelines: <40 Undesirable 40-59 Borderline >59 Desirable Cholesterol in LDL [Mass/Vol] 96 mg/dL 0 - 130 mg/dL [place], [place] Comment on above: LDL Guidelines: <100 Desirable 100-129 Near to/above Desirable 130-159 Borderline >159 Undesirable Direct (measured) LDL and calculated LDL are not interchangeable tests. Cholesterol in VLDL [Mass/Vol] NOT REPORTED 1 - 30 mg/dL [place], [place] Cholesterol.total/Vivien sterol in HDL [Mass ratio] 3.1 {ratio} <5 [place], [place] Triglyceride [Mass/Vol] 32 mg/dL <150 [place], [place] Comment on above: Triglyceride Guidelines: <150 Desirable 150-199 Borderline 200-499 High >499 Very high Based on AHA Guidelines for fasting triglyceride, April 2012. US NON OB TRANSVAGINALon 1. Mild pelvic free fluid in the cul-de-sac. 2. Normal sonographic morphology of the uterus and ovaries. [place], [place] PROCEDURE: US NON OB TRANSVAGINAL, 01/11/2020 [...] within ovarian tissue bilaterally without spectral evaluation. [employer], Mhpn Incoming Radiant Results From [employer] - 01/12/2020 8:08 AM EDT PROCEDURE: US [...] sonographic morphology of the uterus and ovaries. [employer] Vitamin D 25 Hydroxyon 01-10 Interpretation and review of laboratory results Abnormal [employer] Vit D, 25-Hydroxy 21.6 ng/mL Low 30 - 100 ng/mL [employer] Comment on above: Reference Range: Vitamin D status Range Deficiency <20 ng/mL Mild Deficiency 20-30 ng/mL Sufficiency 30-100 ng/mL Toxicity >100 ng/mL MRI BRAIN W WO CONTRASTOrder ed By: Eliane Vilchis on 07-29-2019 1. Unremarkable contrast enhanced brain MRI. No focal signal abnormality, mass effect or abnormal enhancement. 2. Mild mucosal thickening of the left frontal and bilateral maxillary sinuses. [employer] Phone: EXAM: MRI BRAIN W WO CONTRAST [...] air cells are clear. No abnormal enhancement. [employer] Phone: Aguila, pn Incoming Radiant Results From [employer] - 07/29/2019 4:55 PM EST EXAM: MRI [...] the left frontal and bilateral maxillary sinuses. [employer] Phone: Basic Metabolic Panel w/ Ref nora to MGOrdered By: Leonor Sandy on 07-10-2019 Anion gap [Moles/Vol] 13 mmol/L 9 - 17 mmol/L [employer] Phone: Bun/Cre Ratio 20 [employer] Work Phone: Calcium [Mass/Vol] 10.4 mg/dL 8.6 - 10. 4 mg/dL [employer] Work Phone: Chloride [Moles/Vol] 104 mmol/L 98 - 10 7 mmol/L [facility] Phone: CO2 [Moles/Vol] 22 mmol/L 20 - 31 mmol/L [employer] Phone: Creatinine [Mass/Vol] 0.5 mg/dL 0.5 - 0.9 mg/dL [employer] Phone: GFR >60 >60 mL/min [employer] Phone: GFR Comment [employer] Phone: Comment on above: Average GFR for 20-2 9 years old: 116 mL/min/1.73sq m Chronic Kidney Disease: <60 mL/min/1.73sq m Kidney failure: <15 mL/min/1.73sq m eGFR calculated using average adult body mass. Additional eGFR calculator available at: http://www.PollGround/multiple_crcl_2012.htm GFR Non- >60 >60 mL/min [facility] Phone: GFR Staging NOT REPORTED [facility]chronic[facility] Work Phone: Glucose [Mass/Vol] 132 mg/dL High 70 - 99 mg/dL [facility] [employer] Work Phone: Interpretation and review of laboratory results Abnormal [facility] Phone: Potassium [Moles/Vol] 3.7 mmol/L 3.7 - 5.3 mmol/L [facility] Work Phone: Sodium [Moles/Vol] 139 mmol/L 135 - 144 mmol/L [employer] Work Phone: Urea nitrogen [Mass/Vol] 10 mg/dL 6 - 20 mg/dL [employer] Work Phone: CBC Auto DifferentialOrdered By: Leonor Sandy on 07-10-2019 Absolute Eos # 0.10 [employer] [facility] Work Phone: Absolute Immature Granulocyte NOT REPORTED [employer] Work Phone: Absolute Lymph # 2.70 [employer] [facility] Work Phone: Absolute [place] # 0.40 [employer] [facility] Work Phone: Basophils (Bld) [#/Vol] 0.00 10*3/uL [employer] Work Phone: Basophils/100 WBC (Bld) 0 % 0 - 2 % [facility] [employer] Work Phone: Differential Type YES [facility] Work Phone: Eosinophils/100 WBC (Bld) 1 % 0 - 5 % [employer] Phone: Erythrocyte distribution width (RBC) [Ratio] 13.4 % 12.1 - 15.2 % [employer] Phone: Hematocrit (Bld) [Volume fraction] 43.6 % 36 - 46 % [employer] Work Phone: Hemoglobin (Bld) [Mass/Vol] 15.0 g/dL 12 - 16 g/dL [employer] Work Phone: Immature Granulocytes NOT REPORTED 0 % [facility] [employer] Work Phone: Lymphocytes/100 WBC (Bld) 30 % 15 - 40 % [employer] Phone: MCH (RBC) [Entitic mass] 29.9 pg 26 - 34 pg [employer] Work Phone: MCHC (RBC) [Mass/Vol] 34.4 g/dL 31 - 37 g/dL [facility] Work Phone: MCV (RBC) [Entitic vol] 86.8 fL 80 - 100 fL [facility] Work Phone: Monocytes/100 WBC (Bld) 4 % 4 - 8 % [facility] Work Phone: MPV NOT REPORTED 6 - 12 fL [facility] Work Phone: NRBC Automated NOT REPORTED per 100 WBC [facility] [employer] Work Phone: Platelet Estimate NOT REPORTED [facility] Work Phone: Platelets (Bld) [#/Vol] 395 10*3/uL [facility] Work Phone: RBC (Bld) [#/Vol] 5.02 10*6/uL 4 - 5.2 m/uL [facility] [employer] Work Phone: RBC morphology finding Nom (Bld) NOT REPORTED [facility] Work Phone: Segmented neutrophils/100 WBC (Bld) 65 % 47 - 75 % [facility] Work Phone: Segs Absolute 5.80 [facility] Work Phone: WBC (Bld) [#/Vol] 8.9 10*3/uL [facility] [employer] Work Phone: WBC Morphology NOT REPORTED [facility] Work Phone: CT Head WO ContrastOrdered B y: Leonor Sandy on 07-10-[address] brain[address] [employer] al[facility] Work Phone: EXAMINATION: CT HEAD WO [...] sagittal multiplanar reconstructions show no additional abnormality. [employer] Phone: Aguila, Mhpn Incoming Radiant Results From [facility] - 07/10/2019 6:04 PM EST EXAMINATION: CT [...] no additional abnormality. IMPRESSION: Normal CT brain. [employer] Phone: Glucose, Whole BloodOrdered By: Leonor Sandy on 07-10-2019 Glucose [Mass/Vol] 98 mg/dL 65 - 99 mg/dL [facility] [employer] Work Phone: POCT glucoseOrdered By: Nathaly Sandy on 07-10-2019 Glucose [Mass/Vol] 98 mg/dL [facility] Phone: Interpretation and review of laboratory results Normal [facility] Phone: QC OK? yes [facility] [employer] Phone: , UrineOrdered By: Leonor Sandy on 07-10-2019 Beta HCG ( test) Ql (U) Negative NEGATIVE [facility] Work Phone: Urinalysis, reflex to micros copicOrdered By: Leonor Sandy on 07-10-2019 Bilirubin Urine Negative NEGATIVE [employer] Work Phone: Color, UA YELLOW YELLOW [facility] Phone: Glucose, Ur Negative NEGATIVE [facility] Work Phone: Ketones Ql (U) Negative NEGATIVE [employer] Work Phone: Leukocyte esterase Test strip Ql (U) Negative NEGATIVE [employer] Phone: Nitrite, Urine Negative NEGATIVE [employer] Work Phone: pH, UA 6.5 [employer] Phone: Protein, UA Negative NEGATIVE [employer] Phone: Specific [place], UA 1.010 [employer] Phone: Turbidity UA CLEAR CLEAR [employer] Phone: Urinalysis Comments [employer] Phone: Urine Hgb Negative NEGATIVE [employer] Phone: Urobilinogen, Urine Normal Normal [facility] Phone: [facility] Repor ton 06-12-2017 [facility] Report Type: OrthopedicDictated by: To be signed by: Transcribed by: Transcribed D/ Dictation D/ Report: May 07, 2017 RE: Chapis Nation is here today with chief complaint of right hand pain. She has been having this now for a few months. 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 Normal [facility] Radiologyon 06-12-2017 Radiology Type: OutpatientDictated by: Signed by: Transcribed by: Transcribed Date/Time: 05/10/2017 12:19Dictation Date/Time: 05/07/2017 17:31Report: DATE OF SERVICE: 05/07/2017 DIAGNOSTIC STUDIES/INTERPRETATION S/IMPRESSIONS: Radiographs AP and lateral projections of her hands bilaterally demonstrate no fracture, dislocation, or other bony abnormality. Normal [facility] Vital Signs Date Time Vital Sign Value Performing Clinician Faci lity 09-27-2020 01:25-0400 BP Diastolic 78 mm[Hg] [facility] [employer] Work Phone: 09-27-2020 01:25-0400 BP Systolic 131 mm[Hg] [facility] Work Phone: 09-27-2020 01:25-0400 Pulse (Heart Rate) 99 /min [facility] Work Phone: 09-27-2020 01:25-0400 Pulse Oximetry 99 % [facility] Work Phone: 09-26-2020 21:16-0400 BMI (Body Mass Index) 25.82 kg/m2 Jeremiah [facility] [employer] Work Phone: 09-26-2020 21:16-0400 Body Temperature 99.1 [degF] [facility] Work Phone: 09-26-2020 21:16-0400 Body weight 72.58 kg Jeremiah Mcnair [employer] Work Phone: 09-26-2020 21:16-0400 Respiratory Rate 16 /min Jeremiah Mcnair [employer] Work Phone: 07-10-2019 21:26-0500 Diastolic blood pressure 88 mm[Hg] Leonor Sandy MD Work Phone: [employer] Work Phone: 07-10-2019 21:26-0500 Heart rate 77 /min Leonor Sandy MD Work Phone: [employer] Work Phone: 07-10-2019 21:26-0500 Respiratory rate 18 /min Leonor Sandy MD Work Phone: [employer] Work Phone: 07-10-2019 21:26-0500 SaO2% (BldA) [Mass fraction] 100 % Leonor Sandy MD Work Phone: [employer] Work Phone: 07-10-2019 21:26-0500 Systolic blood pressure 127 mm[Hg] Leonor Sandy MD Work Phone: [employer] Work Phone: 07-10-2019 16:53-0500 Body height 167.6 cm Leonor Sandy MD Work Phone: [employer] Work Phone: 07-10-2019 16:53-0500 Body mass index (BMI) [Ratio] 25.02 kg/m2 Leonor Sandy MD Work Phone: [employer] Work Phone: 07-10-2019 16:53-0500 Body temperature 98.29 [degF] Leonor Sandy MD Work Phone: [employer] Work Phone: 07-10-2019 16:53-0500 Body weight 70.31 kg Leonor Sandy MD Work Phone: [facility] Work Phone: Encounters Encounter Date Encounter Type Care Provider Facility Start: 03-02-2024 End: 03-02-2024 ambulatory SHANNAN DAVID Not Available Start: 07-23-2023 End: 07-23-2023 ambulatory SHANNAN DAVID Not Available Start: 06-13-2023 End: 06-13-2023 ambulatory SHANNAN DAVID Not Available Start: 04-30-2023 ambulatory DO Chris Kelley Fac ility:[facility] Start: 11-27-2022 End: 11-28-2022 ambulatory Wero Britton Facility:[facility] Start: 07-23-2022 End: 07-24-2022 ambulatory [facility] Jhoana [facility] Start: 07-16-2022 End: 07-17-2022 ambulatory YOLANDA [facility] Start: 07-16-2022 End: 07-16-2022 Subsequent hospital visit by physician Fiorella Abarca DO Work Phone: [facility] Laboratory Comment on above: Urticaria Start: 05-01-2022 End: 07-31-2022 ambulatory Cuco Oneal Facility:[facility] Start: 05-28-2021 End: 05-28-2021 ambulatory Mary Brown Facility:[facility] Start: 10-03-2020 End: 10-03-2020 Subsequent hospital visit by physician Fiorella [facility] Start: 09-28-2020 End: 09-28-2020 Subsequent hospital visit by physician Fiorella Abarca [facility] Laboratory Comment on above: Less than 8 weeks ge station of ; Pelvic pain Start: 09-26-2020 End: 09-27-2020 Emergency department patient visit [facility] Jhoana [facility] Start: 09-26-2020 End: 09-27-2020 Emergency department patient visit Jeremiah Mcnair Work Phone: [facility] ED Comment on above: Abdominal pain durin g in first trimester (Primary Dx) Start: 09-26-2020 End: 09-28-2020 Subsequent hospital visit by physician [facility] Ultrasound Room [facility] Laboratory Comment on above: Pelvic pain in femal e; Less than 8 weeks gestation of Start: 02-16-2020 End: 02-16-2020 Subsequent hospital visit by physician Fiorella Abarca [facility] Laboratory Comment on above: Screening for cardio vascular condition Start: 01-11-2020 End: 01-13-2020 Subsequent hospital visit by physician Claudia Ultrasound Room [facility] Laboratory Comment on above: Vitamin D deficiency Lower abdominal pain ; Amenorrhea Start: 10-23-2019 End: 10-23-2019 Subsequent hospital visit by physician Fiorella Abarca [facility] Laboratory Comment on above: Viral illness; Suspected COVID-19 virus infection Start: 10-19-2019 End: 10-19-2019 Subsequent hospital visit by physician Fiorella Abarca [facility] Laboratory Comment on above: Suspected COVID-19 v irus infection Start: 07-29-2019 End: 07-31-2019 Subsequent hospital visit by physician [facility] MRI Comment on above: Right sided numbness ; Blurred vision Start: 07-10-2019 End: 07-10-2019 Emergency department patient visit Leonor Sandy MD Work Phone: [facility] ED Comment on above: Migraine with aura a nd with status migrainosus, not intractable (Primary Dx) Start: 05-07-2017 Ambulatory [facility] Procedures Date Procedure Procedure Detail Performing Clinician Start: 07-16-2022 ALLERGEN, FOOD, COMPREHENSIVE PROFILE 1 Yolanda Humphrey 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 Work Phone: Start: 10-03-2020 Gonadotropin chorionic quantitative [...] DTaP/Tdap/Td vaccine (2 - Td or Tdap) [facility] Start: 07-16-2023 Depression Monitoring Depression Mon itoring [facility] Start: 02-05-2022 Influenza vaccination Flu vaccine (# 1) [facility] Start: 03-08-2020 Influenza vaccination [facility] [place] Start: 01-27-2020 End: 01-27-2020 Office Visit 01/27/2020 Office Visit Family Medicine Fiorella Abarca DO [address] [place] [address] [facility] Start: 11-16-2019 End: 11-16-2019 Office Visit 11/16/2019 Office Visit Neurology Cammy Grayson MD [address] [facility] [address] [place] [address] [id number] [facility] Neuro [facility] Start: 10-21-2019 End: 10-21-2019 Telemedicine 10/21/2019 Telemedicine Family Medicine Fiorella Abarca DO [address] [place] [address] [facility] Start: 08-20-2019 End: 08-20-2019 Patient encounter procedure 08/20/2019 Office Visit Neurology Cammy Grayson MD [address] [facility] [address] [place] [address] [phone] [facility] Start: 03-08-2019 Influenza vaccination Flu vaccine (# 1) [facility] [employer] Phone: Start: 05-26-2018 Cervical cancer screen Cervical canc er screen [facility] Phone: Start: 05-26-2018 Screening for malign ant neoplasm of cervix [facility] Start: 2012 DTaP/Tdap/Td vaccine (1 - Tdap) DTaP/Tdap/Td vaccine (1 - Tdap) [place], [place] Start: 11-22-2011 Hepatitis C screening Hepatitis C sc reen [facility] Start: 2009 COVID-19 Vaccine (1) COVID-19 Vaccin e (1) [facility] Phone: Start: 2008 HIV screen HIV screen [facility] [employer] Phone: Start: 2008 HIV screening HIV screen [facility] [employer] Start: 2004 DTaP/Tdap/Td vaccine (1 - Tdap) DTaP/Tdap/Td vaccine (1 - Tdap) [facility] [employer] Phone: Start: 2004 HPV vaccine (1 - 2-d ose series) HPV vaccine (1 - 2-dose series) [place], [place] Start: 2004 HPV vaccine (1 - Fem terrance 2-dose series) HPV vaccine (1 - Female 2-dose series) [facility] [employer] Phone: Start: 11-22-1999 Pneumococcal 0-64 ye ars Vaccine (1 - PCV) Pneumococcal 0-64 years Vaccine (1 - PCV) [facility] Start: 11-22-1999 Pneumococcal 0-64 ye ars Vaccine (1 of 1 - PPSV23) Pneumococcal 0-64 years Vaccine (1 of 1 - PPSV23) [facility] [employer] Phone: Start: 1994 Varicella vaccine (1 of 2 - 2-dose childhood series) Varicella vaccine (1 of 2 - 2-dose childhood series) [facility] [employer] Start: 05-24-1994 COVID-19 Vaccine (#1) COVID-19 Vacci ne (#1) [facility] Start: 1993 Hepatitis C screening Hepatitis C sc reen [employer] Phone: End: 09-26-2020 C.trachomatis N.gonorrhoeae DNA C.trachomatis N.gonorrhoeae DNA Microbiology STAT One Time for 1 Occurrences starting 09/26/2020 until 09/26/2020 [employer] Phone: Comment on above: One Time for 1 Occur rences starting 09/26/2020 until 09/26/2020 C.trachomatis N.gonorrhoeae DNA C.trachomatis N.gonorrhoeae DNA Microbiology STAT 09/26/2020 10:35 PM EDT [employer] Phone: COVID-19 COVID-19 Lab Rou constance Suspected COVID-19 virus infection 10/19/2019 10:18 AM EDT [place], [place] End: 10-23-2019 COVID-19 Ambulatory COVID-19 Ambulatory Lab Routine Viral illness Suspected Covid-19 Virus Infection 1 Occurrences starting 10/23/2019 until 10/23/2019 [place], [place] Comment on above: 1 Occurrences starti ng 10/23/2019 until 10/23/2019 COVID-19 Ambulatory COVID-19 Amb ulatory Lab Routine Viral illness Suspected COVID-19 virus infection 10/23/2019 4:02 PM EDT [place] CTA HEAD NECK W CONTRAST CTA HEA D NECK W CONTRAST Imaging STAT 07/10/2019 7:43 PM EST [facility] Phone: Food Comprehensive Panel Food Co mprehensive Panel Lab Routine Urticaria 07/16/2022 5:05 PM EST [facility] Phone: RHOGAM INJECTION ONLY RHOGAM INJ ECTION ONLY Blood Bank STAT 09/26/2020 10:15 PM EDT [employer] Phone: Immunizations Immunization Date Immunization Notes Care Provider Fa cility 05-26-2021 tetanus toxoid, redu henny diphtheria toxoid, and acellular pertussis vaccine, adsorbed [facility] 09-26-2020 LILO(Sacha) fracisco alexa in Evangelina Mcnair [facility] Work Phone: 04-07-2018 influenza virus vaccine, unspecified formulation Leonor Sandy MD Work Phone: [facility] Work Phone: 10-06-2013 hepatitis B vaccine, adult dosage Fiorella Abarca DO Work Phone: [employer] [facility] [employer] Work Phone: 10-06-2013 hepatitis B vaccine, unspecified formulation Fiorella DarbyKymabjoe [facility] Work Phone: 06-01-2013 hepatitis B vaccine, adult dosage Fiorella Abarca DO Work Phone: [facility] [employer] Work Phone: 06-01-2013 hepatitis B vaccine, unspecified formulation Fiorella Jiongji [employer] [facility] Work Phone: 04-21-2013 hepatitis B vaccine, adult dosage Fiorella Abarca DO Work Phone: [facility] [employer] 04-21-2013 hepatitis B vaccine, unspecified formulation Fiorella DarbyKymabjoe [facility] Phone: 06-29-2011 tuberculin skin test ; purified protein derivative solution, intradermal Leonor Sandy MD Work Phone: [facility] Work Phone: Payers Date Payer Category Payer Unknown [id number] 2021 Unknown [id number] 2021 Private Health Insurance [id number] 2021 Self-pay [id number] 2020 Unknown [id number] 2019 Unknown [employer] M [employer] [address] [id number] 2019-Present [phone] [address] [place] [address] [id number] 2014 Unknown [id number] 1993 Unknown [id number] [id number]. 2.173 1993 Unknown [id number] [id number]. 2.174 1993 Unknown [id number] [id number]. 2.174 1993 Unknown [id number] [id number]. 2.727 1993 Unknown [id number] [id number]. 2.727 1993 Unknown [id number] [id number]. 2.727 1993 Unknown [id number] [id number]. 2.1259 1993 Unknown [id number] [id number]. 2.1259 1993 Unknown [id number]. [id number] Unknown [facility] [id number] Unknown [id number] [id number] Worker's Compensation [facility] Med C t Ind [id number] Social History Date Type Detail Facility Start: 10-23-2019 End: 07-16-2022 Tobacco smoking status NHIS Never smoker [employer] Start: 10-23-2019 End: 07-16-2022 Alcohol intake Current non-drinker of alcohol (finding) [facility] Phone: Start: 1995 Sex Assigned At Not on file [employer] Phone: Exposure to SARS-CoV -2 (event) Unable to assess [employer] Start: 02-16-2020 End: 07-16-2022 Tobacco use and exposure Never used [employer] Exposure to SARS-CoV -2 (event) Not sure [facility] Phone: Start: 07-16-2022 History SDOH Financial 5 [employer] Phone: Start: 07-16-2022 History SDOH Food Worry 1 [employer] Phone: Start: 1995 Sex Assigned At Female F [facility] Progress note 03-30-2021 Note Date & Type Note Facility 03-30-2021 Note HNO ID: [id number] Author: Michael Lilly MD Service: ? Author [...] with more than 50% of the total [id number] time of the visit in counseling / [...] dilatation The pa (more content not included)... [facility] Discharge instructions 07-10-2019 InstructionsAttachments Note Date [...] be sent through Care Everywhere.Migraine Headache: Recurring (Moroccan)documented in this encounter [facility] Phone: Evaluation note Note Date & Type Note Facility Evaluation note Diagnosis Migraine with aura and with status migrainosus, not intractable- Primary Migraine with aura, with intractable migraine, so stated, with status migrainosus documented in this encounter [facility] Phone: Evaluation note Note Date & Type Note Facility Evaluation note Diagnosis Right sided numbness Blurred vision Other specified visual disturbances documented in this encounter [facility] Work Phone: Evaluation note Note Date & Type Note Facility Evaluation note Diagnosis Urticaria Urticaria, unspecified documented in this encounter [employer] Work Phone: Evaluation note Note Date & Type Note Facility Evaluation note No assessment information availa [facility] Work Phone: Summary Purpose Family History No Family History Records Found Relationship Condition Age at Onset Recorded Date/T ifeoma Not Specified No pertinent family history Unknown Advance Directives No Advanced Directives Records FoundDocuments on File Type Date Recorded Patient Hog Cutter Expl anation Advance Directives and Living Will Power of [place] Documents on File Type Date Recorded Patient Hog Cutter Expl anation Advance Directives and Living Will Power of [place] Documents on File Type Date Recorded Patient Hog Cutter Expl anation ACP-Advance Directive ACP-Power of [place] Documents on File Type Date Recorded Patient Hog Cutter Expl anation ACP-Advance Directive ACP-Power of [place] Assessments Diagnosis Viral illness Unspecified viral infection, [...] Fiorella Abarca, DO [address] [place] [address] Status Reason Specialty Diagnoses / Procedures Referre d By Contact Referred To Contact Closed Radiology Diagnoses Right sided numbness Blurred vision Procedures MRI BRAIN W WO CONTRAST HC MRI-BRAIN WO & W CONTRAST Eliane Vilchis MD [address] [facility] [address] [place] [address] Discharge Instructions * Instructions* Jeremiah Mcnair MD - 09/27/2020 Yolanda Ramos office personnel will contact you with regards to scheduling of your repeat hCG level ( test) * Attachments The following attachments cannot be sent through Care Everywhere. * : Abdominal Pain (Moroccan) documented in this encounter Additional Source Comments INFORMATION SOURCE (unrecogn ized section and content) DATE CREATED AUTHOR 12/31/2017 [facility] DATE CREATED AUTHOR AUTHOR'S ORGANIZ ATION 01/30/2018 [facility] DATE CREATED AUTHOR AUTHOR'S ORGANIZ ATION 09/29/2020 [facility] DATE CREATED AUTHOR AUTHOR'S ORGANIZ ATION 08/15/2021 [facility] DATE CREATED AUTHOR AUTHOR'S ORGANIZ ATION 07/24/2022 [facility] DATE CREATED AUTHOR AUTHOR'S ORGANIZ ATION 03/09/2023 [facility] DATE CREATED AUTHOR AUTHOR'S ORGANIZ ATION 05/01/2023 [facility] DATE CREATED AUTHOR AUTHOR'S ORGANIZ ATION 03/04/2024 [facility] [employer]IC Reason for Visit (unrecogniz ed section and content) Status Reason Specialty Diagnoses / Procedures Referre d By Contact Referred To Contact Closed Radiology Diagnoses Lower abdominal pain Amenorrhea Procedures US NON OB TRANSVAGINAL Fiorella Abarca, DO [address] [place] [place] [address] Reason Comments Pelvic Pain onset approx 1 week ago, sent her by PCP for eval Status Reason Specialty Diagnoses / Procedures Referre d By Contact Referred To Contact Open Radiology Diagnoses Pelvic pain in female Less than 8 weeks gestation of Procedures US OB LESS THAN 14 WEEKS SINGLE OR FIRST GESTATION US PELVIS COMPLETE Yolanda Humphrey, 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 [address] [place] [address] Reason Comments Headache History of migraine headaches. Vomited one time today. Status Reason Specialty Diagnoses / Procedures Referre d By Contact Referred To Contact Closed Radiology Diagnoses Right sided numbness Blurred vision Procedures MRI BRAIN W WO CONTRAST HC MRI-BRAIN WO & W CONTRAST Eliane Vilchis MD [address] [facility] [address] [place] [address] Care Teams (unrecognized sec tion and content) Technical Sales Engineer Relationship Specialty Start Date End Date Fiorella Abarca, [address] [place] [address] PCP - General 02/26/16 Goals [...] BE BASED ON THE PRIMARY CLINICAL RECORDS. [employer] [facility]. provides no warranty or guarantee of the accuracy or completeness of information in this document.
[2024-04-11 14:55] LABS: HCG Quantitative 52745 mIU/mL
== END 2024-04-11 12:33 | disposition home or self-care (01) ==
LOC: LAB 12:33
PROVIDERS: PCP Student in an Organized Health Care Education/Training Program; Visit Provider Obstetrics & Gynecology
DX: N92.6 Irregular menstruation, unspecified (principal)
CPT/HCPCS: 36415; 84702

== ENCOUNTER 2024-04-12 18:11 | Emergency (ER) | payer BC, SELFPAY ==
[2024-04-12 18:15] VITALS: BP 165/88; PULSE 92; TEMP 37.2; O2SAT 100; BMI 27.1
--- OUTSIDE RECORDS SUMMARY | 2024-04-12 18:17 | XMS_ITS | CCD ---
Author Organization [facility] Care Team Providers Care Rollout Manager Name Role Phone CHRIS DO Unavailable Unavailable CHRIS DO Unavailable Unavailable Yonley, Fiorella L Primary Care Provider [phone] Yogildardo Fiorella L Primary Care Provider YOGILDARDO [...] (14 sources) Succinylcholine Drug Allergy 08-18-19 14 [employer] Phone: (5 sources) Anesthesia S-I-60 Propensity to adverse reactions to drug 08-20-19 [place] (13 sources) Other Propensity to adverse reactions 09-19-19 12 Other (See Comments) [employer] Phone: (7 sources) Propofol Drug Allergy 08-20-19 20 [employer] Phone: (2 sources) Seasonal allergy Propensity to adverse reactions to substance 09-19-19 12 Other (See Comments) [employer] Phone: (1 source) Succinylcholine Drug Allergy 01-14-20 [facility] Repository (1 source) Grass; Translations: [Grass] Propensity to adverse reactions (disorder) [facility] Repository (1 source) House dust mite (Bt) RAST; Translations: [House dust mite (Bt) RAST] Propensity to adverse reactions (disorder) [facility] NEGATED: Highlighted row has been ruled out! (1 source) Other Propensity to adverse reactions 09-19-19 12 Other (See Comments) MEHDI [employer] Phone: Medications Current Medications Medication Drug Class(es) [...] at bedtime May 27, 2021 1:00am ergocalciferol 69419 unt oral capsule (2 sources) Provitamin D2 Compound Start: 08-25-2019 End: 11-11-2019 take 1 capsule by mouth every week vitamin D (ERGOCALCIFEROL) 1.25 MG (50286 UT) CAPS capsule Take 1 capsule by [...] LIPS DAILY UNTIL CLEAR 0 09/17/2019 Active 347-Kqwv-Klrec-Omeg a3 (One-A-Day -1) 27 mg iron- 800 mcg-235 mg capsule (1 source) Start: 01-13-2021 445-Dekx-Zthwc-Om ega3 (One-A-Day -1) 27 mg iron- 800 mcg-235 mg capsule Active 1 CAP PO Daily January 13, 2021 12:00am Vit-Fe Fhokgjf-CA-KSV ( VITAMIN/MIN +DHA) 27-0.8-200 MG CAPS (7 sources) Start: 09-26-2020 take 1 tablet by mouth once daily Vit-Fe Woaszeh-PC-RCE ( VITAMIN/MIN +DHA) 27-0.8-200 MG CAPS Indications: [...] 12:14pm Start: 07-29-2019 take 1 capsule by [facility] once daily propranolol (INDERAL LA) 120 MG [...] with voice recognition software. Occasional wrong-word or ?jbiuh-f-wngb? 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 Activity level: Occasional physical work. Highest education [...] Years. Num (more content not included)... Normal [facility] Comment on above: Result Comment: Elec [...] home: Medicines ? 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 ? Do not smoke. Avoid being around [...] or swell (more content not included)... Normal [facility] CBC with Diffon 07-23-2022 Abs. Basophil 0.00 k/uL Normal 0.0-0.2 [facility] Comment on above: Performed By: #### C P, TSHX, CDP #### [facility] [address] [place] [address] Vibration Analyst: Cole Magaña MD Abs.Neutrophil (Seg) 2.90 k/uL Normal 2.5-7.0 [facility] Comment on above: Performed By: #### C P, TSHX, CDP #### [facility] [address] [place] [address] Vibration Analyst: Cole Magaña MD Auto Diff Performed YES Normal [facility] Comment on above: Performed By: #### C P, TSHX, CDP #### [facility] [address] [place], [place] [id number] Vibration Analyst: Cole Magaña MD Basophils/100 WBC (Bld) 0 % Normal 0-2 M [facility] Comment on above: Performed By: #### C P, TSHX, CDP #### [facility] [address] [place] [id number] Vibration Analyst: Cole Magaña MD Eosinophils (Bld) [#/Vol] 0.00 10*3/uL Normal 0.0-0.4 [facility] Comment on above: Performed By: #### C P, TSHX, CDP #### [facility] [address] [place] [address] Vibration Analyst: Cole Magaña MD Eosinophils/100 WBC (Bld) 0 % Normal 0-5 [facility] Comment on above: Performed By: #### C P, TSHX, CDP #### [facility] [address] [place] [id number] Vibration Analyst: Cole Magaña MD Erythrocyte distribution width (RBC) [Ratio] 13.7 % Normal 12.1-15.2 [facility] Comment on above: Performed By: #### C P, TSHX, CDP #### [facility] [address] [place] [id number] Vibration Analyst: Coel Magaña MD Hematocrit (Bld) [Volume fraction] 40.0 % Normal 36-46 [facility] Comment on above: Performed By: #### C P, TSHX, CDP #### [facility] [address] [place] [id number] Vibration Analyst: Cole Magaña MD Hemoglobin (Bld) [Mass/Vol] 13.4 g/dL Normal 12.0-16.0 [facility] Comment on above: Performed By: #### C P, TSHX, CDP #### [facility] [address] [place] [id number] [phone] Vibration Analyst: Cole Magaña MD Lymphocytes (Bld) [#/Vol] 2.30 10*3/uL Normal 1.0-4.8 [facility] Comment on above: Performed By: #### C P, TSHX, CDP #### [facility] [address] [place], [place] [id number] Vibration Analyst: Cole Magaña MD Lymphocytes/100 WBC (Bld) 42 % High 15-40 [facility] Comment on above: Performed By: #### C P, TSHX, CDP #### [facility] [address] [place] [address] Vibration Analyst: Cole Magaña MD MCH (RBC) [Entitic mass] 29.5 pg Normal 26-34 [facility] Comment on above: Performed By: #### C P, TSHX, CDP #### [facility] [address] [place] [id number] Vibration Analyst: Cole Magaña MD MCHC (RBC) [Mass/Vol] 33.6 g/dL Normal 31-37 [facility] Comment on above: Performed By: #### C P, TSHX, CDP #### [facility] [address] [place] [address] Vibration Analyst: Cole Magaña MD MCV (RBC) [Entitic vol] 88.0 fL Normal 80-100 M [facility] Comment on above: Performed By: #### C P, TSHX, CDP #### [facility] [address] [place] [address] Vibration Analyst: Cole Magaña MD Monocytes (Bld) [#/Vol] 0.30 10*3/uL Normal 0.0-1.0 [facility] Comment on above: Performed By: #### C P, TSHX, CDP #### [facility] [address] [place] [address] Vibration Analyst: Cole Magaña MD Monocytes/100 WBC (Bld) 5 % Normal 4-8 M [facility] Comment on above: Performed By: #### C P, TSHX, CDP #### [facility] [address] [place] [address] Vibration Analyst: Cole Magaña MD Neutrophil (Seg) 53 % Normal 47-75 [facility] Comment on above: Performed By: #### C P, TSHX, CDP #### [facility] [address] [place] [address] Vibration Analyst: Cole Magaña MD Platelets (Bld) [#/Vol] 330 10*3/uL Normal 140-450 [facility] Comment on above: Performed By: #### C P, TSHX, CDP #### [facility] [address] [place] [address] Vibration Analyst: Cole Magaña MD RBC (Bld) [#/Vol] 4.55 10*6/uL Normal 4.0-5.2 [facility] Comment on above: Performed By: #### C P, TSHX, CDP #### [facility] [address] [place] [address] Vibration Analyst: Cole Magaña MD WBC (Bld) [#/Vol] 5.6 10*3/uL Normal 3.5-11.0 [facility] Comment on above: Performed By: #### C P, TSHX, CDP #### [facility] [address] [place] [address] Vibration Analyst: Cole Magaña MD Comp Metabolic Profon 2022 Albumin [Mass/Vol] 4.6 g/dL Normal 3.5-5.2 [facility] Comment on above: Performed By: #### C P, TSHX, CDP #### [facility] [address] [place], [place] [id number] Vibration Analyst: Cole Magaña MD Alkaline Phos 69 U/L Normal 35-104 [facility] Comment on above: Performed By: #### C P, TSHX, CDP #### [facility] [address] [place], [place] [id number] Vibration Analyst: Cole Magaña MD ALT [Catalytic activity/Vol] 11 U/L Normal 5-33 [facility] Comment on above: Performed By: #### C P, TSHX, CDP #### [facility] [address] [place], [place] [id number] Vibration Analyst: Cole Magaña MD Anion gap [Moles/Vol] 7 mmol/L Low 9-17 [facility] Comment on above: Performed By: #### C P, TSHX, CDP #### [facility] [address] [place], [place] [id number] Vibration Analyst: Cole Magaña MD AST [Catalytic activity/Vol] 13 U/L Normal <32 [facility] Comment on above: Performed By: #### C P, TSHX, CDP #### [facility] [address] [place], [place] [id number] Vibration Analyst: Cole Magaña MD Bilirubin [Mass/Vol] 0.8 mg/dL Normal 0.3-1.2 [facility] Comment on above: Performed By: #### C P, TSHX, CDP #### [facility] [address] [place], [place] [id number] Vibration Analyst: Cole Magaña MD BUN/CRE Ratio 23 High 9-20 [facility] Comment on above: Performed By: #### C P, TSHX, CDP #### [facility] [address] [place], [place] [id number] Vibration Analyst: Cole Magaña MD Calcium [Mass/Vol] 9.4 mg/dL Normal 8.6-10.4 [facility] Comment on above: Performed By: #### C P, TSHX, CDP #### [facility] [address] [place], [place] [id number] Vibration Analyst: Cole Magaña MD Chloride [Moles/Vol] 109 mmol/L High 98-107 [facility] Comment on above: Performed By: #### C P, TSHX, CDP #### [facility] [address] [place], [place] [phone] Vibration Analyst: Cole Magaña MD CO2 [Moles/Vol] 28 mmol/L Normal 20-31 [facility] Comment on above: Performed By: #### C P, TSHX, CDP #### [facility] [address] [place] [address] Vibration Analyst: Cole Magaña MD Creatinine [Mass/Vol] 0.48 mg/dL Low 0.50-0.90 [facility] Comment on above: Performed By: #### C P, TSHX, CDP #### [facility] [address] [place], [place] [id number] Vibration Analyst: Cole Magaña MD GFR/1.73 sq M.predicted among non-blacks MDRD (S/P/Bld) [Vol rate/Area] mL/min/{1.73_m2} Normal >60 [facility] Comment on above: Result Comment: Effective Apr [...] By: #### C P, TSHX, CDP #### [facility] [address] [place], [place] [phone] Vibration Analyst: Cole Magaña MD Glucose [Mass/Vol] 88 mg/dL Normal 70-99 [facility] Comment on above: Performed By: #### C P, TSHX, CDP #### [facility] [address] [place] [id number] Vibration Analyst: Cole Magaña MD Potassium [Moles/Vol] 4.0 mmol/L Normal 3.7-5.3 [facility] Comment on above: Performed By: #### C P, TSHX, CDP #### [facility] [address] [place] [address] Vibration Analyst: Cole Magaña MD Protein [Mass/Vol] 7.5 g/dL Normal 6.4-8.3 [facility] Comment on above: Performed By: #### C P, TSHX, CDP #### [facility] [address] [place] [address] Vibration Analyst: Cole Magaña MD Sodium [Moles/Vol] 144 mmol/L Normal 135-144 [facility] Comment on above: Performed By: #### C P, TSHX, CDP #### [facility] [address] [place] [id number] Vibration Analyst: Cole Magaña MD Urea nitrogen [Mass/Vol] 11 mg/dL Normal 6-20 [facility] Comment on above: Performed By: #### C P, TSHX, CDP #### [facility] [address] [place] [address] Vibration Analyst: Cole Magaña MD TSH w/reflex to FT4on 2022 Thyroid Stim. Horm. 0.93 uIU/mL Normal 0.30-5.00 [facility] Comment on above: Performed By: #### C P, TSHX, CDP #### [facility] [address] [place] [id number] Vibration Analyst: Cole Magaña MD Food, Comprehensiveon 2022 Barley IgE <0.10 Normal 0.00-0.34 [facility] Comment on above: Performed By: #### I FOODC #### [address] [address] Vibration Analyst: Gurpreet Wei MD Beef IgE <0.10 Normal 0.00-0.34 [facility] Comment on above: Performed By: #### I FOODC #### [address] [address] Vibration Analyst: Gurpreet Wei MD Cabbage IgE <0.10 Normal 0.00-0.34 [facility] Comment on above: Performed By: #### I FOODC #### [address] [address] Vibration Analyst: Gurpreet Wei MD Carrot IgE <0.10 Normal 0.00-0.34 [facility] Comment on above: Performed By: #### I FOODC #### [address] [address] Vibration Analyst: Gurpreet Wei MD Chicken IgE <0.10 Normal 0.00-0.34 [facility] Comment on above: Performed By: #### I FOODC #### [address] [address] Vibration Analyst: Gurpreet Wei MD Codfish IgE <0.10 Normal 0.00-0.34 [facility] Comment on above: Performed By: #### I FOODC #### [address] [address] Vibration Analyst: Gurpreet Wei MD Eden IgE <0.10 Normal 0.00-0.34 [facility] Comment on above: Performed By: #### I FOODC #### [address] [address] Vibration Analyst: Gurpreet Wei MD Crab IgE <0.10 Normal 0.00-0.34 [facility] Comment on above: Performed By: #### I FOODC #### [address] [address] Vibration Analyst: Gurpreet Wei MD Egg White IgE <0.10 Normal 0.00-0.34 [facility] Comment on above: Performed By: #### I FOODC #### [address] [address] Vibration Analyst: Gurperet Wei MD Grape IgE <0.10 Normal 0.00-0.34 [facility] Comment on above: Performed By: #### I FOODC #### [address] [address] Vibration Analyst: Gurpreet Wei MD Lettuce IgE <0.10 Normal 0.00-0.34 [facility] Comment on above: Performed By: #### I FOODC #### [address] [address] Vibration Analyst: Gurpreet Wei MD Milk (Cow) IgE <0.10 Normal 0.00-0.34 [facility] Comment on above: Performed By: #### I FOODC #### [address] [address] Vibration Analyst: Gurpreet Wei MD Delanson Puri IgE <0.10 Normal 0.00-0.34 [facility] Comment on above: Performed By: #### I FOODC #### [address] [address] Vibration Analyst: Gurpreet Wei MD Oat IgE <0.10 Normal 0.00-0.34 [facility] Comment on above: Performed By: #### I FOODC #### [address] [address] Vibration Analyst: Gurpreet Wei MD Yellow[place] IgE <0.10 Normal 0.00-0.34 [facility] Comment on above: Performed By: #### I FOODC #### [address] [address] Vibration Analyst: Gurpreet Wei MD Peanut IgE <0.10 Normal 0.00-0.34 [facility] Comment on above: Performed By: #### I FOODC #### [address] [address] Vibration Analyst: Gurpreet Wei MD Pepper C. annuum IgE <0.10 Normal 0.00-0.34 [facility] Comment on above: Performed By: #### I FOODC #### [address] [address] Vibration Analyst: Gurpreet Wei MD Pork IgE <0.10 Normal 0.00-0.34 [facility] Comment on above: Performed By: #### I FOODC #### [address] [address] Vibration Analyst: Gurpreet Wei MD Potato IgE <0.10 Normal 0.00-0.34 [facility] Comment on above: Performed By: #### I FOODC #### [address] [address] Vibration Analyst: Gurpreet Wei MD Rice IgE <0.10 Normal 0.00-0.34 [facility] Comment on above: Performed By: #### I FOODC #### [address] [address] Vibration Analyst: Gurpreet Wei MD [place] IgE <0.10 Normal 0.00-0.34 [facility] Comment on above: Performed By: #### I FOODC #### [address] [address] Vibration Analyst: Gurpreet Wei MD Shrimp IgE <0.10 Normal 0.00-0.34 [facility] Comment on above: Performed By: #### I FOODC #### [facility] [employer] [address] [place] [address] [phone] Vibration Analyst: Gurpreet Wei MD Soybean IgE <0.10 Normal 0.00-0.34 [facility] Comment on above: Performed By: #### I FOODC #### [employer] [address] [place] [address] [phone] Vibration Analyst: Gurpreet Wei MD Tomato IgE <0.10 Normal 0.00-0.34 [facility] Comment on above: Performed By: #### I FOODC #### [employer] [address] [place] [address] [phone] Vibration Analyst: Gurpreet Wei MD Tuna IgE <0.10 Normal 0.00-0.34 [facility] Comment on above: Performed By: #### I FOODC #### [facility] [address] [phone] Vibration Analyst: Gurpreet Wei MD Wheat IgE <0.10 Normal 0.00-0.34 [facility] Comment on above: Result Comment: ALLERGEN, INTERP, [...] anaphylaxis. Performed By: #### I FOODC #### [employer] [address] [place] [address] [phone] Vibration Analyst: Gurpreet Wei MD Immunoglobulin E 4 IU/mL Normal <101 [facility] Comment on above: Performed By: #### I FOODC #### [employer] [address] [place] [address] Vibration Analyst: MD Warren Almazan 03-29-2021 [facility] Tele[facility] (OBGYF2) CHAPIS EVANS ([id number]) 1995 F Date Time Provider Department 03/29/21 OB [facility] OBGYF2 During your visit today, we recorded the following information about you: Latonya Mchugh RN 03/29/2021 9:48 AM Signed NIPT results received from Dr. Patricia Theodore' office. Results in scanned docs. Latonya Mchugh RN [facility] Allergies As of Date: 03/29/2021 Noted [...] Status:Closed by LATONYA MCHUGH RN on 03/29/21 [facility] 03-22-2021 [facility] Tele[facility] (OBGYLW) CHAPIS EVANS ([id number]) 1995 F Date Time Provider Department 03/22/21 [facility] OBGYLW During your visit today, we recorded the following information about you: Latonya Mchugh RN 03/22/2021 1:41 PM Signed Informed pt that call was regarding scheduling US and consult as requested by Dr. Patricia Theodore at [facility] for bilateral pyelectasis and polyhydramnios. Pt verbalizes understanding and wishes to proceed with scheduling. , pt denies any current medical conditions. Current meds: PNV. Pt had NIPT testing done 03/20, results still pending. Will follow up with Dr. Patricia Theodore office early next week for results. There are no upcoming appts at in the next couple of days. Offered appt at [place] on 03/30 at 2:45pm. One full hour allotted for US and consult. Pt accepts, front staff notified to schedule. Advised pt that she may bring two support persons age 16+ and both must wear masks. She verbalizes understanding and has no additional questions at this time. Latonya Mchugh RN [facility] Allergies As of Date: 03/22/2021 Noted [...] MCHUGH RN on 03/22/21 Normal [facility] HCG, Quantitative, on 10-03-2020 hCG Quant 01450 High <5 IU/L [employer] Phone: Comment on above: Non-preg premeno <=5 Postmeno <=8 Male <=3 If HCG results do not concur with clinical observations, additional testing to confirm results is recommended. Elevated results not associated with may be found in patients with other diseases such as tumors of the germ cells (testis, ovaries, etc.), bladder, pancreas, stomach, lungs, and liver. Interpretation and review of laboratory results Abnormal [employer] Phone: CBC With Auto Differentialon 09-28-2020 Basophils (Bld) [#/Vol] 0.10 10*3/uL [employer] Phone: Basophils/100 WBC (Bld) 1 % 0 - 2 % M [facility] Phone: Differential Type YES [employer] Phone: Eosinophils (Bld) [#/Vol] 0.10 10*3/uL [employer] Phone: Eosinophils/100 WBC (Bld) 1 % 0 - 5 % [employer] Phone: Erythrocyte distribution width (RBC) [Ratio] 13.9 % 12.1 - 15.2 % [employer] Phone: Hematocrit (Bld) [Volume fraction] 39.4 % 36 - 46 % [employer] Phone: Hemoglobin (Bld) [Mass/Vol] 13.7 g/dL 12.0 - 16.0 g/dL [employer] Phone: Lymphocytes (Bld) [#/Vol] 3.20 10*3/uL [employer] Phone: Lymphocytes/100 WBC (Bld) 35 % 15 - 40 % [employer] Phone: MCH (RBC) [Entitic mass] 30.1 pg 26 - 34 pg [employer] Phone: MCHC (RBC) [Mass/Vol] 34.8 g/dL 31 - 37 g/dL M [employer] Phone: MCV (RBC) [Entitic vol] 86.5 fL 80 - 100 fL [employer] Phone: Monocytes (Bld) [#/Vol] 0.50 10*3/uL [employer] Phone: Monocytes/100 WBC (Bld) 6 % 4 - 8 % M [employer] Phone: Platelet mean volume (Bld) [Entitic vol] NOT REPORTED 6.0 - 12.0 fL [employer] Phone: Platelets (Bld) [#/Vol] 418 10*3/uL [employer] Phone: Platelets (Bld) [#/Vol] NOT REPORTED [employer] Phone: RBC (Bld) [#/Vol] 4.56 10*6/uL 4.0 - 5.2 m/uL [employer] Phone: RBC morphology finding Nom (Bld) NOT REPORTED [employer] Phone: Segmented neutrophils/100 WBC (Bld) 57 % 47 - 75 % [employer] Phone: Segs Absolute 5.20 [employer] Phone: WBC (Bld) [#/Vol] 9.1 10*3/uL [employer] Phone: WBC (Bld) [#/Vol] NOT REPORTED per 100 WBC [facility] [employer] Phone: WBC Morphology NOT REPORTED [email or web address] Phone: Otheron 09-28-2020 Immature granulocytes (Bld) [#/Vol] NOT REPORTED [facility] [employer] Phone: Specimen Rejectionon 021 Reason for rejection Unable to perform testing: Specimen not processed correctly. [facility] Comment on above: Performed By: #### R EJEC #### [address] [id number] Vibration Analyst: Gurpreet Wei MD Source of sample TWO SWABS IN CONTAINER [facility] Comment on above: Performed By: #### R EJEC #### [facility] [employer] [address] [place] [id number] Vibration Analyst: Gurpreet Wei MD Test ordered [facility] Comment on above: Performed By: #### R EJEC #### [address] [id number] Vibration Analyst: Gurpreet Wei MD hCG, Quantitative, on 09-28-2020 hCG Quant 2027 High <5 IU/L [facility] [employer] Phone: Comment on above: Non-preg premeno <=5 Postmeno <=8 Male <=3 If HCG results do not concur with clinical observations, additional testing to confirm results is recommended. Elevated results not associated with may be found in patients with other diseases such as tumors of the germ cells (testis, ovaries, etc.), bladder, pancreas, stomach, lungs, and liver. Interpretation and review of laboratory results Abnormal [facility] [employer] Phone: CBC with Diffon 09-27-2020 Abs. Basophil 0.05 k/uL Normal 0.00-0.20 [facility] Comment on above: Performed By: #### C DP #### [facility] [address] [place] [address] Vibration Analyst: Cole Magaña MD Abs.Imm.Granulocyte 0.03 k/uL Normal 0.00-0.30 [facility] Comment on above: Performed By: #### C DP #### [address] [place], [facility] Vibration Analyst: Cole Magaña MD Abs.Neutrophil (Seg) 6.02 k/uL Normal 1.50-8.10 [facility] Comment on above: Performed By: #### C DP #### [address] [place] [address] Vibration Analyst: Cole Magaña MD Basophils/100 WBC (Bld) 1 % Normal 0-2 [facility] Comment on above: Performed By: #### C DP #### [address] [place], [facility] Vibration Analyst: Cole Magaña MD Eosinophils (Bld) [#/Vol] 0.10 10*3/uL Normal 0.00-0.44 [facility] Comment on above: Performed By: #### C DP #### [address] [place], [facility] Vibration Analyst: Cole Magaña MD Eosinophils/100 WBC (Bld) 1 % Normal 1-4 [facility] Comment on above: Performed By: #### C DP #### [address] [place], [facility] Vibration Analyst: Cole Magaña MD Erythrocyte distribution width (RBC) [Ratio] 13.4 % Normal 11.8-14.4 [facility] Comment on above: Performed By: #### C DP #### [address] [place], [facility] Vibration Analyst: Cole Magaña MD Hematocrit (Bld) [Volume fraction] 39.3 % Normal 36.3-47.1 [facility] Comment on above: Performed By: #### C DP #### [facility] [address] [place], [place] [address] Vibration Analyst: Cole Magaña MD Hemoglobin (Bld) [Mass/Vol] 14.0 g/dL Normal 11.9-15.1 [facility] Comment on above: Performed By: #### C DP #### [facility] [address] [place], [place] [address] Vibration Analyst: Cole Magaña MD Immature granulocytes (Bld) [#/Vol] 0 % Normal 0 [facility] Comment on above: Performed By: #### C DP #### [address] [place], [facility] Vibration Analyst: Cole Magaña MD Lymphocytes (Bld) [#/Vol] 4.01 10*3/uL High 1.10-3.70 [facility] Comment on above: Performed By: #### C DP #### [address] [place], [facility] Vibration Analyst: Cole Magaña MD Lymphocytes/100 WBC (Bld) 37 % Normal 24-43 [facility] Comment on above: Performed By: #### C DP #### [facility] [address] [place] [address] Dr. [place], [place] [address] Vibration Analyst: Cole Magaña MD MCH (RBC) [Entitic mass] 30.0 pg Normal 25.2-33.5 [facility] Comment on above: Performed By: #### C DP #### [facility] [address] [place] [address] Dr. [place], [facility] Vibration Analyst: Cole Magaña MD MCHC (RBC) [Mass/Vol] 35.6 g/dL High 28.4-34.8 [facility] Comment on above: Performed By: #### C DP #### [facility] [address] [place] [address] Vibration Analyst: Cole Magaña MD MCV (RBC) [Entitic vol] 84.2 fL Normal 82.6-102.9 M [facility] Comment on above: Performed By: #### C DP #### [facility] [address] [place] [address] Vibration Analyst: Cole Magaña MD Monocytes (Bld) [#/Vol] 0.60 10*3/uL Normal 0.10-1.20 [facility] Comment on above: Performed By: #### C DP #### [address] [place], [place] [id number] Vibration Analyst: Cole Magaña MD Monocytes/100 WBC (Bld) 6 % Normal 3-12 [facility] Comment on above: Performed By: #### C DP #### [address] [place], [place] [id number] Vibration Analyst: Cole Magaña MD Neutrophil (Seg) 55 % Normal 36-65 [facility] Comment on above: Performed By: #### C DP #### [address] [place], [place] [id number] Vibration Analyst: Cole Magaña MD NRBC Automated 0.0 per 100 WBC Normal 0.0 [facility] Comment on above: Performed By: #### C DP #### [address] [place], [place] [id number] Vibration Analyst: Cole Magaña MD Platelet mean volume (Bld) [Entitic vol] 9.5 fL Normal 8.1-13.5 [facility] Comment on above: Performed By: #### C DP #### [address] [place], [place] [id number] Vibration Analyst: Cole Magaña MD Platelets (Bld) [#/Vol] 414 10*3/uL Normal 138-453 [facility] Comment on above: Performed By: #### C DP #### [facility] [address] [place], [place] [id number] Vibration Analyst: Cole Magaña MD RBC (Bld) [#/Vol] 4.67 10*6/uL Normal 3.95-5.11 [facility] Comment on above: Performed By: #### C DP #### [facility] [address] [place], [place] [id number] Vibration Analyst: Cole Magaña MD WBC (Bld) [#/Vol] 10.8 10*3/uL Normal 3.5-11.3 [facility] Comment on above: Performed By: #### C DP #### [facility] [address] [place], [place] [id number] Vibration Analyst: Cole Magaña MD Auto Diff Performed NOT REPORTED Normal [facility] Comment on above: Performed By: #### C DP #### [facility] [address] [place], [place] [phone] Vibration Analyst: Cole Magaña MD Platelets (Bld) [#/Vol] NOT REPORTED Normal [facility] Comment on above: Performed By: #### C DP #### [facility] [address] [place], [place] [phone] Vibration Analyst: Cole Magaña MD RBC morphology finding Nom (Bld) NOT REPORTED Normal [facility] Comment on above: Performed By: #### C DP #### [facility] [address] [place], [place] [phone] Vibration Analyst: Cole Magaña MD WBC Morphology NOT REPORTED Normal [facility] Comment on above: Performed By: #### C DP #### [facility] [address] [place], [place] [phone] Vibration Analyst: Cole Magaña MD RHIG, Transfuseon 09-27-2020 RHIG, Transfuse Unit Number [id number] Blood Component Type RHIG Unit Division 00 Status of Unit TRANSFUSED Transfusion Status OK TO TRANSFUSE Normal [facility] Comment on above: Performed By: #### T RHIG #### [facility] [address] [place] [address] Vibration Analyst: Cole Magaña MD Type + Screenon 09-27-2020 Type + Screen Sample Expiration 09/29/2020,2359 Arm Band Number [id number] ABO/Rh(D) A NEGATIVE Antibody Screen NEGATIVE Normal [facility] Comment on above: Performed By: #### T YS #### [facility] [address] [place] [address] Vibration Analyst: Cole Magaña MD CBC Auto Differentialon 09-06 Basophils (Bld) [#/Vol] 0.05 10*3/uL [employer] Phone: Basophils/100 WBC (Bld) 1 % 0 - 2 % [place] [employer] Phone: Differential Type NOT REPORTED [employer] Phone: Eosinophils (Bld) [#/Vol] 0.10 10*3/uL [employer] Phone: Eosinophils/100 WBC (Bld) 1 % 1 - 4 % [employer] Phone: Erythrocyte distribution width (RBC) [Ratio] 13.4 % 11.8 - 14.4 % [employer] Phone: Hematocrit (Bld) [Volume fraction] 39.3 % 36.3 - 47.1 % [employer] Phone: Hemoglobin (Bld) [Mass/Vol] 14.0 g/dL 11.9 - 15.1 g/dL [employer] Phone: Immature granulocytes (Bld) [#/Vol] 0.03 10*3/uL [employer] Phone: Immature granulocytes (Bld) [#/Vol] 0 % 0 [employer] Phone: Interpretation and review of laboratory results Abnormal [employer] Phone: Lymphocytes (Bld) [#/Vol] 4.01 10*3/uL High [employer] Phone: Lymphocytes/100 WBC (Bld) 37 % 24 - 43 % [employer] Phone: MCH (RBC) [Entitic mass] 30.0 pg 25.2 - 33.5 pg [employer] Phone: MCHC (RBC) [Mass/Vol] 35.6 g/dL High 28.4 - 34.8 g/dL [employer] Phone: MCV (RBC) [Entitic vol] 84.2 fL 82.6 - 102.9 fL [employer] Phone: Monocytes (Bld) [#/Vol] 0.60 10*3/uL [employer] Phone: Monocytes/100 WBC (Bld) 6 % 3 - 12 % M [facility] [employer] Phone: Platelet mean volume (Bld) [Entitic vol] 9.5 fL 8.1 - 13.5 fL [employer] Phone: Platelets (Bld) [#/Vol] 414 10*3/uL [employer] Phone: Platelets (Bld) [#/Vol] NOT REPORTED [employer] Phone: RBC (Bld) [#/Vol] 4.67 10*6/uL 3.95 - 5.1 1 m/uL [employer] Phone: RBC morphology finding Nom (Bld) NOT REPORTED [employer] Phone: Segmented neutrophils/100 WBC (Bld) 55 % 36 - 65 % [employer] Phone: Segs Absolute 6.02 [facility] Hospital[facility] Media [facility] Work Phone: WBC (Bld) [#/Vol] 0.0 10*3/uL 0.0 per [address] [facility] [employer] Work Phone: WBC (Bld) [#/Vol] 10.8 10*3/uL [facility] [employer] Work Phone: WBC Morphology NOT REPORTED [facility] Hospital[facility] Work Phone: Basophils (Bld) [#/Vol] 0.00 10*3/uL [facility] [employer] Work Phone: Basophils/100 WBC (Bld) 0 % 0 - 2 % [facility] [employer] Work Phone: Differential Type YES [facility] Work Phone: Eosinophils (Bld) [#/Vol] 0.10 10*3/uL [facility] HospitalInf[facility] Work Phone: Eosinophils/100 WBC (Bld) 1 % 0 - 5 % [facility] [employer] Phone: Erythrocyte distribution width (RBC) [Ratio] 15.0 % 12.1 - 15.2 % [facility] HospitalSMS [employer] Phone: Hematocrit (Bld) [Volume fraction] 40.7 % 36 - 46 % [facility] HospitalS[facility] [employer] Phone: Hemoglobin (Bld) [Mass/Vol] 14.2 g/dL 12.0 - 16.0 g/dL [facility] HospitalS[facility] [employer] Phone: Lymphocytes (Bld) [#/Vol] 3.20 10*3/uL [facility] HospitalS[facility] [employer] Phone: Lymphocytes/100 WBC (Bld) 29 % 15 - 40 % [facility] [employer] Phone: MCH (RBC) [Entitic mass] 30.3 pg 26 - 34 pg [facility] HospitalS[facility] [employer] Phone: MCHC (RBC) [Mass/Vol] 34.8 g/dL 31 - 37 g/dL M [employer] Work Phone: MCV (RBC) [Entitic vol] 86.9 fL 80 - 100 fL [employer] Work Phone: Monocytes (Bld) [#/Vol] 0.60 10*3/uL [employer] Phone: Monocytes/100 WBC (Bld) 6 % 4 - 8 % [employer] Work Phone: Platelet mean volume (Bld) [Entitic vol] NOT REPORTED 6.0 - 12.0 fL [employer] Phone: Platelets (Bld) [#/Vol] NOT REPORTED [employer] Phone: Platelets (Bld) [#/Vol] 429 10*3/uL [employer] Phone: RBC (Bld) [#/Vol] 4.69 10*6/uL 4.0 - 5.2 m/uL [employer] Work Phone: RBC morphology finding Nom (Bld) NOT REPORTED [employer] Phone: Segmented neutrophils/100 WBC (Bld) 64 % 47 - 75 % [employer] Work Phone: Segs Absolute 6.80 [facility] Work Phone: WBC (Bld) [#/Vol] 10.7 10*3/uL [employer] Work Phone: WBC (Bld) [#/Vol] NOT REPORTED per 100 WBC [employer] Work Phone: WBC Morphology NOT REPORTED [facility] Work Phone: Microscopic Urinalysison Amorphous, UA NOT REPORTED None [employer] Work Phone: Bacteria, UA NOT REPORTED None [employer] Work Phone: Casts UA NOT REPORTED /LPF [employer] Work Phone: Crystals, UA NOT REPORTED None /HPF [employer] [facility] Work Phone: Epithelial Cells UA 0 TO 2 /HPF [facility] Work Phone: Mucus, UA NOT REPORTED None [facility] Work Phone: Other Observations UA NOT REPORTED NOT REQ. [facility] [employer] Work Phone: RBC (U) [#/Vol] 0 TO 2 [employer] [facility] Work Phone: Renal Epithelial, UA NOT REPORTED 0 /HPF [facility] [employer] Work Phone: Trichomonas, UA NOT REPORTED None [facility] HospitalOr[facility] Work Phone: WBC, UA NOT REPORTED 0 /HPF [facility] Work Phone: Yeast, UA NOT REPORTED None [employer] Work Phone: - [facility] Hospital[facility] Work Phone: Otheron 09-26-2020 With a positive test and no pole or gestational sac definitely identified, this is a of unknown location and a short-term follow-up ultrasound is recommended. [employer] Work Phone: EXAM: US OB LESS MEHNAZ [...] is no free fluid in the cul-de-sac. [employer] Phone: Aguila, Mhpn Incoming Radiant Results From [employer] - 09/26/2020 7:00 PM EDT EXAM: US [...] and a short-term follow-up ultrasound is recommended. [employer] Phone: Immature granulocytes (Bld) [#/Vol] NOT REPORTED [employer] Phone: Specimen Rejectionon 021 ----- NOT REPORTED Normal [facility] Comment on above: Performed By: #### R EJEC #### [employer] [facility] [place] [address] Vibration Analyst: Gurpreet Wei MD TYPE AND SCREENon 09-26-2020 ABO/Rh Negative [employer] Phone: Arm Band Number [id number] [facility] HospitalOr[facility] Media Research [facility] Work Phone: Expiration Date 09/29/2020,6923 [employer] Phone: Urinalysis Reflex to Culture on 09-26-2020 Bilirubin Urine Negative NEGATIVE [employer] [facility] Work Phone: Color, UA YELLOW YELLOW [facility] HospitalSMS [employer] Phone: Glucose, Ur Negative NEGATIVE [facility] [employer] Phone: Interpretation and review of laboratory results Abnormal [employer] Phone: Ketones Ql (U) Negative NEGATIVE [facility] HospitalOr[facility] Work Phone: Leukocyte esterase Test strip Ql (U) Negative NEGATIVE [facility] Hospital[facility] Work Phone: Nitrite, Urine Negative NEGATIVE [facility] HospitalOr[facility] Work Phone: pH, UA 5.[address] [facility] [employer] Work Phone: Protein (U) [Mass/Vol] Negative NEGATIVE [facility] [employer] Work Phone: Specific [place], UA 1.015 [facility] [employer] Work Phone: Turbidity UA CLEAR CLEAR [facility] HospitalSMS [employer] Phone: Urinalysis Comments [facility] HospitalSMS [employer] Phone: Urine Hgb TRACE Abnormal NEGATIVE [facility] HospitalS[facility] [employer] Phone: Urobilinogen, Urine Normal Normal [facility] HospitalS[facility] [employer] Phone: hCG, Quantitative, on 09-26-2020 hCG Quant 920 High <5 IU/L [employer] Phone: Comment on above: Non-preg premeno <=5 Postmeno <=8 Male <=3 If HCG results do not concur with clinical observations, additional testing to confirm results is recommended. Elevated results not associated with may be found in patients with other diseases such as tumors of the germ cells (testis, ovaries, etc.), bladder, pancreas, stomach, lungs, and liver. Interpretation and review of laboratory results Abnormal [employer] Phone: hCG, Serum, Qualitativeon hCG Qual Positive Abnormal NEGATIVE [facility] HospitalSMS [employer] Phone: Comment on above: If HCG results do not concur with clinical observations, additional testing to confirm result is recommended. This test is not labeled for use as a tumor marker. [employer] has confirmed the use of plasma for this test. This has not been cleared or approved by the U.S. Food and Drug Administration. The FDA has determined that such clearance is not necessary. Interpretation and review of laboratory results Abnormal [facility] [employer] Work Phone: Glucose, Fastingon 0 Glucose [Mass/Vol] 94 mg/dL 70 - 99 mg/dL [place], [place] Lipid Panelon 02-16-2020 Cholesterol [Mass/Vol] 151 mg/dL <200 [place], [place] Comment on above: Cholesterol Guidelines: <200 Desirable 200-240 Borderline >240 Undesirable Cholesterol in HDL [Mass/Vol] 49 mg/dL >40 [place], [place] Comment on above: HDL Guidelines: <40 Undesirable 40-59 Borderline >59 Desirable Cholesterol in LDL [Mass/Vol] 96 mg/dL 0 - 130 mg/dL [place], [place] Comment on above: LDL Guidelines: <100 Desirable 100-129 Near to/above Desirable 130-159 Borderline >159 Undesirable Direct (measured) LDL and calculated LDL are not interchangeable tests. Cholesterol in VLDL [Mass/Vol] NOT REPORTED 1 - 30 mg/dL [place], [place] Cholesterol.total/Vivien sterol in HDL [Mass ratio] 3.1 {ratio} <5 [place] Triglyceride [Mass/Vol] 32 mg/dL <150 M [place], [place] Comment on above: Triglyceride Guidelines: <150 Desirable 150-199 Borderline 200-499 High >499 Very high Based on AHA Guidelines for fasting triglyceride, April 2012. US NON OB TRANSVAGINALon 1. Mild pelvic free fluid in the cul-de-sac. 2. Normal sonographic morphology of the uterus and ovaries. [place], [place] PROCEDURE: US NON OB TRANSVAGINAL, 01/11/2020 [...] within ovarian tissue bilaterally without spectral evaluation. [employer] Aguila, Mhpn Incoming Radiant Results From [employer] - 01/12/2020 8:08 AM EDT PROCEDURE: US [...] sonographic morphology of the uterus and ovaries. [employer] Vitamin D 25 Hydroxyon 01-10 Interpretation and review of laboratory results Abnormal [employer] Vit D, 25-Hydroxy 21.6 ng/mL Low 30 - 100 ng/mL [employer] Comment on above: Reference Range: Vitamin D status Range Deficiency <20 ng/mL Mild Deficiency 20-30 ng/mL Sufficiency 30-100 ng/mL Toxicity >100 ng/mL MRI BRAIN W WO CONTRASTOrder ed By: Eliane Vilchis on 07-29-2019 1. Unremarkable contrast enhanced brain MRI. No focal signal abnormality, mass effect or abnormal enhancement. 2. Mild mucosal thickening of the left frontal and bilateral maxillary sinuses. [employer] Phone: EXAM: MRI BRAIN W WO CONTRAST [...] air cells are clear. No abnormal enhancement. [employer] Phone: Aguila, pn Incoming Radiant Results From [facility] - 07/29/2019 4:55 PM EST EXAM: MRI [...] the left frontal and bilateral maxillary sinuses. [employer] Phone: Basic Metabolic Panel w/ Ref nora to MGOrdered By: Leonor Sandy on 07-10-2019 Anion gap [Moles/Vol] 13 mmol/L 9 - 17 mmol/L [employer] Phone: Bun/Cre Ratio 20 [employer] Work Phone: Calcium [Mass/Vol] 10.4 mg/dL 8.6 - 10. 4 mg/dL [employer] Work Phone: Chloride [Moles/Vol] 104 mmol/L 98 - 10 7 mmol/L [facility] HospitalS[facility] [employer] Phone: CO2 [Moles/Vol] 22 mmol/L 20 - 31 mmol/L [employer] Phone: Creatinine [Mass/Vol] 0.5 mg/dL 0.5 - 0.9 mg/dL [employer] Phone: GFR >60 >60 mL/min [employer] Phone: GFR Comment [employer] Phone: Comment on above: Average GFR for 20-2 9 years old: 116 mL/min/1.73sq m Chronic Kidney Disease: <60 mL/min/1.73sq m Kidney failure: <15 mL/min/1.73sq m eGFR calculated using average adult body mass. Additional eGFR calculator available at: http://www.Emotient/multiple_crcl_2012.htm GFR Non- >60 >60 mL/min [facility] HospitalS[facility] [employer] Phone: GFR Staging NOT REPORTED [facility] HospitalNextnav Work Phone: Glucose [Mass/Vol] 132 mg/dL High 70 - 99 mg/dL [facility] [employer] Work Phone: Interpretation and review of laboratory results Abnormal [facility] HospitalS[facility] [employer] Phone: Potassium [Moles/Vol] 3.7 mmol/L 3.7 - 5.3 mmol/L [facility] HospitalInf[facility] Work Phone: Sodium [Moles/Vol] 139 mmol/L 135 - 144 mmol/L [employer] Work Phone: Urea nitrogen [Mass/Vol] 10 mg/dL 6 - 20 mg/dL [employer] Work Phone: CBC Auto DifferentialOrdered By: Leonor Sandy on 07-10-2019 Absolute Eos # 0.10 [employer] [facility] Work Phone: Absolute Immature Granulocyte NOT REPORTED [employer] Work Phone: Absolute Lymph # 2.70 [employer] [facility] Work Phone: Absolute Lane # 0.40 [employer] [facility] Work Phone: Basophils (Bld) [#/Vol] 0.00 10*3/uL [employer] Work Phone: Basophils/100 WBC (Bld) 0 % 0 - 2 % [employer] Work Phone: Differential Type YES [facility] HospitalOr[facility] Work Phone: Eosinophils/100 WBC (Bld) 1 % 0 - 5 % [employer] Phone: Erythrocyte distribution width (RBC) [Ratio] 13.4 % 12.1 - 15.2 % [employer] Phone: Hematocrit (Bld) [Volume fraction] 43.6 % 36 - 46 % [employer] Work Phone: Hemoglobin (Bld) [Mass/Vol] 15.0 g/dL 12 - 16 g/dL [employer] Work Phone: Immature Granulocytes NOT REPORTED 0 % [employer] Work Phone: Lymphocytes/100 WBC (Bld) 30 % 15 - 40 % [employer] Phone: MCH (RBC) [Entitic mass] 29.9 pg 26 - 34 pg [employer] Work Phone: MCHC (RBC) [Mass/Vol] 34.4 g/dL 31 - 37 g/dL [facility] [employer] Work Phone: MCV (RBC) [Entitic vol] 86.8 fL 80 - [address] [facility] [employer] Work Phone: Monocytes/100 WBC (Bld) 4 % 4 - 8 % [facility] [employer] Work Phone: MPV NOT REPORTED 6 - [address] [facility] [employer] Work Phone: NRBC Automated NOT REPORTED per [address] [facility] [employer] Work Phone: Platelet Estimate NOT REPORTED [facility] [employer] Work Phone: Platelets (Bld) [#/Vol] 395 10*3/uL [facility] [employer] Work Phone: RBC (Bld) [#/Vol] 5.02 10*6/uL 4 - 5.2 m/uL [facility] [employer] Work Phone: RBC morphology finding Nom (Bld) NOT REPORTED [facility] [employer] Work Phone: Segmented neutrophils/100 WBC (Bld) 65 % 47 - 75 % [facility] [employer] Work Phone: Segs Absolute 5.80 [facility] Work Phone: WBC (Bld) [#/Vol] 8.9 10*3/uL [facility] [employer] Work Phone: WBC Morphology NOT REPORTED [facility] alth Work Phone: CT Head WO ContrastOrdered B y: Leonor Sandy on 07-10-[address] brain[address] [employer] Work Phone: EXAMINATION: CT HEAD WO [...] sagittal multiplanar reconstructions show no additional abnormality. [employer] Phone: Aguila, Mhpn Incoming Radiant Results From [facility] - 07/10/2019 6:04 PM EST EXAMINATION: CT [...] no additional abnormality. IMPRESSION: Normal CT brain. [employer] Phone: Glucose, Whole BloodOrdered By: Leonor Sandy on 07-10-2019 Glucose [Mass/Vol] 98 mg/dL 65 - 99 mg/dL [facility] [employer] Work Phone: POCT glucoseOrdered By: Nathaly Sandy on 07-10-2019 Glucose [Mass/Vol] 98 mg/dL [facility] HospitalS[facility] [employer] Phone: Interpretation and review of laboratory results Normal [facility] HospitalS[facility] [employer] Phone: QC OK? yes [facility] [employer] Phone: , UrineOrdered By: Leonor Sandy on 07-10-2019 Beta HCG ( test) Ql (U) Negative NEGATIVE [facility] HospitalInf[facility]DB Work Phone: Urinalysis, reflex to micros copicOrdered By: Leonor Sandy on 07-10-2019 Bilirubin Urine Negative NEGATIVE [facility] Work Phone: Color, UA YELLOW YELLOW [facility] HospitalS[facility] [employer] Phone: Glucose, Ur Negative NEGATIVE [facility] [employer] Work Phone: Ketones Ql (U) Negative NEGATIVE [employer] Work Phone: Leukocyte esterase Test strip Ql (U) Negative NEGATIVE [employer] Phone: Nitrite, Urine Negative NEGATIVE [employer] Work Phone: pH, UA 6.5 [employer] Phone: Protein, UA Negative NEGATIVE [employer] Phone: Specific [place], UA 1.010 [employer] Phone: Turbidity UA CLEAR CLEAR [employer] Phone: Urinalysis Comments [employer] Phone: Urine Hgb Negative NEGATIVE [employer] Phone: Urobilinogen, Urine Normal Normal [employer] Phone: [facility] Repor ton 06-12-2017 [facility] Report Type: OrthopedicDictated by: To be signed by: Transcribed by: Transcribed D/ Dictation D/ Report: May 07, 2017 RE: Chapis Nation is here today with chief complaint of right hand pain. She has been having this now for a few months. 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 Normal [facility] Radiologyon 06-12-2017 Radiology Type: OutpatientDictated by: Signed by: Transcribed by: Transcribed Date/Time: 05/10/2017 12:19Dictation Date/Time: 05/07/2017 17:31Report: DATE OF SERVICE: 05/07/2017 DIAGNOSTIC STUDIES/INTERPRETATION S/IMPRESSIONS: Radiographs AP and lateral projections of her hands bilaterally demonstrate no fracture, dislocation, or other bony abnormality. Normal [facility] Vital Signs Date Time Vital Sign Value Performing Clinician Faci lity 09-27-2020 01:25-0400 BP Diastolic 78 mm[Hg] [facility] Work Phone: 09-27-2020 01:25-0400 BP Systolic 131 mm[Hg] [facility] Work Phone: 09-27-2020 01:25-0400 Pulse (Heart Rate) 99 /min [facility] Work Phone: 09-27-2020 01:25-0400 Pulse Oximetry 99 % [facility] Work Phone: 09-26-2020 21:16-0400 BMI (Body Mass Index) 25.82 kg/m2 Jerem[facility] MOMENTFACE SROstanley [facility] Work Phone: 09-26-2020 21:16-0400 Body Temperature 99.1 [degF] [facility] Work Phone: 09-26-2020 21:16-0400 Body weight 72.58 kg Jeremiah Mcnair [employer] Work Phone: 09-26-2020 21:16-0400 Respiratory Rate 16 /min Jeremiah Mcnair [employer] Work Phone: 07-10-2019 21:26-0500 Diastolic blood pressure 88 mm[Hg] Leonor Sandy MD Work Phone: [employer] Work Phone: 07-10-2019 21:26-0500 Heart rate 77 /min Leonor Sandy MD Work Phone: [employer] Work Phone: 07-10-2019 21:26-0500 Respiratory rate 18 /min Leonor Sandy MD Work Phone: [employer] Work Phone: 07-10-2019 21:26-0500 SaO2% (BldA) [Mass fraction] 100 % Leonor Sandy MD Work Phone: [employer] Work Phone: 07-10-2019 21:26-0500 Systolic blood pressure 127 mm[Hg] Leonor Sandy MD Work Phone: [employer] Work Phone: 07-10-2019 16:53-0500 Body height 167.6 cm Leonor Sandy MD Work Phone: [employer] Work Phone: 07-10-2019 16:53-0500 Body mass index (BMI) [Ratio] 25.02 kg/m2 Leonor Sandy MD Work Phone: [employer] Work Phone: 07-10-2019 16:53-0500 Body temperature 98.29 [degF] Leonor Sandy MD Work Phone: [employer] Work Phone: 07-10-2019 16:53-0500 Body weight 70.31 kg Leonor Sandy MD Work Phone: [facility] Work Phone: Encounters Encounter Date Encounter Type Care Provider Facility Start: 03-02-2024 End: 03-02-2024 ambulatory SHANNAN DAVID Not Available Start: 07-23-2023 End: 07-23-2023 ambulatory SHANNAN DAVID Not Available Start: 06-13-2023 End: 06-13-2023 ambulatory SHANNAN DAVID Not Available Start: 04-30-2023 ambulatory DO Chris Kelley Fac ility:[facility] Start: 11-27-2022 End: 11-28-2022 ambulatory Wero Britton Facility:[facility] Start: 07-23-2022 End: 07-24-2022 ambulatory [facility] Jhoana [facility] Start: 07-16-2022 End: 07-17-2022 ambulatory YOLANDA [facility] Start: 07-16-2022 End: 07-16-2022 Subsequent hospital visit by physician Fiorella Abarca DO Work Phone: [facility] Laboratory Comment on above: Urticaria Start: 05-01-2022 End: 07-31-2022 ambulatory Cuco Oneal Facility:[facility] Start: 05-28-2021 End: 05-28-2021 ambulatory Mary Brown Facility:[facility] Start: 10-03-2020 End: 10-03-2020 Subsequent hospital visit by physician Fiorella [facility] Laboratory Start: 09-28-2020 End: 09-28-2020 Subsequent hospital visit by physician Fiorella Abarca [facility] Laboratory Comment on above: Less than 8 weeks ge station of ; Pelvic pain Start: 09-26-2020 End: 09-27-2020 Emergency department patient visit [facility] Jhoana [facility] Start: 09-26-2020 End: 09-27-2020 Emergency department patient visit Jeremiah Mcnair Work Phone: [facility] ED Comment on above: Abdominal pain durin g in first trimester (Primary Dx) Start: 09-26-2020 End: 09-28-2020 Subsequent hospital visit by physician [facility] Ultrasound Room [facility] Laboratory Comment on above: Pelvic pain in femal e; Less than 8 weeks gestation of Start: 02-16-2020 End: 02-16-2020 Subsequent hospital visit by physician Fiorella Abarca [facility] Laboratory Comment on above: Screening for cardio vascular condition Start: 01-11-2020 End: 01-13-2020 Subsequent hospital visit by physician Claudia Ultrasound Room [facility] Laboratory Comment on above: Vitamin D deficiency Lower abdominal pain ; Amenorrhea Start: 10-23-2019 End: 10-23-2019 Subsequent hospital visit by physician Fiorella Abarca [facility] Laboratory Comment on above: Viral illness; Suspected COVID-19 virus infection Start: 10-19-2019 End: 10-19-2019 Subsequent hospital visit by physician Fiorella Abarca [facility] Laboratory Comment on above: Suspected COVID-19 v irus infection Start: 07-29-2019 End: 07-31-2019 Subsequent hospital visit by physician [facility] MRI Comment on above: Right sided numbness ; Blurred vision Start: 07-10-2019 End: 07-10-2019 Emergency department patient visit Leonor Sandy MD Work Phone: [facility] ED Comment on above: Migraine with aura a nd with status migrainosus, not intractable (Primary Dx) Start: 05-07-2017 Ambulatory [facility] Procedures Date Procedure Procedure Detail Performing Clinician Start: 07-16-2022 ALLERGEN, FOOD, COMPREHENSIVE PROFILE 1 Yolanda Humphrey WEATHERIZATION DIRECTOR - HEPATOLOGY PHYSICIAN Work Phone: Start: 10-03-2020 Gonadotropin chorionic quantitative [...] Phone: Start: 09-26-2020 Urinalysis microscopic only Yolanda Humprhey Work Phone: Start: 09-26-2020 Urnls dip stick/tablet [...] DTaP/Tdap/Td vaccine (2 - Td or Tdap) [facility] Start: 07-16-2023 Depression Monitoring Depression Mon itoring [facility] Start: 02-05-2022 Influenza vaccination Flu vaccine (# 1) [facility] Start: 03-08-2020 Influenza vaccination [facility] [place] Start: 01-27-2020 End: 01-27-2020 Office Visit 01/27/2020 Office Visit Family Medicine Fiorella Abarca DO [address] [place] [address] [facility] Start: 11-16-2019 End: 11-16-2019 Office Visit 11/16/2019 Office Visit Neurology Cammy Grayson MD [address] [facility] [address] [place] [address] [id number] [facility] Neuro [facility] Start: 10-21-2019 End: 10-21-2019 Telemedicine 10/21/2019 Telemedicine Family Medicine Fiorella Abarca DO [address] [place] [address] [facility] Start: 08-20-2019 End: 08-20-2019 Patient encounter procedure 08/20/2019 Office Visit Neurology Cammy Grayson MD [address] [facility] [address] [place] [address] [phone] [facility] [employer] [facility] Start: 03-08-2019 Influenza vaccination Flu vaccine (# 1) [facility] [employer] Phone: Start: 05-26-2018 Cervical cancer screen Cervical canc er screen [facility] Phone: Start: 05-26-2018 Screening for malign ant neoplasm of cervix [facility] Start: 2012 DTaP/Tdap/Td vaccine (1 - Tdap) DTaP/Tdap/Td vaccine (1 - Tdap) [place] Start: 11-22-2011 Hepatitis C screening Hepatitis C sc reen [facility] Start: 2009 COVID-19 Vaccine (1) COVID-19 Vaccin e (1) [facility] Phone: Start: 2008 HIV screen HIV screen [facility] [employer] Phone: Start: 2008 HIV screening HIV screen [facility] [employer] Start: 2004 DTaP/Tdap/Td vaccine (1 - Tdap) DTaP/Tdap/Td vaccine (1 - Tdap) [facility] [employer] Phone: Start: 2004 HPV vaccine (1 - 2-d ose series) HPV vaccine (1 - 2-dose series) [place] Start: 2004 HPV vaccine (1 - Fem terrance 2-dose series) HPV vaccine (1 - Female 2-dose series) [facility] [employer] Phone: Start: 11-22-1999 Pneumococcal 0-64 ye ars Vaccine (1 - PCV) Pneumococcal 0-64 years Vaccine (1 - PCV) [facility] Start: 11-22-1999 Pneumococcal 0-64 ye ars Vaccine (1 of 1 - PPSV23) Pneumococcal 0-64 years Vaccine (1 of 1 - PPSV23) [facility] [employer] Phone: Start: 1994 Varicella vaccine (1 of 2 - 2-dose childhood series) Varicella vaccine (1 of 2 - 2-dose childhood series) [facility] [employer] Start: 05-24-1994 COVID-19 Vaccine (#1) COVID-19 Vacci ne (#1) [facility] Start: 1993 Hepatitis C screening Hepatitis C sc reen [employer] Phone: End: 09-26-2020 C.trachomatis N.gonorrhoeae DNA C.trachomatis N.gonorrhoeae DNA Microbiology STAT One Time for 1 Occurrences starting 09/26/2020 until 09/26/2020 [employer] Phone: Comment on above: One Time for 1 Occur rences starting 09/26/2020 until 09/26/2020 C.trachomatis N.gonorrhoeae DNA C.trachomatis N.gonorrhoeae DNA Microbiology STAT 09/26/2020 10:35 PM EDT [employer] Phone: COVID-19 COVID-19 Lab Rou constance Suspected COVID-19 virus infection 10/19/2019 10:18 AM EDT [place] End: 10-23-2019 COVID-19 Ambulatory COVID-19 Ambulatory Lab Routine Viral illness Suspected Covid-19 Virus Infection 1 Occurrences starting 10/23/2019 until 10/23/2019 [place] Comment on above: 1 Occurrences starti ng 10/23/2019 until 10/23/2019 COVID-19 Ambulatory COVID-19 Amb ulatory Lab Routine Viral illness Suspected COVID-19 virus infection 10/23/2019 4:02 PM EDT [place] CTA HEAD NECK W CONTRAST CTA HEA D NECK W CONTRAST Imaging STAT 07/10/2019 7:43 PM EST [employer] Phone: Food Comprehensive Panel Food Co mprehensive Panel Lab Routine Urticaria 07/16/2022 5:05 PM EST [facility] Phone: RHOGAM INJECTION ONLY RHOGAM INJ ECTION ONLY Blood Bank STAT 09/26/2020 10:15 PM EDT [employer] Phone: Immunizations Immunization Date Immunization Notes Care Provider Fa cility 05-26-2021 tetanus toxoid, redu henny diphtheria toxoid, and acellular pertussis vaccine, adsorbed [facility] 09-26-2020 LILO(Sacha) fracisco alexa in Evangelina Mcnair [facility] [employer] Work Phone: 04-07-2018 influenza virus vaccine, unspecified formulation Leonor Sandy MD [facility] Work Phone: 10-06-2013 hepatitis B vaccine, adult dosage Fiorella Abarca DO Work Phone: [employer] [facility] [employer] Work Phone: 10-06-2013 hepatitis B vaccine, unspecified formulation Fiorella [employer] [facility] [employer] Work Phone: 06-01-2013 hepatitis B vaccine, adult dosage Fiorella Abarca DO Work Phone: [facility] [employer] [facility] Work Phone: 06-01-2013 hepatitis B vaccine, unspecified formulation Fiorella [employer] [facility] [employer] Work Phone: 04-21-2013 hepatitis B vaccine, adult dosage Fiorella Abarca DO Work Phone: [facility] [employer] 04-21-2013 hepatitis B vaccine, unspecified formulation Fiorella DarbyLift [employer] [facility] [employer] Phone: 06-29-2011 tuberculin skin test ; purified protein derivative solution, intradermal Leonor Sandy MD Work Phone: [facility] [employer] Work Phone: Payers Date Payer Category Payer Unknown [id number] 2021 Unknown [id number] 2021 Private Health Insurance [id number] 2021 Self-pay [id number] 2020 Unknown [id number] 2019 Unknown [employer] M [employer] [address] [id number] 2019-Present [phone] [address] [place] [address] [id number] 2014 Unknown [id number] 1993 Unknown [id number] [id number]. 2.173 1993 Unknown [id number] [id number]. 2.174 1993 Unknown [id number] [id number]. 2.174 1993 Unknown [id number] [id number]. 2.727 1993 Unknown [id number] [id number]. 2.727 1993 Unknown [id number] [id number]. 2.727 1993 Unknown [id number] [id number]. 2.1259 1993 Unknown [id number] [id number]. 2.1259 1993 Unknown [id number]. 2.1259 Unknown [facility] [id number] Unknown [id number] 2.531 Worker's Compensation [facility] Med C t Ind [id number] Social History Date Type Detail Facility Start: 10-23-2019 End: 07-16-2022 Tobacco smoking status NHIS Never smoker [employer] Start: 10-23-2019 End: 07-16-2022 Alcohol intake Current non-drinker of alcohol (finding) [employer] Phone: Start: 1995 Sex Assigned At Not on file M [facility] Phone: Exposure to SARS-CoV -2 (event) Unable to assess [employer] Start: 02-16-2020 End: 07-16-2022 Tobacco use and exposure Never used [employer] Exposure to SARS-CoV -2 (event) Not sure [employer] Phone: Start: 07-16-2022 History 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 Author [...] with more than 50% of the total eede-br-veie time of the visit in counseling / [...] dilatation The pa (more content not included)... [facility] Discharge instructions 07-10-2019 InstructionsAttachments Note Date [...] be sent through Care Everywhere.Migraine Headache: Recurring (Gambian)documented in this encounter [employer] Phone: Evaluation note Note Date & Type Note Facility Evaluation note Diagnosis Migraine with aura and with status migrainosus, not intractable- Primary Migraine with aura, with intractable migraine, so stated, with status migrainosus documented in this encounter [employer] Phone: Evaluation note Note Date & Type Note Facility Evaluation note Diagnosis Right sided numbness Blurred vision Other specified visual disturbances documented in this encounter [facility] Work Phone: Evaluation note Note Date & Type Note Facility Evaluation note Diagnosis Urticaria Urticaria, unspecified documented in this encounter [employer] Work Phone: Evaluation note Note Date & Type Note Facility Evaluation note No assessment information availa [facility] Work Phone: Summary Purpose Family History No Family History Records Found Relationship Condition Age at Onset Recorded Date/T ifeoma Not Specified No pertinent family history Unknown Advance Directives No Advanced Directives Records FoundDocuments on File Type Date Recorded Patient 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 Covering Printer Assistant Expl anation Advance Directives and Living Will Power of Catering Associate Documents on File Type Date Recorded Patient Floor Covering Printer Assistant Expl anation Advance Directives and Living Will Power of Catering Associate Documents on File Type Date Recorded Patient Floor Covering Printer Assistant Expl anation ACP-Advance Directive ACP-Power of Catering Associate Documents on File Type Date Recorded Patient Floor Covering Printer Assistant Expl anation ACP-Advance Directive ACP-Power of Catering Associate Assessments Diagnosis Viral illness Unspecified viral infection, [...] Fiorella Abarca, DO [address] [place] [address] Status Reason Specialty Diagnoses / Procedures Referre d By Contact Referred To Contact Closed Radiology Diagnoses Right sided numbness Blurred vision Procedures MRI BRAIN W WO CONTRAST HC MRI-BRAIN WO & W CONTRAST Eliane Vilchis MD [address] [facility] [address] [place] [address] Discharge Instructions * Instructions* Jeremiah Mcnair MD - 09/27/2020 Yolanda Ramos office personnel will contact you with regards to scheduling of your repeat hCG level ( test) * Attachments The following attachments cannot be sent through Care Everywhere. * : Abdominal Pain (Gambian) documented in this encounter Additional Source Comments INFORMATION SOURCE (unrecogn ized section and content) DATE CREATED AUTHOR 12/31/2017 [facility] DATE CREATED AUTHOR AUTHOR'S ORGANIZ ATION 01/30/2018 [facility] DATE CREATED AUTHOR AUTHOR'S ORGANIZ ATION 09/29/2020 [facility] DATE CREATED AUTHOR AUTHOR'S ORGANIZ ATION 08/15/2021 [facility] DATE CREATED AUTHOR AUTHOR'S ORGANIZ ATION 07/24/2022 [facility] DATE CREATED AUTHOR AUTHOR'S ORGANIZ ATION 03/09/2023 [facility] DATE CREATED AUTHOR AUTHOR'S ORGANIZ ATION 05/01/2023 [facility] DATE CREATED AUTHOR AUTHOR'S ORGANIZ ATION 03/04/2024 [facility] [employer] Reason for Visit (unrecogniz ed section and content) Status Reason Specialty Diagnoses / Procedures Referre d By Contact Referred To Contact Closed Radiology Diagnoses Lower abdominal pain Amenorrhea Procedures US NON OB TRANSVAGINAL Fiorella Abarca, DO [address] [place] [address] Reason Comments Pelvic Pain onset approx 1 week ago, sent her by PCP for eval Status Reason Specialty Diagnoses / Procedures Referre d By Contact Referred To Contact Open Radiology Diagnoses Pelvic pain in female Less than 8 weeks gestation of Procedures US OB LESS THAN 14 WEEKS SINGLE OR FIRST GESTATION US PELVIS COMPLETE Yolanda Humphrey, WEATHERIZATION DIRECTOR - HEPATOLOGY PHYSICIAN [address] [place] [address] Reason Comments Headache History of migraine headaches. Vomited one time today. Status Reason Specialty Diagnoses / Procedures Referre d By Contact Referred To Contact Closed Radiology Diagnoses Right sided numbness Blurred vision Procedures MRI BRAIN W WO CONTRAST HC MRI-BRAIN WO & W CONTRAST Eliane Vilchis MD [address] [facility] [address] [address] [place] [address] Care Teams (unrecognized sec tion and content) Rollout Manager Relationship Specialty Start Date End Date Fiorella Abarca, [address] [place] [address] PCP - General 02/26/16 Goals [...] BE BASED ON THE PRIMARY CLINICAL RECORDS. [facility]. provides no warranty or guarantee of the accuracy or completeness of information in this document.
--- NOTE | 2024-04-12 18:30 | ED_ITS ---
<Statement entered by Miles Prado MD - 04/13/24 09:23> This documentation has been reviewed and approved. Chart was sent to my inbox for administrative and group management purposes. I was the attending physicians working during the patients hospital course. The patient was seen and managed independently by the MLP. I did not personally see or evaluate this patient, nor was I involved in the patient medical decision making process or plans of care. Pt was dispositioned by the MLP with complete independence, I was available for consultation should the MLP request during this patients ED stay during the initial presentation. Patient supervision was taken over at 7pm by incoming physician HPI - General Chief complaint: OB/Uterine Contractions Stated complaint: abd pain Time Seen by Provider: 04/12/24 18:13 Source: patient Mode of arrival: walk-in History of Present Illness HPI Narrative: Patient is a 28-year-old female G3, who presents with concerns of intermittent abdominal pain, nausea feels like I have the stomach flu. Pt notes when pain is present she feels like she is going to pass out. Patient states symptoms started last night, she had 1 bowel movement of diarrhea. Patient states she had recent testing regarding her with ultrasound on 04/09 and blood work 04/09 and 04/11. Patient feels she has an impending miscarriage but missed phone call from her OBGYN on Saturday. LMP 02/07/24 and est 9wk 2 days ( ultrasound dates closer to 6 wks gestation). Pt denies chest pain or SOB. Cramping lower pelvic pain. MD Complaint: Reports abdominal pain; Denies vaginal bleeding or vaginal discharge Onset (ago): day(s) (last night) Pain Consistency: Reports intermittent Location: Reports pelvis and abdomen Quality: Reports Cramping and Aching Radiation: Reports pelvis Associated symptoms: Reports nausea and abdominal pain Vaginal discharge: Reports none Vaginal bleeding: Reports none Patient : Yes Related Data Allergies Allergy/AdvReac Type Severity Reaction Status Date / Time succinylcholine Allergy Severe Unknown Verified 04/12/24 18:21 Review of Systems ROS Constitutional Denies: fever or chills Eyes Denies: change in vision Ears, nose, mouth, and throat Denies: throat pain, neck pain, nasal congestion or nose bleeds Cardiovascular Denies: chest pain or palpitations Respiratory Denies: shortness of breath or cough Gastrointestinal Reports: abdominal pain, nausea and diarrhea; Denies: vomiting Genitourinary Denies: painful urination Musculoskeletal Denies: back pain or neck pain Integumentary/Breast Denies: rash or itching Neurological Denies: headache Allergic/Immunologic Denies: hives Exam Narrative Exam Narrative: Nurses notes and vital signs reviewed and patient is not hypoxic. General: The patient appears well and in no apparent distress. Patient is resting comfortably on cart. Skin: Warm, dry, no pallor noted. No evidence of rash Head: Normocephalic, atraumatic Neck: Supple, trachea mid-line, no tenderness, no lymphadenopathy Eye: Pupils are equal, round and reactive to light, EOMI Ears, Nose, Mouth, and Throat: external exam unremarkable Cardiovascular: Regular Rate and Rhythm Respiratory: Patient is in no distress, no accessory muscle use, lungs are clear to auscultation, no wheezing, rales or rhonchi. Chest Wall: no tenderness Back: non-tender, no CVA tenderness Musculoskeletal: normal ROM, no tenderness, no swelling GI: Normal bowel sounds, suprapubic tenderness. Most noted in the left lower quadrant.no pain at McBurney's point., no masses appreciated. No rebound, guarding, or rigidity noted. Neurological: A&O x4 Psychiatric: Cooperative Constitutional Vital Signs, click to edit/add: Last Vital Signs Temp 97.8 F 04/12/24 19:52 Pulse 78 04/12/24 19:52 Resp 18 04/12/24 19:52 BP 104/74 04/12/24 19:52 Pulse Ox 100 04/12/24 19:52 O2 Del Method Room Air 04/12/24 18:15 Course Vital Signs Vital signs: Vital Signs Temperature 98.9 F 04/12/24 18:15 Pulse Rate 92 H 04/12/24 18:15 Respiratory Rate 18 04/12/24 18:15 Blood Pressure 165/88 H 04/12/24 18:15 Pulse Oximetry 100 04/12/24 18:15 Oxygen Delivery Method Room Air 04/12/24 18:15 Temperature 97.8 F 04/12/24 19:52 Pulse Rate 78 04/12/24 19:52 Respiratory Rate 18 04/12/24 19:52 Blood Pressure 104/74 04/12/24 19:52 Pulse Oximetry 100 04/12/24 19:52 Oxygen Delivery Method Room Air 04/12/24 18:15 MDM - OB/Uterine Contractions MDM Narrative Medical decision making narrative: reviewed quant from 04/09 and 04/11 starting to trend down. Pt concerned of miscarriage, has access to medical record, but miss call from OB to discuss plans. new onset abdominal pain and nausea with diarrhea ( 1 episode) Reevaluated after Zofran and Tylenol. She reported nausea is gone, abdominal pain improved feels like a period cramp. Patient localizes symptoms in the suprapubic region. The left lower quadrant is no longer tender. Patient has no guarding rebound or rigidity. The majority of her tenderness is very suprapubic and she is not focally tender at McBurney's point. We discussed her laboratory studies, her case was also discussed with Dr. Landaverde on-call for [facility] [employer]. We discussed the twin gestation noted on ultrasound, recent decline in quantitative hCGs. She advised the patient will need very close follow-up to monitor her . She will ensure the patient gets into the office for repeat exams. Patient aware bedside of her laboratory studies, we discussed threatened miscarriage and abdominal pain. Given the clinical picture acute appendicitis appears less likely Hold on CT imaging with risk and benefits discussed. Should patient develop any fever or worsening symptoms, persistent pain she will return to the ER for reevaluation. She is not having any vaginal bleeding at this time and her blood type is (A-)negative. Family at bedside also agreeable with dispositon to home and close follow up outpt. The patient is to followup with OBGYN office Primary care physician in next 1-2days or to return to the emergency department should any of the signs or symptoms worsen or new symptoms develop. Patient had questions answered. The patient agrees with the following Diagnosis and Treatment plan and the patient will be discharged home. Medical Records Attestation: I reviewed the patient's medical records. Medical records narrative: Procedure: US OB transvaginal EXAMINATION: US OB transvaginal HISTORY: MISSED MENSES COMPARISON: No relevant comparison available. FINDINGS: Transvaginal Two areas of anechoic echogenicity identified within the endometrial cavity: Gestational sac 1:1.64 cm, 6 weeks 0 days Gestational sac 2:1.29 cm, 5 weeks 3 days No yolk sac or pole is clearly observed. Area of hypoechogenicity adjacent to the gestational sac measuring 3.6 x 1.8 x 0.8 cm. Subchorionic hematoma is suspected. The uterus is normal, retroverted, retroflexed The ovaries are not visualized The cervix is closed measuring 4.3 cm. IMPRESSION: Early twin intrauterine gestation. No pole or yolk sac identified. Continued surveillance recommended Electronically authenticated by: RADHA WILLINGHAM Date: 04/09/2024 15:40 Lab Data Attestation: I reviewed the patient's lab results. Labs: Lab Results 04/12/24 04/12/24 04/12/24 Range/Units 18:23 18:35 18:40 WBC 11.3 H (4.0-11.0) 10^3/uL RBC 4.69 (4.20-5.40) 10^6/uL Hgb 14.1 (12.0-16.0) g/dL Hct 39.6 (36.0-48.0) % MCV 84.4 (81.0-99.0) fL MCH 30.1 (26.7-34.0) pg MCHC 35.6 H (29.9-35.2) g/dL RDW 13.2 (11.0-15.0) % Plt Count 359 (150-450) 10^3/uL MPV 10.4 (9.5-13.5) fL Neut % (Auto) 63.6 (43.0-75.0) % Lymph % (Auto) 30.7 (20.5-60.0) % [place] % (Auto) 4.5 (1.7-12.0) % Eos % (Auto) 0.9 (0.9-7.0) % Baso % (Auto) 0.1 L (0.2-2.0) % Neut # (Auto) 7.2 H (1.4-6.5) 10^3/uL Lymph # (Auto) 3.5 (1.2-3.8) 10^3/uL [place] # (Auto) 0.5 (0.3-0.8) 10^3/uL Eos # (Auto) 0.1 (0.0-0.7) 10^3/uL Baso # (Auto) 0.0 (0.0-0.1) 10^3/uL Abs Immat Gran (auto) 0.02 (0.00-0.03) 10^3/uL Imm/Tot Granulo (auto) 0.2 (0.0-0.5) % Sodium (136-145) mmol/L Potassium (3.5-5.1) mmol/L Chloride (98-107) mmol/L Carbon Dioxide (21.0-32.0) mmol/L Anion Gap BUN (7.0-18.0) mg/dL Creatinine (0.55-1.02) mg/dL Est GFR ( Amer) (>=60 mL/min/1.73m^2) Est GFR (Non-Af Amer) (>=60 mL/min/1.73m^2) BUN/Creatinine Ratio Glucose (74-106) mg/dL Lactate 0.8 (0.4-2.0) mmol/L Calcium (8.5-10.1) mg/dL Total Bilirubin (0.2-1.0) mg/dL AST (15-37) U/L ALT (14-59) U/L Alkaline Phosphatase (46-116) U/L Total Protein (6.4-8.2) g/dL Albumin (3.4-5.0) g/dL Globulin g/dL Albumin/Globulin Ratio Lipase (16.0-77.0) U/L HCG, Quant mIU/mL Urine Color Yellow (YELLOW) Urine Clarity Clear (CLEAR) Urine pH 6.0 (5.0-9.0) Ur Specific [place] >=1.030 A (1.005-1.025) Urine Protein Negative (NEG/TRACE) mg/dL Urine Glucose (UA) Negative (NEGATIVE) mg/dL Urine Ketones Negative (NEGATIVE) mg/dL Urine Occult Blood Negative (NEGATIVE) Urine Nitrite Negative (NEGATIVE) Urine Bilirubin Negative (NEGATIVE) Urine Urobilinogen 0.2 (0.2-1.0) EU/dL Ur Leukocyte Esterase Negative (NEGATIVE) Blood Type A Negative 04/12/24 Range/Units 19:13 WBC (4.0-11.0) 10^3/uL RBC (4.20-5.40) 10^6/uL Hgb (12.0-16.0) g/dL Hct (36.0-48.0) % MCV (81.0-99.0) fL MCH (26.7-34.0) pg MCHC (29.9-35.2) g/dL RDW (11.0-15.0) % Plt Count (150-450) 10^3/uL MPV (9.5-13.5) fL Neut % (Auto) (43.0-75.0) % Lymph % (Auto) (20.5-60.0) % [place] % (Auto) (1.7-12.0) % Eos % (Auto) (0.9-7.0) % Baso % (Auto) (0.2-2.0) % Neut # (Auto) (1.4-6.5) 10^3/uL Lymph # (Auto) (1.2-3.8) 10^3/uL [place] # (Auto) (0.3-0.8) 10^3/uL Eos # (Auto) (0.0-0.7) 10^3/uL Baso # (Auto) (0.0-0.1) 10^3/uL Abs Immat Gran (auto) (0.00-0.03) 10^3/uL Imm/Tot Granulo (auto) (0.0-0.5) % Sodium 134 L (136-145) mmol/L Potassium 3.1 L (3.5-5.1) mmol/L Chloride 101 (98-107) mmol/L Carbon Dioxide 23.1 (21.0-32.0) mmol/L Anion Gap 13.0 BUN 10.0 (7.0-18.0) mg/dL Creatinine 0.70 (0.55-1.02) mg/dL Est GFR ( Amer) >60 (>=60 mL/min/1.73m^2) Est GFR (Non-Af Amer) >60 (>=60 mL/min/1.73m^2) BUN/Creatinine Ratio 14.3 Glucose 99 (74-106) mg/dL Lactate (0.4-2.0) mmol/L Calcium 9.5 (8.5-10.1) mg/dL Total Bilirubin 0.5 (0.2-1.0) mg/dL AST 10 L (15-37) U/L ALT 11 L (14-59) U/L Alkaline Phosphatase 53 (46-116) U/L Total Protein 7.4 (6.4-8.2) g/dL Albumin 3.9 (3.4-5.0) g/dL Globulin 3.5 g/dL Albumin/Globulin Ratio 1.1 Lipase 27.0 (16.0-77.0) U/L HCG, Quant 11768 mIU/mL Urine Color (YELLOW) Urine Clarity (CLEAR) Urine pH (5.0-9.0) Ur Specific [place] (1.005-1.025) Urine Protein (NEG/TRACE) mg/dL Urine Glucose (UA) (NEGATIVE) mg/dL Urine Ketones (NEGATIVE) mg/dL Urine Occult Blood (NEGATIVE) Urine Nitrite (NEGATIVE) Urine Bilirubin (NEGATIVE) Urine Urobilinogen (0.2-1.0) EU/dL Ur Leukocyte Esterase (NEGATIVE) Blood Type Discharge Plan Discharge Chief Complaint: OB/Uterine Contractions Clinical Impression: Abdominal pain, Threatened miscarriage Patient Disposition: Home, Self-Care Time of Disposition Decision: 20:20 Condition: Good Print Language: Italian Instructions: Threatened Miscarriage (ED) Additional Instructions: Contact Dr. Osorio's office tomorrow to discuss follow up Please return to ER if symptoms worsen. Referrals: Vanesa Begum MD [Primary Care Provider] - As soon as possible
[2024-04-12] MEDS: ONDANSETRON PF 4 MG/2 ML VIAL IV (18:44)
[2024-04-12] MEDS: ACETAMINOPHEN 500 MG TABLET 1000 MG PO (18:44)
[2024-04-12 18:57] LABS: Basophils Percent Auto 0.1 % (0.2-2.0); Eosinophils Absolute Auto 0.1 10^3/uL (0.0-0.7); Eosinophils Percent Auto 0.9 % (0.9-7.0); Hematocrit 39.6 % (36.0-48.0); Hemoglobin 14.1 g/dL (12.0-16.0); Immature Granulocytes Abs Auto 0.02 10^3/uL (0.00-0.03); Immature Granulocytes Pct Auto 0.2 % (0.0-0.5); Lymphocytes Absolute Auto 3.5 10^3/uL (1.2-3.8); Lymphocytes Percent Auto 30.7 % (20.5-60.0); Mean Corpuscular HGB Conc 35.6 g/dL (29.9-35.2); Mean Corpuscular Hemoglobin 30.1 pg (26.7-34.0); Mean Corpuscular Volume 84.4 fL (81.0-99.0); Mean Platelet Volume 10.4 fL (9.5-13.5); Monocytes Absolute Auto 0.5 10^3/uL (0.3-0.8); Monocytes Percent Auto 4.5 % (1.7-12.0); Neutrophils Absolute Auto 7.2 10^3/uL (1.4-6.5); Neutrophils Percent Auto 63.6 % (43.0-75.0); Platelet Count 359 10^3/uL (150-450); Red Blood Count 4.69 10^6/uL (4.20-5.40); Red Cell Distribution Width 13.2 % (11.0-15.0); White Blood Count 11.3 10^3/uL (4.0-11.0)
[2024-04-12 18:58] LABS: Bilirubin Urine NEGATIVE (NEGATIVE); Blood Urine NEGATIVE (NEGATIVE); Clarity Urine CLEAR (CLEAR); Color Urine YELLOW (YELLOW); Glucose Urine UA NEGATIVE (NEGATIVE); Ketones Urine NEGATIVE (NEGATIVE); Leukocyte Esterase Urine NEGATIVE (NEGATIVE); Nitrite Urine NEGATIVE (NEGATIVE); Protein Urine NEGATIVE (NEG/TRACE); Specific Gravity Urine >=1.030 (1.005-1.025); Urobilinogen Urine 0.2 EU/dL (0.2-1.0)
[2024-04-12 19:03] LABS: Urine Microscopic Indicated NO
[2024-04-12 19:13] LABS: Lactate/Lactic Acid 0.8 mmol/L (0.4-2.0)
[2024-04-12 19:41] LABS: Alanine Aminotransferase 11 U/L (14-59); Albumin Globulin Ratio 1.1; Albumin Level 3.9 g/dL (3.4-5.0); Alkaline Phosphatase 53 U/L (46-116); Aspartate Amino Transferase 10 U/L (15-37); BUN Creatinine Ratio 14.3; Bilirubin Total 0.5 mg/dL (0.2-1.0); Calcium 9.5 mg/dL (8.5-10.1); Carbon Dioxide 23.1 mmol/L (21.0-32.0); Chloride 101 mmol/L (98-107); Estimated GFR (African America >60 (>=60 mL/min/1.73m^2); Estimated GFR (Non-African Ame >60 (>=60 mL/min/1.73m^2); Globulin 3.5 g/dL; Glucose 99 mg/dL (74-106); Potassium 3.1 mmol/L (3.5-5.1); Sodium 134 mmol/L (136-145); Total Protein 7.4 g/dL (6.4-8.2)
[2024-04-12 19:52] VITALS: BP 104/74; PULSE 78; TEMP 36.6; O2SAT 100
[2024-04-12 20:06] LABS: HCG Quantitative 45816 mIU/mL
[2024-04-12] MEDS: POTASSIUM BICARBONATE/CIT 25 MEQ TABLET EFF PO (20:25)
== END 2024-04-12 20:28 | disposition home or self-care (01) ==
PROVIDERS: Personal Emergency Response Attendant; Emergency Provider Emergency Medicine; PCP Student in an Organized Health Care Education/Training Program
DX: O20.0 Threatened abortion (principal); O26.891 Other specified pregnancy related conditions, first trimester; R10.9 Unspecified abdominal pain; O30.001 Twin pregnancy, unspecified number of placenta and unspecified number of amniotic sacs, first trimester; Z3A.09 9 weeks gestation of pregnancy
CPT/HCPCS: 36415; 80053; 81003; 83605; 83690; 84702; 85025; 86900; 86901; 96374; 99285; J2405

== ENCOUNTER 2024-04-14 10:56 | Outpatient (OUT) | payer BC, SELFPAY ==
--- NOTE | 2024-04-14 10:59 | US_ITS ---
[address] [address] Patient Name: WAN EVANS MRN: [id number] date: 1995 Sex: F Assigned Patient Location: [facility] Current Patient Location: [facility] Accession/Order Number: [id number] Exam Date: 04/14/2024 11:00 Report Date: 04/14/2024 12:50 At the request of: ALEXANDRE FARNSWORTH Procedure: US OB transvaginal EXAMINATION: US OB transvaginal HISTORY: ABDOMINAL PAIN, VIABILITY COMPARISON: Ultrasound OB transvaginal 04/09/2024 FINDINGS: GESTATIONAL SAC: 2 gestational sacs are present, one corresponds to 6 weeks 2 days, the other to 6 weeks 0 days. YOLK SAC: Absent POLE: Absent CARDIAC: Absent UTERUS: Normal size and appearance. OVARIES: Right: Normal. Left: Not seen. CERVIX: 4.3 cm in length and closed. CUL-DE-SAC: Normal. OTHER: None. AGE BY LMP: 9 weeks 4 days ANGY BY LMP: 11/13/2024 AGE BY US CRL: 6 weeks 0 days ANGY BY US CRL: 12/08/2024 US/US OB transvaginal IMPRESSION: 1. Early twin intrauterine versus blighted ovums. Electronically authenticated by: PAULINE BENTLEY Date: 04/14/2024 12:50
--- OUTSIDE RECORDS SUMMARY | 2024-04-14 11:04 | XMS_ITS | CCD ---
Author Organization [facility] Care Team Providers Care Wafer Mounter Name Role Phone CHRIS DO Unavailable Unavailable CHRIS DO Unavailable Unavailable Yonley, Fiorella L Primary Care Provider Yogildardo Fiorella L Primary Care Provider [phone] YOGILDARDO FIORELLA L Primary Care Unavailable JEREMIAH [...] (14 sources) Succinylcholine Drug Allergy 08-18-19 14 [employer] Phone: (5 sources) Anesthesia S-I-60 Propensity to adverse reactions to drug 08-20-19 20 [place] ([place] sources) Other Propensity to adverse reactions 09-19-19 12 Other (See Comments) [employer] Phone: (7 sources) Propofol Drug Allergy 08-20-19 20 [employer] Phone: (2 sources) Seasonal allergy Propensity to adverse reactions to substance 09-19-19 12 Other (See Comments) [employer] Phone: (1 source) Succinylcholine Drug Allergy 01-14-20 [facility] Repository (1 source) Grass; Translations: [Grass] Propensity to adverse reactions (disorder) [facility] Repository (1 source) House dust mite (Bt) RAST; Translations: [House dust mite (Bt) RAST] Propensity to adverse reactions (disorder) [facility] Repository NEGATED: Highlighted row has been ruled out! (1 source) Other Propensity to adverse reactions 09-19-19 12 Other (See Comments) [employer] Phone: Medications Current Medications Medication Drug Class(es) [...] at bedtime May 27, 2021 1:00am ergocalciferol 65044 unt oral capsule (2 sources) Provitamin D2 Compound Start: 08-25-2019 End: 11-11-2019 take 1 capsule by mouth every week vitamin D (ERGOCALCIFEROL) 1.25 MG (59518 UT) CAPS capsule Take 1 capsule by [...] LIPS DAILY UNTIL CLEAR 0 09/17/2019 Active 144-Ijle-Ejaxk-Omeg a3 (One-A-Day -1) 27 mg iron- 800 mcg-235 mg capsule (1 source) Start: 01-13-2021 529-Ghjc-Mxpnx-Om ega3 (One-A-Day -1) 27 mg iron- 800 mcg-235 mg capsule Active 1 CAP PO Daily January 13, 2021 12:00am Vit-Fe Tphzybv-DB-GUG ( VITAMIN/MIN +DHA) 27-0.8-200 MG CAPS (7 sources) Start: 09-26-2020 take 1 tablet by mouth once daily Vit-Fe Zhcnsjj-HT-UNN ( VITAMIN/MIN +DHA) 27-0.8-200 MG CAPS Indications: [...] 12:14pm Start: 07-29-[address] [facility] once daily propranolol (INDERAL LA) 120 [...] with voice recognition software. Occasional wrong-word or ?sxmbq-m-vsej? 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 Previous employment/school: [employer]. Activity level: Occasional physical work. Highest education [...] Years. Num (more content not included)... Normal [facility] Comment on above: Result Comment: Elec [...] home: Medicines ? Take, use, or apply dsmp-drr-dyubard and prescription medicines only as told by [...] and water are not available, use hand prestidigitator. ? Do not smoke. Avoid being around [...] or swell (more content not included)... Normal [facility] CBC with Diffon 07-23-2022 Abs. Basophil 0.00 k/uL Normal 0.0-0.2 [facility] Comment on above: Performed By: #### C P, TSHX, CDP #### [facility] [address] [place] [address] Coal Pulver[employer] Operator: Cole Magaña MD Abs.Neutrophil (Seg) 2.90 k/uL Normal 2.5-7.0 [facility] Comment on above: Performed By: #### C P, TSHX, CDP #### [facility] [address] [place] [address] [employer] Pulverizing Operator: Cole Magaña MD Auto Diff Performed YES Normal [facility] Comment on above: Performed By: #### C P, TSHX, CDP #### [facility] [address] [place], [place] [phone] [employer] Pul[employer] Operator: Cole Magaña MD Basophils/100 WBC (Bld) 0 % Normal 0-2 [facility] Comment on above: Performed By: #### C P, TSHX, CDP #### [facility] [address] [place] [phone] [employer] Pul[employer] Operator: Cole Magaña MD Eosinophils (Bld) [#/Vol] 0.00 10*3/uL Normal 0.0-0.4 [facility] Comment on above: Performed By: #### C P, TSHX, CDP #### [facility] [address] [place] [address] Coal Pulverizing Operator: Cole Magaña MD Eosinophils/100 WBC (Bld) 0 % Normal 0-5 [facility] Comment on above: Performed By: #### C P, TSHX, CDP #### [facility] [address] [place] [phone] Coal Pulver[employer] Operator: Cole Magaña MD Erythrocyte distribution width (RBC) [Ratio] 13.7 % Normal 12.1-15.2 [facility] Comment on above: Performed By: #### C P, TSHX, CDP #### [facility] [address] [place] [phone] [employer] Pul[employer] Operator: Cole Magaña MD Hematocrit (Bld) [Volume fraction] 40.0 % Normal 36-46 [facility] Comment on above: Performed By: #### C P, TSHX, CDP #### [facility] [address] [place] [phone] [employer] Pul[employer] Operator: Cole Magaña MD Hemoglobin (Bld) [Mass/Vol] 13.4 g/dL Normal 12.0-16.0 [facility] Comment on above: Performed By: #### C P, TSHX, CDP #### [facility] [address] [place] [phone] [employer] Operator: Cole Magaña MD Lymphocytes (Bld) [#/Vol] 2.30 10*3/uL Normal 1.0-4.8 [facility] Comment on above: Performed By: #### C P, TSHX, CDP #### [facility] [address] [place], [place] [phone] Coal Pulverizing Operator: Cole Magaña MD Lymphocytes/100 WBC (Bld) 42 % High 15-40 [facility] Comment on above: Performed By: #### C P, TSHX, CDP #### [facility] [address] [place] [address] [employer] Pul[employer] Operator: Cole Magaña MD MCH (RBC) [Entitic mass] 29.5 pg Normal 26-34 [facility] Comment on above: Performed By: #### C P, TSHX, CDP #### [facility] [address] [place] [phone] [employer] Pul[employer] Operator: Cole Magaña MD MCHC (RBC) [Mass/Vol] 33.6 g/dL Normal 31-37 [facility] Comment on above: Performed By: #### C P, TSHX, CDP #### [facility] [address] [place] [address] [employer] Pulverizing Operator: Cole Magaña MD MCV (RBC) [Entitic vol] 88.0 fL Normal 80-100 [facility] Comment on above: Performed By: #### C P, TSHX, CDP #### [facility] [address] [place] [address] [employer] Pulverizing Operator: Cole Magaña MD Monocytes (Bld) [#/Vol] 0.30 10*3/uL Normal 0.0-1.0 [facility] Comment on above: Performed By: #### C P, TSHX, CDP #### [facility] [address] [place] [address] [employer] Pulverizing Operator: Cole Magaña MD Monocytes/100 WBC (Bld) 5 % Normal 4-8 [facility] Comment on above: Performed By: #### C P, TSHX, CDP #### [facility] [address] [place] [address] [employer] Pul[employer] Operator: Cole Magaña MD Neutrophil (Seg) 53 % Normal 47-75 [facility] Comment on above: Performed By: #### C P, TSHX, CDP #### [facility] [address] [place] [address] [employer] Pulverizing Operator: Cole Magaña MD Platelets (Bld) [#/Vol] 330 10*3/uL Normal 140-450 [facility] Comment on above: Performed By: #### C P, TSHX, CDP #### [facility] [address] [place] [address] [employer] Pul[employer]izing Operator: Cole Magaña MD RBC (Bld) [#/Vol] 4.55 10*6/uL Normal 4.0-5.2 [facility] Comment on above: Performed By: #### C P, TSHX, CDP #### [facility] [address] [place] [address] [employer] Pulverizing Operator: Cole Magaña MD WBC (Bld) [#/Vol] 5.6 10*3/uL Normal 3.5-11.0 [facility] Comment on above: Performed By: #### C P, TSHX, CDP #### [facility] [address] [place] [address] Coal Pulverizing Operator: Cole Magaña MD Comp Metabolic Profon 2022 Albumin [Mass/Vol] 4.6 g/dL Normal 3.5-5.2 [facility] Comment on above: Performed By: #### C P, TSHX, CDP #### [facility] [address] [place], [place] [phone] Coal Pul[employer]izing Operator: Cole Magaña MD Alkaline Phos 69 U/L Normal 35-104 [facility] Comment on above: Performed By: #### C P, TSHX, CDP #### [facility] [address] [place], [place] [phone] [employer] Pul[employer] Operator: Cole Magaña MD ALT [Catalytic activity/Vol] 11 U/L Normal 5-33 [facility] Comment on above: Performed By: #### C P, TSHX, CDP #### [facility] [address] [place], [place] [phone] [employer] Pul[employer] Operator: Cole Magaña MD Anion gap [Moles/Vol] 7 mmol/L Low 9-17 [facility] Comment on above: Performed By: #### C P, TSHX, CDP #### [facility] [address] [place], [place] [phone] [employer] Pulverizing Operator: Cole Magaña MD AST [Catalytic activity/Vol] 13 U/L Normal <32 [facility] Comment on above: Performed By: #### C P, TSHX, CDP #### [facility] [address] [place], [place] [phone] [employer] Pulverizing Operator: Cole Magaña MD Bilirubin [Mass/Vol] 0.8 mg/dL Normal 0.3-1.2 [facility] Comment on above: Performed By: #### C P, TSHX, CDP #### [facility] [address] [place], [place] [phone] [employer] Pulverizing Operator: Cole Magaña MD BUN/CRE Ratio 23 High 9-20 [facility] Comment on above: Performed By: #### C P, TSHX, CDP #### [facility] [address] [place], [place] [phone] [employer] Pul[employer]izing Operator: Cole Magaña MD Calcium [Mass/Vol] 9.4 mg/dL Normal 8.6-10.4 [facility] Comment on above: Performed By: #### C P, TSHX, CDP #### [facility] [address] [place], [place] [phone] [employer] Pul[employer] Operator: Cole Magaña MD Chloride [Moles/Vol] 109 mmol/L High 98-107 [facility] Comment on above: Performed By: #### C P, TSHX, CDP #### [facility] [address] [place], [place] [phone] [employer] Pul[employer] Operator: Cole Magaña MD CO2 [Moles/Vol] 28 mmol/L Normal 20-31 [facility] Comment on above: Performed By: #### C P, TSHX, CDP #### [facility] [address] [place] [address] [employer] Pul[employer]izing Operator: Cole Magaña MD Creatinine [Mass/Vol] 0.48 mg/dL Low 0.50-0.90 [facility] Comment on above: Performed By: #### C P, TSHX, CDP #### [facility] [address] [place], [place] [phone] [employer] Operator: Cole Magaña MD GFR/1.73 sq M.predicted among non-blacks MDRD (S/P/Bld) [Vol rate/Area] mL/min/{1.73_m2} Normal >60 [facility] Comment on above: Result Comment: Effective [...] #### C P, TSHX, CDP #### [facility] [address] [place], [place] [phone] [employer] Pulverizing Operator: Cole Magaña MD Glucose [Mass/Vol] 88 mg/dL Normal 70-99 [facility] Comment on above: Performed By: #### C P, TSHX, CDP #### [facility] [address] [place] [phone] [employer] Pul[employer] Operator: Cole Magaña MD Potassium [Moles/Vol] 4.0 mmol/L Normal 3.7-5.3 [facility] Comment on above: Performed By: #### C P, TSHX, CDP #### [facility] [address] [place] [address] [employer] Pulverizing Operator: Cole Magaña MD Protein [Mass/Vol] 7.5 g/dL Normal 6.4-8.3 [facility] Comment on above: Performed By: #### C P, TSHX, CDP #### [facility] [address] [place] [address] [employer] Pulverizing Operator: Cole Magaña MD Sodium [Moles/Vol] 144 mmol/L Normal 135-144 [facility] Comment on above: Performed By: #### C P, TSHX, CDP #### [facility] [address] [place] [phone] [employer] Pulverizing Operator: Cole Magaña MD Urea nitrogen [Mass/Vol] 11 mg/dL Normal 6-20 [facility] Comment on above: Performed By: #### C P, TSHX, CDP #### [facility] [address] [place] [address] [employer] Pulverizing Operator: Cole Magaña MD TSH w/reflex to FT4on 2022 Thyroid Stim. Horm. 0.93 uIU/mL Normal 0.30-5.00 [facility] Comment on above: Performed By: #### C P, TSHX, CDP #### [facility] [address] [place] [phone] [employer] Pul[employer] Operator: Cole Magaña MD Food, Comprehensiveon 2022 Barley IgE <0.10 Normal 0.00-0.34 [facility] Comment on above: Performed By: #### I FOODC #### [address] [address] Coal Pulverizing Operator: Gurpreet Wei MD Beef IgE <0.10 Normal 0.00-0.34 [facility] Comment on above: Performed By: #### I FOODC #### [address] [address] Coal Pulverizing Operator: Gurpreet Wei MD Cabbage IgE <0.10 Normal 0.00-0.34 [facility] Comment on above: Performed By: #### I FOODC #### [address] [address] [employer] Pulverizing Operator: Gurpreet Wei MD Carrot IgE <0.10 Normal 0.00-0.34 [facility] Comment on above: Performed By: #### I FOODC #### [address] [address] Coal Pulverizing Operator: Gurpreet Wei MD Chicken IgE <0.10 Normal 0.00-0.34 [facility] Comment on above: Performed By: #### I FOODC #### [address] [address] Coal Pulverizing Operator: Gurpreet Wei MD Codfish IgE <0.10 Normal 0.00-0.34 [facility] Comment on above: Performed By: #### I FOODC #### [address] [address] Coal Pulverizing Operator: Gurpreet Wei MD [place] IgE <0.10 Normal 0.00-0.34 [facility] Comment on above: Performed By: #### I FOODC #### [address] [address] Coal Pulverizing Operator: Gurpreet Wei MD Crab IgE <0.10 Normal 0.00-0.34 [facility] Comment on above: Performed By: #### I FOODC #### [address] [address] [employer] Operator: Gurpreet Wei MD Egg White IgE <0.10 Normal 0.00-0.34 [facility] Comment on above: Performed By: #### I FOODC #### [address] [address] Coal Pulverizing Operator: Gurpreet Wei MD Grape IgE <0.10 Normal 0.00-0.34 [facility] Comment on above: Performed By: #### I FOODC #### [address] [address] Coal Pulverizing Operator: Gurpreet Wei MD Lettuce IgE <0.10 Normal 0.00-0.34 [facility] Comment on above: Performed By: #### I FOODC #### [address] [address] [employer] Operator: Gurpreet Wei MD Milk (Cow) IgE <0.10 Normal 0.00-0.34 [facility] Comment on above: Performed By: #### I FOODC #### [address] [address] Coal Pulverizing Operator: Gurpreet Wei MD [place] Puri IgE <0.10 Normal 0.00-0.34 [facility] Comment on above: Performed By: #### I FOODC #### [address] [address] Coal Pulverizing Operator: Gurpreet Wei MD Oat IgE <0.10 Normal 0.00-0.34 [facility] Comment on above: Performed By: #### I FOODC #### [address] [address] Coal Pulverizing Operator: Gurpreet Wei MD [place] IgE <0.10 Normal 0.00-0.34 [facility] Comment on above: Performed By: #### I FOODC #### [address] [address] [employer] Pulverizing Operator: Gurpreet Wei MD Peanut IgE <0.10 Normal 0.00-0.34 [facility] Comment on above: Performed By: #### I FOODC #### [address] [address] Coal Pulverizing Operator: Gurpreet Wei MD Pepper C. annuum IgE <0.10 Normal 0.00-0.34 [facility] Comment on above: Performed By: #### I FOODC #### [address] [address] Coal Pulverizing Operator: Gurpreet Wei MD Pork IgE <0.10 Normal 0.00-0.34 [facility] Comment on above: Performed By: #### I FOODC #### [address] [address] Coal Pulverizing Operator: Gurpreet Wei MD Potato IgE <0.10 Normal 0.00-0.34 [facility] Comment on above: Performed By: #### I FOODC #### [address] [address] Coal Pulverizing Operator: Gurpreet Wei MD Rice IgE <0.10 Normal 0.00-0.34 [facility] Comment on above: Performed By: #### I FOODC #### [address] [address] Coal Pulverizing Operator: Gurpreet Wei MD [place] IgE <0.10 Normal 0.00-0.34 [facility] Comment on above: Performed By: #### I FOODC #### [address] [address] Coal Pulverizing Operator: Gurpreet Wei MD Shrimp IgE <0.10 Normal 0.00-0.34 [facility] Comment on above: Performed By: #### I FOODC #### [facility] [employer] [address] [place] [phone] Coal Pulverizing Operator: Gurpreet Wei MD Soybean IgE <0.10 Normal 0.00-0.34 [facility] Comment on above: Performed By: #### I FOODC #### [employer] [address] [place] [address] [phone] Coal Pulverizing Operator: Gurpreet Wei MD Tomato IgE <0.10 Normal 0.00-0.34 [facility] Comment on above: Performed By: #### I FOODC #### [employer] [address] [place] [phone] Coal Pul[employer]izing Operator: Gurpreet Wei MD Tuna IgE <0.10 Normal 0.00-0.34 [facility] Comment on above: Performed By: #### I FOODC #### [facility] [address] [phone] Coal Pulverizing Operator: Gurpreet Wei MD Wheat IgE <0.10 Normal 0.00-0.34 [facility] Comment on above: Result Comment: ALLERGEN, [...] anaphylaxis. Performed By: #### I FOODC #### [employer] [address] [place] [phone] Coal Pulverizing Operator: Gurpreet Wei MD Immunoglobulin E 4 IU/mL Normal <101 [facility] Comment on above: Performed By: #### I FOODC #### [facility] [address] [place] [address] Coal Pulverizing Operator: MD Warren Almazan 03-29-2021 [facility] Telephone (OBGYF2) CHAPIS EVANS ([id number]) 1995 F Date Time Provider Department 03/29/21 [facility] OBGYF2 During your visit today, we recorded the following information about you: Latonya Mchugh RN 03/29/2021 9:48 AM Signed NIPT results received from Dr. Patricia Theodore' office. Results in scanned docs. Latonya Mchugh RN [facility] Allergies As of Date: 03/29/2021 Noted [...] Status:Closed by LATONYA MCHUGH RN on 03/29/21 [facility] 03-22-2021 [facility] Telephone (OBGYLW) CHAPIS EVANS ([id number]) 1995 F Date Time Provider Department 03/22/21 [facility] OBGYLW During your visit today, we recorded the following information about you: Latonya Mchugh RN 03/22/2021 1:41 PM Signed Informed pt that call was regarding scheduling US and consult as requested by Dr. Patricia Theodore at [facility] for bilateral pyelectasis and polyhydramnios. Pt verbalizes understanding and wishes to proceed with scheduling. , pt denies any current medical conditions. Current meds: PNV. Pt had NIPT testing done 03/20, results still pending. Will follow up with Dr. Patricia Theoodre office early next week for results. There are no upcoming appts at in the next couple of days. Offered appt at [place] on 03/30 at 2:45pm. One full hour allotted for US and consult. Pt accepts, front staff notified to schedule. Advised pt that she may bring two support persons age 16+ and both must wear masks. She verbalizes understanding and has no additional questions at this time. Latonya Mchugh RN [facility] Allergies As of Date: 03/22/2021 Noted [...] by LATONYA MCHUGH RN on 03/22/21 Normal [facility] HCG, Quantitative, on 10-03-2020 hCG Quant 04019 High <5 IU/L [employer] Phone: Comment on above: Non-preg premeno <=5 Postmeno <=8 Male <=3 If HCG results do not concur with clinical observations, additional testing to confirm results is recommended. Elevated results not associated with may be found in patients with other diseases such as tumors of the germ cells (testis, ovaries, etc.), bladder, pancreas, stomach, lungs, and liver. Interpretation and review of laboratory results Abnormal [employer] Phone: CBC With Auto Differentialon 09-28-2020 Basophils (Bld) [#/Vol] 0.10 10*3/uL [employer] Phone: Basophils/100 WBC (Bld) 1 % 0 - 2 % [facility] [employer] Phone: Differential Type YES [employer] Work Phone: Eosinophils (Bld) [#/Vol] 0.10 10*3/uL [employer] Phone: Eosinophils/100 WBC (Bld) 1 % 0 - 5 % [employer] Phone: Erythrocyte distribution width (RBC) [Ratio] 13.9 % 12.1 - 15.2 % [employer] Phone: Hematocrit (Bld) [Volume fraction] 39.4 % 36 - 46 % [employer] Phone: Hemoglobin (Bld) [Mass/Vol] 13.7 g/dL 12.0 - 16.0 g/dL [employer] Phone: Lymphocytes (Bld) [#/Vol] 3.20 10*3/uL [employer] Phone: Lymphocytes/100 WBC (Bld) 35 % 15 - 40 % [employer] Phone: MCH (RBC) [Entitic mass] 30.1 pg 26 - 34 pg [employer] Phone: MCHC (RBC) [Mass/Vol] 34.8 g/dL 31 - 37 g/dL [facility] [employer] [facility] Phone: MCV (RBC) [Entitic vol] 86.5 fL 80 - 100 fL [employer] Phone: Monocytes (Bld) [#/Vol] 0.50 10*3/uL [employer] Phone: Monocytes/100 WBC (Bld) 6 % 4 - 8 % [facility] [employer] [facility] Phone: Platelet mean volume (Bld) [Entitic vol] NOT REPORTED 6.0 - 12.0 fL [employer] Phone: Platelets (Bld) [#/Vol] 418 10*3/uL [employer] Phone: Platelets (Bld) [#/Vol] NOT REPORTED [employer] Phone: RBC (Bld) [#/Vol] 4.56 10*6/uL 4.0 - 5.2 m/uL [employer] Phone: RBC morphology finding Nom (Bld) NOT REPORTED [employer] Phone: Segmented neutrophils/100 WBC (Bld) 57 % 47 - 75 % [employer] Phone: Segs Absolute 5.[employer] Work Phone: WBC (Bld) [#/Vol] 9.1 10*3/uL [employer] Phone: WBC (Bld) [#/Vol] NOT REPORTED per 100 WBC [facility] [employer] Phone: WBC Morphology NOT REPORTED [employer] Phone: Otheron 09-28-2020 Immature granulocytes (Bld) [#/Vol] NOT REPORTED [facility] Phone: Specimen Rejectionon 021 Reason for rejection Unable to perform testing: Specimen not processed correctly. [facility] Comment on above: Performed By: #### R EJEC #### [address] [phone] Coal Pulverizing Operator: Gurpreet Wei MD Source of sample TWO SWABS IN CONTAINER [facility] Comment on above: Performed By: #### R EJEC #### [facility] [employer] [address] [place] [address] Coal Pulverizing Operator: Gurpreet Wei MD Test ordered [facility] Comment on above: Performed By: #### R EJEC #### [address] [phone] [employer]izing Operator: Gurpreet Wei MD hCG, Quantitative, on 09-28-2020 hCG Quant 2027 High <5 IU/L [facility] [employer] Phone: Comment on above: Non-preg premeno <=5 Postmeno <=8 Male <=3 If HCG results do not concur with clinical observations, additional testing to confirm results is recommended. Elevated results not associated with may be found in patients with other diseases such as tumors of the germ cells (testis, ovaries, etc.), bladder, pancreas, stomach, lungs, and liver. Interpretation and review of laboratory results Abnormal [facility] Phone: CBC with Diffon 09-27-2020 Abs. Basophil 0.05 k/uL Normal 0.00-0.20 [facility] Comment on above: Performed By: #### C DP #### [facility] [address] [place] [address] Coal Pulverizing Operator: Cole Magaña MD Abs.Imm.Granulocyte 0.03 k/uL Normal 0.00-0.30 [facility] Comment on above: Performed By: #### C DP #### [address] [place], [facility]83 Coal Pul[employer]izing Operator: Cole Magaña MD Abs.Neutrophil (Seg) 6.02 k/uL Normal 1.50-8.10 [facility] Comment on above: Performed By: #### C DP #### [address] [place] [address] Coal Pulverizing Operator: Cole Magaña MD Basophils/100 WBC (Bld) 1 % Normal 0-2 [facility] Comment on above: Performed By: #### C DP #### [address] [place], [facility]83 Coal Pul[employer]izing Operator: Cole Magaña MD Eosinophils (Bld) [#/Vol] 0.10 10*3/uL Normal 0.00-0.44 [facility] Comment on above: Performed By: #### C DP #### [address] [place], [facility]83 Coal [employer]izing Operator: Cole Magaña MD Eosinophils/100 WBC (Bld) 1 % Normal 1-4 [facility] Comment on above: Performed By: #### C DP #### [address] [place], [facility]83 Coal Pulverizing Operator: Cole Magaña MD Erythrocyte distribution width (RBC) [Ratio] 13.4 % Normal 11.8-14.4 [facility] Comment on above: Performed By: #### C DP #### [address] [place], [facility]83 Coal Pulverizing Operator: Cole Magaña MD Hematocrit (Bld) [Volume fraction] 39.3 % Normal 36.3-47.1 [facility] Comment on above: Performed By: #### C DP #### [facility] [address] [place], [place] [address] Coal Pulverizing Operator: Cole Magaña MD Hemoglobin (Bld) [Mass/Vol] 14.0 g/dL Normal 11.9-15.1 [facility] Comment on above: Performed By: #### C DP #### [facility] [address] [place], [place] [address] Coal Pulverizing Operator: Cole Magaña MD Immature granulocytes (Bld) [#/Vol] 0 % Normal 0 [facility] Comment on above: Performed By: #### C DP #### [address] [place], [facility]83 Coal Pulverizing Operator: Cole Magaña MD Lymphocytes (Bld) [#/Vol] 4.01 10*3/uL High 1.10-3.70 [facility] Comment on above: Performed By: #### C DP #### [address] [place], [facility]83 Coal Pulverizing Operator: Cole Magaña MD Lymphocytes/100 WBC (Bld) 37 % Normal 24-43 [facility] Comment on above: Performed By: #### C DP #### [facility] [address] [place] [address] [place], [place] [address] Coal Pulverizing Operator: Cole Magaña MD MCH (RBC) [Entitic mass] 30.0 pg Normal 25.2-33.5 [facility] Comment on above: Performed By: #### C DP #### [facility] [address] [place] [address] [place], [facility]83 Coal Pulverizing Operator: Cole Magaña MD MCHC (RBC) [Mass/Vol] 35.6 g/dL High 28.4-34.8 [facility] Comment on above: Performed By: #### C DP #### [facility] [address] [place] [address] Coal Pulverizing Operator: Cole Magaña MD MCV (RBC) [Entitic vol] 84.2 fL Normal 82.6-102.9 [facility] Comment on above: Performed By: #### C DP #### [facility] [address] [place] [address] Coal Pulverizing Operator: Cole Magaña MD Monocytes (Bld) [#/Vol] 0.60 10*3/uL Normal 0.10-1.20 [facility] Comment on above: Performed By: #### C DP #### [address] [place], [place] [id number] Coal Pulverizing Operator: Cole Magaña MD Monocytes/100 WBC (Bld) 6 % Normal 3-12 [facility] Comment on above: Performed By: #### C DP #### [address] [place], [place] [id number] Coal Pulverizing Operator: Cole Magaña MD Neutrophil (Seg) 55 % Normal 36-65 [facility] Comment on above: Performed By: #### C DP #### [address] [place], [place] [id number] Coal Pulverizing Operator: Cole Magaña MD NRBC Automated 0.0 per 100 WBC Normal 0.0 [facility] Comment on above: Performed By: #### C DP #### [address] [place], [place] [id number] Coal Pulverizing Operator: Cole Magaña MD Platelet mean volume (Bld) [Entitic vol] 9.5 fL Normal 8.1-13.5 [facility] Comment on above: Performed By: #### C DP #### [address] [place], [place] [id number] Coal Pulverizing Operator: Cole Magaña MD Platelets (Bld) [#/Vol] 414 10*3/uL Normal 138-453 [facility] Comment on above: Performed By: #### C DP #### [facility] [address] [place], [place] [id number] Coal Pulverizing Operator: Cole Magaña MD RBC (Bld) [#/Vol] 4.67 10*6/uL Normal 3.95-5.11 [facility] Comment on above: Performed By: #### C DP #### [facility] [address] [place], [place] [id number] Coal Pulverizing Operator: Cole Magaña MD WBC (Bld) [#/Vol] 10.8 10*3/uL Normal 3.5-11.3 [facility] Comment on above: Performed By: #### C DP #### [facility] [address] [place], [place] [id number] Coal Pulverizing Operator: Cole Magaña MD Auto Diff Performed NOT REPORTED Normal [facility] Comment on above: Performed By: #### C DP #### [facility] [address] [place], [place] [id number] Coal Pulverizing Operator: Cole Magaña MD Platelets (Bld) [#/Vol] NOT REPORTED Normal [facility] Comment on above: Performed By: #### C DP #### [facility] [address] [place], [place] 4708[address] Coal Pulverizing Operator: Cole Magaña MD RBC morphology finding Nom (Bld) NOT REPORTED Normal [facility] Comment on above: Performed By: #### C DP #### [facility] [address] [place], [place] [id number] Coal Pulverizing Operator: Cole Magaña MD WBC Morphology NOT REPORTED Normal [facility] Comment on above: Performed By: #### C DP #### [facility] [address] [place], [place] [address]83 Coal Pulverizing Operator: Cole Magaña MD RHIG, Transfuseon 09-27-2020 RHIG, Transfuse Unit Number [id number]/ [id number] Blood Component Type RHIG Unit Division 00 Status of Unit TRANSFUSED Transfusion Status OK TO TRANSFUSE Normal [facility] Comment on above: Performed By: #### T RHIG #### [facility] [address] [place] [address] Coal Pulverizing Operator: Cole Magaña MD Type + Screenon 09-27-2020 Type + Screen Sample Expiration 09/29/2020,2359 Arm Band Number [id number] ABO/Rh(D) A NEGATIVE Antibody Screen NEGATIVE Normal [facility] Comment on above: Performed By: #### T YS #### [facility] [address] [place] [address] Coal Pulverizing Operator: Cole Magaña MD CBC Auto Differentialon 09-06 Basophils (Bld) [#/Vol] 0.05 10*3/uL [employer] Phone: Basophils/100 WBC (Bld) 1 % 0 - 2 % [facility] Phone: Differential Type NOT REPORTED [employer] Phone: Eosinophils (Bld) [#/Vol] 0.10 10*3/uL [employer] Phone: Eosinophils/100 WBC (Bld) 1 % 1 - 4 % [employer] Phone: Erythrocyte distribution width (RBC) [Ratio] 13.4 % 11.8 - 14.4 % [employer] Phone: Hematocrit (Bld) [Volume fraction] 39.3 % 36.3 - 47.1 % [employer] Phone: Hemoglobin (Bld) [Mass/Vol] 14.0 g/dL 11.9 - 15.1 g/dL [employer] Phone: Immature granulocytes (Bld) [#/Vol] 0.03 10*3/uL [employer] Phone: Immature granulocytes (Bld) [#/Vol] 0 % 0 [employer] Phone: Interpretation and review of laboratory results Abnormal [employer] Phone: Lymphocytes (Bld) [#/Vol] 4.01 10*3/uL High [employer] Phone: Lymphocytes/100 WBC (Bld) 37 % 24 - 43 % [employer] Phone: MCH (RBC) [Entitic mass] 30.0 pg 25.2 - 33.5 pg [employer] Phone: MCHC (RBC) [Mass/Vol] 35.6 g/dL High 28.4 - 34.8 g/dL [employer] Phone: MCV (RBC) [Entitic vol] 84.2 fL 82.6 - 102.9 fL [employer] Phone: Monocytes (Bld) [#/Vol] 0.60 10*3/uL [employer] Phone: Monocytes/100 WBC (Bld) 6 % 3 - 12 % [facility] Phone: Platelet mean volume (Bld) [Entitic vol] 9.5 fL 8.1 - 13.5 fL [employer] Phone: Platelets (Bld) [#/Vol] 414 10*3/uL [employer] Phone: Platelets (Bld) [#/Vol] NOT REPORTED [employer] Phone: RBC (Bld) [#/Vol] 4.67 10*6/uL 3.95 - 5.1 1 m/uL [employer] Phone: RBC morphology finding Nom (Bld) NOT REPORTED [employer] Phone: Segmented neutrophils/100 WBC (Bld) 55 % 36 - 65 % [employer] Phone: Segs Absolute 6.02 [facility] Work Phone: WBC (Bld) [#/Vol] 0.0 10*3/uL 0.0 per 10 0 WBC [facility] [employer] Work Phone: WBC (Bld) [#/Vol] 10.8 10*3/uL [facility] [employer] Work Phone: WBC Morphology NOT REPORTED [facility] Work Phone: Basophils (Bld) [#/Vol] 0.00 10*3/uL [facility] [employer] Work Phone: Basophils/100 WBC (Bld) 0 % 0 - 2 % M [facility] [employer] Work Phone: Differential Type YES [facility] Work Phone: Eosinophils (Bld) [#/Vol] 0.10 10*3/uL [facility]Hand[facility] Work Phone: Eosinophils/100 WBC (Bld) 1 % 0 - 5 % [facility] [employer] Phone: Erythrocyte distribution width (RBC) [Ratio] 15.0 % 12.1 - 15.2 % [facility] Phone: Hematocrit (Bld) [Volume fraction] 40.7 % 36 - 46 % [facility] Phone: Hemoglobin (Bld) [Mass/Vol] 14.2 g/dL 12.0 - 16.0 g/dL [facility] Phone: Lymphocytes (Bld) [#/Vol] 3.20 10*3/uL [facility] Phone: Lymphocytes/100 WBC (Bld) 29 % 15 - 40 % [facility] [employer] Phone: MCH (RBC) [Entitic mass] 30.3 pg 26 - 34 pg [facility] Phone: MCHC (RBC) [Mass/Vol] 34.8 g/dL 31 - 37 g/dL M [employer] Work Phone: MCV (RBC) [Entitic vol] 86.9 fL 80 - 100 fL [employer] Work Phone: Monocytes (Bld) [#/Vol] 0.60 10*3/uL [employer] Phone: Monocytes/100 WBC (Bld) 6 % 4 - 8 % M [employer] Work Phone: Platelet mean volume (Bld) [Entitic vol] NOT REPORTED 6.0 - 12.0 fL [employer] Phone: Platelets (Bld) [#/Vol] NOT REPORTED [employer] Phone: Platelets (Bld) [#/Vol] 429 10*3/uL [employer] Phone: RBC (Bld) [#/Vol] 4.69 10*6/uL 4.0 - 5.2 m/uL [employer] Work Phone: RBC morphology finding Nom (Bld) NOT REPORTED [employer] Phone: Segmented neutrophils/100 WBC (Bld) 64 % 47 - 75 % [employer] Work Phone: Segs Absolute 6.80 [employer] [facility] Work Phone: WBC (Bld) [#/Vol] 10.7 10*3/uL [employer] Work Phone: WBC (Bld) [#/Vol] NOT REPORTED per 100 WBC [employer] Work Phone: WBC Morphology NOT REPORTED [employer] [facility] Work Phone: Microscopic Urinalysison Amorphous, UA NOT REPORTED None [employer] Work Phone: Bacteria, UA NOT REPORTED None [employer] Work Phone: Casts UA NOT REPORTED /LPF [employer] Work Phone: Crystals, UA NOT REPORTED None /HPF [employer] [facility] Work Phone: Epithelial Cells UA 0 TO 2 /HPF [facility] Work Phone: Mucus, UA NOT REPORTED None [facility] Work Phone: Other Observations UA NOT REPORTED NOT REQ. M [facility] [employer] Work Phone: RBC (U) [#/Vol] 0 TO 2 [employer] [facility] Work Phone: Renal Epithelial, UA NOT REPORTED 0 /HPF [facility] [employer] Work Phone: Trichomonas, UA NOT REPORTED None [facility] Work Phone: WBC, UA NOT REPORTED 0 /HPF [facility] Work Phone: Yeast, UA NOT REPORTED None [employer] Work Phone: - [facility] Work Phone: Otheron 09-26-2020 With a positive test and no pole or gestational sac definitely identified, this is a of unknown location and a short-term follow-up ultrasound is recommended. [employer] Work Phone: EXAM: US OB LESS MEHNAZ [...] is no free fluid in the cul-de-sac. [employer] Phone: Agu[place], Mhpn Incoming Radiant Results From [employer] - 09/26/2020 7:00 PM EDT EXAM: US [...] and a short-term follow-up ultrasound is recommended. [employer] Phone: Immature granulocytes (Bld) [#/Vol] NOT REPORTED [employer] Phone: Specimen Rejectionon 021 ----- NOT REPORTED Normal [facility] Comment on above: Performed By: #### R EJEC #### [employer] [facility] [place] [address] Coal Pulverizing Operator: Gurpreet Wei MD TYPE AND SCREENon 09-26-2020 ABO/Rh Negative [employer] Phone: Arm Band Number [id number] [facility] North[facility] Work Phone: Expiration Date 09/29/2020,5083 [employer] Phone: Urinalysis Reflex to Culture on 09-26-2020 Bilirubin Urine Negative NEGATIVE [employer] [facility] Work Phone: Color, UA YELLOW YELLOW [facility] Phone: Glucose, Ur Negative NEGATIVE [facility] [employer] Phone: Interpretation and review of laboratory results Abnormal [employer] Phone: Ketones Ql (U) Negative NEGATIVE [facility] NorthBio[facility] Work Phone: Leukocyte esterase Test strip Ql (U) Negative NEGATIVE [facility] Work Phone: Nitrite, Urine Negative NEGATIVE [facility]Bio[facility] Work Phone: pH, UA 5.0 [facility] [employer] Work Phone: Protein (U) [Mass/Vol] Negative NEGATIVE [facility] [employer] Work Phone: Specific [place], UA 1.015 [facility] [employer] Work Phone: Turbidity UA CLEAR CLEAR [facility]Super[facility] Phone: Urinalysis Comments [facility]Super[facility] Phone: Urine Hgb TRACE Abnormal NEGATIVE [facility] Phone: Urobilinogen, Urine Normal Normal [facility] Phone: hCG, Quantitative, on 09-26-2020 hCG Quant 920 High <5 IU/L [employer] Phone: Comment on above: Non-preg premeno <=5 Postmeno <=8 Male <=3 If HCG results do not concur with clinical observations, additional testing to confirm results is recommended. Elevated results not associated with may be found in patients with other diseases such as tumors of the germ cells (testis, ovaries, etc.), bladder, pancreas, stomach, lungs, and liver. Interpretation and review of laboratory results Abnormal [employer] Phone: hCG, Serum, Qualitativeon hCG Qual Positive Abnormal NEGATIVE [facility] Phone: Comment on above: If HCG results do not concur with clinical observations, additional testing to confirm result is recommended. This test is not labeled for use as a tumor marker. [employer] has confirmed the use of plasma for this test. This has not been cleared or approved by the U.S. Food and Drug Administration. The FDA has determined that such clearance is not necessary. Interpretation and review of laboratory results Abnormal [facility] [employer] Work Phone: Glucose, Fastingon 0 Glucose [Mass/Vol] 94 mg/dL 70 - 99 mg/dL [place], [place] Lipid Panelon 02-16-2020 Cholesterol [Mass/Vol] 151 mg/dL <200 [place], [place] Comment on above: Cholesterol Guidelines: <200 Desirable 200-240 Borderline >240 Undesirable Cholesterol in HDL [Mass/Vol] 49 mg/dL >40 [place], [place] Comment on above: HDL Guidelines: <40 Undesirable 40-59 Borderline >59 Desirable Cholesterol in LDL [Mass/Vol] 96 mg/dL 0 - 130 mg/dL [place], [place] Comment on above: LDL Guidelines: <100 Desirable 100-129 Near to/above Desirable 130-159 Borderline >159 Undesirable Direct (measured) LDL and calculated LDL are not interchangeable tests. Cholesterol in VLDL [Mass/Vol] NOT REPORTED 1 - 30 mg/dL [place], [place] Cholesterol.total/Vivien sterol in HDL [Mass ratio] 3.1 {ratio} <5 [place], [place] Triglyceride [Mass/Vol] 32 mg/dL <150 M [place], [place] Comment on above: Triglyceride Guidelines: <150 Desirable 150-199 Borderline 200-499 High >499 Very high Based on AHA Guidelines for fasting triglyceride, April 2012. US NON OB TRANSVAGINALon 1. Mild pelvic free fluid in the cul-de-sac. 2. Normal sonographic morphology of the uterus and ovaries. [place], [place] PROCEDURE: US NON OB TRANSVAGINAL, 01/11/2020 [...] within ovarian tissue bilaterally without spectral evaluation. [employer], Mhpn Incoming Radiant Results From [employer] - 01/12/2020 8:08 AM EDT PROCEDURE: US [...] sonographic morphology of the uterus and ovaries. [employer] Vitamin D 25 Hydroxyon 01-10 Interpretation and review of laboratory results Abnormal [employer] Vit D, 25-Hydroxy 21.6 ng/mL Low 30 - 100 ng/mL [employer] Comment on above: Reference Range: Vitamin D status Range Deficiency <20 ng/mL Mild Deficiency 20-30 ng/mL Sufficiency 30-100 ng/mL Toxicity >100 ng/mL MRI BRAIN W WO CONTRASTOrder ed By: Eliane Vilchis on 07-29-2019 1. Unremarkable contrast enhanced brain MRI. No focal signal abnormality, mass effect or abnormal enhancement. 2. Mild mucosal thickening of the left frontal and bilateral maxillary sinuses. [employer] Phone: EXAM: MRI BRAIN W WO CONTRAST [...] air cells are clear. No abnormal enhancement. [employer] Phone: Aguila, pn Incoming Radiant Results From [employer] - 07/29/2019 4:55 PM EST EXAM: MRI [...] the left frontal and bilateral maxillary sinuses. [employer] Phone: Basic Metabolic Panel w/ Ref nora to MGOrdered By: Leonor Sandy on 07-10-2019 Anion gap [Moles/Vol] 13 mmol/L 9 - 17 mmol/L [employer] Phone: Bun/Cre Ratio 20 [employer] Work Phone: Calcium [Mass/Vol] 10.4 mg/dL 8.6 - 10. 4 mg/dL [employer] Work Phone: Chloride [Moles/Vol] 104 mmol/L 98 - 10 7 mmol/L [facility] Phone: CO2 [Moles/Vol] 22 mmol/L 20 - 31 mmol/L [employer] Phone: Creatinine [Mass/Vol] 0.5 mg/dL 0.5 - 0.9 mg/dL [employer] Phone: GFR >60 >60 mL/min [employer] Phone: GFR Comment [employer] Phone: Comment on above: Average GFR for 20-2 9 years old: 116 mL/min/1.73sq m Chronic Kidney Disease: <60 mL/min/1.73sq m Kidney failure: <15 mL/min/1.73sq m eGFR calculated using average adult body mass. Additional eGFR calculator available at: http://www.Curbed.com/multiple_crcl_2012.htm GFR Non- >60 >60 mL/min [facility] Phone: GFR Staging NOT REPORTED [facility] Work Phone: Glucose [Mass/Vol] 132 mg/dL High 70 - 99 mg/dL [facility] [employer] Work Phone: Interpretation and review of laboratory results Abnormal [facility] Phone: Potassium [Moles/Vol] 3.7 mmol/L 3.7 - 5.3 mmol/L [facility] Work Phone: Sodium [Moles/Vol] 139 mmol/L 135 - 144 mmol/L [employer] Work Phone: Urea nitrogen [Mass/Vol] 10 mg/dL 6 - 20 mg/dL [employer] Work Phone: CBC Auto DifferentialOrdered By: Leonor Sandy on 07-10-2019 Absolute Eos # 0.10 [employer] [facility] Work Phone: Absolute Immature Granulocyte NOT REPORTED [employer] Work Phone: Absolute Lymph # 2.70 [employer] [facility] Work Phone: Absolute [place] # 0.40 [employer] [facility] Work Phone: Basophils (Bld) [#/Vol] 0.00 10*3/uL [employer] Work Phone: Basophils/100 WBC (Bld) 0 % 0 - 2 % M [employer] Work Phone: Differential Type YES [facility] Work Phone: Eosinophils/100 WBC (Bld) 1 % 0 - 5 % [employer] Phone: Erythrocyte distribution width (RBC) [Ratio] 13.4 % 12.1 - 15.2 % [employer] Phone: Hematocrit (Bld) [Volume fraction] 43.6 % 36 - 46 % [employer] Work Phone: Hemoglobin (Bld) [Mass/Vol] 15.0 g/dL 12 - 16 g/dL [employer] Work Phone: Immature Granulocytes NOT REPORTED 0 % M [employer] Work Phone: Lymphocytes/100 WBC (Bld) 30 % 15 - 40 % [employer] Phone: MCH (RBC) [Entitic mass] 29.9 pg 26 - 34 pg [employer] Work Phone: MCHC (RBC) [Mass/Vol] 34.4 g/dL 31 - 37 g/dL M [facility] [employer] Work Phone: MCV (RBC) [Entitic vol] 86.8 fL 80 - 100 fL [facility] [employer] Work Phone: Monocytes/100 WBC (Bld) 4 % 4 - 8 % M [facility] [employer] Work Phone: MPV NOT REPORTED 6 - 12 fL [facility] [employer] Work Phone: NRBC Automated NOT REPORTED per 100 WBC [facility] [email or web address] Work Phone: Platelet Estimate NOT REPORTED [facility] [employer] Work Phone: Platelets (Bld) [#/Vol] 395 10*3/uL [facility] [employer] Work Phone: RBC (Bld) [#/Vol] 5.02 10*6/uL 4 - 5.2 m/uL [facility] [employer] Work Phone: RBC morphology finding Nom (Bld) NOT REPORTED [facility] [employer] Work Phone: Segmented neutrophils/100 WBC (Bld) 65 % 47 - 75 % [facility] [employer] Work Phone: Segs Absolute 5.80 [facility] Work Phone: WBC (Bld) [#/Vol] 8.9 10*3/uL [facility] [employer] Work Phone: WBC Morphology NOT REPORTED [facility] Work Phone: CT Head WO ContrastOrdered B y: Leonor Sandy on 07-10-[address] brain[address] [employer] alth Work Phone: EXAMINATION: CT HEAD WO [...] sagittal multiplanar reconstructions show no additional abnormality. [employer] Phone: Aguila, Mhpn Incoming Radiant Results From [employer] - 07/10/2019 6:04 PM EST EXAMINATION: CT [...] no additional abnormality. IMPRESSION: Normal CT brain. [employer] Phone: Glucose, Whole BloodOrdered By: Leonor Sandy on 07-10-2019 Glucose [Mass/Vol] 98 mg/dL 65 - 99 mg/dL [facility] [employer] Work Phone: POCT glucoseOrdered By: Nathaly Sandy on 07-10-2019 Glucose [Mass/Vol] 98 mg/dL [facility] Phone: Interpretation and review of laboratory results Normal [facility] Phone: QC OK? yes [facility] [employer] Phone: , UrineOrdered By: Leonor Sandy on 07-10-2019 Beta HCG ( test) Ql (U) Negative NEGATIVE [facility]Hand[facility] Work Phone: Urinalysis, reflex to micros copicOrdered By: Leonor Sandy on 07-10-2019 Bilirubin Urine Negative NEGATIVE [facility] Work Phone: Color, UA YELLOW YELLOW [facility] Phone: Glucose, Ur Negative NEGATIVE [facility] [employer] Work Phone: Ketones Ql (U) Negative NEGATIVE [employer] Work Phone: Leukocyte esterase Test strip Ql (U) Negative NEGATIVE [employer] Phone: Nitrite, Urine Negative NEGATIVE [employer] Work Phone: pH, UA 6.5 [employer] Phone: Protein, UA Negative NEGATIVE [employer] Phone: Specific [place], UA 1.010 [employer] Phone: Turbidity UA CLEAR CLEAR [employer] Phone: Urinalysis Comments [employer] Phone: Urine Hgb Negative NEGATIVE [employer] Phone: Urobilinogen, Urine Normal Normal [employer] Phone: [facility] Repor ton 06-12-2017 [facility] Report Type: OrthopedicDictated by: To be signed by: Transcribed by: Transcribed D/ Dictation D/ Report: May 07, 2017 RE: Chapis Nation is here today with chief complaint of right hand pain. She has been having this now for a few months. 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 Normal [facility] Radiologyon 06-12-2017 Radiology Type: OutpatientDictated by: Signed by: Transcribed by: Transcribed Date/Time: 05/10/2017 12:19Dictation Date/Time: 05/07/2017 17:31Report: DATE OF SERVICE: 05/07/2017 DIAGNOSTIC STUDIES/INTERPRETATION S/IMPRESSIONS: Radiographs AP and lateral projections of her hands bilaterally demonstrate no fracture, dislocation, or other bony abnormality. Normal [facility] Vital Signs Date Time Vital Sign Value Performing Clinician Faci lity 09-27-2020 01:25-0400 BP Diastolic 78 mm[Hg] [facility] Work Phone: 09-27-2020 01:25-0400 BP Systolic 131 mm[Hg] [facility] Work Phone: 09-27-2020 01:25-0400 Pulse (Heart Rate) 99 /min [facility] Work Phone: 09-27-2020 01:25-0400 Pulse Oximetry 99 % [facility] Work Phone: 09-26-2020 21:16-0400 BMI (Body Mass Index) 25.82 kg/m2 [facility] [employer] Work Phone: 09-26-2020 21:16-0400 Body Temperature 99.1 [degF] [facility] Work Phone: 09-26-2020 21:16-0400 Body weight 72.58 kg Jeremiah Mcnair [employer] Work Phone: 09-26-2020 21:16-0400 Respiratory Rate 16 /min Jeremiah Mcnair [employer] Work Phone: 07-10-2019 21:26-0500 Diastolic blood pressure 88 mm[Hg] Leonor Sandy MD Work Phone: [employer] Work Phone: 07-10-2019 21:26-0500 Heart rate 77 /min Leonor Sandy MD Work Phone: [employer] Work Phone: 07-10-2019 21:26-0500 Respiratory rate 18 /min Leonor Sandy MD Work Phone: [employer] Work Phone: 07-10-2019 21:26-0500 SaO2% (BldA) [Mass fraction] 100 % Leonor Sandy MD Work Phone: [employer] Work Phone: 07-10-2019 21:26-0500 Systolic blood pressure 127 mm[Hg] Leonor Sandy MD Work Phone: [employer] Work Phone: 07-10-2019 16:53-0500 Body height 167.6 cm Leonor Sandy MD Work Phone: [employer] Work Phone: 07-10-2019 16:53-0500 Body mass index (BMI) [Ratio] 25.02 kg/m2 Leonor Sandy MD Work Phone: [employer] Work Phone: 07-10-2019 16:53-0500 Body temperature 98.29 [degF] Leonor Sandy MD Work Phone: [employer] Work Phone: 07-10-2019 16:53-0500 Body weight 70.31 kg Leonor Sandy MD Work Phone: [facility] Work Phone: Encounters Encounter Date Encounter Type Care Provider Facility Start: 03-02-2024 End: 03-02-2024 ambulatory SHANNAN DAVID Not Available Start: 07-23-2023 End: 07-23-2023 ambulatory SHANNAN DAVID Not Available Start: 06-13-2023 End: 06-13-2023 ambulatory SHANNAN DAVID Not Available Start: 04-30-2023 ambulatory DO Chris Kelley Fac ility:[facility] Start: 11-27-2022 End: 11-28-2022 ambulatory Wero Britton Facility:[facility] Start: 07-23-2022 End: 07-24-2022 ambulatory [facility] Jhoana [facility] Start: 07-16-2022 End: 07-17-2022 ambulatory YOLANDA [facility] Start: 07-16-2022 End: 07-16-2022 Subsequent hospital visit by physician Fiorella Abarca DO Work Phone: [facility] Laboratory Comment on above: Urticaria Start: 05-01-2022 End: 07-31-2022 ambulatory Cuco Oneal Facility:[facility] Start: 05-28-2021 End: 05-28-2021 ambulatory Mary Brown Facility:[facility] Start: 10-03-2020 End: 10-03-2020 Subsequent hospital visit by physician Fiorella [facility] Start: 09-28-2020 End: 09-28-2020 Subsequent hospital visit by physician Fiorella Abarca [facility] Laboratory Comment on above: Less than 8 weeks ge station of ; Pelvic pain Start: 09-26-2020 End: 09-27-2020 Emergency department patient visit [facility] Jhoana [facility] Start: 09-26-2020 End: 09-27-2020 Emergency department patient visit Jeremiah Mcnair Work Phone: [facility] ED Comment on above: Abdominal pain durin g in first trimester (Primary Dx) Start: 09-26-2020 End: 09-28-2020 Subsequent hospital visit by physician [facility] Ultrasound Room [facility] Laboratory Comment on above: Pelvic pain in femal e; Less than 8 weeks gestation of Start: 02-16-2020 End: 02-16-2020 Subsequent hospital visit by physician Fiorella Abarca [facility] Laboratory Comment on above: Screening for cardio vascular condition Start: 01-11-2020 End: 01-13-2020 Subsequent hospital visit by physician Claudia Ultrasound [facility] Laboratory Comment on above: Vitamin D deficiency Lower abdominal pain ; Amenorrhea Start: 10-23-2019 End: 10-23-2019 Subsequent hospital visit by physician Fiorella Abarca [facility] Laboratory Comment on above: Viral illness; Suspected COVID-19 virus infection Start: 10-19-2019 End: 10-19-2019 Subsequent hospital visit by physician Fiorella Abarca [facility] Laboratory Comment on above: Suspected COVID-19 v irus infection Start: 07-29-2019 End: 07-31-2019 Subsequent hospital visit by physician [facility] Comment on above: Right sided numbness ; Blurred vision Start: 07-10-2019 End: 07-10-2019 Emergency department patient visit Leonor Sandy MD Work Phone: [facility] ED Comment on above: Migraine with aura a nd with status migrainosus, not intractable (Primary Dx) Start: 05-07-2017 Ambulatory [facility] Procedures Date Procedure Procedure Detail Performing Clinician Start: 07-16-2022 ALLERGEN, FOOD, COMPREHENSIVE PROFILE 1 Yolanda Humphrey BUS INSPECTOR - NETWORK TECHNICIAN Work Phone: Start: 10-03-2020 Gonadotropin chorionic quantitative [...] uterus 14 wk transabdl 07/08 gestat Yolanda uHmphrey Work Phone: Start: 09-26-2020 Blood count complete [...] DTaP/Tdap/Td vaccine (2 - Td or Tdap) [facility] Start: 07-16-2023 Depression Monitoring Depression Mon itoring [facility] Start: 02-05-2022 Influenza vaccination Flu vaccine (# 1) [facility] Start: 03-08-2020 Influenza vaccination [facility] [place] Start: 01-27-2020 End: 01-27-2020 Office Visit 01/27/2020 Office Visit Family Medicine Fiorella Abarca DO [address] [place] [address] [facility] Start: 11-16-2019 End: 11-16-2019 Office Visit 11/16/2019 Office Visit Neurology Cammy Grayson MD [address] [facility] [address] [place] [address] [id number] [facility] Neuro [facility] Start: 10-21-2019 End: 10-21-2019 Telemedicine 10/21/2019 Telemedicine Family Medicine Fiorella Abarca DO [address] [place] [address] [facility] Start: 08-20-2019 End: 08-20-2019 Patient encounter procedure 08/20/2019 Office Visit Neurology Cammy Grayson MD [address] [facility] [address] [place] [address] [phone] [facility] [employer] [facility] Start: 03-08-2019 Influenza vaccination Flu vaccine (# 1) [facility] [employer] Phone: Start: 05-26-2018 Cervical cancer screen Cervical canc er screen [facility] Phone: Start: 05-26-2018 Screening for malign ant neoplasm of cervix [facility] Start: 2012 DTaP/Tdap/Td vaccine (1 - Tdap) DTaP/Tdap/Td vaccine (1 - Tdap) [place], [place] Start: 11-22-2011 Hepatitis C screening Hepatitis C sc reen [facility] Start: 2009 COVID-19 Vaccine (1) COVID-19 Vaccin e (1) [facility] Phone: Start: 2008 HIV screen HIV screen [facility] [employer] Phone: Start: 2008 HIV screening HIV screen [facility] [employer] Start: 2004 DTaP/Tdap/Td vaccine (1 - Tdap) DTaP/Tdap/Td vaccine (1 - Tdap) [facility] [employer] Phone: Start: 2004 HPV vaccine (1 - 2-d ose series) HPV vaccine (1 - 2-dose series) [place], [place] Start: 2004 HPV vaccine (1 - Fem terrance 2-dose series) HPV vaccine (1 - Female 2-dose series) [facility] [employer] Phone: Start: 11-22-1999 Pneumococcal 0-64 ye ars Vaccine (1 - PCV) Pneumococcal 0-64 years Vaccine (1 - PCV) [facility] Start: 11-22-1999 Pneumococcal 0-64 ye ars Vaccine (1 of 1 - PPSV23) Pneumococcal 0-64 years Vaccine (1 of 1 - PPSV23) [facility] [employer] Phone: Start: 1994 Varicella vaccine (1 of 2 - 2-dose childhood series) Varicella vaccine (1 of 2 - 2-dose childhood series) [facility] [employer] Start: 05-24-1994 COVID-19 Vaccine (#1) COVID-19 Vacci ne (#1) [facility] [employer] Start: 1993 Hepatitis C screening Hepatitis C sc reen [employer] Phone: End: 09-26-2020 C.trachomatis N.gonorrhoeae DNA C.trachomatis N.gonorrhoeae DNA Microbiology STAT One Time for 1 Occurrences starting 09/26/2020 until 09/26/2020 [employer] Phone: Comment on above: One Time for 1 Occur rences starting 09/26/2020 until 09/26/2020 C.trachomatis N.gonorrhoeae DNA C.trachomatis N.gonorrhoeae DNA Microbiology STAT 09/26/2020 10:35 PM EDT [employer] Phone: COVID-19 COVID-19 Lab Rou constance Suspected COVID-19 virus infection 10/19/2019 10:18 AM EDT [place], [place] End: 10-23-2019 COVID-19 Ambulatory COVID-19 Ambulatory Lab Routine Viral illness Suspected Covid-19 Virus Infection 1 Occurrences starting 10/23/2019 until 10/23/2019 [place], [place] Comment on above: 1 Occurrences starti ng 10/23/2019 until 10/23/2019 COVID-19 Ambulatory COVID-19 Amb ulatory Lab Routine Viral illness Suspected COVID-19 virus infection 10/23/2019 4:02 PM EDT [place] CTA HEAD NECK W CONTRAST CTA HEA D NECK W CONTRAST Imaging STAT 07/10/2019 7:43 PM EST [employer] Phone: Food Comprehensive Panel Food Co mprehensive Panel Lab Routine Urticaria 07/16/2022 5:05 PM EST [email or web address] [facility] Phone: RHOGAM INJECTION ONLY RHOGAM INJ ECTION ONLY Blood Bank STAT 09/26/2020 10:15 PM EDT [employer] Phone: Immunizations Immunization Date Immunization Notes Care Provider Fa cility 05-26-2021 tetanus toxoid, redu henny diphtheria toxoid, and acellular pertussis vaccine, adsorbed [facility] 09-26-2020 LILO(Sacha) fracisco alexa in Evangelina Mcnair [facility] [employer] Work Phone: 04-07-2018 influenza virus vaccine, unspecified formulation Leonor Sandy MD Work Phone: [facility] Work Phone: 10-06-2013 hepatitis B vaccine, adult dosage Fiorella Abarca DO Work Phone: [email or web address] [facility] [employer] Work Phone: 10-06-2013 hepatitis B vaccine, unspecified formulation Fiorella [employer] [facility] [employer] Work Phone: 06-01-2013 hepatitis B vaccine, adult dosage Fiorella Abarca DO Work Phone: [facility] Work Phone: 06-01-2013 hepatitis B vaccine, unspecified formulation Fiorella [employer] [facility] [employer] Work Phone: 04-21-2013 hepatitis B vaccine, adult dosage Fiorella Abarca DO Work Phone: [facility] [employer] OPH[facility]ONIX 04-21-2013 hepatitis B vaccine, unspecified formulation Fiorella [employer] [facility] [employer] Phone: 06-29-2011 tuberculin skin test ; purified protein derivative solution, intradermal Leonor Sandy MD Work Phone: [facility] [employer] Work Phone: Payers Date Payer Category Payer Unknown [id number] 2021 Unknown [id number] 2021 Private Health Insurance [id number] 2021 Self-pay [id number] 2020 Unknown [id number] 2019 Unknown [employer] M [employer] [address] [id number] 2019-Present [phone] [address] [place] [address] [id number] 2014 Unknown [id number] 1993 Unknown [id number] [id number]. 2.173 1993 Unknown [id number] [id number]. 2.174 1993 Unknown [id number] [id number]. 2.174 1993 Unknown [id number] [id number]. 2.727 1993 Unknown [id number] [id number]. 2.727 1993 Unknown [id number] [id number]. 2.727 1993 Unknown [id number] [id number]. 2.1259 1993 Unknown [id number] [id number]. 2.1259 1993 Unknown [id number]. 2.1259 Unknown [facility] [id number] Unknown [id number] 2.531 Worker's Compensation [facility] Med C t Ind [id number] Social History Date Type Detail Facility Start: 10-23-2019 End: 07-16-2022 Tobacco smoking status NHIS Never smoker [facility] Start: 10-23-2019 End: 07-16-2022 Alcohol intake Current non-drinker of alcohol (finding) [employer] Phone: Start: 1995 Sex Assigned At Not on file M [employer] Phone: Exposure to SARS-CoV -2 (event) Unable to assess [employer] Start: 02-16-2020 End: 07-16-2022 Tobacco use and exposure Never used Heartbeat Exposure to SARS-CoV -2 (event) Not sure [employer] Phone: Start: 07-16-2022 History SDOH Financial 5 [employer] Phone: Start: 07-16-2022 History SDOH Food Worry 1 [employer] Phone: Start: 1995 Sex Assigned At Female F [facility] Progress note 03-30-2021 Note Date & Type Note Facility 03-30-2021 Note HNO ID: [id number] Author: Michael Lilly MD Service: ? Author [...] with more than 50% of the total [id number] time of the visit in counseling / [...] dilatation The pa (more content not included)... [facility] Discharge instructions 07-10-2019 InstructionsAttachments Note Date & [...] be sent through Care Everywhere.Migraine Headache: Recurring (Citizen Of [place])documented in this encounter [employer] Phone: Evaluation note Note Date & Type Note Facility Evaluation note Diagnosis Migraine with aura and with status migrainosus, not intractable- Primary Migraine with aura, with intractable migraine, so stated, with status migrainosus documented in this encounter [employer] Phone: Evaluation note Note Date & Type Note Facility Evaluation note Diagnosis Right sided numbness Blurred vision Other specified visual disturbances documented in this encounter [facility] Work Phone: Evaluation note Note Date & Type Note Facility Evaluation note Diagnosis Urticaria Urticaria, unspecified documented in this encounter [employer] Work Phone: Evaluation note Note Date & Type Note Facility Evaluation note No assessment information availa [facility] Work Phone: Summary Purpose Family History No Family History Records Found Relationship Condition Age at Onset Recorded Date/T ifeoma Not Specified No pertinent family history Unknown Advance Directives No Advanced Directives Records FoundDocuments on File Type Date Recorded 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 Advance Directives and Living Will Power of Community Services Officer Documents on File Type Date Recorded 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 Advance Directives and Living Will Power of Community Services Officer Documents on File Type Date Recorded 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 ACP-Advance Directive ACP-Power of Community Services Officer Documents on File Type Date Recorded 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 ACP-Advance Directive ACP-Power of Community Services Officer Assessments Diagnosis Viral illness Unspecified viral infection, [...] Fiorella Abarca, DO [address] [place] [address] Status Reason Specialty Diagnoses / Procedures Referre d By Contact Referred To Contact Closed Radiology Diagnoses Right sided numbness Blurred vision Procedures MRI BRAIN W WO CONTRAST HC MRI-BRAIN WO & W CONTRAST Eliane Vilchis MD [address] [facility] [address] [place] [address] Discharge Instructions * Instructions* Jeremiah Mcnair MD - 09/27/2020 Yolanda Ramos office personnel will contact you with regards to scheduling of your repeat hCG level ( test) * Attachments The following attachments cannot be sent through Care Everywhere. * : Abdominal Pain (Citizen [place]) documented in this encounter Additional Source Comments INFORMATION SOURCE (unrecogn ized section and content) DATE CREATED AUTHOR 12/31/2017 [facility] DATE CREATED AUTHOR AUTHOR'S ORGANIZ ATION 01/30/2018 [facility] DATE CREATED AUTHOR AUTHOR'S ORGANIZ ATION 09/29/2020 [facility] DATE CREATED AUTHOR AUTHOR'S ORGANIZ ATION 08/15/2021 [facility] DATE CREATED AUTHOR AUTHOR'S ORGANIZ ATION 07/24/2022 [facility] DATE CREATED AUTHOR AUTHOR'S ORGANIZ ATION 03/09/2023 [facility] DATE CREATED AUTHOR AUTHOR'S ORGANIZ ATION 05/01/2023 [facility] DATE CREATED AUTHOR AUTHOR'S ORGANIZ ATION 03/04/2024 [facility] EPIC Reason for Visit (unrecogniz ed section and content) Status Reason Specialty Diagnoses / Procedures Referre d By Contact Referred To Contact Closed Radiology Diagnoses Lower abdominal pain Amenorrhea Procedures US NON OB TRANSVAGINAL Fiorella Abarca, DO [address] [place] [address] Reason Comments Pelvic Pain onset approx 1 week ago, sent her by PCP for eval Status Reason Specialty Diagnoses / Procedures Referre d By Contact Referred To Contact Open Radiology Diagnoses Pelvic pain in female Less than 8 weeks gestation of Procedures US OB LESS THAN 14 WEEKS SINGLE OR FIRST GESTATION US PELVIS COMPLETE Yolanda Humphrey, BUS INSPECTOR - NETWORK TECHNICIAN [address] [place] [address] Reason Comments Headache History of migraine headaches. Vomited one time today. Status Reason Specialty Diagnoses / Procedures Referre d By Contact Referred To Contact Closed Radiology Diagnoses Right sided numbness Blurred vision Procedures MRI BRAIN W WO CONTRAST HC MRI-BRAIN WO & W CONTRAST Eliane Vilchis MD [address] [facility] [address] [place] [address] Care Teams (unrecognized sec tion and content) Wafer Mounter Relationship Specialty Start Date End Date Fiorella Abarca, [address] [place] [address] PCP - General 02/26/16 Goals [...] BE BASED ON THE PRIMARY CLINICAL RECORDS. [employer] [facility]. provides no warranty or guarantee of the accuracy or completeness of information in this document.
== END 2024-04-14 10:57 | disposition home or self-care (01) ==
LOC: NOMS 10:57
PROVIDERS: PCP Student in an Organized Health Care Education/Training Program; Visit Provider Physician Assistant
DX: O36.80X0 Pregnancy with inconclusive fetal viability, not applicable or unspecified (principal); Z3A.09 9 weeks gestation of pregnancy
CPT/HCPCS: 76817

== ENCOUNTER 2024-04-23 13:32 | Outpatient (OUT) | payer BC, SELFPAY ==
--- NOTE | 2024-04-23 13:34 | US_ITS ---
[address] [address] Patient Name: WAN EVANS MRN: [id number] date: 1995 Sex: F Assigned Patient Location: [facility] Current Patient Location: [facility] Accession/Order Number: [id number] Exam Date: 04/23/2024 13:36 Report Date: 04/23/2024 14:42 At the request of: SHANNAN HERNADNEZ Procedure: US OB transvaginal EXAMINATION: US OB transvaginal HISTORY: TWIN VIABILITY COMPARISON: 04/14/2024 FINDINGS: Gestational sacs: 2 gestational sacs are observed, 1.79 cm, 6 weeks 1 day 1.3 cm, 5 weeks 4 days Yolk sac: Not visualized pole: Not visualized Cardiac activity: Not visualized Subchorionic hematoma. The uterus is retroverted, retroflexed The ovaries are not visualized The cervix is closed measuring 3.8 cm in length Clinical age: 10 weeks 6 days Clinical ANGY: 11/09/2024 US/US OB transvaginal IMPRESSION: Decrease in size of 2 gestational sacs with no pole. Findings are consistent with anembryonic Electronically authenticated by: RADHA WILLINGHAM Date: 04/23/2024 14:42
--- OUTSIDE RECORDS SUMMARY | 2024-04-23 13:39 | XMS_ITS | CCD ---
Author Organization [facility] Care Team Providers Care Pearl Stringer Name Role Phone CHRIS DO Unavailable Unavailable CHRIS DO Unavailable Unavailable Yonley, Fiorella L Primary Care Provider Yonley, Fiorella L Primary Care Provider [phone] YONLEY, FIORELLA L Primary Care Unavailable JEREMIAH MCNAIR Attending Unavailable Yonley DO, Fiorella L Primary Care Provider Yonley DO, Fiorella L Primary Care Provider YOLANDA HUMPHREY Referring Unavailable YONLEY, FIORELLA L Primary Care Unavailable YONLEY, FIORELLA L Referring Unavailable YONLEY, FIORELLA L Primary Care Unavailable Mary Brown Attending Unavailable Mary Brown Admitting Unavailable Yonley, Fiorella Primary Care Unavailable Elmaey, DO Chris Nunes Attending Unavailable Cuco Oneal Attending Unavailable Wero Britton Attending Unavailable SHANNAN OSORIO Attending Unavailable SHANNAN OSORIO Attending Unavailable SHANNAN OSORIO Attending Unavailable MARYAM FARNSWORTH Attending Unavailable Yonley DO, Fiorella Primary Care Provider Allergies Allergy Classification Reported Allergen(s) Allergy Type Date of Onset Reaction(s) Facility (18 sources) Succinylcholine Drug Allergy 08-18-19 14 [facility]: (5 sources) Anesthesia S-I-60 Propensity to adverse reactions to drug 08-20-19 20 [facility] [facility] [place], [place] (13 sources) Other Propensity to adverse reactions 09-19-19 12 Other (See Comments) [facility]: (11 sources) Propofol Drug Allergy 08-20-19 20 [facility]: (2 sources) Seasonal allergy Propensity to adverse reactions to substance 09-19-19 12 Other (See Comments) [facility]: (1 source) Succinylcholine Drug Allergy 01-14-20 [facility] Repository (1 source) Grass; Translations: [Grass] Propensity to adverse reactions (disorder) [facility] Repository (1 source) House dust mite (Bt) RAST; Translations: [House dust mite (Bt) RAST] Propensity to adverse reactions (disorder) [facility] Repository (4 sources) Mixed Grasses Propensity to adverse reactions 07-23-19 [facility] NEGATED: Highlighted row has been ruled out! (1 source) Other Propensity to adverse reactions 09-19-19 12 Other (See Comments) [facility]: Medications Current Medications Medication Drug Class(es) [...] per week 28 tablet 2 08/20/2019 Active clobetasol propionate 0.5 mg/ml topical cream (4 sources) Corticosteroid Start: 06-13-2023 clobetasol (Temovate) 0.05 % cream Indications: Dermatitis Apply 1 application topically in the morning and 1 application before bedtime. Apply pea-size amount to affected area.. 30 g 1 06/13/2023 Active diclofenac potassium 25 mg oral capsule (7 sources) Nonsteroidal Anti-inflammatory Drug diclofenac potassium (Zipsor) capsule capsule Take 25 mg by mouth Active diclofenac sodiu m 1 % GEL Apply 2 g topically 2 times daily 0 Active docusate sodium 100 mg oral capsule (1 source) Start: 05-27-2021 take 1 capsule by mouth once daily at bedtime Docusate Sodium (Dok) 100 mg Capsule Active 100 MG PO Daily at bedtime May 27, 2021 1:00am ergocalciferol 53193 unt oral capsule (2 sources) Provitamin D2 Compound Start: 08-25-2019 End: 11-11-2019 take 1 capsule by mouth every week vitamin D (ERGOCALCIFEROL ) 1.25 MG (35155 UT) CAPS capsule Take 1 capsule by mouth once a week for 12 doses 12 capsule 0 08/25/2019 11/11/2019 Active ferrous sulfate 325 mg oral tablet (1 source) Start: 05-27-2021 take 325 mg by mouth once daily Ferrous Sulfate Active 325 MG PO Daily May 27, 2021 1:00am ibuprofen 600 mg oral tablet (5 sources) Nonsteroidal Anti-inflammatory Drug Start: 05-27-2021 take 600 mg by mouth every six hours Ibuprofen Active 600 MG PO Q6H May 27, 2021 1:00am ibuprofen 600 MG tablet every 8 (eight) hours Active meclizine hydrochloride 25 mg oral tablet (2 sources) Antiemetic Start: 04-14-2024 End: 04-24-2024 take 1 tablet by mouth three times daily as needed for dizziness meclizine (Antivert) 25 MG tablet Indications: Vertigo Take 1 tablet (25 mg) by mouth 3 (three) times a day as needed for dizziness for up to 10 days 30 tablet 04/14/2024 04/24/2024 Active naproxen 500 mg oral tablet (7 sources) Nonsteroidal Anti-inflammatory Drug Start: 07-10-2019 take 1 tablet by mouth twice daily naproxen (NAPROSYN) 500 MG tablet Take 1 tablet by mouth 2 times daily 40 tablet 0 07/10/2019 Active norethindrone 0.35 mg oral tablet (10 sources) Start: 07-29-2019 take 1 tablet by mouth once daily JENCYCLA 0.35 MG tablet take 1 tablet by mouth once daily 0 04/13/2022 Active ondansetron 4 mg disintegrating oral tablet (7 sources) Serotonin-3 Receptor Antagonist Start: 04-14-2024 End: 05-14-2024 take 1 tablet by mouth every six hours as needed for nausea and vomiting and nausea and nausea ondansetron ODT (Zofran-ODT) 4 MG disintegrating tablet Indications: Nausea Take 1 tablet (4 mg) by mouth every 6 (six) hours if needed for nausea or vomiting 30 tablet 3 04/14/2024 05/14/2024 Active Start: 07-10-2019 End: 07-10-2019 ondansetron (ZOFRAN) injecti on 4 mg Start: 07-10-2019 take 1 tablet by bernadette th every eight hours as needed for nausea ondansetron (ZOFRAN ODT) 4 MG disintegrating tablet Take 1 tablet by mouth every 8 hours as needed for Nausea or Vomiting 10 tablet 0 07/10/2019 Active pimecrolimus 10 mg/ml topical cream (5 sources) Calcineurin Inhibitor Immunosuppressant Start: 09-17-2019 pimecrolimus (ELIDEL) 1 % cream apply to LIPS DAILY UNTIL CLEAR 0 09/17/2019 Active 633-Qtqc-Vnjhy-Omeg a3 (One-A-Day -1) 27 mg iron- 800 mcg-235 mg capsule (1 source) Start: 01-13-2021 802-Reov-Jsrfe-Om ega3 (One-A-Day -1) 27 mg iron- 800 mcg-235 mg capsule Active 1 CAP PO Daily January 13, 2021 12:00am Vit-Fe Zmmgvvs-YV-ALQ ( VITAMIN/MIN +DHA) 27-0.8-200 MG CAPS (7 sources) Start: 09-26-2020 take 1 tablet by mouth once daily Vit-Fe Ezyjegr-TK-UMN ( VITAMIN/MIN +DHA) 27-0.8-200 MG CAPS Indications: [...] 12:14pm Start: 07-29-2019 take 1 capsule by mo [facility] once daily propranolol (INDERAL LA) 120 [...] / ethinyl estradiol 0.02 mg oral tablet (6 sources) Progestin, Estrogen Start: 06-16-2019 End: 07-29-2019 drospirenone-ethiny l estradiol (WANDA) 3-0.02 MG per tablet TAKE 1 TABLET DAILY 84 tablet 1 06/16/2019 07/29/2019 Discontinued (Therapy completed) drospirenone-eth inyl estradiol (Wanda, Gianvi) 3-0.02 MG tablet Take 1 tablet by mouth in the morning. Active eletriptan 20 mg oral tablet (6 sources) Serotonin-1b and Serotonin-1d Receptor Agonist Start: 04-23-2019 End: 07-29-2019 take 1 tablet by mouth once as needed eletriptan (RELPAX) 20 MG tablet Take 1 tablet by mouth once as needed for Migraine 12 tablet 3 04/23/2019 07/29/2019 Discontinued (LIST CLEANUP) eletriptan (Relp ax) 20 MG tablet Take 20 mg by mouth Active gadoteridol (PROHANCE) injection 15 mL (1 source) [...] 2 g in 50 mL IVPB premix microencapsulated potassium chloride 15 meq extended release oral tablet (1 source) Start: 05-26-2018 End: 07-10-2019 potassium chloride (KLOR-CON M) 15 MEQ extended release tablet Indications: Hypokalemia Take 2 tablets by mouth 2 times daily 120 tablet 0 05/26/2018 07/10/2019 Discontinued (LIST CLEANUP) 50 ml sodium chloride 9 mg/ml injection (2 sources) Start: 09-26-2020 End: 09-26-2020 0.9 % sodium chloride bolus Start: 07-10-2019 End: 07-10-2019 0.9 % sodium chloride bolus Problems Active Problems Problem Classification Problem Date Documented Date Episodic/Chronic Abdominal pain (7 sources) Lower abdominal pain; Translations: [Abdominal pain in ] 04-14-2024 Episodic Administrative/social admission (10 sources) Patient encounter status; Translations: [Person consulting for explanation of examination or test findings] Onset: 07-16-2023 07-16-2023 Episodic Allergic reactions (2 sources) Urticaria; Translations: [Urticaria, unspecified] Onset: 07-16-2022 Episodic Asthma (14 sources) Exercise-induced asthma; Translations: [Exercise induced bronchospasm] Onset: 06-11-2011 04-30-2017 Chronic Conditions associated with dizziness or vertigo (2 sources) Vertigo; Translations: [Dizziness and giddiness] 04-14-2024 Episodic Headache; including migraine (16 sources) Migraine; Translations: [Migraine with aura] Onset: 09-24-2011 04-30-2017 Chronic Inflammatory diseases of female pelvic organs (4 sources) Chronic vaginitis; Translations: [Subacute and chronic vaginitis] Onset: 03-02-2024 03-02-2024 Episodic Malaise and fatigue (14 sources) Fatigue; Translations: [Physical deconditioning] Onset: 10-09-2011 Resolved: 10-27-2019 10-19-2019 Episodic Menstrual disorders (1 source) Amenorrhea; Translations: [Amenorrhea] Chronic Mood disorders (14 sources) Depressive disorder; Translations: [Depression] Onset: 09-24-2011 06-02-2018 Chronic Nausea and vomiting (2 sources) Nausea; Translations: [Nausea] 04-14-2024 Episodic Nutritional deficiencies (1 source) Vitamin D deficiency; Translations: [Vitamin D deficiency] Chronic Osteoarthritis (13 sources) Osteoarthritis; Translations: [Unspecified osteoarthritis, unspecified site] Onset: 10-19-2019 Resolved: 10-27-2019 10-19-2019 Chronic Other circulatory disease (13 sources) Erythromelalgia; Translations: [Erythromelalgia] Onset: 10-19-2019 Resolved: 10-27-2019 10-19-2019 Chronic Other female genital disorders (4 sources) Pain in female genitalia on intercourse; Translations: [Unspecified dyspareunia] Onset: 03-02-2024 03-02-2024 Chronic Other female genital disorders (4 sources) Vaginal irritation; Translations: [Other specified noninflammatory disorders of vagina] Onset: 03-02-2024 03-02-2024 Episodic Other and delivery including normal (4 sources) [...] Test Name Value Interpretation Reference Range Facility [facility] PREG QUANT HCGon 10-05-2 024 HCG QUANTITATIVE 07133 mIU/mL [facility] Comment on above: 5-50 0.2-1 WEEK 50-500 1-2 WEEKS 100-5,000 2-3 WEEKS 500-10,000 3-4 WEEKS 1,000-50,000 4-5 WEEKS 10,000-100,000 5-6 WEEKS 15,000-200,000 6-8 WEEKS 10,000-100,000 2-3 MONTHS [facility] PREG QUANT HCGon 024 HCG QUANTITATIVE 36810 mIU/mL [facility] Comment on above: 5-50 0.2-1 WEEK 50-500 1-2 WEEKS 100-5,000 2-3 WEEKS 500-10,000 3-4 WEEKS 1,000-50,000 4-5 WEEKS 10,000-100,000 5-6 WEEKS 15,000-200,000 6-8 WEEKS 10,000-100,000 2-3 MONTHS [facility] Noteon 11-27-2022 Family [...] with voice recognition software. Occasional wrong-word or ?mcmts-k-ylia? 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 Previous employment/school: [employer]. Activity level: Occasional physical work. Highest education [...] Years. Num (more content not included)... Normal [facility] Comment on above: Result Comment: Elec [...] home: Medicines ? Take, use, or apply dzcg-yph-qltxdlg and prescription medicines only as told by [...] and water are not available, use hand machine bobbin winder. ? Do not smoke. Avoid being around [...] or swell (more content not included)... Normal [facility] CBC with Diffon 07-23-2022 Abs. Basophil 0.00 k/uL Normal 0.0-0.2 [facility] Comment on above: Performed By: #### C P, TSHX, CDP #### [facility] [address] [place] [address] Imaging Aide: Cole Magaña MD Abs.Neutrophil (Seg) 2.90 k/uL Normal 2.5-7.0 [facility] Comment on above: Performed By: #### C P, TSHX, CDP #### [facility] [address] [place] [address] Imaging Aide: Cole Magaña MD Auto Diff Performed YES Normal [facility] Comment on above: Performed By: #### C P, TSHX, CDP #### [facility] [address] [place] [address] Imaging Aide: Cole Magaña MD Basophils/100 WBC (Bld) 0 % Normal 0-2 [facility] Comment on above: Performed By: #### C P, TSHX, CDP #### [facility] [address] [place] [address] Imaging Aide: Cole Magaña MD Eosinophils (Bld) [#/Vol] 0.00 10*3/uL Normal 0.0-0.4 [facility] Comment on above: Performed By: #### C P, TSHX, CDP #### [facility] [address] [place] [address] Imaging Aide: Cole Magaña MD Eosinophils/100 WBC (Bld) 0 % Normal 0-5 [facility] Comment on above: Performed By: #### C P, TSHX, CDP #### [facility] [address] [place], [place] [id number] Imaging Aide: Cole Magaña MD Erythrocyte distribution width (RBC) [Ratio] 13.7 % Normal 12.1-15.2 [facility] Comment on above: Performed By: #### C P, TSHX, CDP #### [facility] [address] [place], [place] [phone] Imaging Aide: Cole Magaña MD Hematocrit (Bld) [Volume fraction] 40.0 % Normal 36-46 [facility] Comment on above: Performed By: #### C P, TSHX, CDP #### [facility] [address] [place], [place] [phone] Imaging Aide: Cole Magaña MD Hemoglobin (Bld) [Mass/Vol] 13.4 g/dL Normal 12.0-16.0 [facility] Comment on above: Performed By: #### C P, TSHX, CDP #### [facility] [address] [place], [place] [phone] Imaging Aide: Cole Magaña MD Lymphocytes (Bld) [#/Vol] 2.30 10*3/uL Normal 1.0-4.8 [facility] Comment on above: Performed By: #### C P, TSHX, CDP #### [facility] [address] [place], [place] [phone] Imaging Aide: Cole Magaña MD Lymphocytes/100 WBC (Bld) 42 % High 15-40 [facility] Comment on above: Performed By: #### C P, TSHX, CDP #### [facility] [address] [place] [address] Imaging Aide: Cole Magaña MD MCH (RBC) [Entitic mass] 29.5 pg Normal 26-34 [facility] Comment on above: Performed By: #### C P, TSHX, CDP #### [facility] [address] [place], [place] [phone] Imaging Aide: Cole Magaña MD MCHC (RBC) [Mass/Vol] 33.6 g/dL Normal 31-37 [facility] Comment on above: Performed By: #### C P, TSHX, CDP #### [facility] [address] [place] [address] Imaging Aide: Cole Magaña MD MCV (RBC) [Entitic vol] 88.0 fL Normal 80-100 M [facility] Comment on above: Performed By: #### C P, TSHX, CDP #### [facility] [address] [place] [address] Imaging Aide: Cole Magaña MD Monocytes (Bld) [#/Vol] 0.30 10*3/uL Normal 0.0-1.0 [facility] Comment on above: Performed By: #### C P, TSHX, CDP #### [facility] [address] [place] [address] Imaging Aide: Cole Magaña MD Monocytes/100 WBC (Bld) 5 % Normal 4-8 M [facility] Comment on above: Performed By: #### C P, TSHX, CDP #### [facility] [address] [place] [address] Imaging Aide: Cole Magaña MD Neutrophil (Seg) 53 % Normal 47-75 [facility] Comment on above: Performed By: #### C P, TSHX, CDP #### [facility] [address] [place] [address] Imaging Aide: Cole Magaña MD Platelets (Bld) [#/Vol] 330 10*3/uL Normal 140-450 [facility] Comment on above: Performed By: #### C P, TSHX, CDP #### [facility] [address] [place] [address] Imaging Aide: Cole Magaña MD RBC (Bld) [#/Vol] 4.55 10*6/uL Normal 4.0-5.2 [facility] Comment on above: Performed By: #### C P, TSHX, CDP #### [facility] [address] [place] [address] Imaging Aide: Cole Magaña MD WBC (Bld) [#/Vol] 5.6 10*3/uL Normal 3.5-11.0 [facility] Comment on above: Performed By: #### C P, TSHX, CDP #### [facility] [address] [place] [address] Imaging Aide: Cole Magaña MD Comp Metabolic Profon 2022 Albumin [Mass/Vol] 4.6 g/dL Normal 3.5-5.2 [facility] Comment on above: Performed By: #### C P, TSHX, CDP #### [facility] [address] [place] [address] Imaging Aide: Cole Magaña MD Alkaline Phos 69 U/L Normal 35-104 [facility] Comment on above: Performed By: #### C P, TSHX, CDP #### [facility] [address] [place] [address] Imaging Aide: Cole Magaña MD ALT [Catalytic activity/Vol] 11 U/L Normal 5-33 [facility] Comment on above: Performed By: #### C P, TSHX, CDP #### [facility] [address] [place] [address] Imaging Aide: Cole Magaña MD Anion gap [Moles/Vol] 7 mmol/L Low 9-17 [facility] Comment on above: Performed By: #### C P, TSHX, CDP #### [facility] [address] [place], [place] [phone] Imaging Aide: Cole Magaña MD AST [Catalytic activity/Vol] 13 U/L Normal <32 [facility] Comment on above: Performed By: #### C P, TSHX, CDP #### [facility] [address] [place], [place] [phone] Imaging Aide: Cole Magaña MD Bilirubin [Mass/Vol] 0.8 mg/dL Normal 0.3-1.2 [facility] Comment on above: Performed By: #### C P, TSHX, CDP #### [facility] [address] [place], [place] [phone] Imaging Aide: Cole Magaña MD BUN/CRE Ratio 23 High 9-20 [facility] Comment on above: Performed By: #### C P, TSHX, CDP #### [facility] [address] [place] [address] Imaging Aide: Cole Magaña MD Calcium [Mass/Vol] 9.4 mg/dL Normal 8.6-10.4 [facility] Comment on above: Performed By: #### C P, TSHX, CDP #### [facility] [address] [place], [place] [phone] Imaging Aide: Cole Magaña MD Chloride [Moles/Vol] 109 mmol/L High 98-107 [facility] Comment on above: Performed By: #### C P, TSHX, CDP #### [facility] [address] [place] [address] Imaging Aide: Cole Magaña MD CO2 [Moles/Vol] 28 mmol/L Normal 20-31 [facility] Comment on above: Performed By: #### C P, TSHX, CDP #### [facility] [address] [place], [place] [phone] Imaging Aide: Cole Magaña MD Creatinine [Mass/Vol] 0.48 mg/dL Low 0.50-0.90 [facility] Comment on above: Performed By: #### C P, TSHX, CDP #### [facility] [address] [place] [address] Imaging Aide: Cole Magaña MD GFR/1.73 sq M.predicted among non-blacks MDRD (S/P/Bld) [Vol rate/Area] mL/min/{1.73_m2} Normal >60 [facility] Comment on above: Result Comment: Effective [...] By: #### C P, TSHX, CDP #### [facility] [address] [place] [address] Imaging Aide: Cole Magaña MD Glucose [Mass/Vol] 88 mg/dL Normal 70-99 [facility] Comment on above: Performed By: #### C P, TSHX, CDP #### [facility] [address] [place] [address] Imaging Aide: Cole Magaña MD Potassium [Moles/Vol] 4.0 mmol/L Normal 3.7-5.3 [facility] Comment on above: Performed By: #### C P, TSHX, CDP #### [facility] [address] [place] [phone] Imaging Aide: Cole Magaña MD Protein [Mass/Vol] 7.5 g/dL Normal 6.4-8.3 [facility] Comment on above: Performed By: #### C P, TSHX, CDP #### [facility] [address] [place] [address] Imaging Aide: Cole Magaña MD Sodium [Moles/Vol] 144 mmol/L Normal 135-144 [facility] Comment on above: Performed By: #### C P, TSHX, CDP #### [facility] [address] [place] [address] Imaging Aide: Cole Magaña MD Urea nitrogen [Mass/Vol] 11 mg/dL Normal 6-20 [facility] Comment on above: Performed By: #### C P, TSHX, CDP #### [facility] [address] [place] [address] Imaging Aide: Cole Magaña MD TSH w/reflex to FT4on 2022 Thyroid Stim. Horm. 0.93 uIU/mL Normal 0.30-5.00 [facility] Comment on above: Performed By: #### C P, TSHX, CDP #### [facility] [address] [place] [address] Imaging Aide: Cole Magaña MD Food, Comprehensiveon 0 Barley IgE <0.10 Normal 0.00-0.34 [facility] Comment on above: Performed By: #### I FOODC #### [facility] [address] [place] [id number] Imaging Aide: Gurpreet Wei MD Beef IgE <0.10 Normal 0.00-0.34 [facility] Comment on above: Performed By: #### I FOODC #### [facility] [address] [place] [address] [phone] Imaging Aide: Gurpreet Wei MD Cabbage IgE <0.10 Normal 0.00-0.34 [facility] Comment on above: Performed By: #### I FOODC #### [facility] [address] [place] [address] [phone] Imaging Aide: Gurpreet Wei MD Carrot IgE <0.10 Normal 0.00-0.34 [facility] Comment on above: Performed By: #### I FOODC #### [facility] [address] [place] [address] [phone] Imaging Aide: Gurpreet Wei MD Chicken IgE <0.10 Normal 0.00-0.34 [facility] Comment on above: Performed By: #### I FOODC #### [address] [address] Imaging Aide: Gurpreet Wei MD Codfish IgE <0.10 Normal 0.00-0.34 [facility] Comment on above: Performed By: #### I FOODC #### [address] [address] Imaging Aide: Gurpreet Wei MD Hesperia IgE <0.10 Normal 0.00-0.34 [facility] Comment on above: Performed By: #### I FOODC #### [address] [address] Imaging Aide: Gurpreet Wei MD Crab IgE <0.10 Normal 0.00-0.34 [facility] Comment on above: Performed By: #### I FOODC #### [address] [address] Imaging Aide: Gurpreet Wei MD Egg White IgE <0.10 Normal 0.00-0.34 [facility] Comment on above: Performed By: #### I FOODC #### [address] [address] Imaging Aide: Gurpreet Wei MD Grape IgE <0.10 Normal 0.00-0.34 [facility] Comment on above: Performed By: #### I FOODC #### [address] [address] Imaging Aide: Gurpreet Wei MD Lettuce IgE <0.10 Normal 0.00-0.34 [facility] Comment on above: Performed By: #### I FOODC #### [address] [address] Imaging Aide: Gurpreet Wei MD Milk (Cow) IgE <0.10 Normal 0.00-0.34 [facility] Comment on above: Performed By: #### I FOODC #### [address] [address] Imaging Aide: Gurpreet Wei MD Blair Puri IgE <0.10 Normal 0.00-0.34 [facility] Comment on above: Performed By: #### I FOODC #### [address] [address] Imaging Aide: Gurpreet Wei MD Oat IgE <0.10 Normal 0.00-0.34 [facility] Comment on above: Performed By: #### I FOODC #### [address] [address] Imaging Aide: Gurpreet Wei MD Gallup IgE <0.10 Normal 0.00-0.34 [facility] Comment on above: Performed By: #### I FOODC #### [address] [address] Imaging Aide: Gurpreet Wei MD Peanut IgE <0.10 Normal 0.00-0.34 [facility] Comment on above: Performed By: #### I FOODC #### [address] [address] Imaging Aide: Gurpreet Wei MD Pepper C. annuum IgE <0.10 Normal 0.00-0.34 [facility] Comment on above: Performed By: #### I FOODC #### [address] [address] Imaging Aide: Gurpreet Wei MD Pork IgE <0.10 Normal 0.00-0.34 [facility] Comment on above: Performed By: #### I FOODC #### [address] [address] Imaging Aide: Gurpreet Wei MD Potato IgE <0.10 Normal 0.00-0.34 [facility] Comment on above: Performed By: #### I FOODC #### [address] [address] Imaging Aide: Gurpreet Wei MD Rice IgE <0.10 Normal 0.00-0.34 [facility] Comment on above: Performed By: #### I FOODC #### [address] [address] Imaging Aide: Gurpreet Wei MD Belmont IgE <0.10 Normal 0.00-0.34 [facility] Comment on above: Performed By: #### I FOODC #### [place] [address] Imaging Aide: Gurpreet Wei MD Shrimp IgE <0.10 Normal 0.00-0.34 [facility] Comment on above: Performed By: #### I FOODC #### [place] [address] Imaging Aide: Gurpreet Wei MD Soybean IgE <0.10 Normal 0.00-0.34 [facility] Comment on above: Performed By: #### I FOODC #### [place] [address] Imaging Aide: Gurpreet Wei MD Tomato IgE <0.10 Normal 0.00-0.34 [facility] Comment on above: Performed By: #### I FOODC #### [place] [address] Imaging Aide: Gurpreet Wei MD Tuna IgE <0.10 Normal 0.00-0.34 [facility] Comment on above: Performed By: #### I FOODC #### [place] [address] Imaging Aide: Gurpreet Wei MD Wheat IgE <0.10 Normal 0.00-0.34 [facility] Comment on above: Result Comment: ALLERGEN, [...] or even anaphylaxis. Performed By: #### I [facility] #### [facility] [address] [id number] Imaging Aide: Gurpreet Wei MD Immunoglobulin E 4 IU/mL Normal <101 [facility] Comment on above: Performed By: #### I [facility] DiagnosticsC #### [employer] [address] [place] [address] [id number] Imaging Aide: MD Warren Almazan 03-29-2021 [facility] Telephone (OBGYF2) CHAPIS EVANS ([id number]) 1995 F Date Time Provider Department 03/29/21 [facility] OBGYF2 During your visit today, we recorded the following information about you: Latonya Mchugh RN 03/29/2021 9:48 AM Signed NIPT results received from Dr. Patricia Theodore' office. Results in scanned docs. Latonya Mchugh RN [facility] Allergies As of Date: 03/29/2021 Noted [...] Status:Closed by LATONYA MCHUGH RN on 03/29/[address] [facility]21 [facility] CHAPIS EVANS ([id number]) 1995 F Date Time Provider Department 03/22/21 [facility] OBGYLW During your visit today, we recorded the following information about you: Latonya Mchugh RN 03/22/2021 1:41 PM Signed Informed pt that call was regarding scheduling US and consult as requested by Dr. Patricia Theodore at [facility] for bilateral pyelectasis and polyhydramnios. Pt verbalizes understanding and wishes to proceed with scheduling. , pt denies any current medical conditions. Current meds: PNV. Pt had NIPT testing done 03/20, results still pending. Will follow up with Dr. Patricia Theodore office early next week for results. There are no upcoming appts at in the next couple of days. Offered appt at [place] on 03/30 at 2:45pm. One full hour allotted for US and consult. Pt accepts, front staff notified to schedule. Advised pt that she may bring two support persons age 16+ and both must wear masks. She verbalizes understanding and has no additional questions at this time. Latonya Mchugh RN [facility] Allergies As of Date: 03/22/2021 Noted [...] by LATONYA MCHUGH RN on 03/22/21 Normal [facility] HCG, Quantitative, on 10-03-2020 hCG Quant 92995 High <5 IU/L [employer] Phone: Comment on above: Non-preg premeno <=5 Postmeno <=8 Male <=3 If HCG results do not concur with clinical observations, additional testing to confirm results is recommended. Elevated results not associated with may be found in patients with other diseases such as tumors of the germ cells (testis, ovaries, etc.), bladder, pancreas, stomach, lungs, and liver. Interpretation and review of laboratory results Abnormal [employer] Phone: CBC With Auto Differentialon 09-28-2020 Basophils (Bld) [#/Vol] 0.10 10*3/uL [employer] Phone: Basophils/100 WBC (Bld) 1 % 0 - 2 % M [employer] Phone: Differential Type YES [employer] Work Phone: Eosinophils (Bld) [#/Vol] 0.10 10*3/uL [employer] Phone: Eosinophils/100 WBC (Bld) 1 % 0 - 5 % [employer] Phone: Erythrocyte distribution width (RBC) [Ratio] 13.9 % 12.1 - 15.2 % [employer] Phone: Hematocrit (Bld) [Volume fraction] 39.4 % 36 - 46 % [employer] Phone: Hemoglobin (Bld) [Mass/Vol] 13.7 g/dL 12.0 - 16.0 g/dL [employer] Phone: Lymphocytes (Bld) [#/Vol] 3.20 10*3/uL [employer] Phone: Lymphocytes/100 WBC (Bld) 35 % 15 - 40 % [employer] Phone: MCH (RBC) [Entitic mass] 30.1 pg 26 - 34 pg [employer] Phone: MCHC (RBC) [Mass/Vol] 34.8 g/dL 31 - 37 g/dL M [employer] Phone: MCV (RBC) [Entitic vol] 86.5 fL 80 - 100 fL [employer] Phone: Monocytes (Bld) [#/Vol] 0.50 10*3/uL [employer] Phone: Monocytes/100 WBC (Bld) 6 % 4 - 8 % M [employer] Phone: Platelet mean volume (Bld) [Entitic vol] NOT REPORTED 6.0 - 12.0 fL [employer] Phone: Platelets (Bld) [#/Vol] 418 10*3/uL [employer] Phone: Platelets (Bld) [#/Vol] NOT REPORTED [employer] Phone: RBC (Bld) [#/Vol] 4.56 10*6/uL 4.0 - 5.2 m/uL [employer] Work Phone: RBC morphology finding Nom (Bld) NOT REPORTED [employer] Phone: Segmented neutrophils/100 WBC (Bld) 57 % 47 - 75 % [employer] Phone: Segs Absolute 5.20 [employer] Work Phone: WBC (Bld) [#/Vol] 9.1 10*3/uL [employer] Phone: WBC (Bld) [#/Vol] NOT REPORTED per 100 WBC [employer] Phone: WBC Morphology NOT REPORTED [employer] Work Phone: Otheron 09-28-2020 Immature granulocytes (Bld) [#/Vol] NOT REPORTED [employer] Phone: Specimen Rejectionon 021 Reason for rejection Unable to perform testing: Specimen not processed correctly. [facility] Comment on above: Performed By: #### R EJEC #### [employer] [facility] [place], [place] [id number] Imaging Aide: Gurpreet Wei MD Source of sample TWO SWABS IN CONTAINER [facility] Comment on above: Performed By: #### R EJEC #### [employer] [address] [place], [place] [id number] Imaging Aide: Gurpreet Wei MD Test ordered [facility] Comment on above: Performed By: #### R EJEC #### [facility] [address] [place] [address] Imaging Aide: Gurpreet Wei MD hCG, Quantitative, on 09-28-2020 hCG Quant 2027 High <5 IU/L [facility] we[employer]ide Phone: Comment on above: Non-preg premeno <=5 Postmeno <=8 Male <=3 If HCG results do not concur with clinical observations, additional testing to confirm results is recommended. Elevated results not associated with may be found in patients with other diseases such as tumors of the germ cells (testis, ovaries, etc.), bladder, pancreas, stomach, lungs, and liver. Interpretation and review of laboratory results Abnormal [employer] Phone: CBC with Diffon 09-27-2020 Abs. Basophil 0.05 k/uL Normal 0.00-0.20 [facility] Comment on above: Performed By: #### C DP #### [facility] [address] [place] [address] [place] [address] Imaging Aide: Cole Magaña MD Abs.Imm.Granulocyte 0.03 k/uL Normal 0.00-0.30 [facility] Comment on above: Performed By: #### C DP #### [facility] [address] [place] [address] [place] [address] Imaging Aide: Cole Magaña MD Abs.Neutrophil (Seg) 6.02 k/uL Normal 1.50-8.10 [facility] Comment on above: Performed By: #### C DP #### [facility] [address] [place] [address] [place] [address] Imaging Aide: Cole Magaña MD Basophils/100 WBC (Bld) 1 % Normal 0-2 M [facility] Comment on above: Performed By: #### C DP #### [facility] [address] [place] [address] [place] [address] Imaging Aide: Cole Magaña MD Eosinophils (Bld) [#/Vol] 0.10 10*3/uL Normal 0.00-0.44 [facility] Comment on above: Performed By: #### C DP #### [facility] [address] [place] [id number] Imaging Aide: Cole Magaña MD Eosinophils/100 WBC (Bld) 1 % Normal 1-4 [facility] Comment on above: Performed By: #### C DP #### [address] [place] [address] Imaging Aide: Cole aMgaña MD Erythrocyte distribution width (RBC) [Ratio] 13.4 % Normal 11.8-14.4 [facility] Comment on above: Performed By: #### C DP #### [address] [place] [id number] Imaging Aide: Cole Magaña MD Hematocrit (Bld) [Volume fraction] 39.3 % Normal 36.3-47.1 [facility] Comment on above: Performed By: #### C DP #### [address] [place], [place] [address] Imaging Aide: Cole Magaña MD Hemoglobin (Bld) [Mass/Vol] 14.0 g/dL Normal 11.9-15.1 [facility] Comment on above: Performed By: #### C DP #### [address] [place], [place] [address] Imaging Aide: Cole Magaña MD Immature granulocytes (Bld) [#/Vol] 0 % Normal 0 [facility] Comment on above: Performed By: #### C DP #### [address] [place] [id number] Imaging Aide: Cole Magaña MD Lymphocytes (Bld) [#/Vol] 4.01 10*3/uL High 1.10-3.70 [facility] Comment on above: Performed By: #### C DP #### [facility] [address] [place], [place] [phone] Imaging Aide: Cole Magaña MD Lymphocytes/100 WBC (Bld) 37 % Normal 24-43 [facility] Comment on above: Performed By: #### C DP #### [facility] [address] [place] [facility] Imaging Aide: Cole Magaña MD MCH (RBC) [Entitic mass] 30.0 pg Normal 25.2-33.5 [facility] Comment on above: Performed By: #### C DP #### [address] [place] [id number] Imaging Aide: Cole Magaña MD MCHC (RBC) [Mass/Vol] 35.6 g/dL High 28.4-34.8 [facility] Comment on above: Performed By: #### C DP #### [address] [place], [facility] Imaging Aide: Cole Magaña MD MCV (RBC) [Entitic vol] 84.2 fL Normal 82.6-102.9 [facility] Comment on above: Performed By: #### C DP #### [address] [place], [facility] Imaging Aide: Cole Magaña MD Monocytes (Bld) [#/Vol] 0.60 10*3/uL Normal 0.10-1.20 [facility] Comment on above: Performed By: #### C DP #### [facility] [address] [place] [facility] Imaging Aide: Cole Magaña MD Monocytes/100 WBC (Bld) 6 % Normal 3-12 M [facility] Comment on above: Performed By: #### C DP #### [facility] [address] [place] [facility] Imaging Aide: Cole Magaña MD Neutrophil (Seg) 55 % Normal 36-65 [facility] Comment on above: Performed By: #### C DP #### [facility] [address] [place], [place] [phone] Imaging Aide: Cole Magaña MD NRBC Automated 0.0 per 100 WBC Normal 0.0 [facility] Comment on above: Performed By: #### C DP #### [facility] [address] [place] [address] Imaging Aide: Cole Magaña MD Platelet mean volume (Bld) [Entitic vol] 9.5 fL Normal 8.1-13.5 [facility] Comment on above: Performed By: #### C DP #### [facility] [address] [place] [address] Imaging Aide: Cole Magaña MD Platelets (Bld) [#/Vol] 414 10*3/uL Normal 138-453 [facility] Comment on above: Performed By: #### C DP #### [address] [place] [address] Imaging Aide: Cole Magaña MD RBC (Bld) [#/Vol] 4.67 10*6/uL Normal 3.95-5.11 [facility] Comment on above: Performed By: #### C DP #### [facility] [address] [place] [address] Imaging Aide: Cole Magaña MD WBC (Bld) [#/Vol] 10.8 10*3/uL Normal 3.5-11.3 [facility] Comment on above: Performed By: #### C DP #### [facility] [address] [place], [place] [id number] Imaging Aide: Cole Magaña MD Auto Diff Performed NOT REPORTED Normal [facility] Comment on above: Performed By: #### C DP #### [facility] [address] [place], [place] [phone] Imaging Aide: Cole Magaña MD Platelets (Bld) [#/Vol] NOT REPORTED Normal [facility] Comment on above: Performed By: #### C DP #### [facility] [address] [place], [place] [phone] Imaging Aide: Cole Magaña MD RBC morphology finding Nom (Bld) NOT REPORTED Normal [facility] Comment on above: Performed By: #### C DP #### [facility] [address] [place], [place] [phone] Imaging Aide: Cole Magaña MD WBC Morphology NOT REPORTED Normal [facility] Comment on above: Performed By: #### C DP #### [address] [place], [place] [id number] Imaging Aide: Cole Magaña MD RHIG, Transfuseon 09-27-2020 RHIG, Transfuse Unit Number [id number] Blood Component Type RHIG Unit Division 00 Status of Unit TRANSFUSED Transfusion Status OK TO TRANSFUSE Normal [facility] Comment on above: Performed By: #### T RHIG #### [address] [place], [place] [phone] Imaging Aide: Cole Magaña MD Type + Screenon 09-27-2020 Type + Screen Sample Expiration 09/29/2020,2352 Arm Band Number [id number] ABO/Rh(D) A NEGATIVE Antibody Screen NEGATIVE Normal [facility] Comment on above: Performed By: #### T YS #### [facility] [address] [place] [address] Imaging Aide: Cole Magaña MD CBC Auto Differentialon 09-06 Basophils (Bld) [#/Vol] 0.05 10*3/uL [facility] Work Phone: Basophils/100 WBC (Bld) 1 % 0 - 2 % M [employer] Phone: Differential Type NOT REPORTED [employer] Phone: Eosinophils (Bld) [#/Vol] 0.10 10*3/uL [employer] Phone: Eosinophils/100 WBC (Bld) 1 % 1 - 4 % [employer] Phone: Erythrocyte distribution width (RBC) [Ratio] 13.4 % 11.8 - 14.4 % [employer] Phone: Hematocrit (Bld) [Volume fraction] 39.3 % 36.3 - 47.1 % [employer] Phone: Hemoglobin (Bld) [Mass/Vol] 14.0 g/dL 11.9 - 15.1 g/dL [employer] Phone: Immature granulocytes (Bld) [#/Vol] 0.03 10*3/uL [employer] Phone: Immature granulocytes (Bld) [#/Vol] 0 % 0 [employer] Phone: Interpretation and review of laboratory results Abnormal [employer] Phone: Lymphocytes (Bld) [#/Vol] 4.01 10*3/uL High [employer] Phone: Lymphocytes/100 WBC (Bld) 37 % 24 - 43 % [employer] Phone: MCH (RBC) [Entitic mass] 30.0 pg 25.2 - 33.5 pg [employer] Phone: MCHC (RBC) [Mass/Vol] 35.6 g/dL High 28.4 - 34.8 g/dL [employer] Phone: MCV (RBC) [Entitic vol] 84.2 fL 82.6 - 102.9 fL [employer] Phone: Monocytes (Bld) [#/Vol] 0.60 10*3/uL [employer] Phone: Monocytes/100 WBC (Bld) 6 % 3 - 12 % M [employer] Work Phone: Platelet mean volume (Bld) [Entitic vol] 9.5 fL 8.1 - 13.5 fL [employer] Work Phone: Platelets (Bld) [#/Vol] 414 10*3/uL [employer] Work Phone: Platelets (Bld) [#/Vol] NOT REPORTED [employer] Work Phone: RBC (Bld) [#/Vol] 4.67 10*6/uL 3.95 - 5.1 1 m/uL [employer] Work Phone: RBC morphology finding Nom (Bld) NOT REPORTED [employer] Work Phone: Segmented neutrophils/100 WBC (Bld) 55 % 36 - 65 % [employer] Work Phone: Segs Absolute 6.02 [email or web address] [facility] Work Phone: WBC (Bld) [#/Vol] 0.0 10*3/uL 0.0 per 10 0 WBC [employer] Work Phone: WBC (Bld) [#/Vol] 10.8 10*3/uL [employer] Work Phone: WBC Morphology NOT REPORTED [employer] [facility] Work Phone: Basophils (Bld) [#/Vol] 0.00 10*3/uL [employer] Work Phone: Basophils/100 WBC (Bld) 0 % 0 - 2 % M [employer] Work Phone: Differential Type YES [facility] Work Phone: Eosinophils (Bld) [#/Vol] 0.10 10*3/uL [employer] Work Phone: Eosinophils/100 WBC (Bld) 1 % 0 - 5 % [facility] Work Phone: Erythrocyte distribution width (RBC) [Ratio] 15.0 % 12.1 - 15.2 % [employer] Phone: Hematocrit (Bld) [Volume fraction] 40.7 % 36 - 46 % [employer] Phone: Hemoglobin (Bld) [Mass/Vol] 14.2 g/dL 12.0 - 16.0 g/dL [employer] Phone: Lymphocytes (Bld) [#/Vol] 3.20 10*3/uL [employer] Phone: Lymphocytes/100 WBC (Bld) 29 % 15 - 40 % [employer] Phone: MCH (RBC) [Entitic mass] 30.3 pg 26 - 34 pg [employer] Phone: MCHC (RBC) [Mass/Vol] 34.8 g/dL 31 - 37 g/dL M [employer] Phone: MCV (RBC) [Entitic vol] 86.9 fL 80 - 100 fL [employer] Phone: Monocytes (Bld) [#/Vol] 0.60 10*3/uL [employer] Phone: Monocytes/100 WBC (Bld) 6 % 4 - 8 % M [employer] Phone: Platelet mean volume (Bld) [Entitic vol] NOT REPORTED 6.0 - 12.0 fL [employer] Phone: Platelets (Bld) [#/Vol] NOT REPORTED [employer] Phone: Platelets (Bld) [#/Vol] 429 10*3/uL [employer] Phone: RBC (Bld) [#/Vol] 4.69 10*6/uL 4.0 - 5.2 m/uL [employer] Phone: RBC morphology finding Nom (Bld) NOT REPORTED [facility] Work Phone: Segmented neutrophils/100 WBC (Bld) 64 % 47 - 75 % [facility] Work Phone: Segs Absolute 6.[address] [facility] Work Phone: WBC (Bld) [#/Vol] 10.7 10*3/uL [facility] Work Phone: WBC (Bld) [#/Vol] NOT REPORTED per 100 WBC [facility] Work Phone: WBC Morphology NOT REPORTED [facility] Work Phone: Microscopic Urinalysison Amorphous, UA NOT REPORTED None [facility] Work Phone: Bacteria, UA NOT REPORTED None [facility] Work Phone: Casts UA NOT REPORTED /LPF [facility] Work Phone: Crystals, UA NOT REPORTED None /HPF [facility] Work Phone: Epithelial Cells UA 0 TO 2 /HPF [facility] Work Phone: Mucus, UA NOT REPORTED None [facility] Work Phone: Other Observations UA NOT REPORTED NOT REQ. M [facility] Work Phone: RBC (U) [#/Vol] 0 TO 2 [facility] Work Phone: Renal Epithelial, UA NOT REPORTED 0 /HPF [facility] Work Phone: Trichomonas, UA NOT REPORTED None [facility] Work Phone: WBC, UA NOT REPORTED 0 /HPF [facility] Work Phone: Yeast, UA NOT REPORTED None [facility] Work Phone: - [facility] Work Phone: Otheron 09-26-2020 With a positive test and no pole or gestational sac definitely identified, this is a of unknown location and a short-term follow-up ultrasound is recommended. [employer] Phone: EXAM: US OB LESS MEHNAZ N [...] is no free fluid in the cul-de-sac. [employer] Phone: [place], pn Incoming Radiant Results From [employer] - 09/26/2020 7:00 PM EDT EXAM: US [...] and a short-term follow-up ultrasound is recommended. [facility] Work Phone: Immature granulocytes (Bld) [#/Vol] NOT REPORTED [facility] [employer] Phone: Specimen Rejectionon 021 ----- NOT REPORTED Normal [facility] Comment on above: Performed By: #### R EJEC #### [employer] [address] [place] [address] Imaging Aide: Gurpreet Wei MD TYPE AND SCREENon 09-26-2020 ABO/Rh Negative [facility] Work Phone: Arm Band Number [id number] [facility] Work Phone: Expiration Date 09/29/2020,2359 [facility] [employer] Work Phone: Urinalysis Reflex to Culture on 09-26-2020 Bilirubin Urine Negative NEGATIVE [facility] Work Phone: Color, UA YELLOW YELLOW [facility] [employer] Phone: Glucose, Ur Negative NEGATIVE [facility] [employer] Phone: Interpretation and review of laboratory results Abnormal [facility] [employer] Phone: Ketones Ql (U) Negative NEGATIVE [facility] [employer] Work Phone: Leukocyte esterase Test strip Ql (U) Negative NEGATIVE [facility] Work Phone: Nitrite, Urine Negative NEGATIVE [facility] [employer] Work Phone: pH, UA 5.0 [facility] Work Phone: Protein (U) [Mass/Vol] Negative NEGATIVE [facility] Work Phone: Specific [place], UA 1.015 [facility] [employer] Work Phone: Turbidity UA CLEAR CLEAR [facility] Work Phone: Urinalysis Comments [employer] Phone: Urine Hgb TRACE Abnormal NEGATIVE [employer] Phone: Urobilinogen, Urine Normal Normal [employer] Phone: hCG, Quantitative, on 09-26-2020 hCG Quant 920 High <5 IU/L [employer] Phone: Comment on above: Non-preg premeno <=5 Postmeno <=8 Male <=3 If HCG results do not concur with clinical observations, additional testing to confirm results is recommended. Elevated results not associated with may be found in patients with other diseases such as tumors of the germ cells (testis, ovaries, etc.), bladder, pancreas, stomach, lungs, and liver. Interpretation and review of laboratory results Abnormal [employer] Phone: hCG, Serum, Qualitativeon hCG Qual Positive Abnormal NEGATIVE [employer] Phone: Comment on above: If HCG results do not concur with clinical observations, additional testing to confirm result is recommended. This test is not labeled for use as a tumor marker. [employer] has confirmed the use of plasma for this test. This has not been cleared or approved by the U.S. Food and Drug Administration. The FDA has determined that such clearance is not necessary. Interpretation and review of laboratory results Abnormal [employer] Phone: Glucose, Fastingon 0 Glucose [Mass/Vol] 94 mg/dL 70 - 99 mg/dL [place], [place] Lipid Panelon 02-16-2020 Cholesterol [Mass/Vol] 151 mg/dL <200 [place], [place] Comment on above: Cholesterol Guidelines: <200 Desirable 200-240 Borderline >240 Undesirable Cholesterol in HDL [Mass/Vol] 49 mg/dL >40 [place], [place] Comment on above: HDL Guidelines: <40 Undesirable 40-59 Borderline >59 Desirable Cholesterol in LDL [Mass/Vol] 96 mg/dL 0 - 130 mg/dL [place], [place] Comment on above: LDL Guidelines: <100 Desirable 100-129 Near to/above Desirable 130-159 Borderline >159 Undesirable Direct (measured) LDL and calculated LDL are not interchangeable tests. Cholesterol in VLDL [Mass/Vol] NOT REPORTED 1 - 30 mg/dL [place], [place] Cholesterol.total/Vivien sterol in HDL [Mass ratio] 3.1 {ratio} <5 [place], [place] Triglyceride [Mass/Vol] 32 mg/dL <150 [place], [place] Comment on above: Triglyceride Guidelines: <150 Desirable 150-199 Borderline 200-499 High >499 Very high Based on AHA Guidelines for fasting triglyceride, April 2012. NON OB TRANSVAGINALon 1. Mild pelvic free fluid in the cul-de-sac. 2. Normal sonographic morphology of the uterus and ovaries. [place], [place] PROCEDURE: US NON OB TRANSVAGINAL, 01/11/2020 [...] within ovarian tissue bilaterally without spectral evaluation. [place], [place] [employer], pn Incoming Radiant Results From [employer] - 01/12/2020 8:08 AM EDT PROCEDURE: US [...] sonographic morphology of the uterus and ovaries. [employer] Vitamin D 25 Hydroxyon 01-10 Interpretation and review of laboratory results Abnormal [employer] Vit D, 25-Hydroxy 21.6 ng/mL Low 30 - 100 ng/mL [employer] Comment on above: Reference Range: Vitamin D status Range Deficiency <20 ng/mL Mild Deficiency 20-30 ng/mL Sufficiency 30-100 ng/mL Toxicity >100 ng/mL MRI BRAIN W WO CONTRASTOrder ed By: Eliane Vilchis on 07-29-2019 1. Unremarkable contrast enhanced brain MRI. No focal signal abnormality, mass effect or abnormal enhancement. 2. Mild mucosal thickening of the left frontal and bilateral maxillary sinuses. [employer] Phone: EXAM: MRI BRAIN W WO CONTRAST [...] air cells are clear. No abnormal enhancement. [employer] Phone: [employer], [employer] Incoming Radiant Results From [employer] - 07/29/2019 4:55 PM EST EXAM: MRI [...] the left frontal and bilateral maxillary sinuses. [employer] Phone: Basic Metabolic Panel w/ Ref nora to MGOrdered By: Leonor Sandy on 07-10-2019 Anion gap [Moles/Vol] 13 mmol/L 9 - 17 mmol/L [employer] Phone: Bun/Cre Ratio 20 [employer] Work Phone: Calcium [Mass/Vol] 10.4 mg/dL 8.6 - 10. 4 mg/dL [employer] Phone: Chloride [Moles/Vol] 104 mmol/L 98 - 10 7 mmol/L [employer] Phone: CO2 [Moles/Vol] 22 mmol/L 20 - 31 mmol/L [employer] Phone: Creatinine [Mass/Vol] 0.5 mg/dL 0.5 - 0.9 mg/dL [employer] Phone: GFR >60 >60 mL/min [employer] Phone: GFR Comment [employer] Phone: Comment on above: Average GFR for 20-2 9 years old: 116 mL/min/1.73sq m Chronic Kidney Disease: <60 mL/min/1.73sq m Kidney failure: <15 mL/min/1.73sq m eGFR calculated using average adult body mass. Additional eGFR calculator available at: http://www.woodpellets.com/multiple_crcl_2012.htm GFR Non- >60 >60 mL/min [facility] Work Phone: GFR Staging NOT REPORTED [facility] Work Phone: Glucose [Mass/Vol] 132 mg/dL High 70 - 99 mg/dL [facility] Work Phone: Interpretation and review of laboratory results Abnormal [facility] Work Phone: Potassium [Moles/Vol] 3.7 mmol/L 3.7 - 5.3 mmol/L [facility] Work Phone: Sodium [Moles/Vol] 139 mmol/L 135 - 144 mmol/L [facility] Work Phone: Urea nitrogen [Mass/Vol] 10 mg/dL 6 - 20 mg/dL [facility] Work Phone: CBC Auto DifferentialOrdered By: Leonor Sandy on 07-10-2019 Absolute Eos # 0.10 [facility] Work Phone: Absolute Immature Granulocyte NOT REPORTED [facility] Work Phone: Absolute Lymph # 2.70 [facility] IG [employer] [facility] Work Phone: Absolute [place] # 0.40 [facility] Work Phone: Basophils (Bld) [#/Vol] 0.00 10*3/uL [facility] Work Phone: Basophils/100 WBC (Bld) 0 % 0 - 2 % M [facility] Work Phone: Differential Type YES [facility] [employer] Work Phone: Eosinophils/100 WBC (Bld) 1 % 0 - 5 % [employer] Work Phone: Erythrocyte distribution width (RBC) [Ratio] 13.4 % 12.1 - 15.2 % [employer] Work Phone: Hematocrit (Bld) [Volume fraction] 43.6 % 36 - 46 % [employer] Work Phone: Hemoglobin (Bld) [Mass/Vol] 15.0 g/dL 12 - 16 g/dL [employer] Work Phone: Immature Granulocytes NOT REPORTED 0 % M [employer] Work Phone: Lymphocytes/100 WBC (Bld) 30 % 15 - 40 % [employer] Work Phone: MCH (RBC) [Entitic mass] 29.9 pg 26 - 34 pg [employer] Work Phone: MCHC (RBC) [Mass/Vol] 34.4 g/dL 31 - 37 g/dL [employer] Work Phone: MCV (RBC) [Entitic vol] 86.8 fL 80 - 100 fL [employer] Work Phone: Monocytes/100 WBC (Bld) 4 % 4 - 8 % [employer] Work Phone: MPV NOT REPORTED 6 - 12 fL [employer] Work Phone: NRBC Automated NOT REPORTED per 100 WBC [employer] Work Phone: Platelet Estimate NOT REPORTED [employer] Work Phone: Platelets (Bld) [#/Vol] 395 10*3/uL [employer] Work Phone: RBC (Bld) [#/Vol] 5.02 10*6/uL 4 - 5.2 m/uL [facility] Work Phone: RBC morphology finding Nom (Bld) NOT REPORTED [employer] Work Phone: Segmented neutrophils/100 WBC (Bld) 65 % 47 - 75 % [employer] Work Phone: Segs Absolute 5.80 Jody Arreola h Work Phone: WBC (Bld) [#/Vol] 8.9 10*3/uL [employer] Work Phone: WBC Morphology NOT REPORTED [facility] Work Phone: CT Head WO ContrastOrdered B y: Leonor Sanyd on 07-10-[address] brain[address] [employer] [facility] Work Phone: EXAMINATION: CT HEAD WO [...] sagittal multiplanar reconstructions show no additional abnormality. [employer] Phone: Aguila, pn Incoming Radiant Results From [employer] - 07/10/2019 6:04 PM EST EXAMINATION: CT [...] no additional abnormality. IMPRESSION: Normal CT brain. [employer] Phone: Glucose, Whole BloodOrdered By: Leonor Sandy on 07-10-2019 Glucose [Mass/Vol] 98 mg/dL 65 - 99 mg/dL [employer] Phone: POCT glucoseOrdered By: Nathaly walker Du on 07-10-2019 Glucose [Mass/Vol] 98 mg/dL [employer] Work Phone: Interpretation and review of laboratory results Normal [employer] Work Phone: QC OK? yes [employer] Work Phone: , UrineOrdered By: Leonor Kay on 07-10-2019 Beta HCG ( test) Ql (U) Negative NEGATIVE [employer] Work Phone: Urinalysis, reflex to micros copicOrdered By: Leonor Sandy on 07-10-2019 Bilirubin Urine Negative NEGATIVE [employer] [facility] Work Phone: Color, UA YELLOW YELLOW [employer] Work Phone: Glucose, Ur Negative NEGATIVE [employer] Work Phone: Ketones Ql (U) Negative NEGATIVE [employer] Work Phone: Leukocyte esterase Test strip Ql (U) Negative NEGATIVE [employer] Work Phone: Nitrite, Urine Negative NEGATIVE [employer] Work Phone: pH, UA 6.5 [employer] Work Phone: Protein, UA Negative NEGATIVE [employer] Work Phone: Specific [place], UA 1.010 [employer] Work Phone: Turbidity UA CLEAR CLEAR [employer] Work Phone: Urinalysis Comments [employer] Work Phone: Urine Hgb Negative NEGATIVE [employer] Work Phone: Urobilinogen, Urine Normal Normal [employer] Work Phone: [facility] Repor ton 06-12-2017 [facility] Report Type: OrthopedicDictated by: To be signed by: Transcribed by: Transcribed D/ Dictation D/ Report: May 07, 2017 RE: Chapis Nation is here today with chief complaint of right hand pain. She has been having this now for a few months. 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 Normal [facility] Radiologyon 06-12-2017 Radiology Type: OutpatientDictated by: Signed by: Transcribed by: Transcribed Date/Time: 05/10/2017 12:19Dictation Date/Time: 05/07/2017 17:31Report: DATE OF SERVICE: 05/07/2017 DIAGNOSTIC STUDIES/INTERPRETATION S/IMPRESSIONS: Radiographs AP and lateral projections of her hands bilaterally demonstrate no fracture, dislocation, or other bony abnormality. Normal [facility] Vital Signs Date Time Vital Sign Value Performing Clinician Facility 04-14-2024 11:33-0400 Body temperature 98.71 [degF] Maryam HARRELL Work Phone: [facility] 04-14-2024 11:33-0400 Diastolic blood pressure 64 mm[Hg] Maryam HARRELL Work Phone: [facility] 04-14-2024 11:33-0400 Systolic blood pressure 110 mm[Hg] Maryam HARRELL Work Phone: [facility] 09-27-2020 01:25-0400 BP Diastolic 78 mm[Hg] Jeremiah [employer] Work Phone: 09-27-2020 01:25-0400 BP Systolic 131 mm[Hg] Jeremiah [employer] Work Phone: 09-27-2020 01:25-0400 Pulse (Heart Rate) 99 /min Jeremiah [employer] Work Phone: 09-27-2020 01:25-0400 Pulse Oximetry 99 % [employer] Work Phone: 09-26-2020 21:16-0400 BMI (Body Mass Index) 25.82 kg/m2 [employer] Work Phone: 09-26-2020 21:16-0400 Body Temperature 99.1 [degF] Jeremiah [employer] Work Phone: 09-26-2020 21:16-0400 Body weight 72.58 kg Jeremiah [employer] Work Phone: 09-26-2020 21:16-0400 Respiratory Rate 16 /min [employer] Work Phone: 07-10-2019 21:26-0500 Diastolic blood pressure 88 mm[Hg] Leonor Sandy MD Work Phone: [employer] Work Phone: 07-10-2019 21:26-0500 Heart rate 77 /min Leonor Sandy MD Work Phone: [employer] Work Phone: 07-10-2019 21:26-0500 Respiratory rate 18 /min Leonor Sandy MD Work Phone: [employer] Work Phone: 07-10-2019 21:26-0500 SaO2% (BldA) [Mass fraction] 100 % Leonor Sandy MD Work Phone: [employer] Work Phone: 07-10-2019 21:26-0500 Systolic blood pressure 127 mm[Hg] Leonor Sandy MD Work Phone: [employer] Work Phone: 07-10-2019 16:53-0500 Body height 167.6 cm Leonor Sandy MD Work Phone: [employer] Work Phone: 07-10-2019 16:53-0500 Body mass index (BMI) [Ratio] 25.02 kg/m2 Leonor Sandy MD Work Phone: [employer] Work Phone: 07-10-2019 16:53-0500 Body temperature 98.29 [degF] Leonor Sandy MD Work Phone: [employer] Phone: 07-10-2019 16:53-0500 Body weight 70.31 kg Leonor Sandy MD Work Phone: [employer] Work Phone: Encounters Encounter Date Encounter Type Care Provider Facility Start: 04-14-2024 End: 04-14-2024 ambulatory MARYAM FARNSWORTH Not Available Start: 04-14-2024 End: 04-14-2024 Office outpatient visit 15 minutes Maryam HARRELL Work Phone: [facility] Comment on above: Encounter to discuss test results; Abdominal pain, unspecified abdominal location; Vertigo; Nausea Start: 04-11-2024 End: 04-11-2024 Clinisync Result Encounter Shannan Jobrad JANG Work Phone: [facility] Unsolicited Start: 04-11-2024 End: 04-11-2024 Clinisync Result Encounter Shannan Jo DO Work Phone: [facility] Unsolicited Start: 04-09-2024 End: 04-09-2024 Clinisync Result Encounter Shannan Jo DO Work Phone: [facility] Unsolicited Start: 04-09-2024 End: 04-09-2024 Clinisync Result Encounter Shannan Jo DO Work Phone: [facility] Unsolicited Start: 03-02-2024 End: 03-02-2024 ambulatory SHANNAN JO Not Available Start: 07-23-2023 End: 07-23-2023 ambulatory SHANNAN JO Not Available Start: 06-13-2023 End: 06-13-2023 ambulatory SHANNAN JO Not Available Start: 04-30-2023 ambulatory DO Chris Kelley [facility] ility[facility] Start: 11-27-2022 End: 11-28-2022 ambulatory Wero Britton Facility:[facility] Start: 07-23-2022 End: 07-24-[address] [facility] Start: 07-16-2022 End: 07-17-2022 ambulatory YOLANDA [facility] Start: 07-16-2022 End: 07-16-2022 Subsequent hospital visit by physician Fiorella Abarca DO Work Phone: [facility] Laboratory Comment on above: Urticaria Start: 05-01-2022 End: 07-31-2022 ambulatory Cuco Oneal Facility:[facility] Start: 05-28-2021 End: 05-28-2021 ambulatory Mary Brown Facility:[facility] Start: 10-03-2020 End: 10-03-2020 Subsequent hospital visit by physician Fiorella Abarca [facility] Laboratory Start: 09-28-2020 End: 09-28-2020 Subsequent hospital visit by physician Fiorella Abarca [facility] Laboratory Comment on above: Less than 8 weeks ge station of ; Pelvic pain Start: 09-26-2020 End: 09-27-2020 Emergency department patient visit FIORELLA ABARCA [facility] Start: 09-26-2020 End: 09-27-2020 Emergency department patient visit Jeremiah Mcnair Work Phone: [facility] ED Comment on above: Abdominal pain durin g in first trimester (Primary Dx) Start: 09-26-2020 End: 09-28-2020 Subsequent hospital visit by physician [facility] Laboratory Comment on above: Pelvic pain in femal e; Less than 8 weeks gestation of Start: 02-16-2020 End: 02-16-2020 Subsequent hospital visit by physician Fiorella Abarca [facility] Laboratory Comment on above: Screening for cardio vascular condition Start: 01-11-2020 End: 01-13-2020 Subsequent hospital visit by physician [facility] Laboratory Comment on above: Vitamin D deficiency Lower abdominal pain ; Amenorrhea Start: 10-23-2019 End: 10-23-2019 Subsequent hospital visit by physician Fiorella Abarca [facility] Laboratory Comment on above: Viral illness; Suspected COVID-19 virus infection Start: 10-19-2019 End: 10-19-2019 Subsequent hospital visit by physician Fiorella Abarca [facility] Laboratory Comment on above: Suspected COVID-19 v irus infection Start: 07-29-2019 End: 07-31-2019 Subsequent hospital visit by physician [facility] MRI Comment on above: Right sided numbness ; Blurred vision Start: 07-10-2019 End: 07-10-2019 Emergency department patient visit Leonor Sandy MD Work Phone: [facility] ED Comment on above: Migraine with aura a nd with status migrainosus, not intractable (Primary Dx) Start: 05-07-2017 Ambulatory [facility] Procedures Date Procedure Procedure Detail Performing Clinician Start: 04-11-2024 [facility] PREG QUANT HCG Shannan Jo DO Work Phone: Start: 04-09-2024 [facility] PREG QUANT HCG Shannan Jo DO Work Phone: Start: 04-03-2023 Microscopic observation [Identifier] in Cervix by Cyto stain Shannan Osorio DO Work Phone: Start: 07-16-2022 ALLERGEN, FOOD, COMPREHENSIVE PROFILE 1 Yolanda Santillan Milagro [employer] BUSINESS ANALYST - ARCHIVES TECHNICIAN Work Phone: Start: 10-03-2020 Gonadotropin chorionic quantitative Sugey Chavezaprawira Start: 09-28-2020 Blood count complete auto&auto difrntl wbc Yolanda Santillan Ceylon Work Phone: Start: 09-28-2020 Gonadotropin chorionic quantitative Yolanda Humphrey Work Phone: Start: 09-26-2020 Antibody screen Jeremiah Mcnair Start: 09-26-2020 Blood count complete auto&auto difrntl wbc Jeremiah Mcnair Work Phone: Start: 09-26-2020 Blood typing serologic abo Jeremiah Mcnair Work Phone: Start: 09-26-2020 Us preg uterus real time w/image dcmtn transvag Yolanda Santillan Milagro Work Phone: Start: 09-26-2020 Us uterus 14 wk transabdl 07/08 gestat Yolanda Santillan Milagro Work Phone: Start: 09-26-2020 Blood count complete auto&auto difrntl wbc Yolanda Humphrey Work Phone: Start: 09-26-2020 Gonadotropin chorionic qualitative Yolanda Santillan Milagro Work Phone: Start: 09-26-2020 Gonadotropin chorionic quantitative Yolanda Santillan Milagro Work Phone: Start: 09-26-2020 Urinalysis microscopic only Yolanda Santillan Milagro Work Phone: Start: 09-26-2020 Urnls dip stick/tablet rgnt auto w/o microscopy Yolanda M Milagro Work Phone: Start: 02-16-2020 Glucose tolerance test gtt 3 specimens Fiorella Abarca Work Phone: Start: 02-16-2020 Lipid panel Fiorella Abarca Work Phone: Start: 01-11-2020 Us transvaginal Fiorella Jhoana Abarca Work Phone: Start: 01-11-2020 25 hydroxy includes fractions if performed Cammy Grayson Work Phone: Start: 10-19-2019 COVID-19 Solange Sheppard Work Phone: Start: 07-29-2019 Mri brain brain [...] DTaP/Tdap/Td vaccine (2 - Td or Tdap) [facility] Start: 04-03-2028 Screening for malign ant neoplasm of cervix HPV/Cotest [facility] Start: 04-03-2026 Screening for malign ant neoplasm of cervix [facility] Start: 04-23-2024 End: 04-23-2024 ambulatory 04/23/2024 2:00 PM EDT Initial [facility] [address] [place] [address] [facility] Start: 04-23-2024 End: 04-23-2024 Professional / ancillary services management 04/23/2024 1:30 PM EDT Ancillary Procedure [facility] [address] [place] [id number] [facility] Start: 03-08-2024 Influenza vaccination Influenza Vacc ine (#1) [facility] Start: 07-16-2023 [facility] Start: 02-05-2022 Influenza vaccination Flu vaccine (# 1) [facility] Start: 03-08-2020 Influenza vaccination [place] Start: 01-27-2020 End: 01-27-2020 Office Visit 01/27/2020 Office Visit Family Medicine Foirella Abarca, DO [address] [place] [address] [facility] Start: 11-16-2019 End: 11-16-2019 Office Visit 11/16/2019 Office Visit Neurology Cammy Grayson MD [address] [place] [address] [phone] [facility] Start: 10-21-2019 End: 10-21-2019 Telemedicine 10/21/2019 Telemedicine Family Medicine Fiorella Abarca, DO [address] [place] [address] [facility] Start: 08-20-2019 End: 08-20-2019 Patient encounter procedure 08/20/2019 Office Visit Neurology Cammy Grayson MD [address] [place] [address] [phone] [facility] Start: 03-08-2019 Influenza vaccination Flu vaccine (# 1) [facility] [employer] Phone: Start: 05-26-2018 Cervical cancer screen Cervical canc er screen [facility]: Start: 05-26-2018 Screening for malign ant neoplasm of cervix [facility] Start: 2012 DTaP/Tdap/Td vaccine (1 - Tdap) DTaP/Tdap/Td vaccine (1 - Tdap) [place], [place] Start: 11-22-2011 Hepatitis C screening Hepatitis C sc reen [facility] Start: 2009 COVID-19 Vaccine (1) COVID-19 Vaccin e (1) [facility] Phone: Start: 2008 HIV screen HIV screen [facility] Phone: Start: 2008 HIV screening HIV screen [facility] Start: 2004 DTaP/Tdap/Td vaccine (1 - Tdap) DTaP/Tdap/Td vaccine (1 - Tdap) [facility] Phone: Start: 2004 HPV vaccine (1 - 2-d ose series) HPV vaccine (1 - 2-dose series) [place], [place] Start: 2004 HPV vaccine (1 - Fem terrance 2-dose series) HPV vaccine (1 - Female 2-dose series) [facility] Phone: Start: 11-22-1999 Pneumococcal 0-64 ye ars Vaccine (1 - PCV) Pneumococcal 0-64 years Vaccine (1 - PCV) [facility] Start: 11-22-1999 Pneumococcal 0-64 ye ars Vaccine (1 of 1 - PPSV23) Pneumococcal 0-64 years Vaccine (1 of 1 - PPSV23) [facility] Phone: Start: 1994 Varicella vaccine (1 of 2 - 2-dose childhood series) Varicella vaccine (1 of 2 - 2-dose childhood series) [facility] Start: 05-24-1994 COVID-19 Vaccine (#1) COVID-19 Vacci ne (#1) [facility] Start: 1993 Hepatitis C screening Hepatitis C sc reen [facility] Phone: End: 09-26-2020 C.trachomatis N.gonorrhoeae DNA C.trachomatis N.gonorrhoeae DNA Microbiology STAT One Time for 1 Occurrences starting 09/26/2020 until 09/26/2020 [employer] Phone: Comment on above: One Time for 1 Occur rences starting 09/26/2020 until 09/26/2020 C.trachomatis N.gonorrhoeae DNA C.trachomatis N.gonorrhoeae DNA Microbiology STAT 09/26/2020 10:35 PM EDT [employer] Phone: COVID-19 COVID-19 Lab Rou constance Suspected COVID-19 virus infection 10/19/2019 10:18 AM EDT [facility] [place] End: 10-23-2019 COVID-19 Ambulatory COVID-19 Ambulatory Lab Routine Viral illness Suspected Covid-19 Virus Infection 1 Occurrences starting 10/23/2019 until 10/23/2019 [place], [place] Comment on above: 1 Occurrences starti ng 10/23/2019 until 10/23/2019 COVID-19 Ambulatory COVID-19 Amb ulatory Lab Routine Viral illness Suspected COVID-19 virus infection 10/23/2019 4:02 PM EDT [place] CTA HEAD NECK W CONTRAST CTA HEA D NECK W CONTRAST Imaging STAT 07/10/2019 7:43 PM EST [employer] Phone: Food Comprehensive Panel Food Co mprehensive Panel Lab Routine Urticaria 07/16/2022 5:05 PM EST [employer] Phone: RHOGAM INJECTION ONLY RHOGAM INJ ECTION ONLY Blood Bank STAT 09/26/2020 10:15 PM EDT [employer] Phone: Immunizations Immunization Date Immunization Notes Care Provider Fa adele 05-02-2023 influenza virus vaccine, unspecified formulation Shannan Osorio DO Work Phone: [facility] 05-26-2021 tetanus toxoid, redu henny diphtheria toxoid, and acellular pertussis vaccine, adsorbed [facility] 09-26-2020 RHO(D) immune globul in - IM Jeremiah Mcnair [employer] Work Phone: 04-07-2018 influenza virus vaccine, unspecified formulation Leonor Sandy MD Work Phone: [employer] Work Phone: 10-06-2013 hepatitis B vaccine, adult dosage Fiorella Abarac DO Work Phone: [facility] [employer] Work Phone: 10-06-2013 hepatitis B vaccine, unspecified formulation Fiorella Abarca [facility] Work Phone: 06-01-2013 hepatitis B vaccine, adult dosage Fiorella Abarca DO Work Phone: [facility] [employer] Work Phone: 06-01-2013 hepatitis B vaccine, unspecified formulation Fiorella Darbyjoe [facility] Work Phone: 04-21-2013 hepatitis B vaccine, adult dosage Fiorella Abarca DO Work Phone: [facility] [employer] 04-21-2013 hepatitis B vaccine, unspecified formulation Fiorella Abarca [facility] Work Phone: 06-29-2011 tuberculin skin test ; purified protein derivative solution, intradermal Leonor Sandy MD Work Phone: [employer] Work Phone: Payers Date Payer Category Payer Unknown BCBS BCBS [id number] 2023-[facility] [phone] [address] [place] [address] [id number] 2023 Unknown [id number] 2021 Unknown [id number] 2021 Private Health Insurance [id number] 2021 Self-pay [id number] 2020 Unknown [id number] 2019 Unknown [employer] [address] [id number] 2019-Present [phone] [address] [place] [address] [id number] 2014 Unknown [id number] 1993 Unknown [id number] [id number]. 2.173 1993 Unknown [id number] [id number]. 2.174 1993 Unknown [id number] [id number]. 2.174 1993 Unknown [id number] [id number]. 2.727 1993 Unknown [id number] [id number]. 2.727 1993 Unknown [id number] [id number]. 2.727 1993 Unknown [id number] [id number]. 2.1259 1993 Unknown [id number] [id number]. 2.1259 1993 Unknown [id number] [id number]. 2.1259 1993 Unknown [id number] [id number]. 2.1259 Unknown [facility] [id number] Unknown [id number]. 2.531 Worker's Compensation [facility] [id number] Social History Date Type Detail Facility Start: 10-23-2019 End: 03-05-2023 Tobacco smoking status NHIS Never smoker [employer] Start: 10-23-2019 End: 07-16-2022 Alcohol intake Current non-drinker of alcohol (finding) [employer] Phone: Start: 1995 Sex Assigned At Not on file M [employer] Phone: Exposure to SARS-CoV -2 (event) Unable to assess [employer] Start: 02-16-2020 End: 03-05-2023 Tobacco use and exposure Never used [employer] Exposure to SARS-CoV -2 (event) Not sure [employer] Phone: Start: 07-16-2022 History SDOH Financial 5 [employer] Phone: Start: 07-16-2022 History SDOH Food Worry 1 [employer] Phone: Start: 1995 Sex Assigned At Female F [facility] Start: 07-23-2023 End: 04-14-2024 Alcoholic beverage intake Lifetime non-drinker (finding) [facility] Start: 04-03-2023 End: 04-14-2024 History of Social function [facility] Start: 04-03-2023 End: 04-14-2024 Tobacco use panel [facility] Start: 03-05-2023 Alcohol Comment caffeine intak e : none [facility] History of Present illness Narrative 04-14-2024 JULIO CESAR Diaz - 04/14/2024 11:20 AM EDT Note Date & Type Note Facility 04-14-2024 History of Presen t illness Narrative Reason for Appointment: Patient ID: Chapis Evans is a 28 y.o. female who presents for Follow-up (Pt present today for f/up visit to review US results due to abdominal pain in early . ) Patient presents today for Acute Visit. MEDICATIONS Current Outpatient Medications Medication Instructions clobetasol (Temovate) 0.05 % cream 1 application , Topical, 2 times daily, Apply pea-size amount to affected area. diclofenac potassium (ZIPSOR) 25 mg, Oral drospirenone-ethinyl estradiol (Wanda, Gianvi) 3-0.02 MG tablet 1 tablet, Oral, Daily RT eletriptan (RELPAX) 20 mg, Oral ibuprofen 600 MG tablet Every 8 hours meclizine (ANTIVERT) 25 mg, Oral, 3 times daily PRN norethindrone (Micronor) 0.35 MG tablet 1 tablet, Oral, Daily ondansetron ODT (ZOFRAN-ODT) 4 mg, Oral, Every 6 hours PRN ALLERGIES Allergies Allergen Reactions Mixed Grasses Propofol Other reaction(s): TROUBLE WAKING UP Succinylcholine Family hx. Of pseudocholinesterase deficiency PROBLEMS Active Ambulatory Problems Diagnosis Date Noted Encounter to discuss test results 07/16/2023 Follow-up encounter involving medication 07/16/2023 Vaginal irritation 03/02/2024 Chronic vaginitis 03/02/2024 Dyspareunia in female 03/02/2024 Resolved Ambulatory Problems Diagnosis Date Noted No Resolved Ambulatory Problems Past Medical History: Diagnosis Date Chronic daily headache Hx of being hospitalized Migraines (CMS/HCC) Type A blood, Rh negative HISTORY PAST MEDICAL HISTORY SOCIAL HISTORY Past Medical History: Diagnosis Date Chronic daily headache Hx of being hospitalized IV's for migraine H/A Migraines (CMS/HCC) Type A blood, Rh negative Social History Tobacco Use Smoking status: Never Smokeless tobacco: Never Substance Use Topics Alcohol use: Never Comment: caffeine intake : none Drug use: Never FAMILY HISTORY Family History Problem Relation Name Age of Onset No Known Problems Sister Dementia Maternal Grandmother Diabetes Paternal Grandfather Heart disease Paternal Grandfather No Known Problems Son SURGICAL HISTORY Past Surgical History: Procedure Laterality Date SECTION, LOW TRANSVERSE 05/25/2021 FOOT SURGERY fatty tumor rmoved x2 from foot TONSILLECTOMY age 1 REVIEW OF SYSTEMS Review of Systems: Review of Systems Constitutional: Negative. HENT: Negative. Eyes: Negative. Respiratory: Negative. Cardiovascular: Negative. Gastrointestinal: Positive for nausea. Genitourinary: Negative. Musculoskeletal: Negative. Skin: Negative. Neurological: Positive for dizziness. All other systems reviewed and are negative. Hematological: Negative. Endocrine: Negative. Allergic/Immunologic: Negative. OBJECTIVE Objective: Physical Exam Constitutional: Appearance: Normal appearance. She is normal weight. HENT: Head: Normocephalic. Cardiovascular: Rate and Rhythm: Normal rate. Pulses: Normal pulses. Pulmonary: Effort: Pulmonary effort is normal. Breath sounds: Normal breath sounds. Abdominal: Palpations: Abdomen is soft. Musculoskeletal: General: Normal range of motion. Neurological: General: No focal deficit present. Mental Status: She is alert and oriented to person, place, and time. Psychiatric: Mood and Affect: Mood normal. Behavior: Behavior normal. Thought Content: Thought content normal. Judgment: Judgment normal. Vitals and nursing note reviewed. Vitals: Estimated body mass index is 25.37 kg/m as calculated from the following: Height as of 03/21/22: 5' 7 . Weight as of 07/23/23: 162 lb. BP: 110/64 No LMP recorded. ASSESSMENT & PLAN ICD-10-CM 1. Encounter to discuss test results Z71.2 2. Abdominal pain, unspecified abdominal location R10.9 3. Vertigo R42 meclizine (Antivert) 25 MG tablet 4. Nausea R11.0 ondansetron ODT (Zofran-ODT) 4 MG disintegrating tablet Patient was seen at the ER for nausea, abdominal cramping and dizziness on 04/12/24. Patient denies vaginal bleeding. On exam today, pt symptoms are suspect for vertigo. Patient nausea and dizziness positional today on exam. Repeat US performed today in attempt to see or visualize growth. We will send in zofran and also antivert to help alleviate symptoms of dizziness. Pt encouraged to return to er if symptoms or condition worsens. Pt will follow up next week with Dr Osorio. Pt vital signs with in normal limits, no fever at this point, abd soft and nontender Documented by JULIO CESAR Diaz on behalf of: JULIO CESAR Diaz documented in this encounter [facility] Healthcare Progress note 03-30-2021 Note Date & Type Note Facility 03-30-2021 Note HNO ID: [id number] Author: Michael Lilly MD Service: ? Author [...] with more than 50% of the total [id number] time of the visit in counseling / [...] dilatation The pa (more content not included)... [facility] Discharge instructions 07-10-2019 InstructionsAttachments Note [...] be sent through Care Everywhere.Migraine Headache: Recurring (Upper Sorbian)documented in this encounter [employer] Phone: Evaluation note Note Date & Type Note Facility Evaluation note Diagnosis Migraine with aura and with status migrainosus, not intractable- Primary Migraine with aura, with intractable migraine, so stated, with status migrainosus documented in this encounter [employer] Phone: Evaluation note Note Date & Type Note Facility Evaluation note Diagnosis Right sided numbness Blurred vision Other specified visual disturbances documented in this encounter [employer] Work Phone: Evaluation note Note Date & Type Note Facility Evaluation note Diagnosis Urticaria Urticaria, unspecified documented in this encounter [employer] Work Phone: Evaluation note Note Date & Type Note Facility Evaluation note No assessment information availa [facility] Work Phone: Evaluation note Note Date & Type Note Facility Evaluation note Diagnosis Encounter to discuss test results Other specified counseling Abdominal pain, unspecified abdominal location Vertigo Dizziness and giddiness Nausea Nausea alone documented in this encounter [facility] Summary Purpose Family History Relationship Condition Age at Onset Recorded Date/T ifeoma Not Specified No pertinent family history Unknown Advance Directives Documents on File Type Date Recorded Patient Sheet Metal Engineer Expl anation Advance Directives and Living Will Power of Automotive Glass Technician Documents on File Type Date Recorded Patient Sheet Metal Engineer Expl anation Advance Directives and Living Will Power of Automotive Glass Technician Documents on File Type Date Recorded Patient Sheet Metal Engineer Expl anation ACP-Advance Directive ACP-Power of Automotive Glass Technician Documents on File Type Date Recorded Patient Sheet Metal Engineer Expl anation ACP-Advance Directive ACP-Power of Automotive Glass Technician Assessments Diagnosis Viral illness Unspecified viral infection, [...] OB TRANSVAGINAL Fiorella Abarca, DO [address] [place] [address] Status Reason Specialty Diagnoses / Procedures Referre d By Contact Referred To Contact Closed Radiology Diagnoses Right sided numbness Blurred vision Procedures MRI BRAIN W WO CONTRAST HC MRI-BRAIN WO & W CONTRAST Eliane Vilchis MD [address] [place] [address] Discharge Instructions * Instructions* Jeremiah Mcnair MD - 09/27/2020 Yolanda Ramos office personnel will contact you with regards to scheduling of your repeat hCG level ( test) * Attachments The following attachments cannot be sent through Care Everywhere. * : Abdominal Pain (Upper Sorbian) documented in this encounter Additional Source Comments INFORMATION SOURCE (unrecogn ized section and content) DATE CREATED AUTHOR 12/31/2017 [facility] DATE CREATED AUTHOR AUTHOR'S ORGANIZ ATION 01/30/2018 [facility] DATE CREATED AUTHOR AUTHOR'S ORGANIZ ATION 09/29/2020 [facility] DATE CREATED AUTHOR AUTHOR'S ORGANIZ ATION 08/15/2021 [facility] DATE CREATED AUTHOR AUTHOR'S ORGANIZ ATION 07/24/2022 Jody gonzalez DATE CREATED AUTHOR AUTHOR'S ORGANIZ ATION 03/09/2023 [facility] DATE CREATED AUTHOR AUTHOR'S ORGANIZ ATION 05/01/2023 Andrew Ellis [facility] DATE CREATED AUTHOR AUTHOR'S ORGANIZ ATION 04/16/2024 [facility] EPIC Reason for Visit (unrecogniz ed section and content) Status Reason Specialty Diagnoses / Procedures Referre d By Contact Referred To Contact Closed Radiology Diagnoses Lower abdominal pain Amenorrhea Procedures US NON OB TRANSVAGINAL Fiorella Abarca, DO [address] [place] [address] Reason Comments Pelvic Pain onset approx 1 week ago, sent her by PCP for eval Status Reason Specialty Diagnoses / Procedures Referre d By Contact Referred To Contact Open Radiology Diagnoses Pelvic pain in female Less than 8 weeks gestation of Procedures US OB LESS THAN 14 WEEKS SINGLE OR FIRST GESTATION US PELVIS COMPLETE Yolanda Humphrey, SAP BUSINESS ANALYST - ARCHIVES TECHNICIAN [address] [place] [address] Reason Comments Headache History of migraine headaches. Vomited one time today. Status Reason Specialty Diagnoses / Procedures Referre d By Contact Referred To Contact Closed Radiology Diagnoses Right sided numbness Blurred vision Procedures MRI BRAIN W WO CONTRAST HC MRI-BRAIN WO & W CONTRAST Eliane Vilchis MD [address] [facility] [address] [place] [address] Reason Comments Follow-up Pt present today for f/up visit to review US results due to abdominal pain in early . Care Teams (unrecognized sec tion and content) Pearl Stringer Relationship Specialty Start Date End Date Fiorella Abarca DO [address] [place] [address] PCP - General 02/26/16 Pearl Stringer Relationship Specialty Start Date End Date Fiorella Abarca DO [address] [place] [address] PCP - General Internal Medicine 03/05/23 Pearl Stringer Relationship Specialty Start Date End Date Fiorella Abarca DO [address] [place] [id number] PCP - General Internal Medicine 03/05/23 Goals (unrecognized section and content) Goals may [...] BE BASED ON THE PRIMARY CLINICAL RECORDS. [facility]. provides no warranty or guarantee of the accuracy or completeness of information in this document.
== END 2024-04-23 13:33 | disposition home or self-care (01) ==
LOC: NOMS 13:32
PROVIDERS: PCP Student in an Organized Health Care Education/Training Program; Visit Provider Obstetrics & Gynecology
DX: O02.0 Blighted ovum and nonhydatidiform mole (principal); Z3A.10 10 weeks gestation of pregnancy; N92.6 Irregular menstruation, unspecified
CPT/HCPCS: 76817

== ENCOUNTER 2024-04-24 08:40 | Day surgery (SDC) | payer BC, SELFPAY ==
[2024-04-24] VITALS (12 sets, daily range): BP systolic 102–125; BP diastolic 67–84; PULSE 66–89; TEMP 36.4–36.9; O2SAT 98–100; BMI 27.4
--- OUTSIDE RECORDS SUMMARY | 2024-04-24 08:50 | XMS_ITS | CCD ---
Author Organization [facility] [place] [facility] Care Team Providers Care Breastfeeding Program Coordinator Name Role Phone CHRIS DO Unavailable Unavailable CHRIS DO Unavailable Unavailable Yonley, Fiorella L Primary Care Provider Yonley, Fiorella L Primary Care Provider [phone] YONLEY, FIORELLA L Primary Care Unavailable JEREMIAH MCNAIR Attending Unavailable Yonley DO, Fiorella L Primary Care Provider [phone] Yonley DO, Fiorella L Primary Care Provider [...] Unavailable Yonley DO, Fiorella Primary Care Provider [phone] Allergies Allergy Classification Reported Allergen(s) Allergy Type Date of Onset Reaction(s) Facility (18 sources) Succinylcholine Drug Allergy 08-18-19 14 [facility] Phone: (5 sources) Anesthesia S-I-60 Propensity to adverse reactions to drug 08-20-19 20 [facility] [place] (13 sources) Other Propensity to adverse reactions 09-19-19 12 Other (See Comments) [facility] Phone: (11 sources) Propofol Drug Allergy 08-20-19 20 [facility] Phone: (2 sources) Seasonal allergy Propensity to adverse reactions to substance 09-19-19 12 Other (See Comments) [facility] Phone: (1 source) Succinylcholine Drug Allergy 01-14-20 [facility] Repository (1 source) Grass; Translations: [Grass] Propensity to adverse reactions (disorder) [facility]ository (1 source) House dust mite (Bt) RAST; Translations: [House dust mite (Bt) RAST] Propensity to adverse reactions (disorder) [facility]ository (4 sources) Mixed Grasses Propensity to adverse reactions 07-23-19 [facility] NEGATED: Highlighted row has been ruled out! (1 source) Other Propensity to adverse reactions 09-19-19 12 Other (See Comments) MEHDI TEJAL [employer] Phone: Medications Current Medications Medication Drug [...] at bedtime May 27, 2021 1:00am ergocalciferol 24118 unt oral capsule (2 sources) Provitamin D2 Compound Start: 08-25-2019 End: 11-11-2019 take 1 capsule by mouth every week vitamin D (ERGOCALCIFEROL ) 1.25 MG (82608 UT) CAPS capsule Take 1 capsule by [...] LIPS DAILY UNTIL CLEAR 0 09/17/2019 Active 636-Yvuh-Pkkcq-Omeg a3 (One-A-Day -1) 27 mg iron- 800 mcg-235 mg capsule (1 source) Start: 01-13-2021 503-Kseu-Ciayy-Om ega3 (One-A-Day -1) 27 mg iron- 800 mcg-235 mg capsule Active 1 CAP PO Daily January 13, 2021 12:00am Vit-Fe Sbingwe-CR-ZZG ( VITAMIN/MIN +DHA) 27-0.8-200 MG CAPS (7 sources) Start: 09-26-2020 take 1 tablet by mouth once daily Vit-Fe Qeviokt-UY-NAV ( VITAMIN/MIN +DHA) 27-0.8-200 MG CAPS Indications: [...] Start: 07-29-2019 take 1 capsule by mo [facility] once daily propranolol (INDERAL LA) 120 [...] PREG QUANT HCGon 10-05-2 024 HCG QUANTITATIVE 39444 mIU/mL [facility] Comment on above: 5-50 0.2-1 WEEK 50-500 1-2 WEEKS 100-5,000 2-3 WEEKS 500-10,000 3-4 WEEKS 1,000-50,000 4-5 WEEKS 10,000-100,000 5-6 WEEKS 15,000-200,000 6-8 WEEKS 10,000-100,000 2-3 MONTHS [facility] PREG QUANT HCGon 024 HCG QUANTITATIVE 70524 mIU/mL [facility] Comment on above: 5-50 0.2-1 WEEK 50-500 1-2 WEEKS 100-5,000 2-3 WEEKS 500-10,000 3-4 WEEKS 1,000-50,000 4-5 WEEKS 10,000-100,000 5-6 WEEKS 15,000-200,000 6-8 WEEKS 10,000-100,000 2-3 MONTHS [facility] Family Medicine Office/Clini c Noteon 11-27-2022 Family [...] with voice recognition software. Occasional wrong-word or ?uxxjc-a-ufcz? 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 Previous employment/school: [employer]. Activity level: Occasional physical work. Highest education [...] Years. Num (more content not included)... Normal [facility] Comment on above: Result Comment: Elec [...] home: Medicines ? Take, use, or apply qwjh-lvs-cvoseca and prescription medicines only as told by [...] and water are not available, use hand manager demand. ? Do not smoke. Avoid being around [...] or swell (more content not included)... Normal [facility] CBC with Diffon 07-23-2022 Abs. Basophil 0.00 k/uL Normal 0.0-0.2 [facility] Comment on above: Performed By: #### C P, TSHX, CDP #### [facility] [address] [place] [address] Residential Real Estate Assistant: Cole Magaña MD Abs.Neutrophil (Seg) 2.90 k/uL Normal 2.5-7.0 [facility] Comment on above: Performed By: #### C P, TSHX, CDP #### [facility] [address] [place] [address] Residential Real Estate Assistant: Cole Magaña MD Auto Diff Performed YES Normal [facility] Comment on above: Performed By: #### C P, TSHX, CDP #### [facility] [address] [place] [address] Residential Real Estate Assistant: Cole Magaña MD Basophils/100 WBC (Bld) 0 % Normal 0-2 [facility] Comment on above: Performed By: #### C P, TSHX, CDP #### [facility] [address] [place] [address] Residential Real Estate Assistant: Cole Magaña MD Eosinophils (Bld) [#/Vol] 0.00 10*3/uL Normal 0.0-0.4 [facility] Comment on above: Performed By: #### C P, TSHX, CDP #### [facility] [address] [place] [address] Residential Real Estate Assistant: Cole Magaña MD Eosinophils/100 WBC (Bld) 0 % Normal 0-5 [facility] Comment on above: Performed By: #### C P, TSHX, CDP #### [facility] [address] [place], [place] [id number] Residential Real Estate Assistant: Cole Magaña MD Erythrocyte distribution width (RBC) [Ratio] 13.7 % Normal 12.1-15.2 [facility] Comment on above: Performed By: #### C P, TSHX, CDP #### [facility] [address] [place], [place] [id number] Residential Real Estate Assistant: Cole Magaña MD Hematocrit (Bld) [Volume fraction] 40.0 % Normal 36-46 [facility] Comment on above: Performed By: #### C P, TSHX, CDP #### [facility] [address] [place], [place] [phone] Residential Real Estate Assistant: Cole Magaña MD Hemoglobin (Bld) [Mass/Vol] 13.4 g/dL Normal 12.0-16.0 [facility] Comment on above: Performed By: #### C P, TSHX, CDP #### [facility] [address] [place], [place] [id number] Residential Real Estate Assistant: Cole Magaña MD Lymphocytes (Bld) [#/Vol] 2.30 10*3/uL Normal 1.0-4.8 [facility] Comment on above: Performed By: #### C P, TSHX, CDP #### [facility] [address] [place], [place] [id number] Residential Real Estate Assistant: Cole Magaña MD Lymphocytes/100 WBC (Bld) 42 % High 15-40 [facility] Comment on above: Performed By: #### C P, TSHX, CDP #### [facility] [address] [place] [address] Residential Real Estate Assistant: Cole Magaña MD MCH (RBC) [Entitic mass] 29.5 pg Normal 26-34 [facility] Comment on above: Performed By: #### C P, TSHX, CDP #### [facility] [address] [place], [place] [phone] Residential Real Estate Assistant: Cole Magaña MD MCHC (RBC) [Mass/Vol] 33.6 g/dL Normal 31-37 [facility] Comment on above: Performed By: #### C P, TSHX, CDP #### [facility] [address] [place] [address] Residential Real Estate Assistant: Cole Magaña MD MCV (RBC) [Entitic vol] 88.0 fL Normal 80-100 [facility] Comment on above: Performed By: #### C P, TSHX, CDP #### [facility] [address] [place] [address] Residential Real Estate Assistant: Cole Magaña MD Monocytes (Bld) [#/Vol] 0.30 10*3/uL Normal 0.0-1.0 [facility] Comment on above: Performed By: #### C P, TSHX, CDP #### [facility] [address] [place] [address] Residential Real Estate Assistant: Cole Magaña MD Monocytes/100 WBC (Bld) 5 % Normal 4-8 [facility] Comment on above: Performed By: #### C P, TSHX, CDP #### [facility] [address] [place] [address] Residential Real Estate Assistant: Cole Magaña MD Neutrophil (Seg) 53 % Normal 47-75 [facility] Comment on above: Performed By: #### C P, TSHX, CDP #### [facility] [address] [place] [address] Residential Real Estate Assistant: Cole Magaña MD Platelets (Bld) [#/Vol] 330 10*3/uL Normal 140-450 [facility] Comment on above: Performed By: #### C P, TSHX, CDP #### [facility] [address] [place] [address] Residential Real Estate Assistant: Cole Magaña MD RBC (Bld) [#/Vol] 4.55 10*6/uL Normal 4.0-5.2 [facility] Comment on above: Performed By: #### C P, TSHX, CDP #### [facility] [address] [place] [address] Residential Real Estate Assistant: Cole Magaña MD WBC (Bld) [#/Vol] 5.6 10*3/uL Normal 3.5-11.0 [facility] Comment on above: Performed By: #### C P, TSHX, CDP #### [facility] [address] [place] [address] Residential Real Estate Assistant: Cole Magaña MD Comp Metabolic Profon 2022 Albumin [Mass/Vol] 4.6 g/dL Normal 3.5-5.2 [facility] Comment on above: Performed By: #### C P, TSHX, CDP #### [facility] [address] [place] [address] Residential Real Estate Assistant: Cole Magaña MD Alkaline Phos 69 U/L Normal 35-104 [facility] Comment on above: Performed By: #### C P, TSHX, CDP #### [facility] [address] [place] [address] Residential Real Estate Assistant: Cole Magaña MD ALT [Catalytic activity/Vol] 11 U/L Normal 5-33 [facility] Comment on above: Performed By: #### C P, TSHX, CDP #### [facility] [address] [place] [address] Residential Real Estate Assistant: Cole Magaña MD Anion gap [Moles/Vol] 7 mmol/L Low 9-17 [facility] Comment on above: Performed By: #### C P, TSHX, CDP #### [facility] [address] [place], [place] [phone] Residential Real Estate Assistant: Cole Magaña MD AST [Catalytic activity/Vol] 13 U/L Normal <32 [facility] Comment on above: Performed By: #### C P, TSHX, CDP #### [facility] [address] [place], [place] [phone] Residential Real Estate Assistant: Cole Magaña MD Bilirubin [Mass/Vol] 0.8 mg/dL Normal 0.3-1.2 [facility] Comment on above: Performed By: #### C P, TSHX, CDP #### [facility] [address] [place], [place] [phone] Residential Real Estate Assistant: Cole Magaña MD BUN/CRE Ratio 23 High 9-20 [facility] Comment on above: Performed By: #### C P, TSHX, CDP #### [facility] [address] [place] [address] Residential Real Estate Assistant: Cole Magaña MD Calcium [Mass/Vol] 9.4 mg/dL Normal 8.6-10.4 [facility] Comment on above: Performed By: #### C P, TSHX, CDP #### [facility] [address] [place], [place] [phone] Residential Real Estate Assistant: Cole Magaña MD Chloride [Moles/Vol] 109 mmol/L High 98-107 [facility] Comment on above: Performed By: #### C P, TSHX, CDP #### [facility] [address] [place] [address] Residential Real Estate Assistant: Cole Magaña MD CO2 [Moles/Vol] 28 mmol/L Normal 20-31 [facility] Comment on above: Performed By: #### C P, TSHX, CDP #### [facility] [address] [place], [place] [id number] Residential Real Estate Assistant: Cole Magaña MD Creatinine [Mass/Vol] 0.48 mg/dL Low 0.50-0.90 [facility] Comment on above: Performed By: #### C P, TSHX, CDP #### [facility] [address] [place] [address] Residential Real Estate Assistant: Cole Magaña MD GFR/1.73 sq M.predicted among non-blacks MDRD (S/P/Bld) [Vol rate/Area] mL/min/{1.73_m2} Normal >60 [facility] Comment on above: Result Comment: Effective [...] By: #### C P, TSHX, CDP #### [facility] [address] [place] [address] Residential Real Estate Assistant: Cole Magaña MD Glucose [Mass/Vol] 88 mg/dL Normal 70-99 [facility] Comment on above: Performed By: #### C P, TSHX, CDP #### [facility] [address] [place] [address] Residential Real Estate Assistant: Cole Magaña MD Potassium [Moles/Vol] 4.0 mmol/L Normal 3.7-5.3 [facility] Comment on above: Performed By: #### C P, TSHX, CDP #### [facility] [address] [place] [phone] Residential Real Estate Assistant: Cole Magaña MD Protein [Mass/Vol] 7.5 g/dL Normal 6.4-8.3 [facility] Comment on above: Performed By: #### C P, TSHX, CDP #### [facility] [address] [place] [address] Residential Real Estate Assistant: Cole Magaña MD Sodium [Moles/Vol] 144 mmol/L Normal 135-144 [facility] Comment on above: Performed By: #### C P, TSHX, CDP #### [facility] [address] [place] [address] Residential Real Estate Assistant: Cole Magaña MD Urea nitrogen [Mass/Vol] 11 mg/dL Normal 6-20 [facility] Comment on above: Performed By: #### C P, TSHX, CDP #### [facility] [address] [place] [address] Residential Real Estate Assistant: Cole Magaña MD TSH w/reflex to FT4on 2022 Thyroid Stim. Horm. 0.93 uIU/mL Normal 0.30-5.00 [facility] Comment on above: Performed By: #### C P, TSHX, CDP #### [facility] [address] [place] [address] Residential Real Estate Assistant: Cole Magaña MD Food, Comprehensiveon 5 Barley IgE <0.10 Normal 0.00-0.34 [facility] Comment on above: Performed By: #### I FOODC #### [facility] [employer] [address] [place] [id number] Residential Real Estate Assistant: Gurpreet Wei MD Beef IgE <0.10 Normal 0.00-0.34 [facility] Comment on above: Performed By: #### I FOODC #### [facility] [employer] [address] [place] [phone] Residential Real Estate Assistant: Gurpreet Wei MD Cabbage IgE <0.10 Normal 0.00-0.34 [facility] Comment on above: Performed By: #### I FOODC #### [facility] [employer] [address] [place] [address] [id number] Residential Real Estate Assistant: Gurpreet Wei MD Carrot IgE <0.10 Normal 0.00-0.34 [facility] Comment on above: Performed By: #### I FOODC #### [facility] [employer] [address] [place] [address] [phone] Residential Real Estate Assistant: Gurpreet Wei MD Chicken IgE <0.10 Normal 0.00-0.34 [facility] Comment on above: Performed By: #### I FOODC #### [address] [address] Residential Real Estate Assistant: Gurpreet Wei MD Codfish IgE <0.10 Normal 0.00-0.34 [facility] Comment on above: Performed By: #### I FOODC #### [address] [address] Residential Real Estate Assistant: Gurpreet Wei MD Moran IgE <0.10 Normal 0.00-0.34 [facility] Comment on above: Performed By: #### I FOODC #### [address] [address] Residential Real Estate Assistant: Gurpreet Wei MD Crab IgE <0.10 Normal 0.00-0.34 [facility] Comment on above: Performed By: #### I FOODC #### [address] [address] Residential Real Estate Assistant: Gurpreet Wei MD Egg White IgE <0.10 Normal 0.00-0.34 [facility] Comment on above: Performed By: #### I FOODC #### [address] [address] Residential Real Estate Assistant: Gurpreet Wei MD Grape IgE <0.10 Normal 0.00-0.34 [facility] Comment on above: Performed By: #### I FOODC #### [address] [address] Residential Real Estate Assistant: Gurpreet Wei MD Lettuce IgE <0.10 Normal 0.00-0.34 [facility] Comment on above: Performed By: #### I FOODC #### [address] [address] Residential Real Estate Assistant: Gurpreet Wei MD Milk (Cow) IgE <0.10 Normal 0.00-0.34 [facility] Comment on above: Performed By: #### I FOODC #### [address] [address] Residential Real Estate Assistant: Gurpreet Wei MD [place] Puri IgE <0.10 Normal 0.00-0.34 [facility] Comment on above: Performed By: #### I FOODC #### [address] [address] Residential Real Estate Assistant: Gurpreet Wei MD Oat IgE <0.10 Normal 0.00-0.34 [facility] Comment on above: Performed By: #### I FOODC #### [address] [address] Residential Real Estate Assistant: Gurpreet Wei MD [place] IgE <0.10 Normal 0.00-0.34 [facility] Comment on above: Performed By: #### I FOODC #### [address] [address] Residential Real Estate Assistant: Gurpreet Wei MD Peanut IgE <0.10 Normal 0.00-0.34 [facility] Comment on above: Performed By: #### I FOODC #### [address] [address] Residential Real Estate Assistant: Gurpreet Wei MD Pepper C. annuum IgE <0.10 Normal 0.00-0.34 [facility] Comment on above: Performed By: #### I FOODC #### [address] [address] Residential Real Estate Assistant: Gurpreet Wei MD Pork IgE <0.10 Normal 0.00-0.34 [facility] Comment on above: Performed By: #### I FOODC #### [address] [address] Residential Real Estate Assistant: Gurpreet Wei MD Potato IgE <0.10 Normal 0.00-0.34 [facility] Comment on above: Performed By: #### I FOODC #### [address] [address] Residential Real Estate Assistant: Gurpreet Wei MD Rice IgE <0.10 Normal 0.00-0.34 [facility] Comment on above: Performed By: #### I FOODC #### [address] [address] Residential Real Estate Assistant: Gurpreet Wei MD [place] IgE <0.10 Normal 0.00-0.34 [facility] Comment on above: Performed By: #### I FOODC #### [place] [address] Residential Real Estate Assistant: Gurpreet Wei MD Shrimp IgE <0.10 Normal 0.00-0.34 [facility] Comment on above: Performed By: #### I FOODC #### [place] [address] Residential Real Estate Assistant: Gurpreet Wei MD Soybean IgE <0.10 Normal 0.00-0.34 [facility] Comment on above: Performed By: #### I FOODC #### [place] [address] Residential Real Estate Assistant: Gurpreet Wei MD Tomato IgE <0.10 Normal 0.00-0.34 [facility] Comment on above: Performed By: #### I FOODC #### [place] [address] Residential Real Estate Assistant: Gurpreet Wei MD Tuna IgE <0.10 Normal 0.00-0.34 [facility] Comment on above: Performed By: #### I FOODC #### [place] [address] Residential Real Estate Assistant: Gurpreet Wei MD Wheat IgE <0.10 Normal 0.00-0.34 [facility] Comment on above: Result Comment: ALLERGEN, [...] or even anaphylaxis. Performed By: #### I [employer] #### [facility] [address] [phone] Residential Real Estate Assistant: Gurpreet Wei MD Immunoglobulin E 4 IU/mL Normal <101 [facility] Comment on above: Performed By: #### I [employer] #### [employer] [address] [place] [address] [phone] Residential Real Estate Assistant: MD Warren Almazan 03-29-2021 [facility] Telephone (OBGYF2) CHAPIS EVANS ([id number]) 1995 F Date Time Provider Department 03/29/21 [facility] OBGYF2 During your visit today, we recorded the following information about you: Latonya Mchugh RN 03/29/2021 9:48 AM Signed NIPT results received from Dr. Patricia Theodore' office. Results in scanned docs. Latonya Mchugh RN [facility] Allergies As of Date: 03/29/2021 [...] Status:Closed by LATONYA MCHUGH RN on 03/29/21 [facility] CHAPIS EVANS ([id number]) 1995 F Date Time Provider Department 03/22/21 [facility] OBGYLW During your visit today, we recorded the following information about you: Latonya Mchugh RN 03/22/2021 1:41 PM Signed Informed pt that call was regarding scheduling US and consult as requested by Dr. Patricia Theodore at [facility] for bilateral pyelectasis and polyhydramnios. Pt verbalizes understanding and wishes to proceed with scheduling. , pt denies any current medical conditions. Current meds: PNV. Pt had NIPT testing done 03/20, results still pending. Will follow up with Dr. Patricia Theodore office early next week for results. There are no upcoming appts at in the next couple of days. Offered appt at [place] on 03/30 at 2:45pm. One full hour allotted for US and consult. Pt accepts, front staff notified to schedule. Advised pt that she may bring two support persons age 16+ and both must wear masks. She verbalizes understanding and has no additional questions at this time. Latonya Mchugh RN [facility] Allergies As of Date: 03/22/2021 [...] by LATONYA MCHUGH RN on 03/22/21 Normal [facility] HCG, Quantitative, on 10-03-2020 hCG Quant [id number] High <5 IU/L [facility] Phone: Comment on above: Non-preg premeno <=5 Postmeno <=8 Male <=3 If HCG results do not concur with clinical observations, additional testing to confirm results is recommended. Elevated results not associated with may be found in patients with other diseases such as tumors of the germ cells (testis, ovaries, etc.), bladder, pancreas, stomach, lungs, and liver. Interpretation and review of laboratory results Abnormal [employer] Phone: CBC With Auto Differentialon 09-28-2020 Basophils (Bld) [#/Vol] 0.10 10*3/uL [employer] Phone: Basophils/100 WBC (Bld) 1 % 0 - 2 % M [employer] Phone: Differential Type YES [employer] Phone: Eosinophils (Bld) [#/Vol] 0.10 10*3/uL [employer] Phone: Eosinophils/100 WBC (Bld) 1 % 0 - 5 % [employer] Phone: Erythrocyte distribution width (RBC) [Ratio] 13.9 % 12.1 - 15.2 % [employer] Phone: Hematocrit (Bld) [Volume fraction] 39.4 % 36 - 46 % [employer] Phone: Hemoglobin (Bld) [Mass/Vol] 13.7 g/dL 12.0 - 16.0 g/dL [employer] Phone: Lymphocytes (Bld) [#/Vol] 3.20 10*3/uL [employer] Phone: Lymphocytes/100 WBC (Bld) 35 % 15 - 40 % [employer] Phone: MCH (RBC) [Entitic mass] 30.1 pg 26 - 34 pg [employer] Phone: MCHC (RBC) [Mass/Vol] 34.8 g/dL 31 - 37 g/dL M [employer] Phone: MCV (RBC) [Entitic vol] 86.5 fL 80 - 100 fL [employer] Phone: Monocytes (Bld) [#/Vol] 0.50 10*3/uL [employer] Phone: Monocytes/100 WBC (Bld) 6 % 4 - 8 % M [employer] Phone: Platelet mean volume (Bld) [Entitic vol] NOT REPORTED 6.0 - 12.0 fL [employer]ambo Phone: Platelets (Bld) [#/Vol] 418 10*3/uL [employer] Phone: Platelets (Bld) [#/Vol] NOT REPORTED [employer]ambo Phone: RBC (Bld) [#/Vol] 4.56 10*6/uL 4.0 - 5.2 m/uL [facility] Work Phone: RBC morphology finding Nom (Bld) NOT REPORTED [employer]ambo Phone: Segmented neutrophils/100 WBC (Bld) 57 % 47 - 75 % Jambo Phone: Segs Absolute 5.20 [employer] Work Phone: WBC (Bld) [#/Vol] 9.1 10*3/uL [employer] Phone: WBC (Bld) [#/Vol] NOT REPORTED per 100 WBC [employer] Phone: WBC Morphology NOT REPORTED [employer] Work Phone: Otheron 09-28-2020 Immature granulocytes (Bld) [#/Vol] NOT REPORTED [employer]ambo Phone: Specimen Rejectionon 021 Reason for rejection Unable to perform testing: Specimen not processed correctly. [facility] Comment on above: Performed By: #### R EJEC #### [facility] [place], [place] [id number] Residential Real Estate Assistant: Gurrpeet Wei MD Source of sample TWO SWABS IN CONTAINER [facility] Comment on above: Performed By: #### R EJEC #### [facility] [address] [place], [place] [id number] Residential Real Estate Assistant: Gurpreet Wei MD Test ordered [facility] Comment on above: Performed By: #### R EJEC #### [facility] [address] [place] [address] Residential Real Estate Assistant: Gurpreet Wei MD hCG, Quantitative, on 09-28-2020 hCG Quant 2027 High <5 IU/L [facility] [employer] Phone: Comment on above: Non-preg premeno <=5 Postmeno <=8 Male <=3 If HCG results do not concur with clinical observations, additional testing to confirm results is recommended. Elevated results not associated with may be found in patients with other diseases such as tumors of the germ cells (testis, ovaries, etc.), bladder, pancreas, stomach, lungs, and liver. Interpretation and review of laboratory results Abnormal [employer]ambo Phone: CBC with Diffon 09-27-2020 Abs. Basophil 0.05 k/uL Normal 0.00-0.20 [facility] Comment on above: Performed By: #### C DP #### [facility] [address] [place] [address] [place] [address] Residential Real Estate Assistant: Cole Magaña MD Abs.Imm.Granulocyte 0.03 k/uL Normal 0.00-0.30 [facility] Comment on above: Performed By: #### C DP #### [facility] [address] [place] [address] [place] [address] Residential Real Estate Assistant: Cole Magaña MD Abs.Neutrophil (Seg) 6.02 k/uL Normal 1.50-8.10 [facility] Comment on above: Performed By: #### C DP #### [facility] [address] [place] [address] [place] [address] Residential Real Estate Assistant: Cole Magaña MD Basophils/100 WBC (Bld) 1 % Normal 0-2 M [facility] Comment on above: Performed By: #### C DP #### [facility] [address] [place] [address] [place] [address] Residential Real Estate Assistant: Cole Magaña MD Eosinophils (Bld) [#/Vol] 0.10 10*3/uL Normal 0.00-0.44 [facility] Comment on above: Performed By: #### C DP #### [facility] [address] [place] [id number] Residential Real Estate Assistant: Cole Magaña MD Eosinophils/100 WBC (Bld) 1 % Normal 1-4 [facility] Comment on above: Performed By: #### C DP #### [address] [place] [address] Residential Real Estate Assistant: Cole Magaña MD Erythrocyte distribution width (RBC) [Ratio] 13.4 % Normal 11.8-14.4 [facility] Comment on above: Performed By: #### C DP #### [address] [place] [id number] Residential Real Estate Assistant: Cole Magaña MD Hematocrit (Bld) [Volume fraction] 39.3 % Normal 36.3-47.1 [facility] Comment on above: Performed By: #### C DP #### [address] [place], [place] [address] Residential Real Estate Assistant: Cole Magaña MD Hemoglobin (Bld) [Mass/Vol] 14.0 g/dL Normal 11.9-15.1 [facility] Comment on above: Performed By: #### C DP #### [address] [place], [place] [address] Residential Real Estate Assistant: Cole Magaña MD Immature granulocytes (Bld) [#/Vol] 0 % Normal 0 [facility] Comment on above: Performed By: #### C DP #### [address] [place] [id number] Residential Real Estate Assistant: Cole Magaña MD Lymphocytes (Bld) [#/Vol] 4.01 10*3/uL High 1.10-3.70 [facility] Comment on above: Performed By: #### C DP #### [facility] [address] [place], [place] [phone] Residential Real Estate Assistant: Cole Magaña MD Lymphocytes/100 WBC (Bld) 37 % Normal 24-43 [facility] Comment on above: Performed By: #### C DP #### [facility] [address] [place] [facility] Residential Real Estate Assistant: Cole Magaña MD MCH (RBC) [Entitic mass] 30.0 pg Normal 25.2-33.5 [facility] Comment on above: Performed By: #### C DP #### [address] [place] [phone] Residential Real Estate Assistant: Cole Magaña MD MCHC (RBC) [Mass/Vol] 35.6 g/dL High 28.4-34.8 [facility] Comment on above: Performed By: #### C DP #### [address] [place], [facility] Residential Real Estate Assistant: Cole Magaña MD MCV (RBC) [Entitic vol] 84.2 fL Normal 82.6-102.9 [facility] Comment on above: Performed By: #### C DP #### [address] [place], [facility] Residential Real Estate Assistant: Cole Magaña MD Monocytes (Bld) [#/Vol] 0.60 10*3/uL Normal 0.10-1.20 [facility] Comment on above: Performed By: #### C DP #### [facility] [address] [place] [facility] Residential Real Estate Assistant: Cole Magaña MD Monocytes/100 WBC (Bld) 6 % Normal 3-12 M [facility] Comment on above: Performed By: #### C DP #### [facility] [address] [place] [facility] Residential Real Estate Assistant: Cole Magaña MD Neutrophil (Seg) 55 % Normal 36-65 [facility] Comment on above: Performed By: #### C DP #### [facility] [address] [place], [place] [phone] Residential Real Estate Assistant: Cole Magaña MD NRBC Automated 0.0 per 100 WBC Normal 0.0 [facility] Comment on above: Performed By: #### C DP #### [facility] [address] [place] [address] Residential Real Estate Assistant: Cole Magaña MD Platelet mean volume (Bld) [Entitic vol] 9.5 fL Normal 8.1-13.5 [facility] Comment on above: Performed By: #### C DP #### [facility] [address] [place] [address] Residential Real Estate Assistant: Cole Magaña MD Platelets (Bld) [#/Vol] 414 10*3/uL Normal 138-453 [facility] Comment on above: Performed By: #### C DP #### [address] [place] [address] Residential Real Estate Assistant: Cole Magaña MD RBC (Bld) [#/Vol] 4.67 10*6/uL Normal 3.95-5.11 [facility] Comment on above: Performed By: #### C DP #### [facility] [address] [place] [address] Residential Real Estate Assistant: Cole Magaña MD WBC (Bld) [#/Vol] 10.8 10*3/uL Normal 3.5-11.3 [facility] Comment on above: Performed By: #### C DP #### [facility] [address] [place], [place] [phone] Residential Real Estate Assistant: Cole Magaña MD Auto Diff Performed NOT REPORTED Normal [facility] Comment on above: Performed By: #### C DP #### [facility] [address] [place], [place] [phone] Residential Real Estate Assistant: Cole Magaña MD Platelets (Bld) [#/Vol] NOT REPORTED Normal [facility] Comment on above: Performed By: #### C DP #### [facility] [address] [place], [place] [phone] Residential Real Estate Assistant: Cole Magaña MD RBC morphology finding Nom (Bld) NOT REPORTED Normal [facility] Comment on above: Performed By: #### C DP #### [facility] [address] [place], [place] [phone] Residential Real Estate Assistant: Cole Magaña MD WBC Morphology NOT REPORTED Normal [facility] Comment on above: Performed By: #### C DP #### [address] [place], [place] [phone] Residential Real Estate Assistant: Cole Magaña MD RHIG, Transfuseon 09-27-2020 RHIG, Transfuse Unit Number [id number] Blood Component Type RHIG Unit Division 00 Status of Unit TRANSFUSED Transfusion Status OK TO TRANSFUSE Normal [facility] Comment on above: Performed By: #### T RHIG #### [address] [place], [place] [phone] Residential Real Estate Assistant: Cole Magaña MD Type + Screenon 09-27-2020 Type + Screen Sample Expiration 09/29/2020,2350 Arm Band Number [id number] ABO/Rh(D) A NEGATIVE Antibody Screen NEGATIVE Normal [facility] Comment on above: Performed By: #### T YS #### [facility] [address] [place] [address] Residential Real Estate Assistant: Cole Magaña MD CBC Auto Differentialon 09-06 Basophils (Bld) [#/Vol] 0.05 10*3/uL [facility] Work Phone: Basophils/100 WBC (Bld) 1 % 0 - 2 % M [employer] Phone: Differential Type NOT REPORTED [employer] Phone: Eosinophils (Bld) [#/Vol] 0.10 10*3/uL [employer] Phone: Eosinophils/100 WBC (Bld) 1 % 1 - 4 % [employer] Phone: Erythrocyte distribution width (RBC) [Ratio] 13.4 % 11.8 - 14.4 % [employer] Phone: Hematocrit (Bld) [Volume fraction] 39.3 % 36.3 - 47.1 % [employer] Phone: Hemoglobin (Bld) [Mass/Vol] 14.0 g/dL 11.9 - 15.1 g/dL [employer] Phone: Immature granulocytes (Bld) [#/Vol] 0.03 10*3/uL [employer] Phone: Immature granulocytes (Bld) [#/Vol] 0 % 0 [employer] Phone: Interpretation and review of laboratory results Abnormal [employer] Phone: Lymphocytes (Bld) [#/Vol] 4.01 10*3/uL High [employer] Phone: Lymphocytes/100 WBC (Bld) 37 % 24 - 43 % [employer] Phone: MCH (RBC) [Entitic mass] 30.0 pg 25.2 - 33.5 pg [employer] Phone: MCHC (RBC) [Mass/Vol] 35.6 g/dL High 28.4 - 34.8 g/dL [employer] Phone: MCV (RBC) [Entitic vol] 84.2 fL 82.6 - 102.9 fL [employer] Phone: Monocytes (Bld) [#/Vol] 0.60 10*3/uL [employer] Phone: Monocytes/100 WBC (Bld) 6 % 3 - 12 % M [employer] Work Phone: Platelet mean volume (Bld) [Entitic vol] 9.5 fL 8.1 - 13.5 fL [facility] Work Phone: Platelets (Bld) [#/Vol] 414 10*3/uL [facility] Work Phone: Platelets (Bld) [#/Vol] NOT REPORTED [facility] Work Phone: RBC (Bld) [#/Vol] 4.67 10*6/uL 3.95 - 5.1 1 m/uL [facility] Work Phone: RBC morphology finding Nom (Bld) NOT REPORTED [facility] Work Phone: Segmented neutrophils/100 WBC (Bld) 55 % 36 - 65 % [facility] Work Phone: Segs Absolute 6.02 [facility] Work Phone: WBC (Bld) [#/Vol] 0.0 10*3/uL 0.0 per 10 0 WBC [facility] Work Phone: WBC (Bld) [#/Vol] 10.8 10*3/uL [facility] Work Phone: WBC Morphology NOT REPORTED [facility] Work Phone: Basophils (Bld) [#/Vol] 0.00 10*3/uL [facility] Work Phone: Basophils/100 WBC (Bld) 0 % 0 - 2 % M [employer] Work Phone: Differential Type YES [facility] Work Phone: Eosinophils (Bld) [#/Vol] 0.10 10*3/uL [facility] Work Phone: Eosinophils/100 WBC (Bld) 1 % 0 - 5 % [facility] Work Phone: Erythrocyte distribution width (RBC) [Ratio] 15.0 % 12.1 - 15.2 % [employer] Phone: Hematocrit (Bld) [Volume fraction] 40.7 % 36 - 46 % [employer] Phone: Hemoglobin (Bld) [Mass/Vol] 14.2 g/dL 12.0 - 16.0 g/dL [employer] Phone: Lymphocytes (Bld) [#/Vol] 3.20 10*3/uL [employer] Phone: Lymphocytes/100 WBC (Bld) 29 % 15 - 40 % [employer] Phone: MCH (RBC) [Entitic mass] 30.3 pg 26 - 34 pg [employer] Phone: MCHC (RBC) [Mass/Vol] 34.8 g/dL 31 - 37 g/dL M [employer] Phone: MCV (RBC) [Entitic vol] 86.9 fL 80 - 100 fL [employer] Phone: Monocytes (Bld) [#/Vol] 0.60 10*3/uL [employer] Phone: Monocytes/100 WBC (Bld) 6 % 4 - 8 % M [employer] Phone: Platelet mean volume (Bld) [Entitic vol] NOT REPORTED 6.0 - 12.0 fL [employer] Phone: Platelets (Bld) [#/Vol] NOT REPORTED [employer] Phone: Platelets (Bld) [#/Vol] 429 10*3/uL [employer] Phone: RBC (Bld) [#/Vol] 4.69 10*6/uL 4.0 - 5.2 m/uL [employer] Phone: RBC morphology finding Nom (Bld) NOT REPORTED [facility] Work Phone: Segmented neutrophils/100 WBC (Bld) 64 % 47 - 75 % [facility] Work Phone: Segs Absolute 6.80 [facility] Work Phone: WBC (Bld) [#/Vol] 10.7 10*3/uL [facility] Work Phone: WBC (Bld) [#/Vol] NOT REPORTED per 100 WBC [facility] Work Phone: WBC Morphology NOT REPORTED [facility] He [facility] Work Phone: Microscopic Urinalysison Amorphous, UA NOT REPORTED None [facility] Work Phone: Bacteria, UA NOT REPORTED None [facility] Work Phone: Casts UA NOT REPORTED /LPF [facility] Work Phone: Crystals, UA NOT REPORTED None /HPF [facility] Work Phone: Epithelial Cells UA 0 TO 2 /HPF [facility] Work Phone: Mucus, UA NOT REPORTED None [facility] Work Phone: Other Observations UA NOT REPORTED NOT REQ. M [facility] Work Phone: RBC (U) [#/Vol] 0 TO 2 [facility] lt Work Phone: Renal Epithelial, UA NOT REPORTED 0 /HPF [facility] Work Phone: Trichomonas, UA NOT REPORTED None [facility] e[facility] Work Phone: WBC, UA NOT REPORTED 0 /HPF [facility] Work Phone: Yeast, UA NOT REPORTED None [facility] Work Phone: - [facility] Work Phone: Otheron 09-26-2020 With a positive test and no pole or gestational sac definitely identified, this is a of unknown location and a short-term follow-up ultrasound is recommended. [employer] Phone: EXAM: US OB LESS MEHNAZ N [...] is no free fluid in the cul-de-sac. [employer] Phone: Aguila, pn Incoming Radiant Results From [employer] - 09/26/2020 7:00 PM EDT EXAM: US [...] and a short-term follow-up ultrasound is recommended. [facility] Work Phone: Immature granulocytes (Bld) [#/Vol] NOT REPORTED [facility] [employer] Phone: Specimen Rejectionon 021 ----- NOT REPORTED Normal [facility] Comment on above: Performed By: #### R EJEC #### [facility] [address] [place] [address] Residential Real Estate Assistant: Gurpreet Wei MD TYPE AND SCREENon 09-26-2020 ABO/Rh Negative [facility] [employer] Work Phone: Arm Band Number [id number] [facility] Hospital[facility]ynk[facility] Work Phone: Expiration Date 09/29/2020,2359 [facility] [employer] Work Phone: Urinalysis Reflex to Culture on 09-26-2020 Bilirubin Urine Negative NEGATIVE [facility] Work Phone: Color, UA YELLOW YELLOW [facility] [employer] Phone: Glucose, Ur Negative NEGATIVE [facility] [employer] Phone: Interpretation and review of laboratory results Abnormal [facility] [employer] Phone: Ketones Ql (U) Negative NEGATIVE [facility] [employer] Work Phone: Leukocyte esterase Test strip Ql (U) Negative NEGATIVE [facility] [employer] Work Phone: Nitrite, Urine Negative NEGATIVE [facility] [employer] Work Phone: pH, UA 5.0 [facility] [employer] Work Phone: Protein (U) [Mass/Vol] Negative NEGATIVE [facility] [employer] Work Phone: Specific Stevenson, UA 1.015 [facility] [employer] Work Phone: Turbidity UA CLEAR CLEAR [facility] [employer] Work Phone: Urinalysis Comments [employer] Phone: Urine Hgb TRACE Abnormal NEGATIVE [employer] Phone: Urobilinogen, Urine Normal Normal [employer] Phone: hCG, Quantitative, on 09-26-2020 hCG Quant 920 High <5 IU/L [employer] Phone: Comment on above: Non-preg premeno <=5 Postmeno <=8 Male <=3 If HCG results do not concur with clinical observations, additional testing to confirm results is recommended. Elevated results not associated with may be found in patients with other diseases such as tumors of the germ cells (testis, ovaries, etc.), bladder, pancreas, stomach, lungs, and liver. Interpretation and review of laboratory results Abnormal [employer] Phone: hCG, Serum, Qualitativeon hCG Qual Positive Abnormal NEGATIVE [employer] Phone: Comment on above: If HCG results do not concur with clinical observations, additional testing to confirm result is recommended. This test is not labeled for use as a tumor marker. [employer] has confirmed the use of plasma for this test. This has not been cleared or approved by the U.S. Food and Drug Administration. The FDA has determined that such clearance is not necessary. Interpretation and review of laboratory results Abnormal [employer] Phone: Glucose, Fastingon 0 Glucose [Mass/Vol] 94 mg/dL 70 - 99 mg/dL [place], [place] Lipid Panelon 02-16-2020 Cholesterol [Mass/Vol] 151 mg/dL <200 [place], [place] Comment on above: Cholesterol Guidelines: <200 Desirable 200-240 Borderline >240 Undesirable Cholesterol in HDL [Mass/Vol] 49 mg/dL >40 [place], [place] Comment on above: HDL Guidelines: <40 Undesirable 40-59 Borderline >59 Desirable Cholesterol in LDL [Mass/Vol] 96 mg/dL 0 - 130 mg/dL [place], [place] Comment on above: LDL Guidelines: <100 Desirable 100-129 Near to/above Desirable 130-159 Borderline >159 Undesirable Direct (measured) LDL and calculated LDL are not interchangeable tests. Cholesterol in VLDL [Mass/Vol] NOT REPORTED 1 - 30 mg/dL [place], [place] Cholesterol.total/Vivien sterol in HDL [Mass ratio] 3.1 {ratio} <5 [place], [place] Triglyceride [Mass/Vol] 32 mg/dL <150 M [place], [place] Comment on above: Triglyceride Guidelines: <150 Desirable 150-199 Borderline 200-499 High >499 Very high Based on AHA Guidelines for fasting triglyceride, April 2012. NON OB TRANSVAGINALon 1. Mild pelvic free fluid in the cul-de-sac. 2. Normal sonographic morphology of the uterus and ovaries. [place], [place] PROCEDURE: US NON OB TRANSVAGINAL, 01/11/2020 [...] within ovarian tissue bilaterally without spectral evaluation. [place], [place] [employer], pn Incoming Radiant Results From [facility] [facility] - 01/12/2020 8:08 AM EDT PROCEDURE: US [...] sonographic morphology of the uterus and ovaries. [employer] Vitamin D 25 Hydroxyon 01-10 Interpretation and review of laboratory results Abnormal [employer] Vit D, 25-Hydroxy 21.6 ng/mL Low 30 - 100 ng/mL [employer] Comment on above: Reference Range: Vitamin D status Range Deficiency <20 ng/mL Mild Deficiency 20-30 ng/mL Sufficiency 30-100 ng/mL Toxicity >100 ng/mL MRI BRAIN W WO CONTRASTOrder ed By: Eliane Vilchis on 07-29-2019 1. Unremarkable contrast enhanced brain MRI. No focal signal abnormality, mass effect or abnormal enhancement. 2. Mild mucosal thickening of the left frontal and bilateral maxillary sinuses. [employer] Phone: EXAM: MRI BRAIN W WO CONTRAST [...] air cells are clear. No abnormal enhancement. [employer] Phone: Aguila, [employer] Incoming Radiant Results From [employer] - 07/29/2019 4:55 PM EST EXAM: MRI [...] the left frontal and bilateral maxillary sinuses. [employer] Phone: Basic Metabolic Panel w/ Ref nora to MGOrdered By: Leonor Sandy on 07-10-2019 Anion gap [Moles/Vol] 13 mmol/L 9 - 17 mmol/L [employer] Phone: Bun/Cre Ratio 20 [employer] Work Phone: Calcium [Mass/Vol] 10.4 mg/dL 8.6 - 10. 4 mg/dL [employer] Phone: Chloride [Moles/Vol] 104 mmol/L 98 - 10 7 mmol/L [employer] Phone: CO2 [Moles/Vol] 22 mmol/L 20 - 31 mmol/L [employer] Phone: Creatinine [Mass/Vol] 0.5 mg/dL 0.5 - 0.9 mg/dL [employer] Phone: GFR >60 >60 mL/min [employer] Phone: GFR Comment Jambo Phone: Comment on above: Average GFR for 20-2 9 years old: 116 mL/min/1.73sq m Chronic Kidney Disease: <60 mL/min/1.73sq m Kidney failure: <15 mL/min/1.73sq m eGFR calculated using average adult body mass. Additional eGFR calculator available at: http://www.[employer]/multiple_crcl_2012.htm GFR Non- >60 >60 mL/min [facility] Work Phone: GFR Staging NOT REPORTED [facility] Work Phone: Glucose [Mass/Vol] 132 mg/dL High 70 - 99 mg/dL [facility] [employer] Work Phone: Interpretation and review of laboratory results Abnormal [facility] Work Phone: Potassium [Moles/Vol] 3.7 mmol/L 3.7 - 5.3 mmol/L [facility] [employer] Work Phone: Sodium [Moles/Vol] 139 mmol/L 135 - 144 mmol/L [facility] [employer] Work Phone: Urea nitrogen [Mass/Vol] 10 mg/dL 6 - 20 mg/dL [facility] [employer] Work Phone: CBC Auto DifferentialOrdered By: Leonor Sandy on 07-10-2019 Absolute Eos # 0.10 [facility] Hospital[facility] Work Phone: Absolute Immature Granulocyte NOT REPORTED [facility] [employer] Work Phone: Absolute Lymph # 2.70 [facility] [employer] [facility] Work Phone: Absolute [place] # 0.40 [facility] Work Phone: Basophils (Bld) [#/Vol] 0.00 10*3/uL [facility] Work Phone: Basophils/100 WBC (Bld) 0 % 0 - 2 % M [facility] [employer] Work Phone: Differential Type YES [facility] [employer] Work Phone: Eosinophils/100 WBC (Bld) 1 % 0 - 5 % [facility] Work Phone: Erythrocyte distribution width (RBC) [Ratio] 13.4 % 12.1 - 15.2 % [facility] Work Phone: Hematocrit (Bld) [Volume fraction] 43.6 % 36 - 46 % [facility] Work Phone: Hemoglobin (Bld) [Mass/Vol] 15.0 g/dL 12 - 16 g/dL [facility] Work Phone: Immature Granulocytes NOT REPORTED 0 % M [employer] Work Phone: Lymphocytes/100 WBC (Bld) 30 % 15 - 40 % [facility] Work Phone: MCH (RBC) [Entitic mass] 29.9 pg 26 - 34 pg [facility] Work Phone: MCHC (RBC) [Mass/Vol] 34.4 g/dL 31 - 37 g/dL M [employer] Work Phone: MCV (RBC) [Entitic vol] 86.8 fL 80 - 100 fL [facility] Work Phone: Monocytes/100 WBC (Bld) 4 % 4 - 8 % M [employer] Work Phone: MPV NOT REPORTED 6 - 12 fL [facility] Work Phone: NRBC Automated NOT REPORTED per 100 WBC [employer] Work Phone: Platelet Estimate NOT REPORTED [facility] Work Phone: Platelets (Bld) [#/Vol] 395 10*3/uL [facility] Work Phone: RBC (Bld) [#/Vol] 5.02 10*6/uL 4 - 5.2 m/uL [facility] [employer] Work Phone: RBC morphology finding Nom (Bld) NOT REPORTED [facility] Work Phone: Segmented neutrophils/100 WBC (Bld) 65 % 47 - 75 % [facility] Work Phone: Segs Absolute 5.80 [facility]re[facility] Work Phone: WBC (Bld) [#/Vol] 8.9 10*3/uL [facility] Work Phone: WBC Morphology NOT REPORTED [facility] Work Phone: CT Head WO ContrastOrdered B y: Leonor Sandy on 07-10-[address] brain[address] [employer] [facility] [place] [facility] Work Phone: EXAMINATION: CT HEAD [...] sagittal multiplanar reconstructions show no additional abnormality. [employer] Phone: Aguila, pn Incoming Radiant Results From [facility] [facility] - 07/10/2019 6:04 PM EST EXAMINATION: CT [...] no additional abnormality. IMPRESSION: Normal CT brain. [employer] Phone: Glucose, Whole BloodOrdered By: Leonor Sandy on 07-10-2019 Glucose [Mass/Vol] 98 mg/dL 65 - 99 mg/dL [employer] Phone: POCT glucoseOrdered By: Nathaly walker Du on 07-10-2019 Glucose [Mass/Vol] 98 mg/dL [facility] Work Phone: Interpretation and review of laboratory results Normal [facility] Work Phone: QC OK? yes [facility] Work Phone: , UrineOrdered By: Leonor Kay on 07-10-2019 Beta HCG ( test) Ql (U) Negative NEGATIVE [facility] Work Phone: Urinalysis, reflex to micros copicOrdered By: Leonor Sandy on 07-10-2019 Bilirubin Urine Negative NEGATIVE [facility] Work Phone: Color, UA YELLOW YELLOW [facility] Work Phone: Glucose, Ur Negative NEGATIVE [facility] Work Phone: Ketones Ql (U) Negative NEGATIVE [employer] Work Phone: Leukocyte esterase Test strip Ql (U) Negative NEGATIVE [facility] Work Phone: Nitrite, Urine Negative NEGATIVE [employer] Work Phone: pH, UA 6.5 [facility] Work Phone: Protein, UA Negative NEGATIVE [facility] Work Phone: Specific Stevenson, UA 1.010 [employer] Work Phone: Turbidity UA CLEAR CLEAR [facility] Work Phone: Urinalysis Comments [facility] Work Phone: Urine Hgb Negative NEGATIVE [facility] Work Phone: Urobilinogen, Urine Normal Normal [facility] Work Phone: [facility] Repor ton 06-12-2017 [facility] Report Type: OrthopedicDictated by: To be signed by: Transcribed by: Transcribed D/ Dictation D/ Report: May 07, 2017 RE: Chapis Nation is here today with chief complaint of right hand pain. She has been having this now for a few months. 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 Normal [facility] Radiologyon 06-12-2017 Radiology Type: OutpatientDictated by: Signed by: Transcribed by: Transcribed Date/Time: 05/10/2017 12:19Dictation Date/Time: 05/07/2017 17:31Report: DATE OF SERVICE: 05/07/2017 DIAGNOSTIC STUDIES/INTERPRETATION S/IMPRESSIONS: Radiographs AP and lateral projections of her hands bilaterally demonstrate no fracture, dislocation, or other bony abnormality. Normal [facility] Vital Signs Date Time Vital Sign Value Performing Clinician Facility 04-14-2024 11:33-0400 Body temperature 98.71 [degF] Maryam HARRELL Work Phone: [facility] 04-14-2024 11:33-0400 Diastolic blood pressure 64 mm[Hg] Maryam HARRELL Work Phone: [facility] 04-14-2024 11:33-0400 Systolic blood pressure 110 mm[Hg] Maryam HARRELL Work Phone: [facility] 09-27-2020 01:25-0400 BP Diastolic 78 mm[Hg] Jeremiah [employer] Work Phone: 09-27-2020 01:25-0400 BP Systolic 131 mm[Hg] [facility] [employer] Work Phone: 09-27-2020 01:25-0400 Pulse (Heart Rate) 99 /min [facility] [employer] Work Phone: 09-27-2020 01:25-0400 Pulse Oximetry 99 % [facility] Work Phone: 09-26-2020 21:16-0400 BMI (Body Mass Index) 25.82 kg/m2 [facility] Work Phone: 09-26-2020 21:16-0400 Body Temperature 99.1 [degF] Jeremiah [employer] Work Phone: 09-26-2020 21:16-0400 Body weight 72.58 kg [facility]iah [employer] Work Phone: 09-26-2020 21:16-0400 Respiratory Rate 16 /min [facility] Work Phone: 07-10-2019 21:26-0500 Diastolic blood pressure 88 mm[Hg] Leonor Sandy MD Work Phone: [facility] Work Phone: 07-10-2019 21:26-0500 Heart rate 77 /min Leonor Sandy MD Work Phone: [facility] Work Phone: 07-10-2019 21:26-0500 Respiratory rate 18 /min Leonor Sandy MD Work Phone: [facility] Work Phone: 07-10-2019 21:26-0500 SaO2% (BldA) [Mass fraction] 100 % Leonor Sandy MD Work Phone: [facility] Work Phone: 07-10-2019 21:26-0500 Systolic blood pressure 127 mm[Hg] Leonor Sandy MD Work Phone: [facility] Work Phone: 07-10-2019 16:53-0500 Body height 167.6 cm Leonor Sandy MD Work Phone: [facility] Work Phone: 07-10-2019 16:53-0500 Body mass index (BMI) [Ratio] 25.02 kg/m2 Leonor Sandy MD Work Phone: [facility] Work Phone: 07-10-2019 16:53-0500 Body temperature 98.29 [degF] Leonor Sandy MD Work Phone: [employer] Phone: 07-10-2019 16:53-0500 Body weight 70.31 kg Leonor Sandy MD Work Phone: [facility] Work Phone: Encounters Encounter Date Encounter Type [...] Start: 04-30-2023 ambulatory DO Chris Kelley Fac ility:[facility] Start: 11-27-2022 End: 11-28-2022 ambulatory Wero Britton Facility:[facility] Start: 07-23-2022 End: 07-24-2022 ambulatory [facility] Jhoana [facility] Start: 07-16-2022 End: 07-17-2022 ambulatory YOLANDA [facility] Start: 07-16-2022 End: 07-16-2022 Subsequent hospital visit by physician Fiorella Abarca DO Work Phone: [facility] Comment on above: Urticaria Start: 05-01-2022 End: 07-31-2022 ambulatory Cuco Oneal Facility:[facility] Start: 05-28-2021 End: 05-28-2021 ambulatory Mary Brown Facility:[facility] Start: 10-03-2020 End: 10-03-2020 Subsequent hospital visit by physician Fiorella Abarca [facility] Start: 09-28-2020 End: 09-28-2020 Subsequent hospital visit by physician Fiorella Abarca [facility] Comment on above: Less than 8 weeks ge station of ; Pelvic pain Start: 09-26-2020 End: 09-27-2020 Emergency department patient visit FIORELLA ABARCA [facility] Start: 09-26-2020 End: 09-27-2020 Emergency department patient visit Jeremiah Mcnair Work Phone: [facility] ED Comment on above: Abdominal pain durin g in first trimester (Primary Dx) Start: 09-26-2020 End: 09-28-2020 Subsequent hospital visit by physician [facility] Ultrasound Room [facility] Comment on above: Pelvic pain in femal e; Less than 8 weeks gestation of Start: 02-16-2020 End: 02-16-2020 Subsequent hospital visit by physician Fiorella Abarca [facility] Comment on above: Screening for cardio vascular condition Start: 01-11-2020 End: 01-13-2020 Subsequent hospital visit by physician [facility] Ultrasound Room [facility] Comment on above: Vitamin D deficiency Lower abdominal pain ; Amenorrhea Start: 10-23-2019 End: 10-23-2019 Subsequent hospital visit by physician Fiorlela Abarca [facility] Comment on above: Viral illness; Suspected COVID-19 virus infection Start: 10-19-2019 End: 10-19-2019 Subsequent hospital visit by physician Fiorella Abarca [facility] Comment on above: Suspected COVID-19 v irus infection Start: 07-29-2019 End: 07-31-2019 Subsequent hospital visit by physician [facility] MRI Comment on above: Right sided numbness ; Blurred vision Start: 07-10-2019 End: 07-10-2019 Emergency department patient visit Leonor Sandy MD Work Phone: [facility] ED Comment on above: Migraine with aura a nd with status migrainosus, not intractable (Primary Dx) Start: 05-07-2017 Ambulatory [facility] Procedures Date Procedure Procedure Detail Performing Clinician Start: 04-11-2024 [facility] PREG QUANT HCG Shannan Jo DO Work Phone: Start: 04-09-2024 [facility] PREG QUANT HCG Shannan Jo DO Work Phone: Start: 04-03-2023 Microscopic observation [Identifier] in Cervix by Cyto stain Shannan Osorio DO Work Phone: Start: 07-16-2022 ALLERGEN, FOOD, COMPREHENSIVE PROFILE 1 Yolanda Santillan Milagro [employer] - BUTT TRIMMER Work Phone: Start: 10-03-2020 Gonadotropin chorionic quantitative Sugey Chavezaprawira Start: 09-28-2020 Blood count complete auto&auto difrntl wbc Yolanda Santillan Carson Work Phone: Start: 09-28-2020 Gonadotropin chorionic quantitative [...] DTaP/Tdap/Td vaccine (2 - Td or Tdap) [facility] Start: 04-03-2028 Screening for malign ant neoplasm of cervix HPV/Cotest [facility] Start: 04-03-2026 Screening for malign ant neoplasm of cervix [facility] Start: 04-23-2024 End: 04-23-2024 ambulatory 04/23/2024 2:00 PM EDT Initial [facility] [address] [address] [facility] Start: 04-23-2024 End: 04-23-2024 Professional / ancillary services management 04/23/2024 1:30 PM EDT Ancillary Procedure [facility] [address] [place] [id number] [facility] Start: 03-08-2024 Influenza vaccination Influenza Vacc ine (#1) [facility] Start: 07-16-2023 [facility] Start: 02-05-2022 Influenza vaccination Flu vaccine (# 1) [facility] Start: 03-08-2020 Influenza vaccination [place], [place] Start: 01-27-2020 End: 01-27-2020 Office Visit 01/27/2020 Office Visit Family Medicine Fiorella Abarca, DO [address] [place] [address] [facility] Start: 11-16-2019 End: 11-16-2019 Office Visit 11/16/2019 Office Visit Neurology Cammy Grayson MD [address] [place] [address] [phone] [facility] Start: 10-21-2019 End: 10-21-2019 Telemedicine 10/21/2019 Telemedicine Family Medicine Fiorella Abarca, DO [address] [place] [address] [facility] Start: 08-20-2019 End: 08-20-2019 Patient encounter procedure 08/20/2019 Office Visit Neurology Cammy Grayson MD [address] [place] [address] [phone] [facility] Start: 03-08-2019 Influenza vaccination Flu vaccine (# 1) [facility] [employer] Phone: Start: 05-26-2018 Cervical cancer screen [facility] Start: 05-26-2018 Screening for malign ant neoplasm of cervix [facility] Start: 2012 DTaP/Tdap/Td vaccine (1 - Tdap) DTaP/Tdap/Td vaccine (1 - Tdap) [place], [place] Start: 11-22-2011 Hepatitis C screening Hepatitis C sc reen [facility] Start: 2009 COVID-19 Vaccine (1) COVID-19 Vaccin e (1) [facility] Phone: Start: 2008 HIV screen HIV screen [facility] Phone: Start: 2008 HIV screening HIV screen [facility] Start: 2004 DTaP/Tdap/Td vaccine (1 - Tdap) DTaP/Tdap/Td vaccine (1 - Tdap) [facility] Phone: Start: 2004 HPV vaccine (1 - 2-d ose series) HPV vaccine (1 - 2-dose series) [place], [place] Start: 2004 HPV vaccine (1 - Fem terrance 2-dose series) HPV vaccine (1 - Female 2-dose series) [facility] Phone: Start: 11-22-1999 Pneumococcal 0-64 ye ars Vaccine (1 - PCV) Pneumococcal 0-64 years Vaccine (1 - PCV) [facility] Start: 11-22-1999 Pneumococcal 0-64 ye ars Vaccine (1 of 1 - PPSV23) Pneumococcal 0-64 years Vaccine (1 of 1 - PPSV23) [facility] Phone: Start: 1994 Varicella vaccine (1 of 2 - 2-dose childhood series) Varicella vaccine (1 of 2 - 2-dose childhood series) [facility] Start: 05-24-1994 COVID-19 Vaccine (#1) COVID-19 Vacci ne (#1) [facility] Start: 1993 Hepatitis C screening Hepatitis C sc reen [facility] Phone: End: 09-26-2020 C.trachomatis N.gonorrhoeae DNA C.trachomatis N.gonorrhoeae DNA Microbiology STAT One Time for 1 Occurrences starting 09/26/2020 until 09/26/2020 [employer] Phone: Comment on above: One Time for 1 Occur rences starting 09/26/2020 until 09/26/2020 C.trachomatis N.gonorrhoeae DNA C.trachomatis N.gonorrhoeae DNA Microbiology STAT 09/26/2020 10:35 PM EDT [employer] Phone: COVID-19 COVID-19 Lab Rou constance Suspected COVID-19 virus infection 10/19/2019 10:18 AM EDT [facility] [place] End: 10-23-2019 COVID-19 Ambulatory COVID-19 Ambulatory Lab Routine Viral illness Suspected Covid-19 Virus Infection 1 Occurrences starting 10/23/2019 until 10/23/2019 [place], [place] Comment on above: 1 Occurrences starti ng 10/23/2019 until 10/23/2019 COVID-19 Ambulatory COVID-19 Amb ulatory Lab Routine Viral illness Suspected COVID-19 virus infection 10/23/2019 4:02 PM EDT [place], [place] CTA HEAD NECK W CONTRAST CTA HEA D NECK W CONTRAST Imaging STAT 07/10/2019 7:43 PM EST [employer] Phone: Food Comprehensive Panel Food Co mprehensive Panel Lab Routine Urticaria 07/16/2022 5:05 PM EST [employer] Phone: RHOGAM INJECTION ONLY RHOGAM INJ ECTION ONLY Blood Bank STAT 09/26/2020 10:15 PM EDT [employer] Phone: Immunizations Immunization Date Immunization Notes Care Provider Fa adele 05-02-2023 influenza virus vaccine, unspecified formulation Shannan Osorio DO Work Phone: [facility] 05-26-2021 tetanus toxoid, redu henny diphtheria toxoid, and acellular pertussis vaccine, adsorbed [facility] 09-26-2020 RHO(D) immune globul in - IM Jeremiah Mcnair [facility] Work Phone: 04-07-2018 influenza virus vaccine, unspecified formulation Leonor Sandy MD Work Phone: [facility] Work Phone: 10-06-2013 hepatitis B vaccine, adult dosage Fiorella Abarca DO Work Phone: [facility] [employer] Work Phone: 10-06-2013 hepatitis B vaccine, unspecified formulation Fiorella Abarca [facility] [employer] Work Phone: 06-01-2013 hepatitis B vaccine, adult dosage Fiorella Abarca DO Work Phone: [facility] [employer] Work Phone: 06-01-2013 hepatitis B vaccine, unspecified formulation Fiorella Darbyjoe [facility] [employer] Work Phone: 04-21-2013 hepatitis B vaccine, adult dosage Fiorella Abarca DO Work Phone: [facility] [employer] 04-21-2013 hepatitis B vaccine, unspecified formulation Fiorella Abarca [facility] [employer] Work Phone: 06-29-2011 tuberculin skin test ; purified protein derivative solution, intradermal Leonor Sandy MD Work Phone: [facility] Work Phone: Payers Date Payer Category Payer Unknown BCBS BCBS [id number] 2023-[facility] [phone] [address] [place] [address] [id number] 2023 Unknown [id number] 2021 Unknown [id number] 2021 Private Health Insurance [id number] 2021 Self-pay [id number] 2020 Unknown [id number] 2019 Unknown [employer] [address] [id number] 2019-Present [phone] [address] [place] [address] [id number] 2014 Unknown [id number] [id number] [id number] 1993 Unknown [id number] [id number]. 2.173 1993 Unknown [id number] [id number]. 2.174 1993 Unknown [id number] 2.16.840.1.794731.3.579. 2.174 1993 Unknown [id number] 2.16.840.1.075176.3.579. 2.727 1993 Unknown [id number] 2.16.840.1.541740.3.579. 2.727 1993 Unknown [id number] 2.16.840.1.671094.3.579. 2.727 1993 Unknown [id number] 2.16.840.1.914128.3.579. 2.1259 1993 Unknown [id number] 2.16.840.1.073704.3.579. 2.1259 1993 Unknown [id number] 2.16.840.1.094790.3.579. 2.1259 1993 Unknown [id number] [id number]. 2.1259 Unknown [facility] [id number] Unknown [id number] [id number]. 2.531 Worker's Compensation [facility] [place] [id number] Social History Date Type Detail Facility Start: 10-23-2019 End: 03-05-2023 Tobacco smoking status NHIS Never smoker [employer] Start: 10-23-2019 End: 07-16-2022 Alcohol intake Current non-drinker of alcohol (finding) [employer] Phone: Start: 1995 Sex Assigned At Not on file M [employer] Phone: Exposure to SARS-CoV -2 (event) Unable to assess [employer] Start: 02-16-2020 End: 03-05-2023 Tobacco use and exposure Never used [employer] Exposure to SARS-CoV -2 (event) Not sure [employer] Phone: Start: 07-16-2022 History SDOH Financial 5 [employer] Phone: Start: 07-16-2022 History SDOH Food Worry 1 [employer] Phone: Start: 1995 Sex Assigned At Female F [facility] Start: 07-23-2023 End: 04-14-2024 Alcoholic beverage intake [...] JULIO CESAR Diaz documented in this encounter [facility] Progress note 03-30-2021 Note Date & Type Note Facility 03-30-2021 Note HNO ID: [id number] Author: Michael Lilly MD Service: ? Author [...] with more than 50% of the total [id number] time of the visit in counseling / [...] dilatation The pa (more content not included)... [facility] Discharge instructions 07-10-2019 InstructionsAttachments Note Date [...] be sent through Care Everywhere.Migraine Headache: Recurring (Kyrgyz)documented in this encounter [employer] Phone: Evaluation note Note Date & Type Note Facility Evaluation note Diagnosis Migraine with aura and with status migrainosus, not intractable- Primary Migraine with aura, with intractable migraine, so stated, with status migrainosus documented in this encounter [employer] Phone: Evaluation note Note Date & Type Note Facility Evaluation note Diagnosis Right sided numbness Blurred vision Other specified visual disturbances documented in this encounter [facility] Work Phone: Evaluation note Note Date & Type Note Facility Evaluation note Diagnosis Urticaria Urticaria, unspecified documented in this encounter [employer] Work Phone: Evaluation note Note Date & Type Note Facility Evaluation note No assessment information availa [facility] Work Phone: Evaluation note Note Date [...] Documents on File Type Date Recorded Patient Hospice Volunteer Expl anation Advance Directives and Living Will Power of Sat Tutor Documents on File Type Date Recorded Patient Hospice Volunteer Expl anation Advance Directives and Living Will Power of Sat Tutor Documents on File Type Date Recorded Patient Hospice Volunteer Expl anation ACP-Advance Directive ACP-Power of Sat Tutor Documents on File Type Date Recorded Patient Hospice Volunteer Expl anation ACP-Advance Directive ACP-Power of Sat Tutor Assessments Diagnosis Viral illness Unspecified viral infection, [...] TRANSVAGINAL Fiorella Abarca, DO [address] [place] [address] Status Reason Specialty Diagnoses / Procedures Referre d By Contact Referred To Contact Closed Radiology Diagnoses Right sided numbness Blurred vision Procedures MRI BRAIN W WO CONTRAST HC MRI-BRAIN WO & W CONTRAST Eliane Vilchis MD [address] [place] [address] Discharge Instructions * Instructions* Jeremiah Mcnair MD - 09/27/2020 Yolanda Ramos office personnel will contact you with regards to scheduling of your repeat hCG level ( test) * Attachments The following attachments cannot be sent through Care Everywhere. * : Abdominal Pain (Kyrgyz) documented in this encounter Additional Source Comments INFORMATION SOURCE (unrecogn ized section and content) DATE CREATED AUTHOR 12/31/2017 [facility] DATE CREATED AUTHOR AUTHOR'S ORGANIZ ATION 01/30/2018 [facility] DATE CREATED AUTHOR AUTHOR'S ORGANIZ ATION 09/29/2020 [facility] DATE CREATED AUTHOR AUTHOR'S ORGANIZ ATION 08/15/2021 [facility] DATE CREATED AUTHOR AUTHOR'S ORGANIZ ATION 07/24/2022 Jody gonzalez DATE CREATED AUTHOR AUTHOR'S ORGANIZ ATION 03/09/2023 [facility] DATE CREATED AUTHOR AUTHOR'S ORGANIZ ATION 05/01/2023 Andrew Ellis [facility] DATE CREATED AUTHOR AUTHOR'S ORGANIZ ATION 04/16/2024 [facility] [employer] Reason for Visit (unrecogniz ed section and content) Status Reason Specialty Diagnoses / Procedures Referre d By Contact Referred To Contact Closed Radiology Diagnoses Lower abdominal pain Amenorrhea Procedures US NON OB TRANSVAGINAL Fiorella Abarca, DO [address] [place] [address] Reason Comments Pelvic Pain onset approx 1 week ago, sent her by PCP for eval Status Reason Specialty Diagnoses / Procedures Referre d By Contact Referred To Contact Open Radiology Diagnoses Pelvic pain in female Less than 8 weeks gestation of Procedures US OB LESS THAN 14 WEEKS SINGLE OR FIRST GESTATION US PELVIS COMPLETE Yolanda Humphrey, SUPERVISOR [employer] - BUTT TRIMMER [address] [place] [address] Reason Comments Headache History of migraine headaches. Vomited one time today. Status Reason Specialty Diagnoses / Procedures Referre d By Contact Referred To Contact Closed Radiology Diagnoses Right sided numbness Blurred vision Procedures MRI BRAIN W WO CONTRAST HC MRI-BRAIN WO & W CONTRAST Eliane Vilchis MD [address] [place] [address] Reason Comments Follow-up Pt present today for f/up visit to review US results due to abdominal pain in early . Care Teams (unrecognized sec tion and content) Breastfeeding Program Coordinator Relationship Specialty Start Date End Date Fiorella Abarca DO [address] [place] [address] PCP - General 02/26/16 Breastfeeding Program Coordinator Relationship Specialty Start Date End Date Fiorella Abarca DO [address] [place] [address] PCP - General Internal Medicine 03/05/23 Breastfeeding Program Coordinator Relationship Specialty Start Date End Date Fiorella Abarca DO [address] [place] [phone] PCP - General Internal Medicine 03/05/23 Goals [...] ON THE PRIMARY CLINICAL RECORDS. [facility]. provides no warranty or guarantee of the accuracy or completeness of information in this document.
[2024-04-24 08:53] LABS: Basophils Percent Auto 0.1 % (0.2-2.0); Eosinophils Absolute Auto 0.1 10^3/uL (0.0-0.7); Eosinophils Percent Auto 1.8 % (0.9-7.0); Hemoglobin 13.4 g/dL (12.0-16.0); Immature Granulocytes Abs Auto 0.02 10^3/uL (0.00-0.03); Immature Granulocytes Pct Auto 0.3 % (0.0-0.5); Lymphocytes Absolute Auto 2.6 10^3/uL (1.2-3.8); Lymphocytes Percent Auto 33.7 % (20.5-60.0); Mean Corpuscular HGB Conc 35.3 g/dL (29.9-35.2); Mean Corpuscular Hemoglobin 29.9 pg (26.7-34.0); Mean Corpuscular Volume 84.8 fL (81.0-99.0); Mean Platelet Volume 9.5 fL (9.5-13.5); Monocytes Absolute Auto 0.4 10^3/uL (0.3-0.8); Monocytes Percent Auto 5.2 % (1.7-12.0); Neutrophils Absolute Auto 4.6 10^3/uL (1.4-6.5); Neutrophils Percent Auto 58.9 % (43.0-75.0); Platelet Count 335 10^3/uL (150-450); Red Blood Count 4.48 10^6/uL (4.20-5.40); Red Cell Distribution Width 12.7 % (11.0-15.0); White Blood Count 7.7 10^3/uL (4.0-11.0)
[2024-04-24] MEDS: 0.9 % SODIUM CHLORIDE 500 ML 50 ML IV (09:21)
[2024-04-24 09:30] LABS: HCG Quantitative 19354 mIU/mL
--- NOTE | 2024-04-24 11:03 | US_ITS ---
[address] [address] Patient Name: WAN EVANS MRN: [id number] date: 1995 Sex: F Assigned Patient Location: [facility] Current Patient Location: [facility] Accession/Order Number: [id number] Exam Date: 04/24/2024 11:40 Report Date: 04/24/2024 13:10 At the request of: SHANNAN HERNANDEZ Procedure: US pelvis EXAMINATION: US pelvis HISTORY: Missed AB COMPARISON: No relevant comparison available. FINDINGS: 2 images of the pelvis appear to demonstrate a prominent uterus. The endometrial cavity cannot be definitively determined US/US pelvis IMPRESSION: Limited imaging of the pelvis post D&C Electronically authenticated by: RADHA WILLINGHAM Date: 04/24/2024 13:10
--- NOTE | 2024-04-24 12:08 | PM.ONB ---
Brief Operative Note Date of procedure: 04/24/24 Pre-op diagnosis general: twin gestation, missed , first trimester Post-op diagnosis: same as pre-op Procedure: NAME OF PROCEDURE: [D&C suction ] PROCEDURE: The patient was taken back to the OR where she was given general anesthesia without difficulty. She was then placed in dorsal lithotomy position, prepped and draped in the normal sterile fashion. A weighted speculum was placed in the patient's vagina and the anterior lip of the cervix was identified and grasped with a single-tooth tenaculum. The patient was then gently dilated using Hegar dilators after we had sounded roughly to 12 cm. The suction curette was then tested. The suction curette was then placed in the patient's uterus and products of conception were removed using an 10-Maori suction curette. ?Excellent hemostasis was noted. The patient tolerated the procedure well. Sponge, lap, and needle counts were correct x 2. All instruments were then removed from the patient's vagina. The patient was taken to the Recovery Room in stable condition. ?? Anesthesia: KATHYA Surgeon: Lee Osorio Estimated blood loss (mL): 10 Pathology: other (poc) Condition: stable Disposition: PACU Urinary Catheter Management Urinary Catheter Management Urethral: Cath placed during this visit: no
[2024-04-24] MEDS: LACTATED RINGER'S SOLUTION 1,000 ML 125 ML IV (12:20)
[2024-04-24] MEDS: RHO(D) IMMUNE GLOBULIN 1,500 UNIT SYRINGE 1500 UNIT IM (12:35)
== END 2024-04-24 13:50 | disposition home or self-care (01) ==
PROVIDERS: PCP Student in an Organized Health Care Education/Training Program; Visit Provider Obstetrics & Gynecology
PROC: (CPT 1965; principal; 2024-04-24 09:55)
DX: O02.1 Missed abortion (principal); F17.200 Nicotine dependence, unspecified, uncomplicated
CPT/HCPCS: 59820; 36415; 76856; 84702; 85025; 88305; J1885; J2250; J2405; J2590; J2704; J2791; J3010